=== PATIENT | male | born 1970 | race Caucasian/White ===

== ENCOUNTER 2016-06-08 16:40 | Inpatient (IN) | payer OTHER ==
[2016-06-08 16:46] VITALS: BMI 20.1
--- NOTE | 2016-06-08 17:00 | PDOC ---
History of Present Illness - General Chief Complaint: Revisit, Lab Variance Stated Complaint: PCP SENT/BLOODWORK Time Seen by Provider: 06/08/16 16:56 History Source: Patient Exam Limitations: No Limitations - History of Present Illness Initial Comments: 06/08/16 17:07 Patient is a 46 year old male with significant PMH of Pseudomyxoma Peritonei, LLE clot, anemia who presents to ED from Oncologist Dr Stuart's office for low hemoglobin. He feels close to baseline, but states he has been a little more lethargic than usual. He has some mild lower extremity claudication when exerting himself. He also notes some mild lightheadedness at time in last few weeks. Denies shortness of breath or chest pain. Past History - Travel Traveled outside of the country in the last 30 days: No Close contact w/someone who was outside of country & ill: No - Past Medical History Allergies/Adverse Reactions: Allergies Allergy/AdvReac Type Severity Reaction Status Date / Time No Known Allergies Allergy Verified 06/08/16 16:41 Home Medications: Ambulatory Orders Warfarin Na [Coumadin -] 4 mg PO DAILY 05/28/12 [place] Carbonate [Eskalith -] 900 mg PO HS 02/20/16 Olanzapine 10 mg PO DAILY 02/20/16 Venlafaxine HCl [Effexor -] 225 mg PO DAILY 02/20/16 Ondansetron [Zofran Odt -] 4 mg SL TID #21 od.tablet 04/14/16 Pantoprazole Sodium [Protonix -] 40 mg PO DAILY #30 tablet.ec 04/14/16 Anemia: Yes Asthma: No Cancer: Yes (STOMACH CA, 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) Cardiac Disorders: No CVA: No COPD: No CHF: No DVT: Yes (LLE BLOOD CLOT 5 YEARS AGO) Dementia: No Diabetes: No GI Disorders: Yes Disorders: Yes (CDIFF 2013) HTN: No Hypercholesterolemia: No Liver Disease: No Seizures: No Thyroid Disease: No - Surgical History Abdominal Surgery: Yes (spleenectomy) Appendectomy: Yes Cardiac Surgery: No Cholecystectomy: No GI Surgery: Yes (for stomach cancer--pnp) Lung Surgery: No Neurologic Surgery: No Orthopedic Surgery: No - Immunization History Immunization Up to Date: Yes - Psycho/Social/Smoking Cessation Hx Anxiety: Yes (STRONG ANXIETY) Suicidal Ideation: No Smoking Status: No Smoking History: Never smoked Have you smoked in the past 12 months: No Number of Cigarettes Smoked Daily: 0 Cigars Per Day: 0 Hx Alcohol Use: No (RARE) Drug/Substance Use Hx: No Substance Use Type: None Hx Substance Use Treatment: No Review of Systems - Review of Systems Able to Perform ROS?: Yes Is the patient limited French proficient: No Constitutional: Yes: Diaphoresis, Weakness All Other Systems: Reviewed and Negative *Physical Exam - Vital Signs Last Vital Signs Temp Pulse Resp BP Pulse Ox 98.5 F 80 16 122/66 100 06/08/16 16:41 06/08/16 16:41 06/08/16 16:41 06/08/16 16:41 06/08/16 16:41 - Physical Exam General Appearance: Yes: Nourished, Appropriately Dressed, Thin HEENT: positive: EOMI, MICHAEL, Pharynx Normal Neck: positive: Trachea midline, Normal Thyroid, Supple Respiratory/Chest: positive: Lungs Clear, Normal Breath Sounds Cardiovascular: positive: Regular Rhythm, Regular Rate, S1, S2 Gastrointestinal/Abdominal: positive: Normal Bowel Sounds, Flat, Soft Musculoskeletal: positive: Normal Inspection Extremity: positive: Normal Inspection, Normal Range of Motion Integumentary: positive: Normal Color, Dry, Warm 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 Will transfuse if needed, pending lab findings. 06/08/16 18:18 Hemoglobin 5.1. Will transfuse 3units PRBC. Will likely need admission for observation given bleeding/cancer history. 06/08/16 18:[address] Addison about pending admission. 06/08/16 18:[address] Addison who agrees to admission to med-surg. *DC/Admit/Observation/Transfer Diagnosis at time of Disposition: Anemia - Discharge Dispostion Admit: Yes
[2016-06-08 18:03] LABS: BASOPHIL 0.9 % (0-2.0); MCH 21.1 pg (25.7-33.7); MCHC 28.6 g/dl (32.0-35.9); MEAN PLT VOLUME 8.4 fl (7.5-11.1); NEUTROPHILS 69.4 % (42.8-82.8); PLATELET COUNT 838 K/MM3 (134-434); RDW 18.7 % (11.9-15.9); WHITE BLOOD COUNT 12.1 K/mm3 (4.0-10.0)
[2016-06-08 18:36] LABS: ALBUMIN 3.2 g/dl (3.4-5.0); ALK PHOS 76 U/L (45-117); ANION GAP 5 (8-16); BILIRUBIN,TOTAL 0.1 mg/dL (0.2-1.0); CALCIUM 9.1 mg/dL (8.5-10.1); CO2 28 mmol/L (21-32); CREATININE 0.9 mg/dL (0.7-1.3); GLUCOSE,RANDOM 80 mg/dL (74-106); SGOT/AST 8 U/L (15-37); SGPT/ALT 11 U/L (12-78); TOT PROT 6.5 g/dl (6.4-8.2)
[2016-06-08 19:07] LABS: INR 1.59 (0.82-1.09); PROTHROMBIN TIME (PATIENT) 17.6 SEC (9.98-11.88)
[2016-06-08 19:18] LABS: URINE APPEARANCE CLOUDY; URINE BILIRUBIN NEGATIVE (NEGATIVE); URINE BLOOD NEGATIVE (NEGATIVE); URINE COLOR LTYELLOW; URINE GLUCOSE (UA) NEGATIVE (NEGATIVE); URINE KETONE NEGATIVE (NEGATIVE); URINE LEUK ESTERASE NEGATIVE (NEGATIVE); URINE NITRITE NEGATIVE (NEGATIVE); URINE PROTEIN NEGATIVE (NEGATIVE); URINE UROBILINOGEN NEGATIVE E.U./dl (0.2-1.0)
[2016-06-08 20:54] LABS: PLATELET ESTIMATE MOD INCREASED (NORMAL)
[2016-06-08 20:56] LABS: HYPOCHROMIA 2+; POIKILOCYTOSIS 1+; POLYCHROMASIA 1+
[2016-06-08 20:57] LABS: OVALOCYTES 1+; TARGET CELLS 1+
[2016-06-09] MEDS ORDERED: ACETAMINOPHEN 325 MG TABLET (FP) PO PRN (05:11)
[2016-06-09 09:06] LABS: MCH 23.6 pg (25.7-33.7); MCHC 31.5 g/dl (32.0-35.9); MEAN CELL VOLUME 74.9 fl (80-96); MEAN PLT VOLUME 8.4 fl (7.5-11.1); PLATELET COUNT 694 K/MM3 (134-434); WHITE BLOOD COUNT 11.4 K/mm3 (4.0-10.0)
[2016-06-09 09:25] LABS: ALBUMIN 2.8 g/dl (3.4-5.0); ANION GAP 7 (8-16); CALCIUM 8.9 mg/dL (8.5-10.1); CO2 26 mmol/L (21-32); GLUCOSE,RANDOM 87 mg/dL (74-106)
[2016-06-09 09:27] LABS: ALK PHOS 73 U/L (45-117); BILIRUBIN,TOTAL 1.6 mg/dL (0.2-1.0); CREATININE 0.7 mg/dL (0.7-1.3); SGOT/AST 10 U/L (15-37); SGPT/ALT 11 U/L (12-78); TOT PROT 6.2 g/dl (6.4-8.2)
[2016-06-09 10:03] LABS: INR 1.73 (0.82-1.09); PROTHROMBIN TIME (PATIENT) 19.3 SEC (9.98-11.88)
--- NOTE | 2016-06-09 10:36 | EKG ---
Test Reason : Blood Pressure : / mmHG Vent. Rate : 088 BPM Atrial Rate : 088 BPM P-R Int : 162 ms QRS Dur : 086 ms QT Int : 382 ms P-R-T Axes : 062 043 060 degrees QTc Int : 462 ms SINUS RHYTHM WITH OCCASIONAL PREMATURE VENTRICULAR COMPLEXES POSSIBLE LEFT ATRIAL ENLARGEMENT BORDERLINE ECG WHEN COMPARED WITH ECG OF 22-FEB-2016 08:20, PREMATURE VENTRICULAR COMPLEXES ARE NOW PRESENT T WAVE INVERSION NOW EVIDENT IN ANTERIOR LEADS QT HAS LENGTHENED Confirmed by NESTOR ANGUIANO MD ([id number]) on 06/09/2016 10:35:47 AM Referred By: Confirmed By:NESTOR ANGUIANO MD
[2016-06-09] MEDS: VENLAFAXINE HCL 75 MG E.R. CAPSULES (FP) PO SCH (10:45)
[2016-06-09] MEDS: OLANZapine 10 MG TABLET PO SCH (10:45)
[2016-06-09] MEDS: PANTOPRAZOLE 40 MG TABLET (FP) PO SCH (10:45)
[2016-06-09] MEDS ORDERED: INFLUENZA VACCINE 45 MCG/0.5 ML (MDV 16-17) IM ONE (11:00)
[2016-06-09 11:58] LABS: HYPOCHROMIA 4+
[2016-06-09 11:59] LABS: ANISOCYTOSIS 2+; FRAGMENTED CELL 2+; MICROCYTOSIS 1+; OVALOCYTES 1+; POLYCHROMASIA 1+; TARGET CELLS 2+
[2016-06-09 12:00] LABS: POIKILOCYTOSIS 1+
--- NOTE | 2016-06-09 15:55 | HP ---
Admitting History and Physical - Admission History of Present Illness: 46 year old male with significant PMH of Pseudomyxoma Peritonei, LLE clot, anemia who presents to ED from Oncologist Dr Sutart's office for low hemoglobin. He feels close to baseline, but states he has been a little more lethargic than usual. He has some mild lower extremity claudication when exerting himself. He also notes some mild lightheadedness at time in last few weeks. Denies shortness of breath or chest pain. - Past Medical History Pulmonary: Yes: Pulmonary Embolus Gastrointestinal: Yes: Cancer (appendiceal cancer), Other (Intestinal obstruction.) Heme/Onc: Yes: Anemia Infectious Disease: Yes: C-Diff - Past Surgical History Past Surgical History: Yes: Colectomy, Colonoscopy - Smoking History Smoking history: Never smoked Have you smoked in the past 12 months: No Aproximately how many cigarettes per day: 0 - Alcohol/Substance Use Hx Alcohol Use: No (RARE) Home Medications - Allergies Allergies/Adverse Reactions: Allergies Allergy/AdvReac Type Severity Reaction Status Date / Time No Known Allergies Allergy Verified 06/08/16 16:41 - Home Medications Home Medications: Ambulatory Orders Warfarin Na [Coumadin -] 4 mg PO DAILY 05/28/12 [place] Carbonate [Eskalith -] 900 mg PO HS 02/20/16 Olanzapine 10 mg PO DAILY 02/20/16 Venlafaxine HCl [Effexor -] 225 mg PO DAILY 02/20/16 Ondansetron [Zofran Odt -] 4 mg SL TID #21 od.tablet 04/14/16 Pantoprazole Sodium [Protonix -] 40 mg PO DAILY #30 tablet.ec 04/14/16 Review of Systems - Review of Systems Constitutional: reports: Weakness Cardiovascular: denies: Chest Pain Respiratory: denies: SOB Gastrointestinal: denies: Abdominal Pain Physical Examination Vital Signs: Vital Signs Temperature 97.7 F 06/09/16 14:51 Pulse Rate 91 H 06/09/16 14:51 Respiratory Rate 18 06/09/16 14:51 Blood Pressure 117/69 06/09/16 14:51 O2 Sat by Pulse Oximetry (%) 100 06/09/16 09:00 Cardiovascular: Yes: Regular Rate and Rhythm Respiratory: Yes: Regular, CTA Bilaterally Gastrointestinal: Yes: Normal Bowel Sounds, Soft Labs: CBC, BMP 06/09/16 06:30 06/09/16 06:30 Problem List - Problems (1) Anemia Assessment/Plan: S/P PRBC FOLLOW CBC HEM AND GI Code(s): D64.9 - ANEMIA, UNSPECIFIED (2) Mucinous adenocarcinoma of appendix Assessment/Plan: PER ONC Code(s): C18.1 - MALIGNANT NEOPLASM OF APPENDIX (3) Pulmonary embolism Assessment/Plan: COUMADIN Code(s): I26.99 - OTHER PULMONARY EMBOLISM WITHOUT ACUTE COR PULMONALE
[2016-06-09] MEDS ORDERED: WARFARIN NA 5 MG TABLET (UD) PO ONE (18:00)
[2016-06-09] MEDS ORDERED: PT OWN MED DRAWER 7, Y5N ONE (21:33)
[2016-06-09] MEDS ORDERED: LITHIUM CARBONATE 450 MG TABLET.ER PO SCH (22:00)
--- NOTE | 2016-06-09 23:24 | CONSULT ---
Consult - text type - Consultation Consultation Note: Patient is a 46 year old male with significant PMH of Pseudomyxoma Peritonei, LLE clot, anemia who presents with low hemoglobin. He feels close to baseline, but states he has been a little more lethargic than usual. He has some mild lower extremity claudication when exerting himself. He also notes some mild lightheadedness at time in last few weeks. Denies shortness of breath or chest pain. Dnies activ bleeding/abdominal pain. no urinary symptoms Past History pseudomyxoma pritonii diagnosed 2008, s/p multiple surgeris at [facility]--last 02/13 received chemotx at [facility] originally Has been noncompliant with follow up. last seen by us once in 2014 Patient was reluctant to receive any therapy and has not followed since then Depression Allergies/Adverse Reactions: Allergies Allergy/AdvReac Type Severity Reaction Status Date / Time No Known Allergies Allergy Verified 06/08/16 16:41 Home Medications: Ambulatory Orders Warfarin Na [Coumadin -] 4 mg PO DAILY 05/28/12 [place] Carbonate [Eskalith -] 900 mg PO HS 02/20/16 Olanzapine 10 mg PO DAILY 02/20/16 Venlafaxine HCl [Effexor -] 225 mg PO DAILY 02/20/16 Ondansetron [Zofran Odt -] 4 mg SL TID #21 od.tablet 04/14/16 Pantoprazole Sodium [Protonix -] 40 mg PO DAILY #30 tablet.ec 04/14/16 - Psycho/Social/Smoking Cessation Hx Anxiety: Yes (STRONG ANXIETY) Smoking History: Never smoked *Physical Exam - Vital Signs Last Vital Signs Temp Pulse Resp BP Pulse Ox 99.0 F 92 H 20 105/64 100 06/09/16 17:30 06/09/16 17:30 06/09/16 17:30 06/09/16 17:30 06/09/16 09:00 - Physical Exam General Appearance: Yes: Nourished, Appropriately Dressed, Thin HEENT: positive: EOMI, MICHAEL, Pharynx Normal Neck: positive: Trachea midline, Normal Thyroid, Supple Respiratory/Chest: positive: Lungs Clear, Normal Breath Sounds Cardiovascular: positive: Regular Rhythm, Regular Rate, S1, S2 Gastrointestinal/Abdominal: positive: Normal Bowel Sounds, Flat, Soft.healed incision Abnormal Lab Results 06/08/16 06/09/16 06/09/16 17:50 06:30 06:30 WBC 11.4 H RBC 3.66 L D Hgb 8.6 L D Hct 27.4 L D MCV 74.9 L MCHC 31.5 L RDW 17.0 H Plt Count 694 H Eosinophils % 5.0 H D Nucleated RBCs 1 H INR Anion Gap 7 L Total Bilirubin 1.6 H D AST 10 L D ALT 11 L Total Protein 6.2 L Albumin 2.8 L Crossmatch See Detail 06/09/16 09:00 WBC RBC Hgb Hct MCV MCHC RDW Plt Count Eosinophils % Nucleated RBCs INR 1.73 H Anion Gap Total Bilirubin AST ALT Total Protein Albumin Crossmatch A/P 46 y/o patiet with pseudmyxoma peritonei diagnosed 2008, s/p several resections , last in 02/13. Had received FOLFOX chemotherapy at [facility] originally. Gaetano was seen twice in our office and has not followed up since 2014 with us. He was seen on 06/07 and routine lab work revealed severe anemia Transfused 3 units Will transfuse additional unit if Hgb < 9 in am gi f/u no active bleesing Will get records from [facility] and decide on further course. Discussed the need for f/ose f/u and treatment wwith patient. PET-CT schedules d for next week will get palliative care and Dr. Pernell chavez
--- NOTE | 2016-06-10 08:07 | CON.GI ---
Consult Consult Specialty:: gastroenterology Referred by:: Dr Addison - History of Present Illness Chief Complaint: aanemia History of Present Illness: Patient was lost in follow-up. Patient was admitted because of severe anemia. He continues to have diarrhea. He denies dysphagia, abdominal pain, nausea and vomiting. He feels better after the blood transfusion. No chest pain, no loss of consciousness. EGD in 2014 revealed large gastric and duodenal ulcer, colonoscopy revealed a short colon with multiple anastomotic sites. Dx to pseudomyxoma peritonea May 2008--@ [facility]--appendectomy and spleenectomy and received chemotheraphy, 2011 and 2012 developed SBO , July 2013 underwent partial gastrectomy, colon resection and removal impanted lesions in bladder and peritoenum,pt lost i follow-up did not show up twice. He is persistently anemia, denies rectal bleedin, no weight loss , intermittent nausea. Medication list reviewed. Nausea intermittently Periumbilical pain Which feels crampy/colicky Which feels sharp for 3 weeks Diarrhea mostly every morning about 2-3 times a day, Positive for C.Diff on 11/27/13, not awaken during sleep- no relief after treatment of flagyl, Within a month of abdominal surgery pt was admitted at [facility] 12/07/13 for partial small bowel obstruction. pt was treated conservatively and was discharged with less abdominal pain and less diarrhea. At home pt developed recurrent diarrhea probably due to diet vs C.diff. Repeat C.diff was negative on 12/08/13 Appetite not decreased No vomiting No melena No hematochezia No diarrhea after taking antibiotics Not after travelling No constipation No recent weight loss No previous history of palpitations No dysuria - History Source History Provided By: Patient - Past Medical History Pulmonary: Yes: Pulmonary Embolus Gastrointestinal: Yes: Cancer (appendiceal cancer), Other (Intestinal obstruction.) Infectious Disease: Yes: C-Diff - Past Surgical History Past Surgical History: Yes: Colectomy, Colonoscopy - Alcohol/Substance Use Hx Alcohol Use: No (RARE) - Smoking History Smoking history: Never smoked Have you smoked in the past 12 months: No Aproximately how many cigarettes per day: 0 Home Medications - Allergies Allergies/Adverse Reactions: Allergies Allergy/AdvReac Type Severity Reaction Status Date / Time No Known Allergies Allergy Verified 06/08/16 16:41 - Home Medications Home Medications: Ambulatory Orders Warfarin Na [Coumadin -] 4 mg PO DAILY 05/28/12 [place] Carbonate [Eskalith -] 900 mg PO HS 02/20/16 Olanzapine 10 mg PO DAILY 02/20/16 Venlafaxine HCl [Effexor -] 225 mg PO DAILY 02/20/16 Ondansetron [Zofran Odt -] 4 mg SL TID #21 od.tablet 04/14/16 Pantoprazole Sodium [Protonix -] 40 mg PO DAILY #30 tablet.ec 04/14/16 Review of Systems - Review of Systems Constitutional: denies: Fever HENT: denies: Difficult Swallowing Neck: denies: Decreased ROM Cardiovascular: denies: Chest Pain Respiratory: denies: Cough Gastrointestinal: reports: Diarrhea. denies: Abdominal Pain, Constipation, Dysphagia, Rectal Bleeding, Vomiting Physical Exam-GI Vital Signs: Vital Signs Temperature 98.6 F 06/10/16 06:00 Pulse Rate 70 06/10/16 06:00 Respiratory Rate 20 06/10/16 06:00 Blood Pressure 96/61 06/10/16 06:00 O2 Sat by Pulse Oximetry (%) 100 06/09/16 21:00 Constitutional: Yes: No Distress Eyes: Yes: Conjunctiva Clear HENT: Yes: Atraumatic Neck: Yes: Trachea Midline Cardiovascular: Yes: Regular Rate and Rhythm Respiratory: Yes: CTA Bilaterally ...Palpate: Yes: Soft. No: Firm/Rigid, Guarding, Hepatomegaly, Mass, Pulsatile Mass, Splenomegaly, Tenderness Labs: CBC, BMP 06/09/16 06:30 06/09/16 06:30 INR, PTT INR 1.73 (0.82-1.09) H 06/09/16 09:00 Hepatic Panel Total Bilirubin 1.6 mg/dL (0.2-1.0) H D 06/09/16 06:30 AST 10 U/L (15-37) L D 06/09/16 06:30 ALT 11 U/L (12-78) L 06/09/16 06:30 Alkaline Phosphatase 73 U/L (45-117) 06/09/16 06:30 Albumin 2.8 g/dl (3.4-5.0) L 06/09/16 06:30 Problem List - Problems (1) Anemia Assessment/Plan: r/o occult gi bleeding, remote history of gastric and duodenal ulcer R> made aware to follow-up will need repeat EGD as an out patient Protonix 40mg daily stool guaiac Code(s): D64.9 - ANEMIA, UNSPECIFIED (2) 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 - SECONDARY MALIGNANT NEOPLASM OF RETROPERITON AND PERITONEUM (3) Diarrhea Code(s): R19.7 - DIARRHEA, UNSPECIFIED
--- NOTE | 2016-06-10 08:36 | DS ---
Physical Examination Vital Signs: Vital Signs Temperature 98.6 F 06/10/16 06:00 Pulse Rate 70 06/10/16 06:00 Respiratory Rate 20 06/10/16 06:00 Blood Pressure 96/61 06/10/16 06:00 O2 Sat by Pulse Oximetry (%) 100 06/09/16 21:00 Cardiovascular: Yes: Regular Rate and Rhythm Respiratory: Yes: Regular, CTA Bilaterally Gastrointestinal: Yes: Normal Bowel Sounds, Soft Labs: CBC, BMP 06/09/16 06:30 06/09/16 06:30 Discharge Summary Reason For Visit: ANEMIA/PSEUDOMYXOMA Current Active Problems Anemia (Acute) C. difficile colitis (Acute) Diarrhea (Acute) Leukocytosis (Acute) Malignant pseudomyxoma peritonei (Acute) Sepsis (Acute) Hospital Course: - Problems (1) Anemia Assessment/Plan: S/P PRBC FOLLOW CBC HEM AND GI Code(s): D64.9 - ANEMIA, UNSPECIFIED (2) Mucinous adenocarcinoma of appendix Assessment/Plan: PER ONC Code(s): C18.1 - MALIGNANT NEOPLASM OF APPENDIX (3) Pulmonary embolism Assessment/Plan: COUMADIN Code(s): I26.99 - OTHER PULMONARY EMBOLISM WITHOUT ACUTE COR PULMONALE - Instructions Diet, Activity, Other Instructions: Follow up with your MD as advised Referrals: Yuliana Addison MD [Primary Care Provider] - 1 Week Sade Estevez MD [Staff Physician] - 1 Week - Home Medications Comprehensive Discharge Medication List: Ambulatory Orders Warfarin Na [Coumadin -] 4 mg PO DAILY 05/28/12 [place] Carbonate [Eskalith -] 900 mg PO HS 02/20/16 Olanzapine 10 mg PO DAILY 02/20/16 Venlafaxine HCl [Effexor -] 225 mg PO DAILY 02/20/16 Ondansetron [Zofran Odt -] 4 mg SL TID #21 od.tablet 04/14/16 Pantoprazole Sodium [Protonix -] 40 mg PO DAILY #30 tablet.ec 04/14/16
[2016-06-10 08:57] LABS: MCH 23.7 pg (25.7-33.7); MCHC 31.5 g/dl (32.0-35.9); MEAN CELL VOLUME 75.3 fl (80-96); PLATELET COUNT 687 K/MM3 (134-434); RDW 17.2 % (11.9-15.9); WHITE BLOOD COUNT 9.6 K/mm3 (4.0-10.0)
[2016-06-10 09:11] LABS: INR 1.61 (0.82-1.09); PROTHROMBIN TIME (PATIENT) 17.9 SEC (9.98-11.88)
[2016-06-10 09:21] LABS: ANION GAP 8 (8-16); CALCIUM 8.8 mg/dL (8.5-10.1); CO2 24 mmol/L (21-32); CREATININE 0.6 mg/dL (0.7-1.3); GLUCOSE,RANDOM 74 mg/dL (74-106); SGOT/AST 10 U/L (15-37); SGPT/ALT 12 U/L (12-78)
[2016-06-10 09:23] LABS: ALK PHOS 82 U/L (45-117); BILIRUBIN,TOTAL 0.3 mg/dL (0.2-1.0); TOT PROT 6.3 g/dl (6.4-8.2)
[2016-06-10] MEDS ORDERED: PT OWN MED DRAWER 7, Y5N ONE (09:41)
[2016-06-10] MEDS: OLANZapine 10 MG TABLET PO SCH (09:42)
[2016-06-10] MEDS: PANTOPRAZOLE 40 MG TABLET (FP) PO SCH (09:42)
[2016-06-10] MEDS: VENLAFAXINE HCL 75 MG E.R. CAPSULES (FP) PO SCH (09:42)
[2016-06-10 09:52] LABS: PLATELET ESTIMATE INCREASED (NORMAL)
[2016-06-10 12:58] VITALS: BP 100/63; PULSE 84; TEMP 98.4
== END 2016-06-10 11:08 | disposition home or self-care (01) | DRG 812 ==
LOC: JER 16:40 → JERBED 19:09 → J8W 06-09 00:11
PROVIDERS: ADMIT Family Medicine; ATTEND Family Medicine
PROC: 30233N1 Transfusion of Nonautologous Red Blood Cells into Peripheral Vein, Percutaneous Approach (ICD-10-PCS; principal; 2016-06-08)
DX: D64.9 Anemia, unspecified (principal); F41.9 Anxiety disorder, unspecified; R19.7 Diarrhea, unspecified; Z85.89 Personal history of malignant neoplasm of other organs and systems; Z86.711 Personal history of pulmonary embolism
CPT/HCPCS: 36415; 36430; 80053; 81003; 82272; 85025; 85610; 86850; 86900; 86901; 86922; 93005; 93010; 99285-25; G0008; P9058; Q2037

== ENCOUNTER 2016-07-03 04:47 | Inpatient (IN) | payer OTHER ==
[2016-07-03 05:07] VITALS: BMI 18.3
[2016-07-03] MEDS ORDERED: PANTOPRAZOLE SODIUM 80 MG in SODIUM CHLORIDE 100 ML IVPB ONE (05:12)
--- NOTE | 2016-07-03 05:12 | PDOC ---
History of Present Illness - General History Source: Patient Exam Limitations: No Limitations - History of Present Illness Initial Comments: 07/03/16 05:43 The patient is a 46 year old male with a PMHx of pseudomyxoma peritonei, anemia , splenectomy, colectomy who presents to the ED via EMS with multiple episodes of coffee ground vomiting. Patient states that he has been losing weight for the past few months due to vomiting. He is unable to keep food down. He reports associated weakness. He denies black stool, bloody stool, diarrhea. He denies fever, chills. He denies chest pain, SOB. PCP: Dr. Yuliana Addison Thermal Spray Operator: Dr. Mitchell Rodriguez Oncologist: Dr. Sade Estevez <Corie Burrows - Last Filed: 07/03/16 05:43> <Tata Summers - Last Filed: 07/03/16 06:19> - General Chief Complaint: Coffee Ground Emesis Stated Complaint: NAUSEA, VOMITING Time Seen by Provider: 07/03/16 05:10 Past History <Corie Burrows - Last Filed: 07/03/16 05:43> - Past Medical History Anemia: Yes Asthma: No Cancer: Yes (APPENDICEAL CA, 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) Cardiac Disorders: No CVA: No COPD: No CHF: No DVT: Yes (LLE BLOOD CLOT 5 YEARS AGO) Dementia: No Diabetes: No GI Disorders: Yes (C-DIFF 2013) Disorders: Yes (CDIFF 2013) HTN: No Hypercholesterolemia: No Liver Disease: No Seizures: No Thyroid Disease: No - Surgical History Abdominal Surgery: Yes (spleenectomy, COLECTOMY, COLONSCOPY) Appendectomy: Yes Cardiac Surgery: No Cholecystectomy: No GI Surgery: Yes (for stomach cancer--pnp) Lung Surgery: No Neurologic Surgery: No Orthopedic Surgery: No - Immunization History Immunization Up to Date: Yes - Psycho/Social/Smoking Cessation Hx Anxiety: Yes (STRONG ANXIETY) Suicidal Ideation: No Smoking Status: No Smoking History: Never smoked Have you smoked in the past 12 months: No Number of Cigarettes Smoked Daily: 0 Cigars Per Day: 0 Hx Alcohol Use: No Drug/Substance Use Hx: No Substance Use Type: None Hx Substance Use Treatment: No <Tata Summers - Last Filed: 07/03/16 06:19> - Past Medical History Allergies/Adverse Reactions: Allergies Allergy/AdvReac Type Severity Reaction Status Date / Time No Known Allergies Allergy Verified 06/08/16 16:41 Home Medications: Ambulatory Orders Warfarin Na [Coumadin -] 4 mg PO DAILY 05/28/12 [place] Carbonate [Eskalith -] 900 mg PO HS 02/20/16 Venlafaxine HCl [Effexor -] 225 mg PO DAILY 02/20/16 Ondansetron [Zofran Odt -] 4 mg SL TID #21 od.tablet 04/14/16 Pantoprazole Sodium [Protonix -] 40 mg PO DAILY #30 tablet.ec 04/14/16 Review of Systems - Review of Systems Comments:: 07/03/16 05:43 GENERAL/CONSTITUTIONAL: + weakness. No fever or chills. HEAD, EYES, EARS, NOSE AND THROAT: No change in vision. No ear pain or discharge. No sore throat. CARDIOVASCULAR: No chest pain or shortness of breath. RESPIRATORY: No cough, wheezing, or hemoptysis. GASTROINTESTINAL: + nausea, vomiting, No diarrhea or constipation. GENITOURINARY: No dysuria, frequency, or change in urination. MUSCULOSKELETAL: No joint or muscle swelling or pain. No neck or back pain. SKIN: No rash NEUROLOGIC: No headache, vertigo, loss of consciousness, or change in strength/ sensation. ENDOCRINE: No increased thirst. No abnormal weight change. HEMATOLOGIC/LYMPHATIC: No anemia, easy bleeding, or history of blood clots. ALLERGIC/IMMUNOLOGIC: No hives or skin allergy. <Corie Burrows - Last Filed: 07/03/16 05:43> *Physical Exam - Vital Signs Last Vital Signs Temp Pulse Resp BP Pulse Ox 98.7 F 94 H 20 108/66 98 07/03/16 05:04 07/03/16 05:04 07/03/16 05:04 07/03/16 05:04 07/03/16 05:07 - Physical Exam Comments: 07/03/16 05:43 GENERAL: Awake, alert, and fully oriented, pale, thin. HEAD: No signs of trauma EYES: PERRLA, EOMI, sclera anicteric, conjunctiva clear ENT: Auricles normal inspection, hearing grossly normal, nares patent, oropharynx clear without exudates. Moist mucosa NECK: Normal ROM, supple, no lymphadenopathy, JVD, or masses LUNGS: Breath sounds equal, clear to auscultation bilaterally. No wheezes, and no crackles HEART: Tachycardic rate and regular rhythm, normal S1 and S2, no murmurs, rubs or gallops ABDOMEN: Mid abdominal scar from prior surgery (xiphoid to suprapubic). Soft, nontender, normoactive bowel sounds. No guarding, no rebound. No masses EXTREMITIES: Normal range of motion, no edema. No clubbing or cyanosis. No cords, erythema, or tenderness NEUROLOGICAL: Cranial nerves II through XII grossly intact. Normal speech, normal gait SKIN: Warm, Dry, normal turgor, no rashes or lesions noted. <Corie Burrows - Last Filed: 07/03/16 05:43> - Vital Signs Last Vital Signs Temp Pulse Resp BP Pulse Ox 98.7 F 94 H 20 108/66 98 07/03/16 05:04 07/03/16 05:04 07/03/16 05:04 07/03/16 05:04 07/03/16 05:07 <Tata Summers - Last Filed: 07/03/16 06:19> ED Treatment Course - LABORATORY CBC & Chemistry Diagram: 07/03/16 05:20 07/03/16 05:20 - Medications Given in the ED: ED Medications Discontinued Medications Generic Name Dose Route Start Last Admin Trade Name Freq PRN Reason Stop Dose Admin Pantoprazole Sodium 80 mg/ 100 mls @ 200 mls/hr 07/03/16 05:12 07/03/16 05:33 Sodium Chloride IVPB 07/03/16 05:41 200 mls/hr ONCE ONE Administration <Corie Burrows - Last Filed: 07/03/16 05:43> - LABORATORY CBC & Chemistry Diagram: 07/03/16 05:20 07/03/16 05:20 <Tata Summers - Last Filed: 07/03/16 06:19> Medical Decision Making - Medical Decision Making 07/03/16 06:13 Pt comes with vomting and weight loss and generalized weakness. He states that he is unable to eat and keep food down. Pt is tachycardic. He has no bloody stools or bloody vomitius. He has a history of pseudotumor peritomeii, with appendectomy, splenectomy and partial gastrectomy. Pt has had DVTs in the past and he is on coumadin. His INR is 8 and he will be given Vit K IV. He is A+Ox3 with a normal neuro exam, and I am not worried about a bleed in the brain, so I will not order a head CT. If he has mental status change, head CT needs to be considered. Pt has a soft NT, ND abd and flank. No need for CT abd pelvis. Pt's CXR is clear. His WBC is 16; unclear if it is just stress reaction. Dr. Tripp aware of the patient, he is covering for Dr. Addison. <Tata Summers - Last Filed: 07/03/16 06:19> *DC/Admit/Observation/Transfer - Attestations Scribe Attestion: 07/03/16 05:44 Documentation prepared by Corie Burrows, acting as medical reception for Tata Summers MD. <Corie Burrows - Last Filed: 07/03/16 05:43> - Discharge Dispostion Admit: Yes <Tata Summers - Last Filed: 07/03/16 06:19> Diagnosis at time of Disposition: Elevated international normalized ratio (INR), Dehydration, Vomiting, Weight loss, Weakness, Anemia - Discharge Dispostion Condition at time of disposition: Guarded - Referrals Referrals: Yuliana Addison MD [Primary Care Provider] -
[2016-07-03] MEDS ORDERED: PANTOPRAZOLE SODIUM 40 MG VIAL ONE (05:26)
[2016-07-03 05:29] LABS: BASOPHIL 0.4 % (0-2.0); EOSINOPHIL 0.2 % (0-4.5); MCH 23.2 pg (25.7-33.7); MCHC 31.7 g/dl (32.0-35.9); MEAN CELL VOLUME 73.4 fl (80-96); MEAN PLT VOLUME 8.3 fl (7.5-11.1); NEUTROPHILS 81.1 % (42.8-82.8); PLATELET COUNT 730 K/MM3 (134-434); RDW 20.5 % (11.9-15.9); WHITE BLOOD COUNT 16.2 K/mm3 (4.0-10.0)
[2016-07-03] MEDS ORDERED: FOLIC ACID INJECTION - 1 MG, THIAMINE HCL 100 MG, MULTIVIT INJECTION ADULT 10 ML in SOD... IVPB ONE (05:33)
[2016-07-03] MEDS ORDERED: SODIUM CHLORIDE 0.9% 500 ML INFUS.BAG IV ONE (05:34)
[2016-07-03 05:41] LABS: PROTHROMBIN TIME (PATIENT) 92.1 SEC (9.98-11.88)
[2016-07-03 05:47] LABS: INR 8.02 (0.82-1.09)
[2016-07-03 05:50] LABS: ALBUMIN 3.5 g/dl (3.4-5.0); ALK PHOS 96 U/L (45-117); ANION GAP 7 (8-16); BILIRUBIN,TOTAL 0.3 mg/dL (0.2-1.0); CALCIUM 9.8 mg/dL (8.5-10.1); CO2 42 mmol/L (21-32); CREATININE 1.1 mg/dL (0.7-1.3); GLUCOSE,RANDOM 175 mg/dL (74-106); SGOT/AST 8 U/L (15-37); SGPT/ALT 12 U/L (12-78); TOT PROT 7.1 g/dl (6.4-8.2)
[2016-07-03] MEDS ORDERED: PHYTONADIONE 10 MG/1 ML AMP IVPB ONE (05:53)
[2016-07-03] MEDS ORDERED: PHYTONADIONE 10 MG/1 ML AMP ONE (05:57)
[2016-07-03] MEDS ORDERED: ONDANSETRON *ODT* 4 MG TABLET SL PRN (08:22)
[2016-07-03] MEDS ORDERED: ACETAMINOPHEN 325 MG TABLET (FP) PO PRN (08:22)
[2016-07-03] MEDS ORDERED: PT OWN MED DRAWER 7, Y5N ONE ×3 (09:20→21:20)
[2016-07-03 09:56] LABS: INR 2.88 (0.82-1.09); PROTHROMBIN TIME (PATIENT) 32.4 SEC (9.98-11.88)
[2016-07-03] MEDS ORDERED: PANTOPRAZOLE 40 MG TABLET (FP) PO SCH (10:00)
--- NOTE | 2016-07-03 10:32 | HP ---
Admitting History and Physical - Primary Care Physician PCP: Yuliana Addison - Admission Chief Complaint: COFFEE GROUND VOMIT/INR 8.0 AND HIGHER History of Present Illness: The patient is a 46 year old male with a PMHx of pseudomyxoma peritonei, anemia , splenectomy, colectomy who presents to the ED via EMS with multiple episodes of coffee ground vomiting. Patient states that he has been losing weight for the past few months due to vomiting. He is unable to keep food down. He reports associated weakness. He denies black stool, bloody stool, diarrhea. He denies fever, chills. He denies chest pain, SOB. PCP: Dr. Yuliana Addison Senior Linux Engineer: Dr. Mitchell Rodriguez Oncologist: Dr. Sade Estevez History Source: Patient Limitations to Obtaining History: No Limitations - Past Medical History Pulmonary: Yes: Pulmonary Embolus Gastrointestinal: Yes: Cancer (appendiceal cancer), Other (Intestinal obstruction.) Heme/Onc: Yes: Anemia, Cancer, Other Infectious Disease: Yes: C-Diff - Past Surgical History Past Surgical History: Yes: Colectomy, Colonoscopy - Smoking History Smoking history: Never smoked Have you smoked in the past 12 months: No Aproximately how many cigarettes per day: 0 - Alcohol/Substance Use Hx Alcohol Use: No Home Medications - Allergies Allergies/Adverse Reactions: Allergies Allergy/AdvReac Type Severity Reaction Status Date / Time No Known Allergies Allergy Verified 06/08/16 16:41 - Home Medications Home Medications: Ambulatory Orders Warfarin Na [Coumadin -] 4 mg PO DAILY 05/28/12 [place] Carbonate [Eskalith -] 900 mg PO HS 02/20/16 Venlafaxine HCl [Effexor -] 225 mg PO DAILY 02/20/16 Ondansetron [Zofran Odt -] 4 mg SL TID #21 od.tablet 04/14/16 Pantoprazole Sodium [Protonix -] 40 mg PO DAILY #30 tablet.ec 04/14/16 Review of Systems - Review of Systems Constitutional: reports: Weakness Eyes: reports: No Symptoms HENT: reports: No Symptoms Neck: reports: No Symptoms Cardiovascular: reports: No Symptoms Respiratory: reports: No Symptoms Gastrointestinal: reports: Vomiting, Other Genitourinary: reports: No Symptoms Musculoskeletal: reports: No Symptoms Integumentary: reports: No Symptoms Neurological: reports: No Symptoms Endocrine: reports: No Symptoms Hematology/Lymphatic: reports: No Symptoms Psychiatric: reports: No Symptoms Physical Examination Vital Signs: Vital Signs Temperature 98.7 F 07/03/16 05:04 Pulse Rate 94 H 07/03/16 05:04 Respiratory Rate 20 07/03/16 05:04 Blood Pressure 108/66 07/03/16 05:04 O2 Sat by Pulse Oximetry (%) 98 07/03/16 05:07 Constitutional: Yes: Mild Distress Eyes: Yes: WNL HENT: Yes: WNL Neck: Yes: WNL Cardiovascular: Yes: WNL Respiratory: Yes: WNL Gastrointestinal: Yes: WNL Renal/: Yes: WNL Musculoskeletal: Yes: WNL Extremities: Yes: WNL Edema: No Peripheral Pulses WNL: Yes Integumentary: Yes: WNL Wound/Incision: Yes: Clean/Dry Neurological: Yes: WNL ...Motor Strength: WNL Psychiatric: Yes: WNL Problem List - Problems (1) Anemia Code(s): D64.9 - ANEMIA, UNSPECIFIED Qualifiers: Other causes of anemia: chronic disease, other (2) Dehydration Code(s): E86.0 - DEHYDRATION (3) Elevated INR Code(s): R79.1 - ABNORMAL COAGULATION PROFILE (4) Generalized weakness Code(s): R53.1 - WEAKNESS (5) Leukocytosis Code(s): D72.829 - ELEVATED WHITE BLOOD CELL COUNT, UNSPECIFIED (6) Vomiting Code(s): R11.10 - VOMITING, UNSPECIFIED Qualifiers: Vomiting Intractability: unspecified Nausea presence: with nausea (7) Weight loss Code(s): R63.4 - ABNORMAL WEIGHT LOSS Assessment/Plan COUMADIN ON HOLD GI AND HEMATOLOGY EVAL IVF CHECK LABS NEURO CHECKS FOR INR ELEVATION ANTI-EMETICS FOR NAUSEA CLEAR DIET FOR NOW
[2016-07-03] MEDS ORDERED: ONDANSETRON 4 MG/2 ML VIAL IVPB PRN (10:36)
--- NOTE | 2016-07-03 10:36 | PN ---
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 (short form) - Note 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: ADDENDUM CHANGE TO CLEAR LIQUID DIET GI EVAL FOR EGD IN MORNING PROTONIX IV BID ZOFRAN IV AND SL IVF Problem List - Problems (1) Anemia Code(s): D64.9 - ANEMIA, UNSPECIFIED Qualifiers: Other causes of anemia: chronic disease, other (2) Dehydration Code(s): E86.0 - DEHYDRATION (3) Elevated INR Code(s): R79.1 - ABNORMAL COAGULATION PROFILE (4) Generalized weakness Code(s): R53.1 - WEAKNESS (5) Leukocytosis Code(s): D72.829 - ELEVATED WHITE BLOOD CELL COUNT, UNSPECIFIED (6) Vomiting Code(s): R11.10 - VOMITING, UNSPECIFIED Qualifiers: Vomiting Intractability: unspecified Nausea presence: with nausea (7) Weight loss Code(s): R63.4 - ABNORMAL WEIGHT LOSS
[2016-07-03] MEDS: VENLAFAXINE HCL 75 MG E.R. CAPSULES (FP) PO SCH (10:42)
--- NOTE | 2016-07-03 13:26 | CONSULT ---
Consult - text type - Consultation Consultation Note: ONCOLOGY NOTE - Primary Care Physician PCP: Yuliana Addison - Admission Chief Complaint: COFFEE GROUND VOMIT/INR 8.0 AND HIGHER History of Present Illness: 46 yr old male here with nausea, vomitting and ? coffee ground emesis. He has had pseudomyxoma peritonei since 2009 and has had 4 surgeries removing them the last one in 2016. He also had chemotherapy for the same in 2013. His primary surgeon is in [place] and he gets regular screening CT scan. For the past few weeks he has been losing weight with nausea and vomitting. This worsened over the last few days that yesterday when he tried to drop his he couldnt even pick himself from the floor. Hence he came here. He is very stressed from his cancer and that he is sometimes unable to do things for himself. He does not drink and he is surprised why his INR went as high as 8. He is on coumadin for a prior DVT PCP: Dr. Yuliana Addison Major Assembler: Dr. Mitchell Rodriguez Oncologist: Dr. Sade Estevez History Source: Patient Limitations to Obtaining History: No Limitations - Past Medical History Pulmonary: Yes: Pulmonary Embolus Gastrointestinal: Yes: Cancer (appendiceal cancer), Other (Intestinal obstruction.) Heme/Onc: Yes: Anemia, Cancer, Other Infectious Disease: Yes: C-Diff - Past Surgical History Past Surgical History: Yes: Colectomy, Colonoscopy - Smoking History Smoking history: Never smoked Have you smoked in the past 12 months: No Aproximately how many cigarettes per day: 0 - Alcohol/Substance Use Hx Alcohol Use: No Home Medications - Allergies Allergies/Adverse Reactions: Allergies Allergy/AdvReac Type Severity Reaction Status Date / Time No Known Allergies Allergy Verified 06/08/16 16:41 - Home Medications Home Medications: Ambulatory Orders Warfarin Na [Coumadin -] 4 mg PO DAILY 05/28/12 [place] Carbonate [Eskalith -] 900 mg PO HS 02/20/16 Venlafaxine HCl [Effexor -] 225 mg PO DAILY 02/20/16 Ondansetron [Zofran Odt -] 4 mg SL TID #21 od.tablet 04/14/16 Pantoprazole Sodium [Protonix -] 40 mg PO DAILY #30 tablet.ec 04/14/16 Review of Systems - Review of Systems Constitutional: reports: Weakness Eyes: reports: No Symptoms HENT: reports: No Symptoms Neck: reports: No Symptoms Cardiovascular: reports: No Symptoms Respiratory: reports: No Symptoms Gastrointestinal: reports: Vomiting, Other Genitourinary: reports: No Symptoms Musculoskeletal: reports: No Symptoms Integumentary: reports: No Symptoms Neurological: reports: No Symptoms Endocrine: reports: No Symptoms Hematology/Lymphatic: reports: No Symptoms Psychiatric: reports: No Symptoms Active Medications Generic Name Dose Route Start Last Admin Trade Name Freq PRN Reason Stop Dose Admin Acetaminophen 650 mg 07/03/16 08:22 Tylenol - PO Q6H PRN FEVER OR PAIN Folic Acid 1 mg/ Thiamine HCl 1,000 mls @ 125 mls/hr 07/03/16 05:33 07/03/16 09 :21 100 mg/ Multivitamins/Minerals IVPB 07/03/16 13:32 125 mls/hr 10 ml/ Sodium Chloride ONCE ONE Administration Pantoprazole Sodium 100 mls @ 200 mls/hr 07/03/16 22:00 Protonix 40mg Ivpb (Pre-Docked) IVPB BID IZABELLA [place] Carbonate 900 mg 07/03/16 22:00 Eskalith - PO HS IZABELLA Ondansetron HCl 8 mg 07/03/16 10:36 Zofran Injection IVPB Q6H PRN NAUSEA Venlafaxine HCl 225 mg 07/03/16 10:00 07/03/16 10:42 Effexor Xr - PO 225 mg DAILY IZABELLA Administration Physical Examination Vital Signs: Vital Signs Period Temp Pulse Resp BP Sys/Conte Pulse Ox Last 24 Hr 98 F-98.7 F 90-94 18-20 108-114/62-66 98-100 Constitutional: Yes: Mild Distress Eyes: Yes: WNL HENT: Yes: WNL Neck: Yes: WNL Cardiovascular: Yes: WNL Respiratory: Yes: WNL Gastrointestinal: Yes: WNL Renal/: Yes: WNL Musculoskeletal: Yes: WNL Extremities: Yes: WNL Edema: No Peripheral Pulses WNL: Yes Integumentary: Yes: WNL Neurological: Yes: WNL ...Motor Strength: WNL Psychiatric: Yes: WNL Abdomen- midline scar present Problem List 46 yr old with psuedomyxoma peritonei and here with nausea, vomitting and a high INR -Needs CT A/P -He feels better after the IV fluids -It is likely that his pain is form his recurrent surgeries due to adhesions or form a recurrence of pseudomyxoma - agree with GI eval -INR now better at 2.8 and is therapeutic -Hold coumadin for now as he can be potentially going to procedures if needed in the next day or so. - Problems (1) Anemia Code(s): D64.9 - ANEMIA, UNSPECIFIED Qualifiers: Other causes of anemia: chronic disease, other (2) Dehydration Code(s): E86.0 - DEHYDRATION (3) Elevated INR Code(s): R79.1 - ABNORMAL COAGULATION PROFILE (4) Generalized weakness Code(s): R53.1 - WEAKNESS (5) Leukocytosis Code(s): D72.829 - ELEVATED WHITE BLOOD CELL COUNT, UNSPECIFIED (6) Vomiting Code(s): R11.10 - VOMITING, UNSPECIFIED Qualifiers: Vomiting Intractability: unspecified Nausea presence: with nausea (7) Weight loss Code(s): R63.4 - ABNORMAL WEIGHT LOSS
--- NOTE | 2016-07-03 17:48 | CON.GI ---
Consult Consult Specialty:: GI Referred by:: Dr Addison Reason for Consultation:: chronic vomiting - History of Present Illness Chief Complaint: chronic vomiting History of Present Illness: 46 M with h/o pseudomyxoma peritoneii, anemia, s/p splenectomy, year old male with a PMHx of pseudomyxoma peritonei, anemia, splenectomy, colectomy who presents to the ED via EMS with multiple episodes of coffee ground vomiting. Patient states that he has been losing weight (30 lbs in past few months) He states he became profoundly weak on the day of admission and needed to be carried to the ambulance stretcher due to muscle weakness. Since admission, he has received a banana bag and states he feels much better. He is now tolerating a small amount of po. He is very anemic with Hgb 7.7 but he was admitted this past January and June with Hgb of 5. He is profoundly depressed and states suicide attempt this past summer. He is under psychiatric care at this time and is on high dose Effexor and [place]. - History Source History Provided By: Patient, Medical Record Limitations to Obtaining History: No Limitations - Past Medical History Pulmonary: Yes: Pulmonary Embolus Gastrointestinal: Yes: Cancer (appendiceal cancer), Other (Intestinal obstruction.) Infectious Disease: Yes: C-Diff - Past Surgical History Past Surgical History: Yes: Colectomy, Colonoscopy - Alcohol/Substance Use Hx Alcohol Use: No - Smoking History Smoking history: Never smoked Have you smoked in the past 12 months: No Aproximately how many cigarettes per day: 0 Home Medications - Allergies Allergies/Adverse Reactions: Allergies Allergy/AdvReac Type Severity Reaction Status Date / Time No Known Allergies Allergy Verified 06/08/16 16:41 - Home Medications Home Medications: Ambulatory Orders Warfarin Na [Coumadin -] 4 mg PO DAILY 05/28/12 [place] Carbonate [Eskalith -] 900 mg PO HS 02/20/16 Venlafaxine HCl [Effexor -] 225 mg PO DAILY 02/20/16 Ondansetron [Zofran Odt -] 4 mg SL TID #21 od.tablet 04/14/16 Pantoprazole Sodium [Protonix -] 40 mg PO DAILY #30 tablet.ec 04/14/16 Physical Exam-GI Vital Signs: Vital Signs Temperature 98.3 F 07/03/16 17:16 Pulse Rate 79 07/03/16 17:16 Respiratory Rate 20 07/03/16 17:16 Blood Pressure 109/60 07/03/16 17:16 O2 Sat by Pulse Oximetry (%) 100 07/03/16 09:04 Constitutional: Yes: Pallor, Thin HENT: Yes: Normocephalic Neck: Yes: Supple Cardiovascular: Yes: Regular Rate and Rhythm Respiratory: Yes: CTA Bilaterally ...Auscultate: Yes: Normoactive Bowel Sounds ...Palpate: Yes: Soft. No: Tenderness Labs: INR, PTT INR 2.88 (0.82-1.09) H D 07/03/16 08:30 CBC, BMP 07/03/16 05:20 07/03/16 05:20 Assessment/Plan 46 M with above history admitted with upper GI obstructive symptoms suggesting either adhesions or tumor-related problem. Recommend CT with IV contrast. Continue diet, to take as tolerated. Profound weakness suggests possible Mg/Phos depletion. Will check levels and supplement as needed At earliest convenience he should return to [place] for definitive management of this unusual, difficult problem. He is under the care of Dr Neal (Surgery) who told him on 06/29 that he may need further surgery and/or chemo. He feels his current problem is related to his malignancy. Will do EGD once CT reviewed. GI bleeding secondary to Latasha Gabriel tear. Should resolve spontaneously. Continue PPI BID
--- NOTE | 2016-07-03 19:35 | EKG ---
Test Reason : Blood Pressure : / mmHG Vent. Rate : 100 BPM Atrial Rate : 100 BPM P-R Int : 202 ms QRS Dur : 086 ms QT Int : 398 ms P-R-T Axes : 064 047 085 degrees QTc Int : 513 ms POOR DATA QUALITY, INTERPRETATION MAY BE ADVERSELY AFFECTED NORMAL SINUS RHYTHM POSSIBLE LEFT ATRIAL ENLARGEMENT NONSPECIFIC T WAVE ABNORMALITY ABNORMAL ECG WHEN COMPARED WITH ECG OF 08-JUN-2016 18:25, PREMATURE VENTRICULAR COMPLEXES ARE NO LONGER PRESENT NONSPECIFIC T WAVE ABNORMALITY IS NOW PRESENT Confirmed by LAI GARCIA MD ([id number]) on 07/03/2016 7:35:30 PM Referred By: Confirmed By:LAI GARCIA MD
[2016-07-03] MEDS: LITHIUM CARBONATE 300 MG CAPSULE (FP) PO SCH (21:18)
[2016-07-03] MEDS: PANTOPRAZOLE SODIUM 100 ML IVPB SCH (21:18)
[2016-07-04 07:47] LABS: MCH 22.9 pg (25.7-33.7); MCHC 29.6 g/dl (32.0-35.9); MEAN CELL VOLUME 77.3 fl (80-96); MEAN PLT VOLUME 8.9 fl (7.5-11.1); PLATELET COUNT 555 K/MM3 (134-434); RDW 19.9 % (11.9-15.9); WHITE BLOOD COUNT 11.2 K/mm3 (4.0-10.0)
[2016-07-04 08:02] LABS: INR 1.29 (0.82-1.09); PROTHROMBIN TIME (PATIENT) 14.3 SEC (9.98-11.88)
[2016-07-04 08:39] LABS: ALBUMIN 2.7 g/dl (3.4-5.0); ANION GAP 6 (8-16); CALCIUM 8.6 mg/dL (8.5-10.1); CO2 31 mmol/L (21-32); CREATININE 0.7 mg/dL (0.7-1.3); GLUCOSE,RANDOM 71 mg/dL (74-106); MAGNESIUM 2.4 mg/dL (1.8-2.4); PHOSPHOROUS 2.5 mg/dL (2.5-4.9); SGOT/AST 7 U/L (15-37); SGPT/ALT 9 U/L (12-78)
[2016-07-04 08:41] LABS: ALK PHOS 71 U/L (45-117); BILIRUBIN,TOTAL 0.4 mg/dL (0.2-1.0); TOT PROT 5.6 g/dl (6.4-8.2)
[2016-07-04 09:39] LABS: HYPOCHROMIA 2+; PLATELET ESTIMATE INCREASED (NORMAL); POLYCHROMASIA FEW
[2016-07-04 09:40] LABS: ACANTHOCYTES 1+; ANISOCYTOSIS 2+; FRAGMENTED CELL 1+; POIKILOCYTOSIS 2+; TARGET CELLS 3+
--- NOTE | 2016-07-04 09:54 | CONSULT ---
Consult Consult Specialty:: Infectious Disease Referred by:: Dr. Beasley Reason for Consultation:: Leukocytosis - History of Present Illness Chief Complaint: Elevated INR/Coffee ground emesis History of Present Illness: this is a 46M with a PMH of pseudomyxoma peritoneii s/p multiple abdominal surgeries including splenectomy and colectomy s/p chemotherapy last round completed in 2013, anemia s/p multiple transfusions in the past, LLE DVT on coumadin presented to the ER yesterday with a chief complaint of multiple episodes of coffee grounds emesis. He was found to have a supratherapeutic INR of 8 on presentation as well. he denies drinking alcohol or changing his diet and is unsure as to why his INR was so high. He states he has also been feeling very weak as well. He states after he received a banana bag he felt much better. He also endorses a 30lbs weight loss over the past 5 months. He denies blood per rectum or gibson tarry stools. on initial presentation he met SIRS criteria with leukocystosis and HR >90. He currently denies nausea vomiting fevers chills chest pain or shortness of breath. He states all his symptoms have resolved and would like to go home. On laboratory assessment this morning he was found to have a Hb of 5.8. Patient states he currently does not wish to harm himself. - History Source History Provided By: Patient Limitations to Obtaining History: No Limitations - Past Medical History Pulmonary: Yes: Pulmonary Embolus Gastrointestinal: Yes: Cancer (appendiceal cancer), Other (Intestinal obstruction.) Infectious Disease: Yes: C-Diff - Past Surgical History Past Surgical History: Yes: Colectomy, Colonoscopy, Splenectomy - Alcohol/Substance Use Hx Alcohol Use: No - Smoking History Smoking history: Never smoked Have you smoked in the past 12 months: No Aproximately how many cigarettes per day: 0 Home Medications - Allergies Allergies/Adverse Reactions: Allergies Allergy/AdvReac Type Severity Reaction Status Date / Time No Known Allergies Allergy Verified 06/08/16 16:41 - Home Medications Home Medications: Ambulatory Orders Warfarin Na [Coumadin -] 4 mg PO DAILY 05/28/12 [place] Carbonate [Eskalith -] 900 mg PO HS 02/20/16 Venlafaxine HCl [Effexor -] 225 mg PO DAILY 02/20/16 Ondansetron [Zofran Odt -] 4 mg SL TID #21 od.tablet 04/14/16 Pantoprazole Sodium [Protonix -] 40 mg PO DAILY #30 tablet.ec 04/14/16 Review of Systems - Review of Systems Constitutional: reports: Loss of Appetite, Malaise, Unintentional Wgt. Loss, Weakness Eyes: reports: No Symptoms HENT: reports: No Symptoms Neck: reports: No Symptoms Cardiovascular: reports: No Symptoms Respiratory: reports: No Symptoms Gastrointestinal: reports: Abdominal Pain, Bloating, Nausea, Vomiting Blood, Other (Poor oral intake) Genitourinary: reports: No Symptoms Musculoskeletal: reports: No Symptoms Integumentary: reports: No Symptoms Neurological: reports: No Symptoms Endocrine: reports: Unexplained Weight Loss Physical Exam Vital Signs: Vital Signs Temperature 97.9 F 07/04/16 06:46 Pulse Rate 91 H 07/04/16 06:46 Respiratory Rate 18 07/04/16 06:46 Blood Pressure 114/64 07/04/16 06:46 O2 Sat by Pulse Oximetry (%) 100 07/03/16 21:00 Constitutional: Yes: No Distress, Calm Eyes: Yes: Other (conjunctival pallor) HENT: Yes: Atraumatic Neck: Yes: Supple Cardiovascular: Yes: Regular Rate and Rhythm Respiratory: Yes: CTA Bilaterally, Other (right subclavian chemoport in place with no underlying tenderness erythema or drainage) Gastrointestinal: Yes: Normal Bowel Sounds, Soft. No: Tenderness Musculoskeletal: Yes: WNL Extremities: Yes: WNL Edema: No Integumentary: Yes: WNL Neurological: Yes: Alert, Oriented Psychiatric: Yes: Alert, Oriented. No: Suicidal Ideation Labs: CBC, BMP 07/04/16 06:00 07/04/16 06:00 Imaging - Results X-ray: Report Reviewed, Image Reviewed Problem List - Problems (1) Anemia Code(s): D64.9 - ANEMIA, UNSPECIFIED Qualifiers: Other causes of anemia: chronic disease, other (2) Dehydration Code(s): E86.0 - DEHYDRATION (3) Elevated INR Code(s): R79.1 - ABNORMAL COAGULATION PROFILE (4) Generalized weakness Code(s): R53.1 - WEAKNESS (5) Leukocytosis Code(s): D72.829 - ELEVATED WHITE BLOOD CELL COUNT, UNSPECIFIED (6) Sepsis Code(s): A41.9 - SEPSIS, UNSPECIFIED ORGANISM (7) Vomiting Code(s): R11.10 - VOMITING, UNSPECIFIED Qualifiers: Vomiting Intractability: unspecified Nausea presence: with nausea (8) Weight loss Code(s): R63.4 - ABNORMAL WEIGHT LOSS (9) Abdominal pain Code(s): R10.9 - UNSPECIFIED ABDOMINAL PAIN Qualifiers: Abdominal location: upper abdomen, unspecified Qualified Code(s): R10.10 - Upper abdominal pain, unspecified (10) 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 - SECONDARY MALIGNANT NEOPLASM OF RETROPERITON AND PERITONEUM (11) Nausea & vomiting Code(s): R11.2 - NAUSEA WITH VOMITING, UNSPECIFIED Qualifiers: Vomiting type: unspecified Vomiting Intractability: non-intractable Qualified Code(s): R11.2 - Nausea with vomiting, unspecified (12) Hematemesis/vomiting blood Code(s): K92.0 - HEMATEMESIS Assessment/Plan 46M with history of pseudomyxoma peritoneii and LLE DVT on coumadin presents with a supratherapeutic INR and hematemesis . Do not suspect an infectious pathology at this point. observe off ABx Transfuse per primary team Oncology on board GI on board for ABD CT scan today-pending and possible EGD based on CT findings likely a cassandra zavala tear patient states his symptoms have currently resolved please reconsult PRN
--- NOTE | 2016-07-04 10:01 | PN ---
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 Chief Complaint: patient lightheadned this morning no vomitting or nausea awaiting CTscan - Current Medication List Current Medications: Active Medications Acetaminophen (Tylenol -) 650 mg PO Q6H PRN PRN Reason: FEVER OR PAIN Pantoprazole Sodium (Protonix 40mg Ivpb (Pre-Docked)) 100 mls @ 200 mls/hr IVPB BID [facility] Last Admin: 07/03/16 21:18 Dose: 200 mls/hr [place] Carbonate (Eskalith -) 900 mg PO HS [facility] Last Admin: 07/03/16 21:18 Dose: 900 mg Ondansetron HCl (Zofran Injection) 8 mg IVPB Q6H PRN PRN Reason: NAUSEA Venlafaxine HCl (Effexor Xr -) 225 mg PO DAILY [facility] Last Admin: 07/03/16 10:42 Dose: 225 mg - Objective Vital Signs: Vital Signs Temperature 97.9 F 07/04/16 06:46 Pulse Rate 91 H 07/04/16 06:46 Respiratory Rate 18 07/04/16 06:46 Blood Pressure 114/64 07/04/16 06:46 O2 Sat by Pulse Oximetry (%) 100 07/03/16 21:00 Constitutional: Yes: Calm, Thin Cardiovascular: Yes: Regular Rate and Rhythm, S1, S2 Respiratory: Yes: CTA Bilaterally Gastrointestinal: Yes: Normal Bowel Sounds, Soft Edema: No Neurological: Yes: Alert, Oriented Labs: CBC, BMP 07/04/16 06:00 07/04/16 06:00 INR, PTT INR 1.29 (0.82-1.09) H D 07/04/16 06:00 Assessment/Plan anemia/ drop in h/h- prbc 2 units- recheck cbc after transfusion iv protonix NPO CTscan then EGD GI on board drank contrast going down for CT scan stoolfor occult blood check iron panel h/p pseudomyoxa peritonei: oncology on board DVT/h/o PE coumadin on hold s/p vitmain Know inr 1.26 nausea/ vommtting -zofran prn
[2016-07-04] MEDS: PANTOPRAZOLE SODIUM 100 ML IVPB SCH ×2 (11:43→21:59)
[2016-07-04] MEDS: VENLAFAXINE HCL 75 MG E.R. CAPSULES (FP) PO SCH (11:43)
[2016-07-04 12:07] LABS: HIV 1 & 2 AB NEGATIVE; HIV 1 AGp24 NEGATIVE
--- NOTE | 2016-07-04 12:13 | PN ---
Teaching Attending Note Name of Resident: Earle Escoto ATTENDING PHYSICIAN STATEMENT I saw and evaluated the patient. I reviewed the resident's note and discussed the case with the resident. I agree with the resident's findings and plan as documented. SUBJECTIVE: Consult reviewed with resident patient seen OBJECTIVE:Abd benign ASSESSMENT AND PLAN: Metastatic CA No infection issues Ernestine FROST
--- NOTE | 2016-07-04 17:26 | PN ---
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 (short form) - Note 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: PAtient seen and examined feels better Last Vital Signs Temp Pulse Resp BP Pulse Ox 98.6 F 85 18 100/59 100 07/04/16 14:37 07/04/16 14:37 07/04/16 16:10 07/04/16 14:37 07/04/16 16:10 Cor: RSR, No murmurs, No gallops Lungs: Clear to P&A Abd: Soft, Normal bowel sounds, No organomegaly Ext:No significant edema Skin: No rashes, Integument intact Abnormal Lab Results 07/03/16 07/04/16 07/04/16 05:20 06:00 06:00 WBC 11.2 H D RBC 2.53 L D Hgb 5.8 L* D Hct 19.5 L D MCV 77.3 L MCHC 29.6 L RDW 19.9 H Plt Count 555 H D INR Anion Gap 6 L Random Glucose 71 L D AST 7 L ALT 9 L D Total Protein 5.6 L D Albumin 2.7 L D Crossmatch See Detail 07/04/16 07/04/16 06:00 09:53 WBC RBC Hgb Hct MCV MCHC RDW Plt Count INR 1.29 H D Anion Gap Random Glucose AST ALT 11 L D Total Protein Albumin Crossmatch Current Medications Acetaminophen (Tylenol -) 650 mg PO Q6H PRN PRN Reason: FEVER OR PAIN Pantoprazole Sodium (Protonix 40mg Ivpb (Pre-Docked)) 100 mls @ 200 mls/hr IVPB BID [facility] Last Admin: 07/04/16 11:43 Dose: 200 mls/hr [place] Carbonate (Eskalith -) 900 mg PO HS [facility] Last Admin: 07/03/16 21:18 Dose: 900 mg Ondansetron HCl (Zofran Injection) 8 mg IVPB Q6H PRN PRN Reason: NAUSEA Venlafaxine HCl (Effexor Xr -) 225 mg PO DAILY [facility] Last Admin: 07/04/16 11:43 Dose: 225 mg A/P 46 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 Received FOLFOX between 2008 to 2010. 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 Also received couple of cycles of FOLFIRI. Now with slowly progressive disease CT scans do not show any obstruction but increasing peritoneal masses Discussed with Dr. Heredia team at [facility] last week. ? clinical trials --- patient reluctant to consider any palliative chemotherapy/ clinical trialoptions CMP reviewed receiving blood transfusion for Hgb 5.8
[2016-07-04] MEDS ORDERED: PT OWN MED DRAWER 7, Y5N ONE (21:44)
[2016-07-04] MEDS: LITHIUM CARBONATE 300 MG CAPSULE (FP) PO SCH (21:57)
[2016-07-05 06:06] LABS: HEP B SURFACE AB Non Reactive (.)
--- NOTE | 2016-07-05 08:01 | PN ---
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 History of Present Illness: FEELS BETTER NO PAIN NOW NO N/V - Current Medication List Current Medications: Active Medications Acetaminophen (Tylenol -) 650 mg PO Q6H PRN PRN Reason: FEVER OR PAIN Pantoprazole Sodium (Protonix 40mg Ivpb (Pre-Docked)) 100 mls @ 200 mls/hr IVPB BID [facility] Last Admin: 07/04/16 21:59 Dose: 200 mls/hr [place] Carbonate (Eskalith -) 900 mg PO HS [facility] Last Admin: 07/04/16 21:57 Dose: 900 mg Ondansetron HCl (Zofran Injection) 8 mg IVPB Q6H PRN PRN Reason: NAUSEA Venlafaxine HCl (Effexor Xr -) 225 mg PO DAILY [facility] Last Admin: 07/04/16 11:43 Dose: 225 mg - Objective Vital Signs: Vital Signs Temperature 98.7 F 07/05/16 06:47 Pulse Rate 80 07/05/16 06:47 Respiratory Rate 18 07/05/16 06:47 Blood Pressure 104/70 07/05/16 06:47 O2 Sat by Pulse Oximetry (%) 100 07/04/16 21:00 Cardiovascular: Yes: Regular Rate and Rhythm Respiratory: Yes: Regular, CTA Bilaterally Gastrointestinal: Yes: Normal Bowel Sounds, Soft Labs: CBC, BMP 07/04/16 06:00 07/04/16 06:00 INR, PTT INR 1.29 (0.82-1.09) H D 07/04/16 06:00 Problem List - Problems (1) Anemia Assessment/Plan: TRANSFUSE TO HGB ABOVE 8 GI F/U--ENDOSCOPY Code(s): D64.9 - ANEMIA, UNSPECIFIED Qualifiers: Other causes of anemia: chronic disease, other (2) Hematemesis/vomiting blood Assessment/Plan: ABOVE Code(s): K92.0 - HEMATEMESIS (3) Malignant pseudomyxoma peritonei Assessment/Plan: PER ONCOLOGY Code(s): C78.6 - SECONDARY MALIGNANT NEOPLASM OF RETROPERITON AND PERITONEUM (4) Pulmonary embolism Assessment/Plan: AC ONCE CLEARED BY GI Code(s): I26.99 - OTHER PULMONARY EMBOLISM WITHOUT ACUTE COR PULMONALE
[2016-07-05 08:49] LABS: MCH 25.1 pg (25.7-33.7); MCHC 32.8 g/dl (32.0-35.9); MEAN CELL VOLUME 76.5 fl (80-96); MEAN PLT VOLUME 8.5 fl (7.5-11.1); PLATELET COUNT 513 K/MM3 (134-434); RDW 21.3 % (11.9-15.9); WHITE BLOOD COUNT 9.6 K/mm3 (4.0-10.0)
[2016-07-05 09:18] LABS: CALCIUM 9.1 mg/dL (8.5-10.1); CREATININE 0.7 mg/dL (0.7-1.3)
[2016-07-05] MEDS ORDERED: PT OWN MED DRAWER 7, Y5N ONE ×2 (09:18→21:13)
[2016-07-05 09:19] LABS: FERRITIN 7.238 ng/ml (16.4-293.9)
[2016-07-05] MEDS: VENLAFAXINE HCL 75 MG E.R. CAPSULES (FP) PO SCH (09:21)
[2016-07-05] MEDS: PANTOPRAZOLE SODIUM 100 ML IVPB SCH ×2 (09:21→21:36)
[2016-07-05 09:24] LABS: INR 1.28 (0.82-1.09); PROTHROMBIN TIME (PATIENT) 14.1 SEC (9.98-11.88)
[2016-07-05] MEDS: LITHIUM CARBONATE 300 MG CAPSULE (FP) PO SCH (21:36)
[2016-07-06 06:06] LABS: SERUM IRON 15 ug/dL (38-169); TOTAL IRON BINDING CAPACITY 311 ug/dL (250-450); UIBC 296 ug/dL (111-343)
[2016-07-06 06:28] VITALS: BP 104/62; PULSE 73; TEMP 98.8
--- NOTE | 2016-07-06 08:32 | DS ---
Physical Examination Vital Signs: Vital Signs Temperature 98.8 F 07/06/16 06:00 Pulse Rate 73 07/06/16 06:00 Respiratory Rate 18 07/06/16 06:00 Blood Pressure 104/62 07/06/16 06:00 O2 Sat by Pulse Oximetry (%) 100 07/05/16 09:00 Labs: CBC, BMP 07/05/16 07:57 07/05/16 07:57 Discharge Summary Reason For Visit: DEHYDRATION,VOMITING,ELEVATED INR Current Active Problems Anemia (Acute) C. difficile colitis (Acute) Dehydration (Acute) Elevated INR (Acute) Generalized weakness (Acute) Hematemesis/vomiting blood (Acute) Leukocytosis (Acute) Sepsis (Acute) Vomiting (Acute) Weight loss (Acute) Hospital Course: The patient is a 46 year old male with a PMHx of pseudomyxoma peritonei, anemia , splenectomy, colectomy who presents to the ED via EMS with multiple episodes of coffee ground vomiting. Patient states that he has been losing weight for the past few months due to vomiting. He is unable to keep food down. He reports associated weakness. He denies black stool, bloody stool, diarrhea. He denies fever, chills. He denies chest pain, SOB. PCP: Dr. Yuliana Addison Marketing Underwriter: Dr. Mitchell Rodriguez Oncologist: Dr. Sade Estevez History Source: Patient Limitations to Obtaining History: No Limitations - Past Medical History Pulmonary: Yes: Pulmonary Embolus Gastrointestinal: Yes: Cancer (appendiceal cancer), Other (Intestinal obstruction.) Heme/Onc: Yes: Anemia, Cancer, Other Infectious Disease: Yes: C-Diff - Past Surgical History Past Surgical History: Yes: Colectomy, Colonoscopy Problems (1) Anemia Assessment/Plan: TRANSFUSED HGB 9 GI F/U--NO ENDOSCOPY Code(s): D64.9 - ANEMIA, UNSPECIFIED Qualifiers: Other causes of anemia: chronic disease, other (2) Hematemesis/vomiting blood Assessment/Plan: ABOVE Code(s): K92.0 - HEMATEMESIS (3) Malignant pseudomyxoma peritonei Assessment/Plan: PER ONCOLOGY Code(s): C78.6 - SECONDARY MALIGNANT NEOPLASM OF RETROPERITON AND PERITONEUM (4) Pulmonary embolism Assessment/Plan: RESUME COUMADIN Code(s): I26.99 - OTHER PULMONARY EMBOLISM WITHOUT ACUTE COR PULMONALE [facility] OUTPATIENT Condition: Improved - Instructions Referrals: Yuliana Addison MD [Primary Care Provider] - 1 Week Disposition: HOME - Home Medications Comprehensive Discharge Medication List: Ambulatory Orders [place] Carbonate [Eskalith -] 900 mg PO HS 02/20/16 Venlafaxine HCl [Effexor -] 225 mg PO DAILY 02/20/16 Ondansetron [Zofran Odt -] 4 mg SL TID #21 od.tablet 04/14/16 Pantoprazole Sodium [Protonix -] 40 mg PO BID #30 tablet.ec 07/06/16 Warfarin Na [Coumadin -] 2.5 mg PO DAILY #0 07/06/16
[2016-07-06 08:59] LABS: MCH 24.9 pg (25.7-33.7); MCHC 32.4 g/dl (32.0-35.9); MEAN CELL VOLUME 76.7 fl (80-96); MEAN PLT VOLUME 8.2 fl (7.5-11.1); PLATELET COUNT 595 K/MM3 (134-434); RDW 21.2 % (11.9-15.9); WHITE BLOOD COUNT 9.7 K/mm3 (4.0-10.0)
== END 2016-07-06 10:26 | disposition home or self-care (01) | DRG 812 ==
LOC: JER 04:47 → JERBED 06:19 → J8W 07:16
PROVIDERS: ADMIT Family Medicine; ATTEND Family Medicine
PROC: 30233N1 Transfusion of Nonautologous Red Blood Cells into Peripheral Vein, Percutaneous Approach (ICD-10-PCS; principal; 2016-07-04)
DX: D64.9 Anemia, unspecified (principal); Z68.1 Body mass index [BMI] 19.9 or less, adult; K92.0 Hematemesis; C78.6 Secondary malignant neoplasm of retroperitoneum and peritoneum; E86.0 Dehydration; R63.4 Abnormal weight loss; R79.1 Abnormal coagulation profile; D72.829 Elevated white blood cell count, unspecified; Z86.718 Personal history of other venous thrombosis and embolism; Z86.711 Personal history of pulmonary embolism; Z79.01 Long term (current) use of anticoagulants; Z85.09 Personal history of malignant neoplasm of other digestive organs
CPT/HCPCS: 36415; 36430; 36511; 71010-TC; 74178-TC; 80048; 80053; 82728; 82746; 83540; 83550; 83735; 84100; 84460; 85025; 85027; 85610; 86704; 86705; 86706; 86850; 86900; 86901; 86922; 87340; 87389; 93005; 93010; 99283-25; P9038; P9058; Q9967

== ENCOUNTER 2016-07-17 22:49 | Inpatient (IN) | payer OTHER ==
[2016-07-17 22:58] VITALS: BMI 17.6
--- NOTE | 2016-07-17 23:08 | PDOC ---
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 He describes his abdominal pain as moderate, without radiation or modifying factors. He reports multiple episodes of vomit, that were nonbloody and nonbilious in nature. The patient was last in the ED on 07/03/2016 for the same symptoms, along with dehydration. The patient was discharged on 07/06/2016 after improvement of symptoms. The patient denies chest pain, shortness of breath, headache and dizziness. Denies fever, chills, diarrhea and constipation. Denies dysuria, frequency, urgency and hematuria. Allergies: Past surgical history: spleenectomy, colectomy appendectomy, PNP Social history: No alcohol, tobacco or drug use reported Oncology - Dr. Stuart <Jordan Davenport - Last Filed: 07/17/16 23:33> <Aura García - Last Filed: 07/18/16 02:08> - General Chief Complaint: Nausea/Vomiting Stated Complaint: VOMITING Time Seen by Provider: 07/17/16 23:03 Past History <Jordan Davenport - Last Filed: 07/17/16 23:33> - Past Medical History Anemia: Yes Asthma: No Cancer: Yes (APPENDICEAL CA, 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) Cardiac Disorders: No CVA: No COPD: No CHF: No DVT: Yes (LLE BLOOD CLOT 5 YEARS AGO) Dementia: No Diabetes: No GI Disorders: Yes (C-DIFF 2013) Disorders: Yes (CDIFF 2013) HTN: No Hypercholesterolemia: No Liver Disease: No Seizures: No Thyroid Disease: No - Surgical History Abdominal Surgery: Yes (spleenectomy, COLECTOMY, COLONoSCOPY) Appendectomy: Yes Cardiac Surgery: No Cholecystectomy: No GI Surgery: Yes (for stomach cancer--pnp) Lung Surgery: No Neurologic Surgery: No Orthopedic Surgery: No - Immunization History Immunization Up to Date: Yes - Psycho/Social/Smoking Cessation Hx Anxiety: Yes (STRONG ANXIETY) Suicidal Ideation: No Smoking Status: No Smoking History: Never smoked Have you smoked in the past 12 months: No Number of Cigarettes Smoked Daily: 0 Cigars Per Day: 0 Hx Alcohol Use: No Drug/Substance Use Hx: No Substance Use Type: None Hx Substance Use Treatment: No <RickyAura Kellie - Last Filed: 07/18/16 02:08> - Past Medical History Allergies/Adverse Reactions: Allergies Allergy/AdvReac Type Severity Reaction Status Date / Time No Known Allergies Allergy Verified 07/17/16 22:57 Home Medications: Ambulatory Orders [place] Carbonate [Eskalith -] 900 mg PO HS 02/20/16 Venlafaxine HCl [Effexor -] 225 mg PO DAILY 02/20/16 Ondansetron [Zofran Odt -] 4 mg SL TID #21 od.tablet 04/14/16 Pantoprazole Sodium [Protonix -] 40 mg PO BID #30 tablet.ec 07/06/16 Warfarin Na [Coumadin -] 2.5 mg PO DAILY #0 07/06/16 Review of Systems - Review of Systems Able to Perform ROS?: Yes Comments:: 07/17/16 23:33 GENERAL/CONSTITUTIONAL: +Generalized weakness. No fever or chills. HEAD, EYES, EARS, NOSE AND THROAT: No change in vision. No ear pain or discharge. No sore throat. CARDIOVASCULAR: No chest pain or shortness of breath RESPIRATORY: No cough, wheezing, or hemoptysis. GASTROINTESTINAL: +Abdominal pain, nausea, vomiting. No diarrhea or constipation. GENITOURINARY: No dysuria, frequency, or change in urination. MUSCULOSKELETAL: No joint or muscle swelling or pain. No neck or back pain. SKIN: No rash NEUROLOGIC: No headache, vertigo, loss of consciousness, or change in strength/ sensation. ENDOCRINE: No increased thirst. No abnormal weight change HEMATOLOGIC/LYMPHATIC: No anemia, easy bleeding, or history of blood clots. ALLERGIC/IMMUNOLOGIC: No hives or skin allergy. <Jordan Davenport - Last Filed: 07/17/16 23:33> *Physical Exam - Vital Signs Last Vital Signs Temp Pulse Resp BP Pulse Ox 98.5 F 119 H 20 107/75 98 07/17/16 22:57 07/17/16 22:57 07/17/16 22:57 07/17/16 22:57 07/17/16 22:57 - Physical Exam Comments: 07/17/16 23:34 GENERAL: +Thin appearing. Awake, alert, and fully oriented, in no acute distress HEAD: No signs of trauma, normocephalic, atraumatic EYES: PERRLA, EOMI, sclera anicteric, conjunctiva clear ENT: Auricles normal inspection, hearing grossly normal, nares patent, oropharynx clear without exudates. +Dry Mucous membranes. NECK: Normal ROM, supple, no lymphadenopathy, JVD, or masses LUNGS: No distress, speaks full sentences, clear to auscultation bilaterally HEART: +Tachycardia. Normal S1 and S2, no murmurs, rubs or gallops, peripheral pulses normal and equal bilaterally. ABDOMEN: Soft, nontender, normoactive bowel sounds. No guarding, no rebound. No masses EXTREMITIES: Normal inspection, Normal range of motion, no edema. No clubbing or cyanosis. NEUROLOGICAL: Cranial nerves II through XII grossly intact. Normal speech, normal gait, no focal sensorimotor deficits SKIN: Warm, Dry, normal turgor, no rashes or lesions noted. <Jordan Davenport - Last Filed: 07/17/16 23:33> - Vital Signs Last Vital Signs Temp Pulse Resp BP Pulse Ox 98.5 F 119 H 20 107/75 98 07/17/16 22:57 07/17/16 22:57 07/17/16 22:57 07/17/16 22:57 07/17/16 22:57 <Aura García - Last Filed: 07/18/16 02:08> ED Treatment Course - LABORATORY CBC & Chemistry Diagram: 07/17/16 23:45 07/17/16 23:45 <Aura García - Last Filed: 07/18/16 02:08> *DC/Admit/Observation/Transfer - Attestations Scribe Attestion: 07/17/16 23:35 Documentation prepared by Jordan Davenport, acting as medical billing specialist for Aura García MD <Jordan Davenport - Last Filed: 07/17/16 23:33> - Discharge Dispostion Admit: Yes <Aura García - Last Filed: 07/18/16 02:08> Diagnosis at time of Disposition: Malignant pseudomyxoma peritonei, Generalized weakness Nausea & vomiting Qualifiers: Vomiting type: unspecified Vomiting Intractability: unspecified Qualified Code( s): R11.2 - Nausea with vomiting, unspecified
[2016-07-17] MEDS ORDERED: SODIUM CHLORIDE 1,000 ML IV STA (23:09)
[2016-07-17] MEDS ORDERED: ONDANSETRON 4 MG/2 ML VIAL IVPUSH ONE (23:09)
[2016-07-17] MEDS ORDERED: ONDANSETRON 4 MG/2 ML VIAL ONE (23:49)
[2016-07-18 00:01] LABS: MCHC 31.4 g/dl (32.0-35.9); MEAN CELL VOLUME 76.5 fl (80-96); MEAN PLT VOLUME 8.6 fl (7.5-11.1); PLATELET COUNT 733 K/MM3 (134-434); RDW 21.9 % (11.9-15.9)
[2016-07-18 00:15] LABS: PROTHROMBIN TIME (PATIENT) 33.8 SEC (9.98-11.88)
[2016-07-18 00:26] LABS: ALBUMIN 3.1 g/dl (3.4-5.0); ALK PHOS 88 U/L (45-117); ANION GAP 10 (8-16); BILIRUBIN,TOTAL 0.2 mg/dL (0.2-1.0); CALCIUM 9.6 mg/dL (8.5-10.1); CO2 32 mmol/L (21-32); CREATININE 0.8 mg/dL (0.7-1.3); GLUCOSE,RANDOM 149 mg/dL (74-106); SGOT/AST 13 U/L (15-37); SGPT/ALT 15 U/L (12-78); TOT PROT 6.7 g/dl (6.4-8.2)
[2016-07-18 02:15] LABS: PLATELET COMMENT2 NO CLOTTING DETECTED; PLATELET ESTIMATE INCREASED (NORMAL)
[2016-07-18 02:16] LABS: ANISOCYTOSIS 2+; FRAGMENTED CELL 1+; HYPOCHROMIA 2+; MICROCYTOSIS 1+; OVALOCYTES 1+; PLATELET COMMENT3 NO CLUMPING NOTED; POIKILOCYTOSIS 2+; POLYCHROMASIA 1+; SPHEROCYTE 1+; TARGET CELLS 1+; TEAR DROP CELLS 1+
[2016-07-18] MEDS ORDERED: HYDROmorphone HCL CARPU-JECT 1 MG/1 ML DISP.SYRIN IVPUSH PRN (08:02)
--- NOTE | 2016-07-18 08:27 | HP ---
Admitting History and Physical - Admission History of Present Illness: 46 year old male, with a significant past medical history of anemia, APPENDICEAL CA, 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, left lower extremity DVT and C-Diff, who presents to the emergency department with abdominal pain, nausea, vomiting and generalized weakness for the past 2 months. He describes his abdominal pain as moderate, without radiation or modifying factors. He reports multiple episodes of vomit, that were nonbloody and nonbilious in nature. The patient was last in the ED on 07/03/2016 for the same symptoms, along with dehydration. The patient was discharged on 07/06/2016 after improvement of symptoms. - Past Medical History Pulmonary: Yes: Pulmonary Embolus Gastrointestinal: Yes: Cancer (appendiceal cancer), Other (Intestinal obstruction.) Heme/Onc: Yes: Anemia, Cancer, Other Infectious Disease: Yes: C-Diff - Past Surgical History Past Surgical History: Yes: Colectomy, Colonoscopy, Splenectomy - Smoking History Smoking history: Never smoked Have you smoked in the past 12 months: No Aproximately how many cigarettes per day: 0 - Alcohol/Substance Use Hx Alcohol Use: No Home Medications - Allergies Allergies/Adverse Reactions: Allergies Allergy/AdvReac Type Severity Reaction Status Date / Time No Known Allergies Allergy Verified 07/17/16 22:57 - Home Medications Home Medications: Ambulatory Orders [place] Carbonate [Eskalith -] 900 mg PO HS 02/20/16 Venlafaxine HCl [Effexor -] 225 mg PO DAILY 02/20/16 Ondansetron [Zofran Odt -] 4 mg SL TID #21 od.tablet 04/14/16 Pantoprazole Sodium [Protonix -] 40 mg PO BID #30 tablet.ec 07/06/16 Warfarin Na [Coumadin -] 2.5 mg PO DAILY #0 07/06/16 Physical Examination Vital Signs: Vital Signs Temperature 98.3 F 07/18/16 03:17 Pulse Rate 90 07/18/16 03:17 Respiratory Rate 18 07/18/16 03:17 Blood Pressure 106/66 07/18/16 03:17 O2 Sat by Pulse Oximetry (%) 96 07/18/16 03:17 Cardiovascular: Yes: Regular Rate and Rhythm Respiratory: Yes: Regular, CTA Bilaterally Gastrointestinal: Yes: Normal Bowel Sounds, Soft, Tenderness (MINIMAL) Edema: No Problem List - Problems (1) Small bowel obstruction Assessment/Plan: NPO GI/SURGICAL AND ID CONSULT Code(s): K56.69 - OTHER INTESTINAL OBSTRUCTION (2) Malignant pseudomyxoma peritonei Assessment/Plan: PER ONCOLOGY Code(s): C78.6 - SECONDARY MALIGNANT NEOPLASM OF RETROPERITON AND PERITONEUM (3) Pulmonary embolism Assessment/Plan: HOLD COUMADIN PENDING SURGICAL CONSULT Code(s): I26.99 - OTHER PULMONARY EMBOLISM WITHOUT ACUTE COR PULMONALE
--- NOTE | 2016-07-18 09:38 | PN ---
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 (short form) - Note 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: ID consult dictated pseudomyxoma peritoneii appendiceal tumor possible SBO recurrent vomiting no signs infection f/u CT scan f/u with GI observe off antibiotics please call back if needed
[2016-07-18] MEDS: VENLAFAXINE HCL 75 MG E.R. CAPSULES (FP) PO SCH ×2 (09:56→21:12)
[2016-07-18] MEDS: D5-1/2NS+20 MEQ KCL - 1,000 ML IV SCH (10:01)
--- NOTE | 2016-07-18 10:58 | CONSULT ---
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 His last surgery was in January 2016 @ [facility] with Dr. Bustillos. He last saw Dr. Bustillos a month ago and it sounds like they were both aware that tumor had recurred. Patient has had intermittent clear/gastric/nonbilious emesis for months and has worsening intolerance to solid food and liquid diet. +BM. pain is minimal. CT done here shows large antral mass and labs consistent with chronic gastric outlet obstruction. - Past Medical History Pulmonary: Yes: Pulmonary Embolus Gastrointestinal: Yes: Cancer (appendiceal cancer), Other (Intestinal obstruction.) Infectious Disease: Yes: C-Diff - Past Surgical History Past Surgical History: Yes: Colectomy, Colonoscopy, Splenectomy - Alcohol/Substance Use Hx Alcohol Use: No - Smoking History Smoking history: Never smoked Have you smoked in the past 12 months: No Aproximately how many cigarettes per day: 0 Home Medications - Allergies Allergies/Adverse Reactions: Allergies Allergy/AdvReac Type Severity Reaction Status Date / Time No Known Allergies Allergy Verified 07/17/16 22:57 - Home Medications Home Medications: Ambulatory Orders [place] Carbonate [Eskalith -] 900 mg PO HS 02/20/16 Venlafaxine HCl [Effexor -] 225 mg PO DAILY 02/20/16 Ondansetron [Zofran Odt -] 4 mg SL TID #21 od.tablet 04/14/16 Pantoprazole Sodium [Protonix -] 40 mg PO BID #30 tablet.ec 07/06/16 Warfarin Na [Coumadin -] 2.5 mg PO DAILY #0 07/06/16 Review of Systems - Review of Systems Constitutional: reports: Lethargy, Weakness. denies: Chills, Fever Eyes: denies: Blind Spots, Blurred Vision HENT: denies: Difficult Swallowing, Ear Discharge Neck: denies: Decreased ROM, Pain on Movement Cardiovascular: denies: Chest Pain, Edema Respiratory: denies: Exercise Intolerance, Hemoptysis Gastrointestinal: reports: Abdominal Pain, Vomiting Genitourinary: denies: Discharge, Lesions Breasts: denies: Lumps, Pain Musculoskeletal: denies: Crepitus, Joint Pain Integumentary: denies: Blister, Bruising Neurological: denies: Change in LOC, Change in Speech Endocrine: denies: Excessive Sweating, Flushing Hematology/Lymphatic: denies: Easily Bruised, Excessive Bleeding Psychiatric: reports: Anxiety, Depression Physical Exam Vital Signs: Vital Signs Temperature 97.5 F L 07/18/16 08:46 Pulse Rate 77 07/18/16 08:46 Respiratory Rate 16 07/18/16 08:46 Blood Pressure 109/68 07/18/16 08:46 O2 Sat by Pulse Oximetry (%) 96 07/18/16 03:17 Constitutional: Yes: No Distress, Calm Eyes: Yes: Conjunctiva Clear, EOM Intact HENT: Yes: Atraumatic, Normocephalic Neck: Yes: Supple, Trachea Midline Cardiovascular: Yes: Regular Rate and Rhythm Respiratory: Yes: Regular, CTA Bilaterally Gastrointestinal: Yes: Soft. No: Distention, Tenderness ...Rectal Exam: Yes: Deferred Renal/: No: CVA Tenderness - Left, CVA Tenderness - Right Breast(s): No: Mass, Nipple Inversion Musculoskeletal: No: Joint Stiffness, Joint Swelling Extremities: No: Calf Tenderness, Erythema Integumentary: No: Erythema, Rash Wound/Incision: Yes: Clean/Dry, Well Approximated Neurological: Yes: Alert, Oriented Psychiatric: Yes: Alert, Oriented Imaging - Results Cat Scan: Report Reviewed, Image Reviewed Problem List - Problems (1) Leukocytosis Code(s): D72.829 - ELEVATED WHITE BLOOD CELL COUNT, UNSPECIFIED (2) 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 - SECONDARY MALIGNANT NEOPLASM OF RETROPERITON AND PERITONEUM (3) Pseudomyxoma peritonei Code(s): C78.6 - SECONDARY MALIGNANT NEOPLASM OF RETROPERITON AND PERITONEUM (4) Small bowel obstruction Assessment/Plan: patient with pseudomyxoma causing gastric outlet obstruction d/w pt pathology and pathophysiology. I have placed call out to Dr. Bustillos [phone] his surgical oncologist. best thing for patient would either be transfer to [place] directly or discharge and f/ u with Dr. Bustillos as outpt. He likely needs some kind of procedure for his problem. Options include possibly resection, bypass, endoluminal stent, operative jejunostomy feeding tube placement. this should be determined by Dr. Bustillos. patient can have clear liquid diet for now Code(s): K56.69 - OTHER INTESTINAL OBSTRUCTION
[2016-07-18 11:11] LABS: URINE APPEARANCE CLEAR; URINE BILIRUBIN NEGATIVE (NEGATIVE); URINE BLOOD NEGATIVE (NEGATIVE); URINE COLOR COLORLESS; URINE GLUCOSE (UA) NEGATIVE (NEGATIVE); URINE KETONE NEGATIVE (NEGATIVE); URINE LEUK ESTERASE NEGATIVE (NEGATIVE); URINE NITRITE NEGATIVE (NEGATIVE); URINE PROTEIN NEGATIVE (NEGATIVE); URINE UROBILINOGEN NEGATIVE E.U./dl (0.2-1.0)
--- NOTE | 2016-07-18 11:26 | CONS ---
DATE OF CONSULTATION: HISTORY: This is a 46-year-old male with a history of Pseudomyxoma peritonei. This was original diagnosed in May 2008 at which time he underwent surgery. He subsequently had multiple bouts of chemotherapy. His most recent surgery he reports was in January 2016. He reports since that he has had intermittent vomiting and weight loss. He reports having bowel movements. His last bowel movement was yesterday. He was recently hospitalized in June from - with vomiting, and he had an elevated INR at that time. He was discharged home. He reports he continued to have intermittent vomiting. Yesterday was a bad day with multiple episodes of vomiting, and he presented to the emergency room. In the emergency room he reports having moderate abdominal pain, which has subsequently resolved. He is currently resting comfortably. He has no fevers or chills. He has no shortness of breath. He denies any leg swelling. He denies any dysuria or problems urinating. PAST MEDICAL HISTORY: Notable for appendiceal carcinoma with Pseudomyxoma peritonei originally diagnosed in 2008. He has a history of left lower extremity DVT, and he has also a history of anemia. He has a remote history of Clostridium difficile as well. He has a history of depression. His follow up recently appears to have been intermittent. PAST SURGICAL HISTORY: Notable for multiple abdominal surgeries. Notable for colectomy. He has had multiple surgeries removing the various peritoneal masses. ALLERGIES: He has no known drug allergies. MEDICATIONS: As an outpatient include lithium, Effexor, Zofran, Protonix, and Coumadin. SOCIAL HISTORY: There is no history of any substance use. There is no alcohol, tobacco, or drug use. He lives at home with his . There is no recent travel. REVIEW OF SYSTEMS: Notable for intermittent vomiting, weight loss, and generalized weakness. He denies any fevers or chills. PHYSICAL EXAMINATION: General: He is awake and alert. Vital Signs: Temperature 97.5. He has had no recent since admission. Pulse 77, blood pressure 109/68, respiratory rate 16. He weighs 109 pounds. HEENT: He is normocephalic. Eyes are anicteric. Neck: Supple. Chest: He has a port in his right chest. There is no erythema. It is not accessed. It is not tender. Lungs: Clear to auscultation. Heart: Regular rate and rhythm. Abdomen: Soft. He has bowel sounds. It is not distended. Extremities: Without edema. Abdominal flat plate reveals bilateral surgery with sutures and clips. He has some distended bowel loops. CT scan has been done and is pending. White count is 8, hemoglobin 8, platelets 733, BUN 11, creatinine 0.8. LFTs are normal. In summary, this is a 46-year-old man with original appendiceal tumor in 2008 with Pseudomyxoma peritonei with most recent debulking surgery in January 2016 with continued intermittent vomiting and weight loss, possible bowel obstruction. CAT scan has been done and is pending. Do not see a need for antibiotics at this time. Would observe him off antibiotics. Would follow up with GI. Please call if needed. PHILIPP HATFIELD M.D. [id number]
--- NOTE | 2016-07-18 18:10 | CON.GI ---
Consult Consult Specialty:: GI Referred by:: Dr Addison Reason for Consultation:: SBO - History of Present Illness Chief Complaint: Abdominal pain History of Present Illness: 46 M with h/p pseudomyxoma peritoneii, under care of Dr Neal at [facility], s/p prior de-bulking surgeries, was seen a few weeks ago for the same problem. - History Source History Provided By: Patient, Medical Record Limitations to Obtaining History: No Limitations - Past Medical History Pulmonary: Yes: Pulmonary Embolus Gastrointestinal: Yes: Cancer (appendiceal cancer), Other (Intestinal obstruction.) Infectious Disease: Yes: C-Diff - Past Surgical History Past Surgical History: Yes: Colectomy, Colonoscopy, Splenectomy - Alcohol/Substance Use Hx Alcohol Use: No - Smoking History Smoking history: Never smoked Have you smoked in the past 12 months: No Aproximately how many cigarettes per day: 0 Home Medications - Allergies Allergies/Adverse Reactions: Allergies Allergy/AdvReac Type Severity Reaction Status Date / Time No Known Allergies Allergy Verified 07/17/16 22:57 - Home Medications Home Medications: Ambulatory Orders [place] Carbonate [Eskalith -] 900 mg PO HS 02/20/16 Venlafaxine HCl [Effexor -] 225 mg PO DAILY 02/20/16 Ondansetron [Zofran Odt -] 4 mg SL TID #21 od.tablet 04/14/16 Pantoprazole Sodium [Protonix -] 40 mg PO BID #30 tablet.ec 07/06/16 Warfarin Na [Coumadin -] 2.5 mg PO DAILY #0 07/06/16 Physical Exam-GI Vital Signs: Vital Signs Temperature 98.8 F 07/18/16 17:13 Pulse Rate 95 H 07/18/16 17:13 Respiratory Rate 20 07/18/16 17:13 Blood Pressure 103/69 07/18/16 17:13 O2 Sat by Pulse Oximetry (%) 96 07/18/16 03:17 Constitutional: Yes: Anxious, [place], Thin HENT: Yes: Normocephalic Cardiovascular: Yes: Regular Rate and Rhythm Respiratory: Yes: Regular, CTA Bilaterally Gastrointestinal Inspection: Yes: Distention ...Auscultate: Yes: Hypoactive Bowel Sounds Labs: INR, PTT INR 3.00 (0.82-1.09) H D 07/17/16 23:45 CBC, BMP 07/17/16 23:45 07/17/16 23:45 Hepatic Panel Total Bilirubin 0.2 mg/dL (0.2-1.0) D 07/17/16 23:45 AST 13 U/L (15-37) L D 07/17/16 23:45 ALT 15 U/L (12-78) D 07/17/16 23:45 Alkaline Phosphatase 88 U/L (45-117) D 07/17/16 23:45 Albumin 3.1 g/dl (3.4-5.0) L 07/17/16 23:45 Imaging - Results Cat Scan: Report Reviewed (intra-abdominal masses, one of which is causing a gastric outlet obstruction) Assessment/Plan Dr Garcia's notes read and appreciated. Agree with transfer to his oncologic surgeon at [place] for definitive management
[2016-07-18] MEDS ORDERED: PT OWN MED DRAWER 7, Y5N ONE (21:06)
[2016-07-18] MEDS ORDERED: LITHIUM CARBONATE 450 MG TABLET.ER PO SCH (22:00)
[2016-07-19] MEDS ORDERED: PT OWN MED DRAWER 7, Y5N ONE (08:43)
[2016-07-19] MEDS: D5-1/2NS+20 MEQ KCL - 1,000 ML IV SCH (09:30)
[2016-07-19] MEDS: VENLAFAXINE HCL 75 MG E.R. CAPSULES (FP) PO SCH (09:30)
[2016-07-19 10:15] LABS: ALBUMIN 2.5 g/dl (3.4-5.0); ALK PHOS 67 U/L (45-117); ANION GAP 8 (8-16); BILIRUBIN,TOTAL 0.2 mg/dL (0.2-1.0); CALCIUM 8.6 mg/dL (8.5-10.1); CO2 24 mmol/L (21-32); CREATININE 0.6 mg/dL (0.7-1.3); GLUCOSE,RANDOM 94 mg/dL (74-106); SGOT/AST 10 U/L (15-37); SGPT/ALT 13 U/L (12-78); TOT PROT 5.5 g/dl (6.4-8.2)
--- NOTE | 2016-07-19 10:17 | PN ---
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 Chief Complaint: no new c/o History of Present Illness: pt with no new c/o. explained to patient plan. if [facility]'t accept him by 1pm, he should be discharged so he can make outpt appt to see Dr. Bustillos for tomorrow (monday). any questions should call Dr. Bustillos or his PAHenny at [phone] - Current Medication List Current Medications: Active Medications Hydromorphone HCl (Dilaudid Injection -) 1 mg IVPUSH Q4H PRN PRN Reason: PAIN Potassium Chloride/Dextrose/Sod Cl (D5-1/2ns+20 Meq Kcl -) 1,000 mls @ 125 mls/ hr IV ASDIR [facility] Last Admin: 07/19/16 09:30 Dose: 125 mls/hr [place] Carbonate (Eskalith -) 900 mg PO HS [facility] Last Admin: 07/18/16 21:12 Dose: 900 mg Venlafaxine HCl (Effexor Xr -) 225 mg PO DAILY@0800 [facility] Last Admin: 07/19/16 09:30 Dose: 225 mg - Objective Vital Signs: Vital Signs Temperature 98.4 F 07/19/16 05:54 Pulse Rate 72 07/19/16 05:54 Respiratory Rate 18 07/19/16 05:54 Blood Pressure 106/67 07/19/16 05:54 O2 Sat by Pulse Oximetry (%) 96 07/18/16 03:17 Constitutional: Yes: No Distress, Calm Eyes: Yes: Conjunctiva Clear, EOM Intact HENT: Yes: Atraumatic, Normocephalic Neck: Yes: Supple, Trachea Midline Cardiovascular: Yes: Regular Rate and Rhythm Respiratory: Yes: Regular Gastrointestinal: Yes: Soft. 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 Bustillos, his surgical oncologist to deal with patients gastric outlet obstruction from pseudomyxoma. if no beds, please discharge patient and have patient make appt to see Dr. Bustillos in office tomorrow. diet as tolerated Code(s): K56.69 - OTHER INTESTINAL OBSTRUCTION
[2016-07-19 10:23] LABS: PROTHROMBIN TIME (PATIENT) 52.9 SEC (9.98-11.88)
[2016-07-19 10:44] LABS: MCHC 30.6 g/dl (32.0-35.9); MEAN CELL VOLUME 78.4 fl (80-96); MEAN PLT VOLUME 8.5 fl (7.5-11.1); PLATELET COUNT 652 K/MM3 (134-434); RDW 21.1 % (11.9-15.9); WHITE BLOOD COUNT 6.3 K/mm3 (4.0-10.0)
[2016-07-19 10:53] LABS: INR 4.66 (0.82-1.09)
--- NOTE | 2016-07-19 10:57 | DS ---
Physical Examination Vital Signs: Vital Signs Temperature 98.4 F 07/19/16 05:54 Pulse Rate 72 07/19/16 05:54 Respiratory Rate 18 07/19/16 05:54 Blood Pressure 106/67 07/19/16 05:54 O2 Sat by Pulse Oximetry (%) 96 07/18/16 03:17 Constitutional: Yes: Calm, Thin Neck: Yes: Trachea Midline Cardiovascular: Yes: Regular Rate and Rhythm, S1, S2 Respiratory: Yes: CTA Bilaterally Gastrointestinal: Yes: Soft Edema: No Neurological: Yes: Alert, Oriented Labs: CBC, BMP 07/19/16 07:30 07/19/16 07:30 Discharge Summary Reason For Visit: GENERALIZED WEAKNESS, NAUSEA AND VOMITING Current Active Problems C. 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 He describes his abdominal pain as moderate, without radiation or modifying factors. He reports multiple episodes of vomit, that were nonbloody and nonbilious in nature. The patient was last in the ED on 07/03/2016 for the same symptoms, along with dehydration. The patient was discharged on 07/06/2016 after improvement of symptoms. - Past Medical History Pulmonary: Yes: Pulmonary Embolus Gastrointestinal: Yes: Cancer (appendiceal cancer), Other (Intestinal obstruction.) Heme/Onc: Yes: Anemia, Cancer, Other Infectious Disease: Yes: C-Diff - Past Surgical History Past Surgical History: Yes: Colectomy, Colonoscopy, Splenectomy ct scan shows large antral mass and labs chronic gastric outlet obstruction iv fluids seen by surgery plan to go to [facility] to see his oncologist surgeon hgb is low will transfuse him one unit and then discharge home he will follow up with dr yanely forbes in office any questions should call Dr. Bustillos or his PAHenny at [phone] - Instructions Diet, Activity, Other Instructions: to see dr yanely forbes Disposition: HOME - Home Medications Comprehensive Discharge Medication List: Ambulatory Orders [place] Carbonate [Eskalith -] 900 mg PO HS 02/20/16 Venlafaxine HCl [Effexor -] 225 mg PO DAILY 02/20/16 Ondansetron [Zofran Odt -] 4 mg SL TID #21 od.tablet 04/14/16 Pantoprazole Sodium [Protonix -] 40 mg PO BID #30 tablet.ec 07/06/16 Warfarin Na [Coumadin -] 2.5 mg PO DAILY #0 07/06/16
[2016-07-19 14:50] VITALS: BP 102/62; PULSE 75; TEMP 98.4
[2016-07-19 14:58] LABS: SPHEROCYTE RARE
[2016-07-19 15:01] LABS: ANISOCYTOSIS 3+; HYPOCHROMIA 3+; POIKILOCYTOSIS 3+; POLYCHROMASIA FEW
[2016-07-19 15:02] LABS: ACANTHOCYTES 1+; TARGET CELLS 1+
--- NOTE | 2016-07-19 17:11 | EKG ---
Test Reason : Blood Pressure : / mmHG Vent. Rate : 086 BPM Atrial Rate : 086 BPM P-R Int : 178 ms QRS Dur : 092 ms QT Int : 402 ms P-R-T Axes : 069 053 059 degrees QTc Int : 481 ms NORMAL SINUS RHYTHM POSSIBLE LEFT ATRIAL ENLARGEMENT T WAVE ABNORMALITY, CONSIDER ANTEROLATERAL ISCHEMIA PROLONGED QT ABNORMAL ECG WHEN COMPARED WITH ECG OF 03-JUL-2016 05:27, PREMATURE VENTRICULAR COMPLEXES ARE NO LONGER SEEN Confirmed by KOKO MORGAN MD ([id number]) on 07/19/2016 5:11:23 PM Referred By: Confirmed By:KOKO MORGAN MD
== END 2016-07-19 18:15 | disposition short-term general hospital (02) | DRG 375 ==
LOC: JER 22:49 → JERBED 07-18 02:08 → J8W 07-18 06:32 → OBSVTOIN 07-18 08:02
PROVIDERS: ADMIT Family Medicine; ATTEND Family Medicine
PROC: 30233N1 Transfusion of Nonautologous Red Blood Cells into Peripheral Vein, Percutaneous Approach (ICD-10-PCS; principal; 2016-07-19)
DX: C78.6 Secondary malignant neoplasm of retroperitoneum and peritoneum (principal); K56.60 Unspecified intestinal obstruction; D64.9 Anemia, unspecified; Z86.718 Personal history of other venous thrombosis and embolism
CPT/HCPCS: 36415; 36430; 71020-TC; 74020-TC; 74177-TC; 80053; 81003; 83690; 83735; 85025; 85610; 86850; 86900; 86901; 86922; 93005; 93010; 99283-25; G0378; P9038; P9058

== ENCOUNTER 2016-08-19 19:36 | Inpatient (IN) | payer OTHER ==
[2016-08-19] MEDS ORDERED: SODIUM CHLORIDE 500 ML IV STA (20:05)
[2016-08-19 20:44] LABS: MCH 21.2 pg (25.7-33.7); MCHC 29.7 g/dl (32.0-35.9); MEAN CELL VOLUME 71.3 fl (80-96); MEAN PLT VOLUME 7.8 fl (7.5-11.1); PLATELET COUNT 922 K/MM3 (134-434); RDW 20.9 % (11.9-15.9); WHITE BLOOD COUNT 12.4 K/mm3 (4.0-10.0)
[2016-08-19 20:58] LABS: INR 3.34 (0.82-1.09); PROTHROMBIN TIME (PATIENT) 37.7 SEC (9.98-11.88)
[2016-08-19 21:00] LABS: ACTIVATED PTT 36.6 SECONDS (26.9-34.4)
--- NOTE | 2016-08-19 21:18 | PDOC ---
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 Patient reports for the past few weeks he has been feeling tired, weak, and SOB on exerction. Report Coumadin use daily @ 5mg. Denies any other complaints at this time. PCP- Dr. Wolff. 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) Cardiac Disorders: No CVA: No COPD: No CHF: No DVT: Yes (LLE BLOOD CLOT 5 YEARS AGO) Dementia: No Diabetes: No GI Disorders: Yes (C-DIFF 2013) Disorders: Yes (CDIFF 2013) HTN: No Hypercholesterolemia: No Liver Disease: No Seizures: No Thyroid Disease: No - Surgical History Abdominal Surgery: Yes (spleenectomy, COLECTOMY, COLONoSCOPY) Appendectomy: Yes Cardiac Surgery: No Cholecystectomy: No GI Surgery: Yes (for stomach cancer--pnp) Lung Surgery: No Neurologic Surgery: No Orthopedic Surgery: No - Immunization History Immunization Up to Date: Yes - Psycho/Social/Smoking Cessation Hx Anxiety: Yes (STRONG ANXIETY) Suicidal Ideation: No Smoking Status: No Smoking History: Unknown if ever smoked Have you smoked in the past 12 months: No Number of Cigarettes Smoked Daily: 0 Cigars Per Day: 0 Hx Alcohol Use: No Drug/Substance Use Hx: No Substance Use Type: None Hx Substance Use Treatment: No Review of Systems - Review of Systems Able to Perform ROS?: Yes Is the patient limited Togolese proficient: No Constitutional: Yes: Weakness. No: Chills, Fever HEENTM: No: Blurred Vision, Double Vision Respiratory: Yes: Shortness of Breath, SOB with Exertion. No: Cough, SOB at Rest, Stridor, Wheezing, Productive cough, Hemoptysis Cardiac (ROS): No: Chest Pain, Lightheadedness, Palpitations, Syncope, Chest Tightness ABD/GI: No: Diarrhea, Nausea, Poor Appetite, Poor Fluid Intake, Rectal Bleeding , Vomiting : No: Dysuria, Flank Pain, Hematuria Musculoskeletal: Yes: Muscle Weakness. No: Back Pain Integumentary: No: Bruising, Erythema, Sweating Neurological: Yes: Weakness. No: Headache, Seizure, Tingling, Unsteady Gait, Ataxia, Dizziness All Other Systems: Reviewed and Negative *Physical Exam - Vital Signs Last Vital Signs Temp Pulse Resp BP Pulse Ox 98.2 F 107 H 16 103/66 100 08/19/16 19:47 08/19/16 19:47 08/19/16 19:47 08/19/16 19:47 08/19/16 19:47 - Physical Exam General Appearance: Yes: Appropriately Dressed, Thin HEENT: positive: EOMI, MICHAEL, Normal ENT Inspection, Normal Voice, Symmetrical, TMs Normal, Pharynx Normal. negative: Tonsillar Exudate, Tonsillar Erythema, TM Bulging, TM Dull, TM Erythema Neck: positive: Trachea midline, Supple. negative: Stridor, Lymphadenopathy (R) , Lymphadenopathy (L) Respiratory/Chest: positive: Lungs Clear, Normal Breath Sounds. negative: Respiratory Distress, Accessory Muscle Use, Labored Respiration, Rapid RR, Crackles, Rales, Rhonchi, Stridor, Wheezing Cardiovascular: positive: Tachycardia. negative: Edema, JVD Gastrointestinal/Abdominal: positive: Normal Bowel Sounds, Flat, Soft. negative : Tender, Decreased BS, Distended, Guarding, Rebound, Tenderness Musculoskeletal: positive: Normal Inspection. negative: CVA Tenderness Extremity: positive: Normal Capillary Refill, Normal Inspection, Normal Range of Motion. negative: Pedal Edema, Swelling, Calf Tenderness Integumentary: positive: Dry, Warm, Pale. 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 intact, Fully Oriented, Alert, Normal Mood/ Affect, Normal Response, Motor Strength 09/02 ED Treatment Course - LABORATORY CBC & Chemistry Diagram: 08/19/16 20:30 08/19/16 20:30 - ADDITIONAL ORDERS Additional order review: Laboratory Results 08/19/16 20:30 Crossmatch See Detail 08/19/16 20:30 RBC 2.30 L MCV 71.3 L MCHC 29.7 L RDW 20.9 H MPV 7.8 Neutrophils % Y Lymphocytes % Y - Medications Given in the ED: ED Medications Discontinued Medications Generic Name Dose Route Start Last Admin Trade Name Freq PRN Reason Stop Dose Admin Sodium Chloride 500 mls @ 500 mls/hr 08/19/16 20:05 08/19/16 20:39 Normal Saline - IV 08/19/16 21:04 500 mls/hr ASDIR STA Administration *DC/Admit/Observation/Transfer Diagnosis at time of Disposition: Malignant pseudomyxoma peritonei Anemia Qualifiers: Anemia type: other cause Other causes of anemia: chronic disease, neoplastic Qualified Code(s): D63.0 - Anemia in neoplastic disease - Discharge Dispostion Condition at time of disposition: Fair Admit: Yes
[2016-08-19 21:24] LABS: URINE APPEARANCE CLOUDY; URINE BILIRUBIN NEGATIVE (NEGATIVE); URINE BLOOD NEGATIVE (NEGATIVE); URINE COLOR AMBER; URINE GLUCOSE (UA) NEGATIVE (NEGATIVE); URINE KETONE NEGATIVE (NEGATIVE); URINE LEUK ESTERASE NEGATIVE (NEGATIVE); URINE NITRITE NEGATIVE (NEGATIVE); URINE PROTEIN NEGATIVE (NEGATIVE); URINE UROBILINOGEN NEGATIVE E.U./dl (0.2-1.0)
[2016-08-19 21:30] LABS: ALBUMIN 2.5 g/dl (3.4-5.0); ALK PHOS 78 U/L (45-117); AMYLASE 66 U/L (25-115); ANION GAP 6 (8-16); BILIRUBIN,TOTAL 0.1 mg/dL (0.2-1.0); CALCIUM 8.3 mg/dL (8.5-10.1); CO2 27 mmol/L (21-32); COCKROFT - GAULT 90.39; CREATININE 0.7 mg/dL (0.7-1.3); GLUCOSE,RANDOM 97 mg/dL (74-106); SGOT/AST 8 U/L (15-37); SGPT/ALT 14 U/L (12-78); TOT PROT 5.8 g/dl (6.4-8.2)
[2016-08-19 22:40] LABS: HYPOCHROMIA 2+; PLATELET ESTIMATE MARKEDLY INCREASED (NORMAL); POLYCHROMASIA 1+
[2016-08-20 03:06] VITALS: BMI 18.1
[2016-08-20] MEDS ORDERED: PT OWN MED DRAWER 7, Y5N ONE (09:16)
[2016-08-20] MEDS: VENLAFAXINE HCL 75 MG E.R. CAPSULES (FP) PO SCH (09:31)
--- NOTE | 2016-08-20 09:57 | EKG ---
Test Reason : Blood Pressure : / mmHG Vent. Rate : 082 BPM Atrial Rate : 082 BPM P-R Int : 170 ms QRS Dur : 086 ms QT Int : 384 ms P-R-T Axes : 073 062 063 degrees QTc Int : 448 ms NORMAL SINUS RHYTHM NORMAL ECG WHEN COMPARED WITH ECG OF 18-JUL-2016 00:40, T WAVE INVERSION NO LONGER EVIDENT IN ANTEROLATERAL LEADS Confirmed by ROBINSON YAÑEZ MD ([id number]) on 08/20/2016 9:57:11 AM Referred By: Confirmed By:ROBINSON YAÑEZ MD
--- NOTE | 2016-08-20 10:48 | HP ---
Admitting History and Physical - Primary Care Physician PCP: Yuliana Addison - Admission Chief Complaint: ANEMIA. THROMBOCYTOSIS History Source: Significant Other - Past Medical History Pulmonary: Yes: Pulmonary Embolus Gastrointestinal: Yes: Cancer (appendiceal cancer), Other (Intestinal obstruction.) Heme/Onc: Yes: Anemia, Cancer, Other Infectious Disease: Yes: C-Diff - Past Surgical History Past Surgical History: Yes: Colectomy, Colonoscopy, Splenectomy - Smoking History Smoking history: Never smoked Have you smoked in the past 12 months: No Aproximately how many cigarettes per day: 0 - Alcohol/Substance Use Hx Alcohol Use: No Home Medications - Allergies Allergies/Adverse Reactions: Allergies Allergy/AdvReac Type Severity Reaction Status Date / Time No Known Allergies Allergy Verified 07/17/16 22:57 - Home Medications Home Medications: Ambulatory Orders [place] Carbonate [Eskalith -] 900 mg PO HS 02/20/16 Venlafaxine HCl [Effexor -] 225 mg PO DAILY 02/20/16 Warfarin Na [Coumadin -] 5 mg PO DAILY 08/19/16 Review of Systems - Review of Systems Constitutional: reports: Weakness (FEELS BETTER). denies: Chills, Fever Cardiovascular: denies: Chest Pain Respiratory: denies: SOB Gastrointestinal: denies: Abdominal Pain Physical Examination Vital Signs: Vital Signs Temperature 97.2 F L 08/20/16 02:52 Pulse Rate 82 08/20/16 02:52 Respiratory Rate 20 08/20/16 02:52 Blood Pressure 97/58 08/20/16 02:52 O2 Sat by Pulse Oximetry (%) 98 08/20/16 01:58 Constitutional: Yes: Calm Neck: Yes: WNL Cardiovascular: Yes: WNL Respiratory: Yes: WNL Gastrointestinal: Yes: WNL Edema: No Imaging - Results Chest X-ray: Report Reviewed Problem List - Problems (1) Anemia Code(s): D64.9 - ANEMIA, UNSPECIFIED Qualifiers: Anemia type: other cause Other causes of anemia: chronic disease, neoplastic Qualified Code(s): D63.0 - Anemia in neoplastic disease (2) Generalized weakness Code(s): R53.1 - WEAKNESS (3) 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 - SECONDARY MALIGNANT NEOPLASM OF RETROPERITON AND PERITONEUM (4) Pulmonary embolism Code(s): I26.99 - OTHER PULMONARY EMBOLISM WITHOUT ACUTE COR PULMONALE (5) Thrombocytosis Code(s): D47.3 - ESSENTIAL (HEMORRHAGIC) THROMBOCYTHEMIA (6) Leukocytosis Code(s): D72.829 - ELEVATED WHITE BLOOD CELL COUNT, UNSPECIFIED Assessment/Plan (1) Anemia Code(s): D64.9 - ANEMIA, UNSPECIFIED Qualifiers: Anemia type: other cause Other causes of anemia: chronic disease, neoplastic Qualified Code(s): D63.0 - Anemia in neoplastic disease HGB 5 S/P pRBC HEME CONSULTED (2) Generalized weakness Code(s): R53.1 - WEAKNESS PT (3) 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 - SECONDARY MALIGNANT NEOPLASM OF RETROPERITON AND PERITONEUM (4) Pulmonary embolism Code(s): I26.99 - OTHER PULMONARY EMBOLISM WITHOUT ACUTE COR PULMONALE AC F/U INR (5) Thrombocytosis Code(s): D47.3 - ESSENTIAL (HEMORRHAGIC) THROMBOCYTHEMIA HEME CONSULTED (6) Leukocytosis Code(s): D72.829 - ELEVATED WHITE BLOOD CELL COUNT, UNSPECIFIED IMPROVED CULTURES NEG NO ABx ID CONSULT APPRECIATED JOWL TRIMMER DOMINGA
[2016-08-20 11:25] LABS: MCH 23.3 pg (25.7-33.7); MCHC 30.7 g/dl (32.0-35.9); MEAN PLT VOLUME 8.2 fl (7.5-11.1); PLATELET COUNT 915 K/MM3 (134-434); RDW 19.7 % (11.9-15.9); WHITE BLOOD COUNT 13.4 K/mm3 (4.0-10.0)
[2016-08-20 11:48] LABS: CALCIUM 8.6 mg/dL (8.5-10.1); COCKROFT - GAULT 131.38; CREATININE 0.5 mg/dL (0.7-1.3)
--- NOTE | 2016-08-20 12:19 | PN ---
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 (short form) - Note 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: ID consult dictated imp/reccd asked to see the patient for leukocytosis he has a history of pseudomyxoma from appendicieal cancer and is s/p recent stent placement he has not had any further vomiting since that time admitted for anemia and blood transfusion denies any rectal bleeding or hemetemesis no abdominal pain no fevers or chills noted to have elevated WBC on routine labs suspect this is secondary to his anemia- doubt infection agree with blood cultures and observe off antibiotics at this time
--- NOTE | 2016-08-20 13:45 | CONS ---
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 He has a long complicated history. Most recently he was here in June, after which he was transferred to [place] and underwent placement (he reports) of a stent for his outlet obstruction. He has not had any further vomiting. He is now readmitted because, on routine labs, he was noted to be anemic. He received 2 units of packed cells and is feeling better. He has no fevers or chills. He has no shortness of breath. He denies any blood in his stools or urine. He denies any chest pain. He denies any pain at his port site. I am asked to see him because on routine labs his white count was noted to be elevated at 12.4. He is now status post 2 units of blood. On admission his hemoglobin was 4.9. PAST MEDICAL HISTORY: Notable for a history of appendiceal carcinoma, originally diagnosed in 2008, left lower extremity DVT, anemia, remote history of C. difficile, depression. PAST SURGICAL HISTORY: Includes colectomy and multiple surgeries for removing various peritoneal masses. ALLERGIES: He has no known drug allergies. MEDICATIONS: His medications as an outpatient include lithium, warfarin and Effexor. FAMILY HISTORY: Noncontributory. SOCIAL HISTORY: There is no history of any cigarette or substance use. He lives at home with his . There has been no travel. REVIEW OF SYSTEMS: His concern is for the fact he is not gaining weight. He has had no fever or chills, and his vomiting has resolved. PHYSICAL EXAMINATION: Vital Signs: He is afebrile; temperature is 97.2, pulse 82, blood pressure 97/58, respiratory rate 20, saturating 98% on room air. He now weighs 112. General: He is a thin man in no acute distress. HEENT: He is normocephalic. His eyes are anicteric. Neck: Supple. Lungs: Clear to auscultation. Heart: Regular rate and rhythm. Port site is nontender. Abdomen: Soft. There is no distention. He has a well-healed midline scar. Extremities: Without edema. DIAGNOSTIC STUDIES: White count 13.4, hemoglobin 8.7, platelets 915. INR 3.3. BUN 7, creatinine 0.5. Urinalysis is negative. Chest x-ray shows no acute infiltrate. There is a small area of atelectasis in the left lower lobe. ASSESSMENT: In summary, this is a 46-year-old man who has leukocytosis and anemia. I suspect his leukocytosis is secondary to his anemia. I doubt he has infection. I would agree with blood cultures and observe him off antibiotics at this time. PHILIPP HATFIELD M.D. [id number]
[2016-08-20] MEDS ORDERED: LITHIUM CARBONATE 300 MG CAPSULE (FP) PO SCH (22:00)
--- NOTE | 2016-08-20 23:15 | CONSULT ---
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 Patient reports for the past few weeks he has been feeling tired, weak, and SOB on exerction. Reports Coumadin use daily @ 5mg. Denies any other complaints at this time. Reports epigastric fullness, - Past Medical History Pseudomyxoma peritineii DVT anemia c.diff h/o Allergies/Adverse Reactions: Allergies Allergy/AdvReac Type Severity Reaction Status Date / Time No Known Allergies Allergy Verified 07/17/16 22:57 Home Medications: Ambulatory Orders [place] Carbonate [Eskalith -] 900 mg PO HS 02/20/16 Venlafaxine HCl [Effexor -] 225 mg PO DAILY 02/20/16 Warfarin Na [Coumadin -] 5 mg PO DAILY 08/19/16 - Surgical History Abdominal Surgery: Yes (spleenectomy, COLECTOMY, COLONoSCOPY) Appendectomy: Yes GI Surgery: Yes (for stomach cancer--pnp) - Immunization History Immunization Up to Date: Yes - Psycho/Social/Smoking Cessation Hx Anxiety: Yes (STRONG ANXIETY) - Vital Signs Last Vital Signs Temp Pulse Resp BP Pulse Ox 98.2 F 107 H 16 103/66 100 08/19/16 19:47 08/19/16 19:47 08/19/16 19:47 08/19/16 19:47 08/19/16 19:47 Cor: RSR, No murmurs, No gallops Lungs: Clear to P&A Abd: Soft, Normal bowel sounds, No organomegaly Ext:No significant edema Skin: No rashes, Integument intact Abnormal Lab Results 08/19/16 08/20/16 08/20/16 20:30 06:25 06:25 WBC 13.4 H RBC 3.72 L D Hgb 8.7 L D Hct 28.2 L D MCV 76.0 L MCHC 30.7 L RDW 19.7 H Plt Count 915 H Chloride 108 H Anion Gap 7 L Creatinine 0.5 L D Crossmatch See Detail Current Medications Generic Name Dose Route Start Last Admin Trade Name Freq PRN Reason Stop Dose Admin [place] Carbonate 900 mg 08/20/16 22:00 08/20/16 22:44 Eskalith - PO 900 mg HS IZABELLA Administration Venlafaxine HCl 225 mg 08/20/16 10:00 08/20/16 09:31 Effexor Xr - PO 225 mg DAILY IZABELLA Administration A/P 46 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 Received FOLFOX between 2008 to 2010. 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 Also received couple of cycles of FOLFIRI. Now with slowly progressive disease CT scans do not show any obstruction but increasing peritoneal masses. Follows with Dr. Danilo Parker at [facility]. Recently ws there and had a gastric stent placed patient reluctant to consider any palliative chemotherapy/clinical trial options at this time. He understands that his diseae is active and advanced and time sensitive nature of his treament decisions. He does not want to consider chemo at this time. He wants to continue f/u with dr. parker at [facility]. I aksed hime to f/u with us and make us aware of any change in mind. iron deficiency anemia/reactive thrombocytosis to iron deficiency and advanced cancer s/p prbcs will discuss PO/IV iron refusing psych consult here. He follows up with Dr. Maldonado , psychiatrist aas out oatient. Did not want me to discuss condition with his at this time
[2016-08-21 07:11] LABS: EOSINOPHIL 4.7 % (0-4.5); MCH 23.9 pg (25.7-33.7); MCHC 32.5 g/dl (32.0-35.9); MEAN CELL VOLUME 73.6 fl (80-96); MEAN PLT VOLUME 8.4 fl (7.5-11.1); NEUTROPHILS 71.9 % (42.8-82.8); PLATELET COUNT 978 K/MM3 (134-434); RDW 20.3 % (11.9-15.9); WHITE BLOOD COUNT 12.1 K/mm3 (4.0-10.0)
[2016-08-21 07:24] LABS: INR 1.82 (0.82-1.09); PROTHROMBIN TIME (PATIENT) 20.3 SEC (9.98-11.88)
[2016-08-21 07:39] LABS: ALBUMIN 2.6 g/dl (3.4-5.0); ANION GAP 7 (8-16); CALCIUM 8.6 mg/dL (8.5-10.1); CO2 27 mmol/L (21-32); GLUCOSE,RANDOM 75 mg/dL (74-106)
[2016-08-21 07:50] LABS: ALK PHOS 91 U/L (45-117); BILIRUBIN,TOTAL 0.3 mg/dL (0.2-1.0); COCKROFT - GAULT 109.48; CREATININE 0.6 mg/dL (0.7-1.3); SGOT/AST 11 U/L (15-37); SGPT/ALT 15 U/L (12-78); TOT PROT 6.2 g/dl (6.4-8.2)
[2016-08-21] MEDS ORDERED: PT OWN MED DRAWER 7, Y5N ONE (09:33)
[2016-08-21] MEDS: VENLAFAXINE HCL 75 MG E.R. CAPSULES (FP) PO SCH (10:08)
[2016-08-21 13:47] VITALS: BP 116/70; PULSE 98; TEMP 98.5
--- NOTE | 2016-08-21 15:31 | DS ---
Physical Examination Vital Signs: Vital Signs Temperature 98.5 F 08/21/16 13:45 Pulse Rate 98 H 08/21/16 13:45 Respiratory Rate 20 08/21/16 13:45 Blood Pressure 116/70 08/21/16 13:45 O2 Sat by Pulse Oximetry (%) 98 08/21/16 09:00 Constitutional: Yes: Calm Neck: Yes: WNL Cardiovascular: Yes: WNL Respiratory: Yes: WNL Gastrointestinal: Yes: WNL Edema: No Labs: CBC, BMP 08/21/16 06:00 08/21/16 06:00 Discharge Summary Reason For Visit: NON ST ELEVATION/DIASTOLIC CHF Current Active Problems Anemia (Acute) C. difficile colitis (Acute) Generalized weakness (Acute) Leukocytosis (Acute) Malignant pseudomyxoma peritonei (Acute) Nausea & vomiting (Acute) Sepsis (Acute) Thrombocytosis (Acute) Hospital Course: (1) Anemia Code(s): D64.9 - ANEMIA, UNSPECIFIED Qualifiers: Anemia type: other cause Other causes of anemia: chronic disease, neoplastic Qualified Code(s): D63.0 - Anemia in neoplastic disease FORTUNATO -> Fe (CALLED IN) HGB 5 -> 9 S/P pRBC x 2 HEME CONSULT APPRECIATED pseudomyxoma peritoneii s/p multiple resections Now with slowly progressive disease iron deficiency anemia/reactive thrombocytosis to iron deficiency and advanced cancer PATIENT NOT OPEN TO ANY INTERVENTION AT THIS TIME PREFERS TO F/U WITH OUTPT [facility] (2) Generalized weakness Code(s): R53.1 - WEAKNESS PT (3) 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 - SECONDARY MALIGNANT NEOPLASM OF RETROPERITON AND PERITONEUM (4) Pulmonary embolism Code(s): I26.99 - OTHER PULMONARY EMBOLISM WITHOUT ACUTE COR PULMONALE AC F/U INR 1.8 -> PCP CAN F/U OUTPT (5) Thrombocytosis Code(s): D47.3 - ESSENTIAL (HEMORRHAGIC) THROMBOCYTHEMIA HEME CONSULT APPRECIATED IMPROVED REACTIVE (6) Leukocytosis Code(s): D72.829 - ELEVATED WHITE BLOOD CELL COUNT, UNSPECIFIED IMPROVED CULTURES NEG NO ABx ID CONSULT APPRECIATED PATIENT REFUSING INTERVENTION/CT/PSYCH CONSULT PATIENT ANXIOUS TO LEAVE DISCHARGED WITH PROMISE 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
== END 2016-08-21 17:56 | disposition home or self-care (01) | DRG 375 ==
LOC: JER 19:36 → UNDOADMIN 21:17 → JERBED 21:17 → J7W 08-20 02:46
PROVIDERS: ADMIT Family Medicine; ATTEND Family Medicine
PROC: 30233N1 Transfusion of Nonautologous Red Blood Cells into Peripheral Vein, Percutaneous Approach (ICD-10-PCS; principal; 2016-08-19)
DX: C78.6 Secondary malignant neoplasm of retroperitoneum and peritoneum (principal); J98.11 Atelectasis; D50.9 Iron deficiency anemia, unspecified; R53.1 Weakness; D47.3 Essential (hemorrhagic) thrombocythemia; D72.829 Elevated white blood cell count, unspecified; Z86.711 Personal history of pulmonary embolism; Z86.718 Personal history of other venous thrombosis and embolism; D63.0 Anemia in neoplastic disease
CPT/HCPCS: 36415; 36430; 71010-TC; 80048; 80053; 81003; 82150; 83690; 84443; 85025; 85027; 85610; 85730; 86850; 86900; 86901; 86922; 87040; 87086; 93005; 93010; 99283-25; P9038; P9058

== ENCOUNTER 2016-10-09 22:57 | Inpatient (IN) | payer OTHER ==
[2016-10-09 23:36] VITALS: BMI 18.1
[2016-10-09 23:53] LABS: BASOPHIL 0.5 % (0-2.0); EOSINOPHIL 1.6 % (0-4.5); MCH 24.3 pg (25.7-33.7); MCHC 29.4 g/dl (32.0-35.9); MEAN CELL VOLUME 82.5 fl (80-96); MEAN PLT VOLUME 8.4 fl (7.5-11.1); NEUTROPHILS 86.9 % (42.8-82.8); PLATELET COUNT 1000 K/MM3 (134-434); RDW 23.9 % (11.9-15.9); WHITE BLOOD COUNT 16.3 K/mm3 (4.0-10.0)
[2016-10-10 00:17] LABS: PROTHROMBIN TIME (PATIENT) 59.4 SEC (9.98-11.88)
[2016-10-10 00:19] LABS: ALBUMIN 1.9 g/dl (3.4-5.0); ANION GAP 11 (8-16); CALCIUM 8.2 mg/dL (8.5-10.1); CO2 28 mmol/L (21-32); COCKROFT - GAULT 82.02; CREATININE 0.8 mg/dL (0.7-1.3); GLUCOSE,RANDOM 137 mg/dL (74-106); SGPT/ALT 16 U/L (12-78); TOT PROT 5.4 g/dl (6.4-8.2)
[2016-10-10 00:20] LABS: ALK PHOS 58 U/L (45-117)
[2016-10-10 00:22] LABS: BILIRUBIN,TOTAL < 0.1 mg/dL (0.2-1.0); SGOT/AST 25 U/L (15-37)
[2016-10-10] MEDS ORDERED: SODIUM CHLORIDE 1,000 ML IV STA (00:36)
[2016-10-10 01:05] LABS: ALBUMIN 1.9 g/dl (3.4-5.0); ANION GAP 11 (8-16); BILIRUBIN,TOTAL 0.1 mg/dL (0.2-1.0); CALCIUM 8.2 mg/dL (8.5-10.1); CO2 27 mmol/L (21-32); COCKROFT - GAULT 93.74; CREATININE 0.7 mg/dL (0.7-1.3); GLUCOSE,RANDOM 135 mg/dL (74-106); SGPT/ALT 17 U/L (12-78); TOT PROT 5.4 g/dl (6.4-8.2)
[2016-10-10 01:08] LABS: ALK PHOS 58 U/L (45-117); TROPONIN I < 0.02 ng/ml (0.00-0.05)
[2016-10-10 01:19] LABS: SGOT/AST 24 U/L (15-37)
[2016-10-10 01:46] LABS: INR 5.22 (0.82-1.09)
[2016-10-10 04:12] LABS: URINE APPEARANCE SLCLOUDY; URINE BILIRUBIN NEGATIVE (NEGATIVE); URINE BLOOD NEGATIVE (NEGATIVE); URINE COLOR YELLOW; URINE GLUCOSE (UA) NEGATIVE (NEGATIVE); URINE KETONE NEGATIVE (NEGATIVE); URINE LEUK ESTERASE NEGATIVE (NEGATIVE); URINE NITRITE NEGATIVE (NEGATIVE); URINE PROTEIN NEGATIVE (NEGATIVE); URINE UROBILINOGEN NEGATIVE E.U./dl (0.2-1.0)
--- NOTE | 2016-10-10 04:56 | PDOC ---
History of Present Illness - General Chief Complaint: Weakness Stated Complaint: WEAK Time Seen by Provider: 10/09/16 23:32 History Source: Patient Exam Limitations: Clinical Condition - History of Present Illness Initial Comments: 10/10/16 04:55 46yo Male patient w/ PmHx: Anemia, DVT, Stomach Ca, Pseudomyxoma Peritonei s/p resection presents to ED c/o profound weakness, malaise, decreased appetite, h/a , since Monday. Patient denies any other complaints at this time. PCP: Dr. Addison Timing/Duration: constant, getting worse Severity: moderate Modifying Factors: worse with: cold therapy, eating, immobilization, medication , movement, rest, other Associated Symptoms: reports: headaches, weakness Aspirin Received prior to arrival: No: no aspirin today, unknown, 81 mg x 1, 81 mg x 2, 81 mg x 3, 81 mg x 4, 325 mg x 1, provided at home, provided by EMS, provided by ED [facility] Contraindications(Core Measure): No: Allergy, Other, Active Blding w/i 24 hrs., Plavix, Receiving Warfarin Beta Diana Contraindications(Core Measure): No: Not Prescribed, Allergy, Bradycardia (HR <60bpm), Advanced Heart Block, Pacemaker, Other Past History - Travel Traveled outside of the country in the last 30 days: No Close contact w/someone who was outside of country & ill: No - Past Medical History Allergies/Adverse Reactions: Allergies Allergy/AdvReac Type Severity Reaction Status Date / Time No Known Allergies Allergy Verified 10/09/16 23:34 Home Medications: Ambulatory Orders [place] Carbonate [Eskalith -] 900 mg PO HS 02/20/16 Venlafaxine HCl [Effexor -] 225 mg PO DAILY 02/20/16 Warfarin Na [Coumadin -] 5 mg PO DAILY 08/19/16 Anemia: Yes Asthma: No Cancer: Yes (APPENDICEAL CA, 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) Cardiac Disorders: No CVA: No COPD: No CHF: No DVT: Yes (LLE BLOOD CLOT 5 YEARS AGO) Dementia: No Diabetes: No GI Disorders: Yes (C-DIFF 2013) Disorders: Yes (CDIFF 2013) HTN: No Hypercholesterolemia: No Liver Disease: No Seizures: No Thyroid Disease: No - Surgical History Abdominal Surgery: Yes (spleenectomy, COLECTOMY, COLONoSCOPY) Appendectomy: Yes Cardiac Surgery: No Cholecystectomy: No GI Surgery: Yes (for stomach cancer--pnp) Lung Surgery: No Neurologic Surgery: No Orthopedic Surgery: No - Immunization History Immunization Up to Date: Yes - Psycho/Social/Smoking Cessation Hx Anxiety: Yes (STRONG ANXIETY) Suicidal Ideation: No Smoking Status: No Smoking History: Never smoked Have you smoked in the past 12 months: No Number of Cigarettes Smoked Daily: 0 Cigars Per Day: 0 Information on smoking cessation initiated: No Hx Alcohol Use: No Drug/Substance Use Hx: No Substance Use Type: None Hx Substance Use Treatment: No Review of Systems - Review of Systems Able to Perform ROS?: Yes Is the patient limited Azeri proficient: No Constitutional: Yes: Malaise, Weakness. No: Chills, Fever HEENTM: No: Nose Bleeding Respiratory: No: Cough, Shortness of Breath, Stridor, Wheezing Cardiac (ROS): No: Chest Pain, Lightheadedness, Palpitations, Chest Tightness ABD/GI: Yes: Poor Appetite. No: Constipated, Diarrhea, Nausea, Poor Fluid Intake, Rectal Bleeding, Vomiting : No: Dysuria, Flank Pain, Hematuria Musculoskeletal: Yes: Muscle Weakness. No: Back Pain Integumentary: No: Bruising, Erythema, Rash, Sweating Neurological: Yes: Headache. No: Seizure, Tremors, Ataxia, Dizziness All Other Systems: Reviewed and Negative *Physical Exam - Vital Signs Last Vital Signs Temp Pulse Resp BP Pulse Ox 98.7 F 104 H 16 93/67 97 10/10/16 03:34 10/10/16 03:34 10/10/16 03:34 10/10/16 03:34 10/09/16 23:34 - Physical Exam General Appearance: Yes: Appropriately Dressed, Thin. No: Apparent Distress, Mild Distress, Moderate Distress, Severe Distress HEENT: positive: EOMI, MICHAEL, Normal ENT Inspection, Normal Voice, Symmetrical, TMs Normal, Pharynx Normal. negative: Pharyngeal Erythema, Tonsillar Exudate, Tonsillar Erythema, Nasal Congestion, Rhinorrhea, TM Bulging, TM Dull, TM Erythema Neck: positive: Trachea midline, Supple. negative: Lymphadenopathy (R), Lymphadenopathy (L) Respiratory/Chest: positive: Lungs Clear, Normal Breath Sounds. negative: Chest Tender, Respiratory Distress, Accessory Muscle Use, Labored Respiration, Rapid RR Cardiovascular: positive: Tachycardia Gastrointestinal/Abdominal: positive: Flat, Soft, Decreased BS. negative: Tender, Distended, Guarding, Rebound, Tenderness Musculoskeletal: positive: Normal Inspection. negative: CVA Tenderness Extremity: positive: Normal Capillary Refill, Normal Inspection, Normal Range of Motion. 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 NML intact, Fully Oriented, Alert, Normal Mood/ Affect, Normal Response, Motor Strength 09/02 ED Treatment Course - LABORATORY CBC & Chemistry Diagram: 10/09/16 23:40 10/10/16 00:42 - ADDITIONAL ORDERS Additional order review: Laboratory Results 10/10/16 10/10/16 10/09/16 04:03 00:42 23:40 INR Sodium 142 Potassium 3.9 Chloride 104 Carbon Dioxide 27 Anion Gap 11 BUN 13 Creatinine 0.7 Creat Clearance w eGFR > 60 Random Glucose 135 H Calcium 8.2 L Total Bilirubin 0.1 L AST 24 ALT 17 Alkaline Phosphatase 58 Creatine Kinase 49 Troponin I < 0.02 Total Protein 5.4 L Albumin 1.9 L Urine Color Yellow Urine Appearance Slcloudy Urine pH 7.0 Urine Protein Negative Urine Glucose (UA) Negative Urine Ketones Negative Urine Blood Negative Urine Nitrite Negative Urine Bilirubin Negative Urine Urobilinogen Negative Ur Leukocyte Esterase Negative Blood Type A POSITIVE Antibody Screen Negative Crossmatch See Detail 10/09/16 10/09/16 23:40 23:40 INR 5.22 H* D Sodium 142 Potassium 3.9 Chloride 103 Carbon Dioxide 28 Anion Gap 11 BUN 13 D Creatinine 0.8 D Creat Clearance w eGFR > 60 Random Glucose 137 H D Calcium 8.2 L Total Bilirubin < 0.1 L D AST 25 D ALT 16 Alkaline Phosphatase 58 D Creatine Kinase Troponin I Total Protein 5.4 L Albumin 1.9 L D Urine Color Urine Appearance Urine pH Urine Protein Urine Glucose (UA) Urine Ketones Urine Blood Urine Nitrite Urine Bilirubin Urine Urobilinogen Ur Leukocyte Esterase Blood Type Antibody Screen Crossmatch 10/09/16 23:40 RBC 1.50 L D MCV 82.5 MCHC 29.4 L RDW 23.9 H D MPV 8.4 Neutrophils % 86.9 H D Lymphocytes % 5.4 L D Monocytes % 5.6 Eosinophils % 1.6 Basophils % 0.5 - Medications Given in the ED: ED Medications Discontinued Medications Generic Name Dose Route Start Last Admin Trade Name Freq PRN Reason Stop Dose Admin Sodium Chloride 1,000 mls @ 1,000 mls/hr 10/10/16 00:36 10/10/16 00:30 Normal Saline - IV 10/10/16 01:35 1,000 mls/hr ASDIR STA Administration
[2016-10-10 05:00] LABS: PLATELET ESTIMATE MARKEDLY INCREASED (NORMAL)
[2016-10-10] MEDS ORDERED: SODIUM CHLORIDE 500 ML IV STA (05:15)
[2016-10-10] MEDS ORDERED: ACETAMINOPHEN 325 MG TABLET (FP) PO PRN (07:44)
[2016-10-10] MEDS ORDERED: VENLAFAXINE HCL 37.5 MG TABLET PO SCH (10:00)
[2016-10-10] MEDS ORDERED: LITHIUM CARBONATE 450 MG TABLET.ER PO SCH ×2 (10:00→22:00)
--- NOTE | 2016-10-10 10:34 | HP ---
Admitting History and Physical - Primary Care Physician PCP: Yuliana Addison - Admission Chief Complaint: came in for weakness which was getting worse History of Present Illness: 46yo Male patient w/ PmHx: Anemia, DVT, Stomach Ca, Pseudomyxoma Peritonei s/p resection presents to ED c/o profound weakness, malaise, decreased appetite, h/a , since Monday. Patient denies any other complaints at this time. patient denies Melena, or hematochezia, hematuria or hemetemisis, no chest pain no SOB, no palpitations no dizziness iin ER found to have INR 5.22 and h/h 3.6/12.4 currently he is in bed feeling tired getting first PRBC got FPP, to get another unit of prbc History Source: Patient - Past Medical History Pulmonary: Yes: Pulmonary Embolus Gastrointestinal: Yes: Cancer (appendiceal cancer), Other (Intestinal obstruction.) Heme/Onc: Yes: Anemia, Cancer, Other Infectious Disease: Yes: C-Diff - Past Surgical History Past Surgical History: Yes: Colectomy, Colonoscopy, Splenectomy - Smoking History Smoking history: Never smoked Have you smoked in the past 12 months: No Aproximately how many cigarettes per day: 0 - Alcohol/Substance Use Hx Alcohol Use: No Home Medications - Allergies Allergies/Adverse Reactions: Allergies Allergy/AdvReac Type Severity Reaction Status Date / Time No Known Allergies Allergy Verified 10/09/16 23:34 - Home Medications Home Medications: Ambulatory Orders [place] Carbonate [Eskalith -] 900 mg PO HS 02/20/16 Venlafaxine HCl [Effexor -] 225 mg PO DAILY 02/20/16 Warfarin Na [Coumadin -] 5 mg PO DAILY 08/19/16 Review of Systems - Review of Systems Constitutional: reports: Weakness, Other (tired) Eyes: reports: Other (no headache right now) Physical Examination Vital Signs: Vital Signs Temperature 97.2 F L 10/10/16 08:49 Pulse Rate 102 H 10/10/16 08:49 Respiratory Rate 18 10/10/16 08:49 Blood Pressure 104/58 10/10/16 08:49 O2 Sat by Pulse Oximetry (%) 100 10/10/16 08:49 Constitutional: Yes: Calm, Thin Cardiovascular: Yes: Tachycardia, S1, S2 Respiratory: Yes: CTA Bilaterally Gastrointestinal: Yes: Soft Edema: No Neurological: Yes: Alert, Oriented Problem List - Problems (1) Elevated INR Assessment/Plan: s/p 2 units FFP stop ACSCD for now Code(s): R79.1 - ABNORMAL COAGULATION PROFILE (2) Anemia Assessment/Plan: prbc 2 units - currently getting first one check h.h after the second unit check inr again today may need 2 more units of FPP if INR >3 heme eval check stool for occult blood Code(s): D64.9 - ANEMIA, UNSPECIFIED (3) Pulmonary embolism Assessment/Plan: given supratherapeutic inr and anemia got ffp 2 units recheck INR SCD for now stop AC right now Code(s): I26.99 - OTHER PULMONARY EMBOLISM WITHOUT ACUTE COR PULMONALE
[2016-10-10] MEDS: VENLAFAXINE HCL 75 MG E.R. CAPSULES (FP) PO SCH (12:43)
[2016-10-10] MEDS ORDERED: PT OWN MED DRAWER 7, Y5N ONE ×2 (12:47→20:28)
--- NOTE | 2016-10-10 14:03 | EKG ---
Test Reason : Blood Pressure : / mmHG Vent. Rate : 100 BPM Atrial Rate : 100 BPM P-R Int : 152 ms QRS Dur : 086 ms QT Int : 358 ms P-R-T Axes : 054 066 064 degrees QTc Int : 461 ms NORMAL SINUS RHYTHM NORMAL ECG WHEN COMPARED WITH ECG OF 19-AUG-2016 21:55, NO SIGNIFICANT CHANGE WAS FOUND Confirmed by KOKO MORGAN MD ([id number]) on 10/10/2016 2:03:42 PM Referred By: Confirmed By:KOKO MORGAN MD
[2016-10-10 18:19] LABS: BASOPHIL 0.5 % (0-2.0); EOSINOPHIL 2.8 % (0-4.5); MCH 26.3 pg (25.7-33.7); MEAN CELL VOLUME 82.4 fl (80-96); MEAN PLT VOLUME 8.2 fl (7.5-11.1); NEUTROPHILS 76.5 % (42.8-82.8); PLATELET COUNT 961 K/MM3 (134-434); RDW 18.6 % (11.9-15.9); WHITE BLOOD COUNT 12.1 K/mm3 (4.0-10.0)
[2016-10-10 18:35] LABS: INR 2.09 (0.82-1.09); PROTHROMBIN TIME (PATIENT) 23.3 SEC (9.98-11.88)
[2016-10-10] MEDS ORDERED: FUROSEMIDE 40 MG/4 ML INJECTABLE VIAL IVPUSH ONE (19:00)
--- NOTE | 2016-10-10 21:42 | CON.GI ---
Consult Consult Specialty:: GI Referred by:: Dr Addison Reason for Consultation:: Anemia - History of Present Illness Chief Complaint: fatigue History of Present Illness: 46yo Male patient w/ PmHx: Anemia, DVT, Pseudomyxoma Peritonei s/p umerous de- bulking surgeries doen by Dr Neal at [facility], presents to ED c/o profound weakness, malaise, decreased appetite, h/a, since Monday. He denies melena, or hematochezia, hematuria or hemetemisis. no chest pain no SOB, no palpitations no dizziness In the ER he was found to have INR 5.22 and h/h 3.6/12.4 He is currently in bed after receiving a total of 3 units of PRBC and 2 units of FFP. - History Source History Provided By: Patient, Medical Record Limitations to Obtaining History: No Limitations - Past Medical History Pulmonary: Yes: Pulmonary Embolus Gastrointestinal: Yes: Cancer (appendiceal cancer), Other (Intestinal obstruction.) Infectious Disease: Yes: C-Diff - Past Surgical History Past Surgical History: Yes: Colectomy, Colonoscopy, Splenectomy - Alcohol/Substance Use Hx Alcohol Use: No - Smoking History Smoking history: Never smoked Have you smoked in the past 12 months: No Aproximately how many cigarettes per day: 0 Home Medications - Allergies Allergies/Adverse Reactions: Allergies Allergy/AdvReac Type Severity Reaction Status Date / Time No Known Allergies Allergy Verified 10/09/16 23:34 - Home Medications Home Medications: Ambulatory Orders [place] Carbonate [Eskalith -] 900 mg PO HS 02/20/16 Venlafaxine HCl [Effexor -] 225 mg PO DAILY 02/20/16 Warfarin Na [Coumadin -] 5 mg PO DAILY 08/19/16 Physical Exam-GI Vital Signs: Vital Signs Temperature 98.6 F 10/10/16 18:00 Pulse Rate 98 H 10/10/16 18:00 Respiratory Rate 18 10/10/16 18:00 Blood Pressure 97/56 10/10/16 18:00 O2 Sat by Pulse Oximetry (%) 100 10/10/16 08:49 Constitutional: Yes: Thin HENT: Yes: Normocephalic Neck: Yes: Supple Cardiovascular: Yes: Regular Rate and Rhythm Respiratory: Yes: CTA Bilaterally Gastrointestinal Inspection: Yes: Scars ...Auscultate: Yes: Normoactive Bowel Sounds ...Palpate: Yes: Soft Labs: CBC, BMP 10/10/16 18:15 INR, PTT INR 2.09 (0.82-1.09) H D 10/10/16 18:15 Hepatic Panel Total Bilirubin 0.1 mg/dL (0.2-1.0) L 10/10/16 00:42 AST 24 U/L (15-37) 10/10/16 00:42 ALT 17 U/L (12-78) 10/10/16 00:42 Alkaline Phosphatase 58 U/L (45-117) 10/10/16 00:42 Albumin 1.9 g/dl (3.4-5.0) L 10/10/16 00:42 Abnormal Lab Results 10/09/16 10/09/16 10/09/16 23:40 23:40 23:40 WBC 16.3 H D RBC 1.50 L D Hgb 3.6 L* D Hct 12.4 L MCHC 29.4 L RDW 23.9 H D Plt Count 1000 H Neutrophils % 86.9 H D Lymphocytes % 5.4 L D INR 5.22 H* D Random Glucose 137 H D Calcium 8.2 L Total Bilirubin < 0.1 L D Total Protein 5.4 L Albumin 1.9 L D Crossmatch 10/09/16 10/10/16 10/10/16 23:40 00:42 18:15 WBC 12.1 H RBC 2.53 L D Hgb 6.7 L* D Hct 20.9 L D MCHC RDW 18.6 H D Plt Count 961 H Neutrophils % Lymphocytes % INR Random Glucose 135 H Calcium 8.2 L Total Bilirubin 0.1 L Total Protein 5.4 L Albumin 1.9 L Crossmatch See Detail 10/10/16 18:15 WBC RBC Hgb Hct MCHC RDW Plt Count Neutrophils % Lymphocytes % INR 2.09 H D Random Glucose Calcium Total Bilirubin Total Protein Albumin Crossmatch Assessment/Plan Patient with above history admitted with profound symptomatic anemia. No evidence of bleeding. He is on coumadin and has a platelet count of 1000. For this reason his INR should not be fully reversed, in light of the fact that there has been no bleeding. INR should probably be left at 2.5-3.0 to prevent thrombus formation. I don't believe he needs any emergent procedure at this time and elective procedures should be done at [facility] where he receives all of his care. Once he has been adequately transfused and we are comfortable that there has been no end-organ damage from his profound anemia, he can be discharged to f/u at [place].
--- NOTE | 2016-10-10 22:41 | CONSULT ---
Consult - text type - Consultation Consultation Note: 46yo Male patient w/ PmHx: Anemia, DVT, Pseudomyxoma Peritonei s/p numerous de- bulking surgeries doen by Dr Neal at [facility], presents to ED c/o profound weakness, malaise, decreased appetite, h/a, since Monday. He denies melena, or hematochezia, hematuria or hemetemisis. no chest pain no SOB, no palpitations no dizziness In the ER he was found to have INR 5.22 and h/h 3.6/12.4 He is currently in bed after receiving a total of 3 units of PRBC and 2 units of FFP. - Past Medical History Pulmonary: Yes: Pulmonary Embolus Gastrointestinal: Yes: Cancer (appendiceal cancer), Other (Intestinal obstruction.) Infectious Disease: Yes: C-Diff - Past Surgical History Past Surgical History: Yes: Colectomy, Colonoscopy, Splenectomy - Smoking History Smoking history: Never smoked Home Medications - Allergies Allergies/Adverse Reactions: Allergies Allergy/AdvReac Type Severity Reaction Status Date / Time No Known Allergies Allergy Verified 10/09/16 23:34 - Home Medications Home Medications: Ambulatory Orders [place] Carbonate [Eskalith -] 900 mg PO HS 02/20/16 Venlafaxine HCl [Effexor -] 225 mg PO DAILY 02/20/16 Warfarin Na [Coumadin -] 5 mg PO DAILY 08/19/16 Physical Exam-GI Vital Signs: Vital Signs Temperature 98.6 F 10/10/16 18:00 Pulse Rate 98 H 10/10/16 18:00 Respiratory Rate 18 10/10/16 18:00 Blood Pressure 97/56 10/10/16 18:00 O2 Sat by Pulse Oximetry (%) 100 10/10/16 08:49 Constitutional: Yes: Thin HENT: Yes: Normocephalic Neck: Yes: Supple Cardiovascular: Yes: Regular Rate and Rhythm Respiratory: Yes: CTA Bilaterally Gastrointestinal Inspection: Yes: Scars ...Auscultate: Yes: Normoactive Bowel Sounds CBC, BMP 10/10/16 18:15 INR, PTT INR 2.09 (0.82-1.09) H D 10/10/16 18:15 Hepatic Panel Total Bilirubin 0.1 mg/dL (0.2-1.0) L 10/10/16 00:42 AST 24 U/L (15-37) 10/10/16 00:42 ALT 17 U/L (12-78) 10/10/16 00:42 Alkaline Phosphatase 58 U/L (45-117) 10/10/16 00:42 Albumin 1.9 g/dl (3.4-5.0) L 10/10/16 00:42 Abnormal Lab Results 10/09/16 10/09/16 10/09/16 23:40 23:40 23:40 WBC 16.3 H D RBC 1.50 L D Hgb 3.6 L* D Hct 12.4 L MCHC 29.4 L RDW 23.9 H D Plt Count 1000 H Neutrophils % 86.9 H D Lymphocytes % 5.4 L D INR 5.22 H* D Random Glucose 137 H D Calcium 8.2 L Total Bilirubin < 0.1 L D Total Protein 5.4 L Albumin 1.9 L D Crossmatch 10/09/16 10/10/16 10/10/16 23:40 00:42 18:15 WBC 12.1 H RBC 2.53 L D Hgb 6.7 L* D Hct 20.9 L D MCHC RDW 18.6 H D Plt Count 961 H Neutrophils % Lymphocytes % INR Random Glucose 135 H Calcium 8.2 L Total Bilirubin 0.1 L Total Protein 5.4 L Albumin 1.9 L Crossmatch See Detail 10/10/16 18:15 WBC RBC Hgb Hct MCHC RDW Plt Count Neutrophils % Lymphocytes % INR 2.09 H D Random Glucose Calcium Total Bilirubin Total Protein Albumin Crossmatch Assessment/Plan 46 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 Received FOLFOX between 2008 to 2010. 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 Also received couple of cycles of FOLFIRI. Now with slowly progressive disease CT scans do not show any obstruction but increasing peritoneal masses. Follows with Dr. Danilo Parker at [facility]. Recently ws there and had a gastric stent placed patient reluctant to consider any palliative chemotherapy/clinical trial options at this time. He understands that his diseae is active and advanced and time sensitive nature of his treament decisions. He does not want to consider chemo at this time. He wants to continue f/u with dr. parker at [facility]. I aksed hime to f/u with us and make us aware of any change in mind. Also rediscussed MATCH trial. consideration of immunotherapy based on MMR status iron deficiency anemia/reactive thrombocytosis to iron deficiency and advanced cancer s/p prbcs will discuss PO/IV iron refusing psych consult here. He follows up with Dr. Maldonado , psychiatrist aas out oatient.
[2016-10-11] MEDS ORDERED: ZOLPIDEM TARTRATE 5 MG TABLET PO ONE (01:30)
[2016-10-11 08:52] LABS: BASOPHIL 0.5 % (0-2.0); EOSINOPHIL 2.8 % (0-4.5); MCH 27.4 pg (25.7-33.7); MCHC 33.4 g/dl (32.0-35.9); MEAN CELL VOLUME 82.2 fl (80-96); MEAN PLT VOLUME 7.8 fl (7.5-11.1); NEUTROPHILS 77.8 % (42.8-82.8); PLATELET COUNT 983 K/MM3 (134-434); RDW 17.7 % (11.9-15.9); WHITE BLOOD COUNT 15.2 K/mm3 (4.0-10.0)
[2016-10-11 09:14] LABS: INR 1.93 (0.82-1.09); PROTHROMBIN TIME (PATIENT) 21.5 SEC (9.98-11.88)
[2016-10-11 09:27] LABS: ALBUMIN 2.6 g/dl (3.4-5.0); ALK PHOS 70 U/L (45-117); ANION GAP 8 (8-16); BILIRUBIN,TOTAL 0.5 mg/dL (0.2-1.0); CALCIUM 9.3 mg/dL (8.5-10.1); CO2 29 mmol/L (21-32); COCKROFT - GAULT 110.14; CREATININE 0.6 mg/dL (0.7-1.3); GLUCOSE,RANDOM 91 mg/dL (74-106); SGOT/AST 13 U/L (15-37); SGPT/ALT 18 U/L (12-78); TOT PROT 6.7 g/dl (6.4-8.2)
[2016-10-11] MEDS ORDERED: PT OWN MED DRAWER 7, Y5N ONE (09:43)
[2016-10-11] MEDS: VENLAFAXINE HCL 75 MG E.R. CAPSULES (FP) PO SCH (09:46)
[2016-10-11] MEDS ORDERED: VENLAFAXINE HCL 75 MG E.R. CAPSULES (FP) PO SCH (10:00)
--- NOTE | 2016-10-11 10:21 | DS ---
Physical Examination Vital Signs: Vital Signs Temperature 98.8 F 10/11/16 06:23 Pulse Rate 89 10/11/16 06:23 Respiratory Rate 18 10/11/16 06:23 Blood Pressure 104/69 10/11/16 06:23 O2 Sat by Pulse Oximetry (%) 100 10/10/16 21:00 Constitutional: Yes: Calm, Thin Cardiovascular: Yes: Regular Rate and Rhythm, S1, S2 Respiratory: Yes: CTA Bilaterally Gastrointestinal: Yes: Soft Edema: No Neurological: Yes: Alert, Oriented Labs: CBC, BMP 10/11/16 08:20 10/11/16 08:20 Discharge Summary Reason For Visit: ANEMIA/DEHYDRATION Current Active Problems C. difficile colitis (Acute) Generalized weakness (Acute) Leukocytosis (Acute) Nausea & vomiting (Acute) Sepsis (Acute) Hospital Course: PCP: Yuliana Addison - Admission Chief Complaint: came in for weakness which was getting worse History of Present Illness: 46yo Male patient w/ PmHx: Anemia, DVT, Stomach Ca, Pseudomyxoma Peritonei s/p resection presents to ED c/o profound weakness, malaise, decreased appetite, h/a , since Monday. Patient denies any other complaints at this time. patient denies Melena, or hematochezia, hematuria or hemetemisis, no chest pain no SOB, no palpitations no dizziness iin ER found to have INR 5.22 and h/h 3.6/12.4 History Source: Patient - Past Medical History Pulmonary: Yes: Pulmonary Embolus Gastrointestinal: Yes: Cancer (appendiceal cancer), Other (Intestinal obstruction.) Heme/Onc: Yes: Anemia, Cancer, Other Infectious Disease: Yes: C-Diff in hospital he got 3 units PRBC and 2 units FFP and now his blood work much better cbc 8.7 /26 and INR 1.9 patient ti follo up with Dr martin at [facility] on october 20 has appointment with him warfarin dose decreassed to 2.5mg daily to get home blood draw on and then monthly called office and asked desktop architect to faxe script Condition: Improved - Instructions Referrals: Yuliana Addison MD [Primary Care Provider] - Disposition: HOME - Home Medications Comprehensive Discharge Medication List: Ambulatory Orders [place] Carbonate [Eskalith -] 900 mg PO HS 02/20/16 Venlafaxine HCl [Effexor -] 225 mg PO DAILY 02/20/16 Warfarin Na [Coumadin -] 5 mg PO DAILY 08/19/16
[2016-10-11 11:14] VITALS: BP 126/90; PULSE 99; TEMP 98
== END 2016-10-11 11:38 | disposition home or self-care (01) | DRG 375 ==
LOC: JER 22:57 → JERBED 10-10 05:15 → J5S 10-10 07:29
PROVIDERS: ADMIT Family Medicine; ATTEND Family Medicine
PROC: 30233K1 Transfusion of Nonautologous Frozen Plasma into Peripheral Vein, Percutaneous Approach (ICD-10-PCS; principal; 2016-10-10)
PROC: 30233N1 Transfusion of Nonautologous Red Blood Cells into Peripheral Vein, Percutaneous Approach (ICD-10-PCS; 2016-10-10)
DX: C16.9 Malignant neoplasm of stomach, unspecified (principal); C78.6 Secondary malignant neoplasm of retroperitoneum and peritoneum; D50.9 Iron deficiency anemia, unspecified; D47.3 Essential (hemorrhagic) thrombocythemia; E86.0 Dehydration; F41.9 Anxiety disorder, unspecified; R79.1 Abnormal coagulation profile; Z86.718 Personal history of other venous thrombosis and embolism; Z86.711 Personal history of pulmonary embolism
CPT/HCPCS: 36415; 36430; 36511; 70450-TC; 71010-TC; 74020-TC; 80053; 81003; 82550; 84484; 85025; 85610; 86850; 86900; 86901; 86922; 93005; 93010; 99285-25; P9017; P9038; P9058

== ENCOUNTER 2016-10-30 15:59 | Inpatient (IN) | payer OTHER ==
[2016-10-30 16:03] VITALS: BMI 17.7
[2016-10-30] MEDS ORDERED: SODIUM CHLORIDE 1,000 ML IV STA (16:09)
[2016-10-30] MEDS ORDERED: ACETAMINOPHEN 1000 MG/100 ML VIAL (NON FORMULARY) IVPB ONE (16:10)
[2016-10-30 16:32] LABS: VENOUS PH 7.42 (7.32-7.42)
[2016-10-30 16:33] LABS: VENOUS BLOOD GAS HCO3 27.6 meq/L (19-25)
[2016-10-30 16:42] LABS: BASOPHIL 0.7 % (0-2.0); EOSINOPHIL 1.8 % (0-4.5); MCH 23.9 pg (25.7-33.7); MCHC 29.9 g/dl (32.0-35.9); MEAN PLT VOLUME 7.8 fl (7.5-11.1); NEUTROPHILS 79.1 % (42.8-82.8); RDW 22.3 % (11.9-15.9); WHITE BLOOD COUNT 16.4 K/mm3 (4.0-10.0)
[2016-10-30] MEDS ORDERED: ACETAMINOPHEN INJECTION 100 ML IVPB ONE (16:50)
[2016-10-30 16:51] LABS: PLATELET COUNT 1359 K/MM3 (134-434)
[2016-10-30 16:55] LABS: ALBUMIN 2.4 g/dl (3.4-5.0); ANION GAP 7 (8-16); BILIRUBIN,TOTAL < 0.1 mg/dL (0.2-1.0); CALCIUM 8.6 mg/dL (8.5-10.1); CO2 28 mmol/L (21-32); CREATININE 0.9 mg/dL (0.7-1.3); GLUCOSE,RANDOM 103 mg/dL (74-106); SGOT/AST 13 U/L (15-37); SGPT/ALT 18 U/L (12-78)
[2016-10-30 16:57] LABS: ALK PHOS 88 U/L (45-117); TROPONIN I < 0.02 ng/ml (0.00-0.05)
--- NOTE | 2016-10-30 17:42 | PDOC ---
History of Present Illness - General Chief Complaint: Weakness Stated Complaint: FATIGUE Time Seen by Provider: 10/30/16 16:06 History Source: Patient Exam Limitations: No Limitations - History of Present Illness Initial Comments: 10/30/16 16:35 46-year-old male presents to the emergency room complaining of increasing shortness of breath with minimal exertion, weakness, fatigue. Patient states history of stomach cancer for the past 8 years with numerous resections and surgeries but does not receive chemotherapy since he states many side effects along with minimal change of tumor size. Patient is followed by Dr. Castillo, oncologist and was told last month by the surgeon that they cannot resect anymore of the tumor. Patient states frequent recent admission secondary to anemia requiring blood transfusions. Patient denies chest pain, fever, chills dysuria, diarrhea, abdominal pain, headache, visual changes Timing/Duration: getting worse Severity: moderate Modifying Factors: improves with: movement Associated Symptoms: reports: malaise, shortness of breath, weakness Past History - Past Medical History Allergies/Adverse Reactions: Allergies Allergy/AdvReac Type Severity Reaction Status Date / Time No Known Allergies Allergy Verified 10/30/16 16:03 Home Medications: Ambulatory Orders [place] Carbonate [Eskalith -] 900 mg PO HS 02/20/16 Venlafaxine HCl [Effexor -] 225 mg PO DAILY 02/20/16 Warfarin Na [Coumadin -] 2.5 mg PO DAILY@1800 #30 tablet MDD 1 10/11/16 Anemia: Yes Asthma: No Cancer: Yes (APPENDICEAL CA, 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) Cardiac Disorders: No CVA: No COPD: No CHF: No DVT: Yes (LLE BLOOD CLOT 5 YEARS AGO) Dementia: No Diabetes: No GI Disorders: Yes (C-DIFF 2013) Disorders: Yes (CDIFF 2013) HTN: No Hypercholesterolemia: No Liver Disease: No Seizures: No Thyroid Disease: No - Surgical History Abdominal Surgery: Yes (spleenectomy, COLECTOMY,) Appendectomy: Yes Cardiac Surgery: No Cholecystectomy: No GI Surgery: Yes (for stomach cancer--pnp) Lung Surgery: No Neurologic Surgery: No Orthopedic Surgery: No - Immunization History Immunization Up to Date: Yes - Psycho/Social/Smoking Cessation Hx Anxiety: No Suicidal Ideation: No Smoking Status: No Smoking History: Never smoked Have you smoked in the past 12 months: No Number of Cigarettes Smoked Daily: 0 Cigars Per Day: 0 Hx Alcohol Use: No Drug/Substance Use Hx: No Substance Use Type: None Hx Substance Use Treatment: No Patient Lives Alone: No Lives with/in: spouse/SO Review of Systems - Review of Systems Able to Perform ROS?: Yes Constitutional: Yes: Loss of Appetite, Malaise, Weakness HEENTM: No: Symptoms Reported Respiratory: Yes: Shortness of Breath Cardiac (ROS): Yes: Lightheadedness. No: Palpitations, Syncope ABD/GI: No: Symptoms Reported : No: Symptoms Reported Musculoskeletal: No: Symptoms Reported Integumentary: Yes: Pallor Neurological: Yes: Weakness, Dizziness Psychiatric: Yes: Depression Hematologic/Lymphatic: Yes: See HPI *Physical Exam - Vital Signs Last Vital Signs Temp Pulse Resp BP Pulse Ox 99.7 F H 119 H 20 119/69 100 10/30/16 16:00 10/30/16 16:00 10/30/16 16:00 10/30/16 16:00 10/30/16 16:00 - Physical Exam General Appearance: Yes: Nourished, Appropriately Dressed. No: Apparent Distress HEENT: positive: EOMI, MICHAEL, Pale Conjunctivae Neck: positive: Supple Respiratory/Chest: positive: Lungs Clear, Normal Breath Sounds. negative: Respiratory Distress, Accessory Muscle Use Cardiovascular: positive: Regular Rhythm, Tachycardia Vascular Pulses: Dorsalis-Pedis (R): 2+, Doralis-Pedis (L): 2+ Gastrointestinal/Abdominal: positive: Soft, Other (palpable stents in the epigastric region). negative: Tenderness Musculoskeletal: negative: Normal Inspection Extremity: positive: Normal Capillary Refill Integumentary: positive: Dry, Pale, Cold Neurologic: positive: Normal Mood/Affect, Motor Strength 5/5 Heart Score/ECG Review - ECG Intrepretation Rhythm: Regular Rhythm (tachycardia at 114) ED Treatment Course - LABORATORY CBC & Chemistry Diagram: 11/01/16 06:10 11/01/16 06:10 - ADDITIONAL ORDERS Additional order review: Laboratory Results 10/30/16 10/30/16 10/30/16 16:30 16:23 16:23 VBG pH 7.42 POC VBG pCO2 43.9 POC VBG pO2 29.4 Mixed VBG HCO3 27.6 H Sodium 138 Potassium 4.1 Chloride 103 Carbon Dioxide 28 Anion Gap 7 L BUN 11 Creatinine 0.9 D Creat Clearance w eGFR > 60 Random Glucose 103 Lactic Acid 1.5 Calcium 8.6 Total Bilirubin < 0.1 L D AST 13 L ALT 18 Alkaline Phosphatase 88 D Creatine Kinase 32 L Troponin I < 0.02 Total Protein 7.0 Albumin 2.4 L 10/30/16 16:23 RBC 2.30 L D MCV 80.0 MCHC 29.9 L RDW 22.3 H D MPV 7.8 Neutrophils % 79.1 Lymphocytes % 13.4 D Monocytes % 5.0 Eosinophils % 1.8 Basophils % 0.7 - RADIOLOGY Radiology Studies Ordered: Category Date Time Status CHEST X-RAY PORTABLE* [RAD] Stat Radiology 10/30/16 16:09 Taken - Medications Given in the ED: ED Medications Discontinued Medications Generic Name Dose Route Start Last Admin Trade Name Freq PRN Reason Stop Dose Admin Acetaminophen 1,000 mg 10/30/16 16:10 10/30/16 16:55 Ofirmev Injection - IVPB 10/30/16 16:11 1,000 mg ONCE ONE Administration Medical Decision Making - Medical Decision Making 10/30/16 16:09 Patient arrives complaining of fatigue and weakness and shortness of breath on exertion. Patient on arrival. Scale is tachycardic with a low-grade temp of 99.4. Patient history of appendiceal cancer with last chemotherapy in 2008, Patient concerning for anemia, sepsis, electrolyte imbalance. Septic workup initiated along with IV Tylenol and IV fluids. 10/30/16 18:10 10/30/16 18:11 Laboratory Tests 10/30/16 10/30/16 10/30/16 16:23 16:23 16:23 WBC 16.4 H RBC 2.30 L D Hgb 5.5 L* D Hct 18.4 L D Plt Count 1359 H D Sodium 138 Potassium 4.1 Chloride 103 Carbon Dioxide 28 Anion Gap 7 L BUN 11 Creatinine 0.9 D Random Glucose 103 Lactic Acid 1.5 Total Bilirubin < 0.1 L D AST 13 L ALT 18 Creatine Kinase 32 L Troponin I < 0.02 Albumin 2.4 L Patient ordered for 2 units of blood and call placed to Dr. Addison for admission 10/30/16 18:27 Laboratory Tests 07/03/16 07/19/16 10/09/16 05:20 07:30 23:40 INR 8.02 H* D 4.66 H* D 5.22 H* D Urine pH Urine Ketones Urine Nitrite Ur Leukocyte Esterase 10/30/16 10/30/16 17:44 17:44 INR 10.13 H* Urine pH 6.0 Urine Ketones Negative Urine Nitrite Negative Ur Leukocyte Esterase Negative Patient ordered for 2 units of FFP along with 10 mg of vitamin K. Awaiting callback from Dr. Addison. 10/30/16 18:[address] Addison and states admitted to [facility]. He states will consult hematology in the morning *DC/Admit/Observation/Transfer Diagnosis at time of Disposition: Thrombocytosis Anemia Qualifiers: Anemia type: other cause Other causes of anemia: other cause, not classified Qualified Code(s): D64.89 - Other specified anemias Sepsis Qualifiers: Sepsis type: sepsis due to unspecified organism Qualified Code(s): A41.9 - Sepsis, unspecified organism - Discharge Dispostion Disposition: HOME Condition at time of disposition: Improved Admit: Yes
[2016-10-30 18:07] LABS: URINE APPEARANCE CLEAR; URINE BILIRUBIN NEGATIVE (NEGATIVE); URINE BLOOD NEGATIVE (NEGATIVE); URINE COLOR YELLOW; URINE GLUCOSE (UA) NEGATIVE (NEGATIVE); URINE KETONE NEGATIVE (NEGATIVE); URINE LEUK ESTERASE NEGATIVE (NEGATIVE); URINE NITRITE NEGATIVE (NEGATIVE); URINE PROTEIN NEGATIVE (NEGATIVE); URINE UROBILINOGEN NEGATIVE E.U./dl (0.2-1.0)
[2016-10-30 18:21] LABS: PROTHROMBIN TIME (PATIENT) 116.8 SEC (9.98-11.88)
[2016-10-30 18:24] LABS: INR 10.13 (0.82-1.09)
[2016-10-30] MEDS ORDERED: PHYTONADIONE 10 MG/1 ML AMP IVPB ONE (18:24)
[2016-10-30] MEDS ORDERED: PHYTONADIONE 10 MG/1 ML AMP ONE (18:35)
[2016-10-30 18:45] LABS: ANISOCYTOSIS 2+; HYPOCHROMIA 2+; MICROCYTOSIS 1+; PLATELET ESTIMATE MARKEDLY INCREASED (NORMAL); TARGET CELLS 1+
--- NOTE | 2016-10-30 20:01 | PDOC ---
*Physical Exam - Vital Signs Last Vital Signs Temp Pulse Resp BP Pulse Ox 98.5 F 103 H 20 105/77 99 10/30/16 18:58 10/30/16 18:58 10/30/16 18:58 10/30/16 18:58 10/30/16 18:58 - Physical Exam General Appearance: Yes: Appropriately Dressed, Thin HEENT: positive: Normal ENT Inspection Neck: positive: Trachea midline Respiratory/Chest: positive: Lungs Clear, Normal Breath Sounds Cardiovascular: positive: Regular Rhythm, Regular Rate, S1, S2, Edema, Tachycardia Gastrointestinal/Abdominal: positive: Normal Bowel Sounds, Flat, Soft. negative : Tender Extremity: positive: Normal Capillary Refill, Normal Inspection Integumentary: positive: Normal Color, Dry, Warm, Pale Heart Score/ECG Review #1 General ECG Interpretation: Sinus Rhythm, Normal Rate (110 sinus tachy), Normal Intervals, No acute ischemic changes - ECG Intrepretation Rhythm: Regular Rhythm - ECG Impressions Normal ECG: Yes ED Treatment Course - LABORATORY CBC & Chemistry Diagram: 10/30/16 16:23 10/30/16 16:23 - ADDITIONAL ORDERS Additional order review: Laboratory Results 10/30/16 10/30/16 10/30/16 17:44 17:44 16:30 INR 10.13 H* VBG pH 7.42 POC VBG pCO2 43.9 POC VBG pO2 29.4 Mixed VBG HCO3 27.6 H Sodium Potassium Chloride Carbon Dioxide Anion Gap BUN Creatinine Creat Clearance w eGFR Random Glucose Lactic Acid Calcium Total Bilirubin AST ALT Alkaline Phosphatase Creatine Kinase Troponin I Total Protein Albumin Urine Color Yellow Urine Appearance Clear Urine pH 6.0 Urine Protein Negative Urine Glucose (UA) Negative Urine Ketones Negative Urine Blood Negative Urine Nitrite Negative Urine Bilirubin Negative Urine Urobilinogen Negative Ur Leukocyte Esterase Negative Blood Type Antibody Screen Crossmatch Spec Expiration Date 10/30/16 10/30/16 10/30/16 16:23 16:23 16:23 INR VBG pH POC VBG pCO2 POC VBG pO2 Mixed VBG HCO3 Sodium 138 Potassium 4.1 Chloride 103 Carbon Dioxide 28 Anion Gap 7 L BUN 11 Creatinine 0.9 D Creat Clearance w eGFR > 60 Random Glucose 103 Lactic Acid 1.5 Calcium 8.6 Total Bilirubin < 0.1 L D AST 13 L ALT 18 Alkaline Phosphatase 88 D Creatine Kinase 32 L Troponin I < 0.02 Total Protein 7.0 Albumin 2.4 L Urine Color Urine Appearance Urine pH Urine Protein Urine Glucose (UA) Urine Ketones Urine Blood Urine Nitrite Urine Bilirubin Urine Urobilinogen Ur Leukocyte Esterase Blood Type A POSITIVE Antibody Screen Negative Crossmatch See Detail Spec Expiration Date 10/30/16 16:23 RBC 2.30 L D MCV 80.0 MCHC 29.9 L RDW 22.3 H D MPV 7.8 Neutrophils % 79.1 Lymphocytes % 13.4 D Monocytes % 5.0 Eosinophils % 1.8 Basophils % 0.7 - Medications Given in the ED: ED Medications Discontinued Medications Generic Name Dose Route Start Last Admin Trade Name Freq PRN Reason Stop Dose Admin Acetaminophen 1,000 mg 10/30/16 16:10 10/30/16 16:55 Ofirmev Injection - IVPB 10/30/16 16:11 1,000 mg ONCE ONE Administration Sodium Chloride 1,000 mls @ 1,000 mls/hr 10/30/16 16:09 10/30/16 16:55 Normal Saline - IV 10/30/16 17:08 1,000 mls/hr ASDIR STA Administration Phytonadione 10 mg 10/30/16 18:24 10/30/16 18:41 Aqua [place] Injection - IVPB 10/30/16 18:25 10 mg ONCE ONE Administration Medical Decision Making - Medical Decision Making 10/30/16 19:57 46 yo M with h/o gastric cancer, on coumadin here with /co fever , epigastric pain, and dark stools. also felt weak lightheaded. and pale. has not been able to eat as much due to cancer. no new meds or abx use. on exam pt awake alert pale. lungs clear bilat. heart reg tachy. no mrg. abd soft NT ND. thin. ext wpp. skin pale, warm an dry. nuero alert and oriented x 3 differential ; mets, worsening cancer. anemia, liver met, obstruciton of biliary tree. other infeciton such as uti. plan labs xry likley admit, fever control. pt seen and examined, d/w caring TUNDE Michael, agree with assessment and plan. *DC/Admit/Observation/Transfer Diagnosis at time of Disposition: Thrombocytosis Anemia Qualifiers: Anemia type: other cause Other causes of anemia: other cause, not classified Qualified Code(s): D64.89 - Other specified anemias Sepsis Qualifiers: Sepsis type: sepsis due to unspecified organism Qualified Code(s): A41.9 - Sepsis, unspecified organism - Referrals Referrals: Yuliana Addison MD [Primary Care Provider] - - Patient Instructions - Post Discharge Activity
[2016-10-31] MEDS ORDERED: ACETAMINOPHEN 325 MG TABLET (FP) PO PRN (08:15)
[2016-10-31 09:06] LABS: MCH 26.4 pg (25.7-33.7); MCHC 32.6 g/dl (32.0-35.9); MEAN PLT VOLUME 7.5 fl (7.5-11.1); PLATELET COUNT 1074 K/MM3 (134-434); WHITE BLOOD COUNT 18.2 K/mm3 (4.0-10.0)
[2016-10-31 09:20] LABS: INR 1.4 (0.82-1.09); PROTHROMBIN TIME (PATIENT) 15.5 SEC (9.98-11.88)
[2016-10-31 09:33] LABS: ALBUMIN 2.5 g/dl (3.4-5.0); ANION GAP 7 (8-16); CALCIUM 9.1 mg/dL (8.5-10.1); CO2 30 mmol/L (21-32); GLUCOSE,RANDOM 92 mg/dL (74-106)
[2016-10-31 09:39] LABS: ALK PHOS 89 U/L (45-117); BILIRUBIN,TOTAL 0.7 mg/dL (0.2-1.0); CREATININE 0.7 mg/dL (0.7-1.3); SGOT/AST 15 U/L (15-37); SGPT/ALT 17 U/L (12-78); TOT PROT 6.8 g/dl (6.4-8.2)
--- NOTE | 2016-10-31 09:55 | HP ---
Admitting History and Physical - Primary Care Physician PCP: Yuliana Addison - Admission Chief Complaint: shortness of breath, fatigue History of Present Illness: 6-year-old male presents to the emergency room complaining of increasing shortness of breath with minimal exertion, weakness, fatigue. Patient states history of stomach cancer for the past 8 years with numerous resections and surgeries but does not receive chemotherapy since he does not want to deal to side effects. Patient is followed by Dr. Castillo, oncologist and was told last month by the surgeon that they cannot resect anymore of the tumor. Patient states frequent recent admission secondary to anemia requiring blood transfusions. Patient denies chest pain, fever, chills dysuria, diarrhea, abdominal pain, headache, visual changes History Source: Patient Limitations to Obtaining History: No Limitations - Past Medical History Pulmonary: Yes: Pulmonary Embolus Gastrointestinal: Yes: Cancer (appendiceal cancer- 2008), Other (Intestinal obstruction.) Heme/Onc: Yes: Anemia, Cancer, Other (LLE DVT in 2009) Infectious Disease: Yes: C-Diff Psych: Yes: Anxiety, Depression - Past Surgical History Past Surgical History: Yes: Appendectomy (2008), Colectomy, Colonoscopy, Splenectomy (2008) Additional Past Surgical History: LAPARATOMY 2008 - Smoking History Smoking history: Never smoked (SECOND HAND SMOKING EXPOSURE GROWING UP) Have you smoked in the past 12 months: No Aproximately how many cigarettes per day: 0 - Alcohol/Substance Use Hx Alcohol Use: No - Social History Usual Living Arrangement: Yes: With Spouse, With Child (1 DAUGHTER) ADL: Independent History of Recent Travel: No Home Medications - Allergies Allergies/Adverse Reactions: Allergies Allergy/AdvReac Type Severity Reaction Status Date / Time No Known Allergies Allergy Verified 10/30/16 16:03 - Home Medications Home Medications: Ambulatory Orders [place] Carbonate [Eskalith -] 900 mg PO HS 02/20/16 Venlafaxine HCl [Effexor -] 225 mg PO DAILY 02/20/16 Warfarin Na [Coumadin -] 2.5 mg PO DAILY@1800 #30 tablet MDD 1 10/11/16 Family Disease History - Family Disease History Family Disease History: CA: Father (COLON CA, ESRD), Other: Father, Mother ( ARTHRITIS, BACK SURGERY), Brother (3 BROTHERS- ALL HEALTHY), Daughter (HEALTHY) Other Family History: M-UNCLE[place] Review of Systems - Review of Systems Constitutional: reports: Malaise, Weakness Eyes: reports: No Symptoms HENT: reports: No Symptoms Neck: reports: No Symptoms Cardiovascular: reports: No Symptoms Respiratory: reports: SOB Gastrointestinal: reports: No Symptoms Genitourinary: reports: No Symptoms Breasts: reports: No Symptoms Reported Musculoskeletal: reports: No Symptoms Integumentary: reports: No Symptoms Neurological: reports: No Symptoms Endocrine: reports: No Symptoms Hematology/Lymphatic: reports: No Symptoms Psychiatric: reports: No Symptoms Pain Intensity: 0 Physical Examination Vital Signs: Vital Signs Temperature 99.1 F 10/31/16 06:00 Pulse Rate 95 H 10/31/16 06:00 Respiratory Rate 18 10/31/16 06:00 Blood Pressure 101/61 10/31/16 06:00 O2 Sat by Pulse Oximetry (%) 98 10/31/16 00:47 Constitutional: Yes: Well Nourished, No Distress, Calm Cardiovascular: Yes: Regular Rate and Rhythm Respiratory: Yes: Regular Gastrointestinal: Yes: Normal Bowel Sounds Musculoskeletal: Yes: WNL Extremities: Yes: WNL Edema: No Peripheral Pulses WNL: Yes Integumentary: Yes: WNL Neurological: Yes: WNL, Alert, Oriented Psychiatric: Yes: Alert, Oriented Labs: CBC, BMP 10/31/16 08:45 10/31/16 08:45 Imaging - Results Chest X-ray: Report Reviewed Problem List - Problems (1) Anemia Assessment/Plan: RECEIVED 2 UNITS OF PRBC AND 2 UNITS OF FFP, H/H IMPROVED TO: CBC WBC 18.2 K/mm3 (4.0-10.0) H 10/31/16 08:45 RBC 2.89 M/mm3 (4.00-5.60) L D 10/31/16 08:45 Hgb 7.6 GM/dL (11.7-16.9) L D 10/31/16 08:45 Hct 23.4 % (35.4-49) L D 10/31/16 08:45 MCV 81.0 fl (80-96) 10/31/16 08:45 MCHC 32.6 g/dl (32.0-35.9) 10/31/16 08:45 RDW 19.0 % (11.9-15.9) H D 10/31/16 08:45 Plt Count 1074 K/MM3 (134-434) H D 10/31/16 08:45 MPV 7.5 fl (7.5-11.1) 10/31/16 08:45 Neutrophils % 79.1 % (42.8-82.8) 10/30/16 16:23 Lymphocytes % 13.4 % (8-40) D 10/30/16 16:23 Monocytes % 5.0 % (3.8-10.2) 10/30/16 16:23 Eosinophils % 1.8 % (0-4.5) 10/30/16 16:23 Basophils % 0.7 % (0-2.0) 10/30/16 16:23 Platelet Estimate Markedly increased (NORMAL) 10/30/16 16:23 Hypochromic-Microcytic 2+ 10/30/16 16:23 Anisocytosis 2+ 10/30/16 16:23 Microcytosis 1+ 10/30/16 16:23 Target Cells 1+ 10/30/16 16:23 HEMATOLOGY CONSULT- ALREADY KNOWN TO DR STONE ADMINISTER ANOTHER UNITS OF PRBC Code(s): D64.9 - ANEMIA, UNSPECIFIED Qualifiers: Anemia type: other cause Other causes of anemia: other cause, not classified Qualified Code(s): D64.89 - Other specified anemias (2) Leukocytosis Assessment/Plan: HEMATOLOGY CONSULT Code(s): D72.829 - ELEVATED WHITE BLOOD CELL COUNT, UNSPECIFIED (3) Elevated INR Assessment/Plan: RECEIEVED 2 UNITS OF FFP, INR IS DOWN TO: Abnormal Lab Results 10/31/16 10/31/16 08:45 08:45 WBC RBC Hgb Hct MCHC RDW Plt Count INR 1.40 H D Mixed VBG HCO3 Anion Gap 7 L Total Bilirubin AST Creatine Kinase Albumin 2.5 L Crossmatch Code(s): R79.1 - ABNORMAL COAGULATION PROFILE (4) History of DVT of lower extremity Assessment/Plan: LEFT LOWER EXTREMITY IN 2009. Code(s): Z86.718 - PERSONAL HISTORY OF OTHER VENOUS THROMBOSIS AND EMBOLISM (5) Pseudomyxoma peritonei Code(s): C78.6 - SECONDARY MALIGNANT NEOPLASM OF RETROPERITON AND PERITONEUM Assessment/Plan 1 UNIT PRBC HEMATOLOGY CONSULT HOLD COUMADIN STOOL OCCULT SCD FOR DVT PROPHYLAXIS
[2016-10-31] MEDS: VENLAFAXINE HCL 75 MG TABLET PO SCH (09:56)
--- NOTE | 2016-10-31 10:38 | EKG ---
Test Reason : Blood Pressure : / mmHG Vent. Rate : 110 BPM Atrial Rate : 110 BPM P-R Int : 162 ms QRS Dur : 082 ms QT Int : 340 ms P-R-T Axes : 065 058 064 degrees QTc Int : 460 ms SINUS TACHYCARDIA POSSIBLE LEFT ATRIAL ENLARGEMENT BORDERLINE ECG WHEN COMPARED WITH ECG OF 10-OCT-2016 05:09, NO SIGNIFICANT CHANGE WAS FOUND Confirmed by KOKO MORGAN MD ([id number]) on 10/31/2016 10:38:01 AM Referred By: Confirmed By:KOKO MORGAN MD
[2016-10-31] MEDS ORDERED: PT OWN MED DRAWER 7, Y5N ONE ×2 (10:45→20:36)
[2016-10-31] MEDS ORDERED: INSULIN (NOVOLOG) ASPART 100 UNITS/ML 10ML VIAL ONE ×2 (17:20→17:49)
--- NOTE | 2016-10-31 19:46 | CONSULT ---
Consult - text type - Consultation Consultation Note: 46-year-old male presents to the emergency room complaining of increasing shortness of breath with minimal exertion, weakness, fatigue. Patient states frequent recent admission secondary to anemia requiring blood transfusions. Patient denies chest pain, fever, chills dysuria, diarrhea, abdominal pain, headache, visual changes He was noted to have Hgb of 5.5 and transfused PRBCS PMH pseudomyxoma peritonei DVT C.diff Allergies/Adverse Reactions: Allergies Allergy/AdvReac Type Severity Reaction Status Date / Time No Known Allergies Allergy Verified 10/30/16 16:03 Home Medications: Ambulatory Orders [place] Carbonate [Eskalith -] 900 mg PO HS 02/20/16 Venlafaxine HCl [Effexor -] 225 mg PO DAILY 02/20/16 Warfarin Na [Coumadin -] 2.5 mg PO DAILY@1800 #30 tablet MDD 1 10/11/16 - Surgical History Abdominal Surgery: Yes (spleenectomy, COLECTOMY,) Appendectomy: Yes GI Surgery: Yes (for stomach cancer--pnp) - Psycho/Social/Smoking Cessation Hx Smoking History: Never smoked - Vital Signs Last Vital Signs Temp Pulse Resp BP Pulse Ox 99.0 F 97 H 20 104/62 98 10/31/16 17:16 10/31/16 17:16 10/31/16 17:16 10/31/16 17:16 10/31/16 09:00 HEENT: MATTHIAS, EOM Intact Cor: RSR, No murmurs, No gallops Lungs: Clear to P&A Abd: Soft, Normal bowel sounds. + subcutaneous nodules over abdominal wall Ext:No significant edema Abnormal Lab Results 10/30/16 10/30/16 10/30/16 16:23 16:23 16:23 WBC 16.4 H RBC 2.30 L D Hgb 5.5 L* D Hct 18.4 L D MCHC 29.9 L RDW 22.3 H D Plt Count 1359 H D INR Mixed VBG HCO3 Anion Gap 7 L Total Bilirubin < 0.1 L D AST 13 L Creatine Kinase 32 L Albumin 2.4 L Crossmatch See Detail 10/30/16 10/31/16 10/31/16 16:30 08:45 08:45 WBC 18.2 H RBC 2.89 L D Hgb 7.6 L D Hct 23.4 L D MCHC RDW 19.0 H D Plt Count 1074 H D INR 1.40 H D Mixed VBG HCO3 27.6 H Anion Gap Total Bilirubin AST Creatine Kinase Albumin Crossmatch 10/31/16 08:45 WBC RBC Hgb Hct MCHC RDW Plt Count INR Mixed VBG HCO3 Anion Gap 7 L Total Bilirubin AST Creatine Kinase Albumin 2.5 L Crossmatch A/P 46 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 Received FOLFOX between 2008 to 2010. 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 Also received couple of cycles of FOLFIRI. Now with slowly progressive disease CT scans do not show any obstruction but increasing peritoneal masses. Follows with Dr. Danilo Rondon at [facility]. 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 Recently I had discussed with Dr. Neal, and discussed adding MMR status and next gen sequencing to prior tissue samples patient reluctant to consider any palliative chemotherapy/clinical trial options at this time. He understands that his diseae is active and advanced and time sensitive nature of his treament decisions. He has been very reluctant to consider this and has not followed up in the office. discussed with patient about biopsy of abdominal wallnodules, to check MMR tatus , next gen sequencing? immunotherapy candidate Also to consider ?? 5-FU single agent Patient very reluctant. Urged him to make an appointment at the office to discuss his overall condition with his . Iron deficiency noted on labs on 07/15. Reactive thrombocytosis due to iron deficiency anemia/cancer
[2016-10-31] MEDS ORDERED: LITHIUM CARBONATE 450 MG TABLET.ER PO SCH (22:00)
[2016-11-01 08:16] LABS: BASOPHIL 0.5 % (0-2.0); EOSINOPHIL 3.6 % (0-4.5); MCH 27.5 pg (25.7-33.7); MCHC 33.5 g/dl (32.0-35.9); MEAN PLT VOLUME 7.8 fl (7.5-11.1); NEUTROPHILS 76.4 % (42.8-82.8); RDW 18.1 % (11.9-15.9); WHITE BLOOD COUNT 17.1 K/mm3 (4.0-10.0)
[2016-11-01 08:19] LABS: PLATELET COUNT 1145 K/MM3 (134-434)
[2016-11-01 08:25] LABS: INR 1.36 (0.82-1.09)
[2016-11-01 08:26] VITALS: BP 108/77; PULSE 100; TEMP 99
[2016-11-01 08:34] LABS: CALCIUM 9.1 mg/dL (8.5-10.1)
--- NOTE | 2016-11-01 08:35 | DS ---
Physical Examination Vital Signs: Vital Signs Temperature 99.0 F 11/01/16 08:25 Pulse Rate 100 H 11/01/16 08:25 Respiratory Rate 18 11/01/16 08:25 Blood Pressure 108/77 11/01/16 08:25 O2 Sat by Pulse Oximetry (%) 100 10/31/16 21:00 Labs: CBC, BMP 11/01/16 06:10 Discharge Summary Reason For Visit: ANEMIA, THROMBOCYTOSIS SEPSIS. Current Active Problems Anemia (Acute) C. difficile colitis (Acute) Colon cancer (Acute) Generalized weakness (Acute) History of DVT of lower extremity (Acute) Leukocytosis (Acute) Nausea & vomiting (Acute) Sepsis (Acute) Thrombocytosis (Acute) Hospital Course: 46-year-old male presents to the emergency room complaining of increasing shortness of breath with minimal exertion, weakness, fatigue. Patient states history of stomach cancer for the past 8 years with numerous resections and surgeries but does not receive chemotherapy since he does not want to deal to side effects. Patient is followed by Dr. Castillo, oncologist and was told last month by the surgeon that they cannot resect anymore of the tumor. Patient states frequent recent admission secondary to anemia requiring blood transfusions. Patient denies chest pain, fever, chills dysuria, diarrhea, abdominal pain, headache, visual changes History Source: Patient Limitations to Obtaining History: No Limitations - Past Medical History Pulmonary: Yes: Pulmonary Embolus Gastrointestinal: Yes: Cancer (appendiceal cancer- 2008), Other (Intestinal obstruction.) Heme/Onc: Yes: Anemia, Cancer, Other (LLE DVT in 2009) Infectious Disease: Yes: C-Diff Psych: Yes: Anxiety, Depression - Past Surgical History Past Surgical History: Yes: Appendectomy (2008), Colectomy, Colonoscopy, Splenectomy (2008) Additional Past Surgical History: LAPARATOMY 2008 - Problems (1) Anemia Assessment/Plan: RECEIVED 2 UNITS OF PRBC AND 2 UNITS OF FFP, H/H IMPROVED TO: CBC WBC 18.2 K/mm3 (4.0-10.0) H 10/31/16 08:45 RBC 2.89 M/mm3 (4.00-5.60) L D 10/31/16 08:45 Hgb 7.6 GM/dL (11.7-16.9) L D 10/31/16 08:45 Hct 23.4 % (35.4-49) L D 10/31/16 08:45 MCV 81.0 fl (80-96) 10/31/16 08:45 MCHC 32.6 g/dl (32.0-35.9) 10/31/16 08:45 RDW 19.0 % (11.9-15.9) H D 10/31/16 08:45 Plt Count 1074 K/MM3 (134-434) H D 10/31/16 08:45 MPV 7.5 fl (7.5-11.1) 10/31/16 08:45 Neutrophils % 79.1 % (42.8-82.8) 10/30/16 16:23 Lymphocytes % 13.4 % (8-40) D 10/30/16 16:23 Monocytes % 5.0 % (3.8-10.2) 10/30/16 16:23 Eosinophils % 1.8 % (0-4.5) 10/30/16 16:23 Basophils % 0.7 % (0-2.0) 10/30/16 16:23 Platelet Estimate Markedly increased (NORMAL) 10/30/16 16:23 Hypochromic-Microcytic 2+ 10/30/16 16:23 Anisocytosis 2+ 10/30/16 16:23 Microcytosis 1+ 10/30/16 16:23 Target Cells 1+ 10/30/16 16:23 HEMATOLOGY CONSULT- ALREADY KNOWN TO DR STONE ADMINISTER ANOTHER UNITS OF PRBC Code(s): D64.9 - ANEMIA, UNSPECIFIED Qualifiers: Anemia type: other cause Other causes of anemia: other cause, not classified Qualified Code(s): D64.89 - Other specified anemias (2) Leukocytosis Assessment/Plan: HEMATOLOGY CONSULT Code(s): D72.829 - ELEVATED WHITE BLOOD CELL COUNT, UNSPECIFIED (3) Elevated INR Assessment/Plan: RECEIEVED 2 UNITS OF FFP, INR IS DOWN TO: Abnormal Lab Results 10/31/16 10/31/16 08:45 08:45 WBC RBC Hgb Hct MCHC RDW Plt Count INR 1.40 H D Mixed VBG HCO3 Anion Gap 7 L Total Bilirubin AST Creatine Kinase Albumin 2.5 L Crossmatch Code(s): R79.1 - ABNORMAL COAGULATION PROFILE (4) History of DVT of lower extremity Assessment/Plan: LEFT LOWER EXTREMITY IN 2009. 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
[2016-11-01 08:40] LABS: ALBUMIN 2.5 g/dl (3.4-5.0); ALK PHOS 93 U/L (45-117); ANION GAP 6 (8-16); BILIRUBIN,TOTAL 0.3 mg/dL (0.2-1.0); CO2 28 mmol/L (21-32); CREATININE 0.7 mg/dL (0.7-1.3); GLUCOSE,RANDOM 79 mg/dL (74-106); SGOT/AST 13 U/L (15-37); SGPT/ALT 17 U/L (12-78)
[2016-11-01] MEDS ORDERED: PT OWN MED DRAWER 7, Y5N ONE ×2 (09:01→09:11)
[2016-11-01] MEDS: VENLAFAXINE HCL 75 MG TABLET PO SCH (09:04)
== END 2016-11-01 09:20 | disposition home or self-care (01) | DRG 376 ==
LOC: JER 15:59 → JERBED 18:15 → J8W 10-31 00:10
PROVIDERS: ADMIT Family Medicine; ATTEND Family Medicine
PROC: 30233N1 Transfusion of Nonautologous Red Blood Cells into Peripheral Vein, Percutaneous Approach (ICD-10-PCS; principal; 2016-10-30)
PROC: 30233K1 Transfusion of Nonautologous Frozen Plasma into Peripheral Vein, Percutaneous Approach (ICD-10-PCS; 2016-10-30)
DX: C78.6 Secondary malignant neoplasm of retroperitoneum and peritoneum (principal); D63.0 Anemia in neoplastic disease; R00.0 Tachycardia, unspecified; F41.9 Anxiety disorder, unspecified; F32.9 Major depressive disorder, single episode, unspecified; D72.829 Elevated white blood cell count, unspecified; R79.1 Abnormal coagulation profile; D47.3 Essential (hemorrhagic) thrombocythemia
CPT/HCPCS: 36415; 36430; 71010-TC; 80053; 81003; 82272; 82550; 82803; 83605; 84484; 85025; 85027; 85610; 86850; 86900; 86901; 86922; 87040; 87086; 93005; 93010; 97116-GP; 97161-GP; 99285-25; P9017; P9058

== ENCOUNTER 2016-11-24 17:34 | Inpatient (IN) | payer OTHER ==
[2016-11-24 17:50] VITALS: BMI 18.8
--- NOTE | 2016-11-24 20:39 | PDOC ---
History of Present Illness - General Chief Complaint: Revisit, Lab Variance Stated Complaint: PCP SENT/LOW HEMOGLOBIN Time Seen by Provider: 11/24/16 19:48 - History of Present Illness Initial Comments: 11/24/16 20:48 Mr. Cancino is a 46-year-old male past medical history of stomach cancer, anemia who presents to the emergency department today with a complaints of low hemoglobin. He had his blood work drawn by his primary care doctor on Monday. He received a phone call saying his hemoglobin was low and that he should go to the emergency department. He does not know how low his hemoglobin was. Patient states that he feels fine currently just a little fatigued. No other complaints. Denies weakness, dizziness, lightheadedness, palpitations, shortness of breath, chest pain, edema, nausea, vomiting, diarrhea, paresthesias , and constipation. Past History - Past Medical History Allergies/Adverse Reactions: Allergies Allergy/AdvReac Type Severity Reaction Status Date / Time No Known Allergies Allergy Verified 11/24/16 17:48 Home Medications: Ambulatory Orders [place] Carbonate [Eskalith -] 900 mg PO HS 02/20/16 Venlafaxine HCl [Effexor -] 225 mg PO DAILY 02/20/16 Warfarin Na [Coumadin -] 2.5 mg PO DAILY@1800 #30 tablet MDD 1 10/11/16 Anemia: Yes Asthma: No Cancer: Yes (APPENDICEAL CA, 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) Cardiac Disorders: No CVA: No COPD: No CHF: No DVT: Yes (LLE BLOOD CLOT 5 YEARS AGO) Dementia: No Diabetes: No GI Disorders: Yes (C-DIFF 2013) Disorders: Yes (CDIFF 2013) HTN: No Hypercholesterolemia: No Liver Disease: No Seizures: No Thyroid Disease: No - Surgical History Abdominal Surgery: Yes (spleenectomy, COLECTOMY,) Appendectomy: Yes Cardiac Surgery: No Cholecystectomy: No GI Surgery: Yes (for stomach cancer--pnp) Lung Surgery: No Neurologic Surgery: No Orthopedic Surgery: No - Immunization History Immunization Up to Date: Yes - Psycho/Social/Smoking Cessation Hx Anxiety: No Suicidal Ideation: No Smoking Status: No Smoking History: Never smoked Have you smoked in the past 12 months: No Number of Cigarettes Smoked Daily: 0 Cigars Per Day: 0 Hx Alcohol Use: No Drug/Substance Use Hx: No Substance Use Type: None Hx Substance Use Treatment: No Review of Systems - Review of Systems Comments:: 11/24/16 20:48 CONSTITUTIONAL: Absent: fever, chills, diaphoresis, generalized weakness, malaise, loss of appetite HEENT: Absent: rhinorrhea, nasal congestion, throat pain, throat swelling, difficulty swallowing, mouth swelling, ear pain, eye pain, visual Changes CARDIOVASCULAR: Absent: chest pain, loss of consciousness, palpitations, irregular heart rate, peripheral edema RESPIRATORY: Absent: cough, shortness of breath, dyspnea with exertion, orthopnea, wheezing, stridor, hemoptysis GASTROINTESTINAL: Absent: abdominal pain, abdominal distension, nausea, vomiting, diarrhea, constipation, melena, hematochezia GENITOURINARY: Absent: dysuria, frequency, urgency, hesitancy, hematuria, flank pain, genital pain MUSCULOSKELETAL: Absent: myalgia, arthralgia, joint swelling SKIN: Absent: rash, itching, pallor HEMATOLOGIC/IMMUNOLOGIC: Absent: easy bleeding, easy bruising, lymphadenopathy, frequent infections ENDOCRINE: Absent: unexplained weight gain, unexplained weight loss, heat intolerance, cold intolerance NEUROLOGIC: Absent: headache, focal weakness or paresthesias, dizziness, unsteady gait, seizure, mental status changes, bladder or bowel incontinence PSYCHIATRIC: Absent: anxiety, depression, suicidal or homicidal ideation, hallucinations. *Physical Exam - Vital Signs Last Vital Signs Temp Pulse Resp BP Pulse Ox 99 F 115 H 19 107/60 100 11/24/16 17:48 11/24/16 17:48 11/24/16 17:48 11/24/16 17:48 11/24/16 17:48 - Physical Exam Comments: 11/24/16 20:49 GENERAL: Well developed, well nourished. Awake and alert. No acute distress. HEENT: Normocephalic, atraumatic. PERRLA, EOMI. No conjunctival pallor. Sclera are non- icteric. Moist mucous membranes. Oropharynx is clear. NECK: Supple. Full ROM. No JVD. Carotid pulses 2+ and symmetric, without bruits. No thyromegaly. No lymphadenopathy. CARDIOVASCULAR: Regular rate and rhythm. No murmurs, rubs, or gallops. Distal pulses are 2+ and symmetric. PULMONARY: No evidence of respiratory distress. Lungs clear to auscultation bilaterally. No wheezing, rales or rhonchi. ABDOMINAL: Soft. Non-tender. Non-distended. No rebound or guarding. No organomegaly. Normoactive bowel sounds. MUSCULOSKELETAL Normal range of motion at all joints. No bony deformities or tenderness. No CVA tenderness. EXTREMITIES: No cyanosis. No clubbing. No edema. No calf tenderness. SKIN: Warm and dry. Normal capillary refill. No rashes. No jaundice. NEUROLOGICAL: Alert, awake, appropriate. Cranial nerves 2-12 intact. No deficits to light touch and temperature in face, upper extremities and lower extremities. No motor deficits in the in face, upper extremities and lower extremities. Normoreflexic in the upper and lower extremities. Normal speech. Toes are down- going bilaterally. Gait is normal without ataxia. PSYCHIATRIC: Cooperative. Good eye contact. Appropriate mood and affect. ED Treatment Course - LABORATORY CBC & Chemistry Diagram: 11/24/16 20:40 11/24/16 20:40 Medical Decision Making - Medical Decision Making 11/24/16 20:50 Mr. Cancino is a 46-year-old male past medical history of stomach cancer, anemia who presents to the emergency department today with a complaints of low hemoglobin. Patient has no complaints at this time. Patient is mildly tachycardic at 115 otherwise vital signs are stable. Patient has required blood transfusions in the past. 1.CBC, CMP, type and screen, PT/INR 2.EKG 3. Reevaluate 11/24/16 21:59 CBC is significant for a Hbg of 6.8, Plt in the 900's. Will require multiple transfusions. Waiting on type and screen to start transfusion 11/24/16 23:48 First transfusion to start. 11/25/16 02:37 PCP is Azael, Call to admit 11/25/16 02:48 Dr. Addison accepts the pt. 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
[2016-11-24 20:58] LABS: MCH 24.7 pg (25.7-33.7); MCHC 30.6 g/dl (32.0-35.9); MEAN CELL VOLUME 80.8 fl (80-96); MEAN PLT VOLUME 8.3 fl (7.5-11.1); RDW 20.5 % (11.9-15.9); WHITE BLOOD COUNT 9.9 K/mm3 (4.0-10.0)
[2016-11-24 21:00] LABS: INR 1.98 (0.82-1.09); PLATELET COUNT 954 K/MM3 (134-434); PROTHROMBIN TIME (PATIENT) 22.1 SEC (9.98-11.88)
[2016-11-24] MEDS ORDERED: SODIUM CHLORIDE 1,000 ML IV STA (21:01)
[2016-11-24 21:30] LABS: ALBUMIN 2.8 g/dl (3.4-5.0); ANION GAP 5 (8-16); CALCIUM 9.1 mg/dL (8.5-10.1); CO2 30 mmol/L (21-32); CREATININE 0.5 mg/dL (0.7-1.3); GLUCOSE,RANDOM 76 mg/dL (74-106); SGOT/AST 13 U/L (15-37); SGPT/ALT 14 U/L (12-78)
[2016-11-24 21:31] LABS: ALK PHOS 71 U/L (45-117)
[2016-11-24 21:32] LABS: BILIRUBIN,TOTAL < 0.1 mg/dL (0.2-1.0)
--- NOTE | 2016-11-24 22:09 | PDOC ---
*Physical Exam - Vital Signs Last Vital Signs Temp Pulse Resp BP Pulse Ox 99 F 115 H 19 107/60 99 11/24/16 17:48 11/24/16 17:48 11/24/16 17:48 11/24/16 17:48 11/24/16 19:41 <Rosaline Uribe - Last Filed: 11/25/16 04:24> - Vital Signs Last Vital Signs Temp Pulse Resp BP Pulse Ox 99 F 115 H 19 107/60 99 11/24/16 17:48 11/24/16 17:48 11/24/16 17:48 11/24/16 17:48 11/24/16 19:41 <Jordan Mathews - Last Filed: 11/29/16 19:29> Heart Score/ECG Review #1 11/25/16 04:24 Vent. rate 96 bpm IA interval 159 ms QRS duration 84 ms Normal sinus rhythm <Rosaline Uribe - Last Filed: 11/25/16 04:24> ED Treatment Course - LABORATORY CBC & Chemistry Diagram: 11/24/16 20:40 11/24/16 20:40 - ADDITIONAL ORDERS Additional order review: Laboratory Results 11/24/16 11/24/16 11/24/16 20:40 20:40 20:40 INR 1.98 H D Sodium 140 Potassium 4.2 Chloride 105 Carbon Dioxide 30 Anion Gap 5 L BUN 15 D Creatinine 0.5 L D Creat Clearance w eGFR > 60 Random Glucose 76 Calcium 9.1 Total Bilirubin < 0.1 L D AST 13 L ALT 14 Alkaline Phosphatase 71 D Total Protein 7.0 Albumin 2.8 L Blood Type A POSITIVE Antibody Screen Negative Crossmatch See Detail 11/24/16 20:40 RBC 2.72 L D MCV 80.8 MCHC 30.6 L RDW 20.5 H D MPV 8.3 Neutrophils % 68.0 Lymphocytes % 20.0 D Monocytes % 4.0 Eosinophils % 7.0 H D - Medications Given in the ED: ED Medications Discontinued Medications Generic Name Dose Route Start Last Admin Trade Name Freq PRN Reason Stop Dose Admin Sodium Chloride 1,000 mls @ 1,000 mls/hr 11/24/16 21:01 11/24/16 21:23 Normal Saline - IV 11/24/16 22:00 1,000 mls/hr ASDIR STA Administration <Uribe,Andrys - Last Filed: 11/25/16 04:24> - LABORATORY CBC & Chemistry Diagram: 11/26/16 06:00 11/26/16 06:00 - ADDITIONAL ORDERS Additional order review: Laboratory Results 11/24/16 11/24/16 11/24/16 20:40 20:40 20:40 INR 1.98 H D Sodium 140 Potassium 4.2 Chloride 105 Carbon Dioxide 30 Anion Gap 5 L BUN 15 D Creatinine 0.5 L D Creat Clearance w eGFR > 60 Random Glucose 76 Calcium 9.1 Total Bilirubin < 0.1 L D AST 13 L ALT 14 Alkaline Phosphatase 71 D Total Protein 7.0 Albumin 2.8 L Blood Type A POSITIVE Antibody Screen Negative 11/24/16 20:40 RBC 2.72 L D MCV 80.8 MCHC 30.6 L RDW 20.5 H D MPV 8.3 Neutrophils % Y Lymphocytes % Y - Medications Given in the ED: ED Medications Discontinued Medications Generic Name Dose Route Start Last Admin Trade Name Jyothi PRN Reason Stop Dose Admin Sodium Chloride 1,000 mls @ 1,000 mls/hr 11/24/16 21:01 11/24/16 21:23 Normal Saline - IV 11/24/16 22:00 1,000 mls/hr ASDIR STA Administration <Jordan Mathews - Last Filed: 11/29/16 19:29> Medical Decision Making - Medical Decision Making 11/24/16 22:08 agree with care from TUNDE Duenas <Jordan Mathews - Last Filed: 11/29/16 19:29> *DC/Admit/Observation/Transfer <Rosaline Uribe - Last Filed: 11/25/16 04:24> <Jordan Mathews - Last Filed: 11/29/16 19:29> Diagnosis at time of Disposition: Anemia, Mucinous adenocarcinoma of appendix - Discharge Dispostion Disposition: HOME Condition at time of disposition: Improved
[2016-11-24 22:12] LABS: PLATELET COMMENT2 NO CLOTTING DETECTED; PLATELET COMMENT3 MOD LARGE PLTS; PLATELET ESTIMATE INCREASED (NORMAL)
[2016-11-24 22:13] LABS: ANISOCYTOSIS 2+; HYPOCHROMIA 3+; MICROCYTOSIS 1+; POIKILOCYTOSIS 1+; POLYCHROMASIA 1+
[2016-11-25] MEDS ORDERED: ACETAMINOPHEN 325 MG TABLET (FP) ONE (04:59)
[2016-11-25] MEDS ORDERED: ACETAMINOPHEN 325 MG TABLET (FP) PO ONE (04:59)
[2016-11-25] MEDS ORDERED: ACETAMINOPHEN 325 MG TABLET (FP) PO PRN (07:51)
--- NOTE | 2016-11-25 07:55 | HP ---
Admitting History and Physical - Admission History of Present Illness: 46-year-old male past medical history of stomach cancer, anemia who presents to the emergency department today with a complaints of low hemoglobin. He had his blood work drawn by his primary care doctor on Monday. He received a phone call saying his hemoglobin was low and that he should go to the emergency department. He does not know how low his hemoglobin was. Patient states that he feels fine currently just a little fatigued. No other complaints. Denies weakness, dizziness, lightheadedness, palpitations, shortness of breath, chest pain, edema, nausea, vomiting, diarrhea, paresthesias, and constipation. - Past Medical History Pulmonary: Yes: Pulmonary Embolus Gastrointestinal: Yes: Cancer (appendiceal cancer- 2008), Other (Intestinal obstruction.) Heme/Onc: Yes: Anemia, Cancer, Other (LLE DVT in 2009) Infectious Disease: Yes: C-Diff Psych: Yes: Anxiety, Depression - Past Surgical History Past Surgical History: Yes: Appendectomy (2008), Colectomy, Colonoscopy, Splenectomy (2008) - Smoking History Smoking history: Former smoker Have you smoked in the past 12 months: No Aproximately how many cigarettes per day: 0 - Alcohol/Substance Use Hx Alcohol Use: No - Social History ADL: Independent History of Recent Travel: No Home Medications - Allergies Allergies/Adverse Reactions: Allergies Allergy/AdvReac Type Severity Reaction Status Date / Time No Known Allergies Allergy Verified 11/24/16 17:48 - Home Medications Home Medications: Ambulatory Orders [place] Carbonate [Eskalith -] 900 mg PO HS 02/20/16 Venlafaxine HCl [Effexor -] 225 mg PO DAILY 02/20/16 Warfarin Na [Coumadin -] 2.5 mg PO DAILY@1800 #30 tablet MDD 1 10/11/16 Family Disease History - Family Disease History Family Disease History: CA: Father (COLON CA, ESRD), Other: Father, Mother ( ARTHRITIS, BACK SURGERY), Brother (3 BROTHERS- ALL HEALTHY), Daughter (HEALTHY) Review of Systems - Review of Systems Constitutional: reports: Weakness Cardiovascular: denies: Chest Pain Respiratory: denies: SOB Physical Examination Vital Signs: Vital Signs Temperature 98.7 F 11/25/16 06:17 Pulse Rate 95 H 11/25/16 06:17 Respiratory Rate 20 11/25/16 06:17 Blood Pressure 129/80 11/25/16 06:17 O2 Sat by Pulse Oximetry (%) 98 11/25/16 06:15 Cardiovascular: Yes: Regular Rate and Rhythm Respiratory: Yes: Regular, CTA Bilaterally Gastrointestinal: Yes: Normal Bowel Sounds, Soft Problem List - Problems (1) Anemia Assessment/Plan: PRBC FOLLOW CBC Code(s): D64.9 - ANEMIA, UNSPECIFIED Qualifiers: Anemia type: unspecified type Qualified Code(s): D64.9 - Anemia, unspecified (2) Mucinous adenocarcinoma of appendix Assessment/Plan: ONCOLOGY Code(s): C18.1 - MALIGNANT NEOPLASM OF APPENDIX
--- NOTE | 2016-11-25 09:19 | EKG ---
Test Reason : Blood Pressure : / mmHG Vent. Rate : 096 BPM Atrial Rate : 096 BPM P-R Int : 158 ms QRS Dur : 084 ms QT Int : 338 ms P-R-T Axes : 063 049 059 degrees QTc Int : 427 ms NORMAL SINUS RHYTHM NORMAL ECG WHEN COMPARED WITH ECG OF 30-OCT-2016 16:28, NO SIGNIFICANT CHANGE WAS FOUND Confirmed by ROBINSON YAÑEZ MD ([id number]) on 11/25/2016 9:19:01 AM Referred By: Confirmed By:ROBINSON YAÑEZ MD
[2016-11-25 13:22] LABS: MCH 25.4 pg (25.7-33.7); MEAN CELL VOLUME 79.3 fl (80-96); PLATELET COUNT 819 K/MM3 (134-434); RDW 19.7 % (11.9-15.9); WHITE BLOOD COUNT 10.4 K/mm3 (4.0-10.0)
[2016-11-25] MEDS: VENLAFAXINE HCL 75 MG E.R. CAPSULES (FP) PO SCH (13:23)
--- NOTE | 2016-11-25 14:10 | CONSULT ---
Consult Consult Specialty:: Hematology/Oncology - History of Present Illness History of Present Illness: Well known to . Re admitted for symptomatic anemia. 46-year-old male presents to the emergency room complaining of increasing shortness of breath with minimal exertion, weakness, fatigue. Patient is s/p recent admission secondary to anemia requiring blood transfusions. Patient denies chest pain, fever, chills dysuria, diarrhea, abdominal pain, headache, visual changes. He was noted to have a low hgb and transfused PRBCS. Patient denies any bleeding and was seen by GI last admission. - Past Medical History Pulmonary: Yes: Pulmonary Embolus Gastrointestinal: Yes: Cancer (appendiceal cancer- 2008), Other (Intestinal obstruction.) Infectious Disease: Yes: C-Diff Psych: Yes: Anxiety, Depression - Past Surgical History Past Surgical History: Yes: Appendectomy (2008), Colectomy, Colonoscopy, Splenectomy (2008) - Alcohol/Substance Use Hx Alcohol Use: No - Smoking History Smoking history: Former smoker Have you smoked in the past 12 months: No Aproximately how many cigarettes per day: 0 - Social History ADL: Independent History of Recent Travel: No Home Medications - Allergies Allergies/Adverse Reactions: Allergies Allergy/AdvReac Type Severity Reaction Status Date / Time No Known Allergies Allergy Verified 11/24/16 17:48 - Home Medications Home Medications: Ambulatory Orders [place] Carbonate [Eskalith -] 900 mg PO HS 02/20/16 Venlafaxine HCl [Effexor -] 225 mg PO DAILY 02/20/16 Warfarin Na [Coumadin -] 2.5 mg PO DAILY@1800 #30 tablet MDD 1 10/11/16 Family Disease History - Family Disease History Family History: Denies Family Disease History: CA: Father (COLON CA, ESRD), Other: Father, Mother ( ARTHRITIS, BACK SURGERY), Brother (3 BROTHERS- ALL HEALTHY), Daughter (HEALTHY) Review of Systems - Review of Systems Constitutional: reports: Diaphoresis. denies: Chills, Fever, Lethargy, Loss of Appetite, Unintentional Wgt. Loss, Weakness Eyes: denies: Recent Change in Vision HENT: denies: Difficult Swallowing, Ear Discharge, Hearing Loss, Nasal Congestion Neck: denies: Lumps, Pain on Movement, Stiffness Cardiovascular: reports: Shortness of Breath. denies: Chest Pain, Edema, Palpitations Respiratory: reports: Cough. denies: Exercise Intolerance Gastrointestinal: denies: Abdominal Pain, Constipation, Nausea, Rectal Bleeding , Vomiting Genitourinary: reports: No Symptoms Musculoskeletal: reports: No Symptoms Integumentary: reports: No Symptoms Neurological: denies: Change in LOC, Change in Speech, Numbness, Parasthesia Hematology/Lymphatic: denies: Easily Bruised, Excessive Bleeding, Swollen Glands Psychiatric: denies: No Symptoms Physical Exam Vital Signs: Vital Signs Temperature 97.7 F 11/25/16 10:00 Pulse Rate 88 11/25/16 10:00 Respiratory Rate 18 11/25/16 10:00 Blood Pressure 102/54 11/25/16 10:00 O2 Sat by Pulse Oximetry (%) 98 11/25/16 06:15 Constitutional: Yes: Well Nourished, No Distress, Calm Eyes: Yes: Conjunctiva Clear HENT: Yes: Atraumatic, Normocephalic Neck: Yes: Supple. 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 Received FOLFOX between 2008 to 2010. Had reaction to oxaliplatin. Also received a few cycles of FOLFIRI.CT scans do not show any obstruction but increasing peritoneal masses. Follows with Dr. Danilo Rondon at [facility]. 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 had discussed with Dr. Neal, and discussed adding MMR status and next gen sequencing to prior tissue samples. Now with progressive disease. Pseudomyxoma peritonei: -progression noted with no Tx for now -patient continues to not consider any palliative chemotherapy/clinical trial options at this time. he did tell me that has discussed with him everything in detail and he is just not "ready" for it and he wanted the summer for himself. He mentioned that he is fully aware that we can see him at any time and have our office number. -Re-discussed with patient about biopsy of abdominal wallnodules, to check MMR tatus , next gen sequencing? immunotherapy candidate Also to consider ?? 5-FU single agent. continues to decline. Anemia: -s/p 2 U PRBC -Iron deficiency noted on labs on 07/15. -Reactive thrombocytosis due to iron deficiency anemia/cancer -will give IV iron . -would need to follow-up in our office. -will f/u on BCR ABL done last admission. DVT: -On coumadin -INR monitoring Will follow
[2016-11-25] MEDS ORDERED: IRON SUCROSE INJECTION 100 MG in SODIUM CHLORIDE 95 ML IVPB ONE (14:19)
[2016-11-25] MEDS ORDERED: WARFARIN NA 2.5 MG TABLET (FP) PO SCH (18:00)
[2016-11-25] MEDS ORDERED: PT OWN MED DRAWER 7, Y5N ONE (20:53)
[2016-11-25] MEDS ORDERED: LITHIUM CARBONATE 450 MG TABLET.ER PO SCH (22:00)
[2016-11-26 07:28] LABS: MEAN CELL VOLUME 78.7 fl (80-96); MEAN PLT VOLUME 7.9 fl (7.5-11.1); PLATELET COUNT 890 K/MM3 (134-434); RDW 20.3 % (11.9-15.9)
[2016-11-26 07:57] LABS: ALBUMIN 2.9 g/dl (3.4-5.0); ANION GAP 7 (8-16); CALCIUM 9.1 mg/dL (8.5-10.1); CO2 30 mmol/L (21-32); CREATININE 0.5 mg/dL (0.7-1.3); GLUCOSE,RANDOM 82 mg/dL (74-106); SGOT/AST 11 U/L (15-37); SGPT/ALT 13 U/L (12-78)
[2016-11-26 07:59] LABS: ALK PHOS 74 U/L (45-117); BILIRUBIN,TOTAL 0.4 mg/dL (0.2-1.0); TOT PROT 7.1 g/dl (6.4-8.2)
[2016-11-26 08:12] LABS: INR 1.54 (0.82-1.09); PROTHROMBIN TIME (PATIENT) 17.1 SEC (9.98-11.88)
[2016-11-26 09:47] VITALS: BP 110/70; PULSE 92; TEMP 98.8
[2016-11-26] MEDS: VENLAFAXINE HCL 75 MG E.R. CAPSULES (FP) PO SCH (09:56)
--- NOTE | 2016-11-26 10:27 | DS ---
Physical Examination Vital Signs: Vital Signs Temperature 98.8 F 11/26/16 09:45 Pulse Rate 92 H 11/26/16 09:45 Respiratory Rate 18 11/26/16 09:45 Blood Pressure 110/70 11/26/16 09:45 O2 Sat by Pulse Oximetry (%) 98 11/25/16 21:00 Constitutional: Yes: Well Nourished, No Distress Labs: CBC, BMP 11/26/16 06:00 11/26/16 06:00 Discharge Summary Reason For Visit: ANEMIA Current Active Problems Anemia (Acute) C. difficile colitis (Acute) Generalized weakness (Acute) Leukocytosis (Acute) Mucinous adenocarcinoma of appendix (Acute) Nausea & vomiting (Acute) Hospital Course: admitted transfused, will f/u as out patient Condition: Improved - Instructions Diet, Activity, Other Instructions: see dr calixto mondaynovember 28 930am reg Referrals: Yuliana Calixto MD [Primary Care Provider] - Disposition: HOME - Home Medications Comprehensive Discharge Medication List: Ambulatory Orders [place] Carbonate [Eskalith -] 900 mg PO HS 02/20/16 Venlafaxine HCl [Effexor -] 225 mg PO DAILY 02/20/16 Warfarin Na [Coumadin -] 2.5 mg PO DAILY@1800 #30 tablet MDD 1 10/11/16
[2016-11-27 06:36] LABS: SERUM IRON 74 ug/dL (38-169); TOTAL IRON BINDING CAPACITY 347 ug/dL (250-450); UIBC 273 ug/dL (111-343)
== END 2016-11-26 11:44 | disposition home or self-care (01) | DRG 812 ==
LOC: JER 17:34 → JERBED 11-25 03:55 → J7W 11-25 05:19
PROVIDERS: ADMIT Family Medicine; ATTEND Family Medicine
PROC: 30233N1 Transfusion of Nonautologous Red Blood Cells into Peripheral Vein, Percutaneous Approach (ICD-10-PCS; principal; 2016-11-24)
DX: D50.9 Iron deficiency anemia, unspecified (principal); C18.1 Malignant neoplasm of appendix; C78.6 Secondary malignant neoplasm of retroperitoneum and peritoneum; D47.3 Essential (hemorrhagic) thrombocythemia; F41.8 Other specified anxiety disorders; Z87.891 Personal history of nicotine dependence; Z86.718 Personal history of other venous thrombosis and embolism; Z86.711 Personal history of pulmonary embolism
CPT/HCPCS: 36415; 36430; 80053; 82728; 83540; 83550; 85025; 85027; 85044; 85610; 86850; 86900; 86901; 86922; 93005; 93010; 99284-25; J1756; P9038; P9058

== ENCOUNTER 2017-02-21 15:46 | Inpatient (IN) | payer OTHER ==
--- NOTE | 2017-02-21 16:29 | PDOC ---
History of Present Illness - General Chief Complaint: Pain Stated Complaint: Abdominal pain, blood transfusion Time Seen by Provider: 02/21/17 16:11 History Source: Patient - History of Present Illness Initial Comments: 02/21/17 17:02 Patient is a 47 y.o. 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 Addison, for low Hb from a blood draw on Monday (02/20). Patient endorses some lightheadedness but denies any shortness of breath, palpitations, chest pain. Patient further denies melena or hematochezia Patient also c/o significant abdominal pain 2/2 to his multiple operative interventions and notes he is in the process of establishing a pain management doctor. 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) Cardiac Disorders: No CVA: No COPD: No CHF: No DVT: Yes (LLE BLOOD CLOT 5 YEARS AGO) Dementia: No Diabetes: No GI Disorders: Yes (C-DIFF 2013) Disorders: Yes (CDIFF 2013) HTN: No Hypercholesterolemia: No Liver Disease: No Seizures: No Thyroid Disease: No - Surgical History Abdominal Surgery: Yes (spleenectomy, COLECTOMY,) Appendectomy: Yes Cardiac Surgery: No Cholecystectomy: No GI Surgery: Yes (for stomach cancer--pnp) Lung Surgery: No Neurologic Surgery: No Orthopedic Surgery: No - Immunization History Immunization Up to Date: Yes - Suicide/Smoking/Psychosocial Hx Smoking Status: No Smoking History: Never smoked Have you smoked in the past 12 months: No Number of Cigarettes Smoked Daily: 0 Cigars Per Day: 0 Information on smoking cessation initiated: No Hx Alcohol Use: No Drug/Substance Use Hx: No Substance Use Type: None Hx Substance Use Treatment: No Review of Systems - Review of Systems Constitutional: No: Chills, Fever Respiratory: No: Shortness of Breath Cardiac (ROS): Yes: Lightheadedness. No: Chest Pain Psychiatric: Yes: Depression All Other Systems: Reviewed and Negative *Physical Exam - Vital Signs Last Vital Signs Temp Pulse Resp BP Pulse Ox 98.1 F 98 H 19 108/75 100 02/21/17 15:59 02/21/17 15:59 02/21/17 15:59 02/21/17 15:59 02/21/17 15:59 - Physical Exam General Appearance: Yes: Thin Respiratory/Chest: positive: Lungs Clear Cardiovascular: positive: S1, S2 Gastrointestinal/Abdominal: positive: Normal Bowel Sounds, Soft Integumentary: positive: Normal Color, Dry, Other (midline abdominal scar - well healed) Neurologic: positive: Fully Oriented, Alert ED Treatment Course - LABORATORY CBC & Chemistry Diagram: 02/21/17 16:42 02/21/17 16:42 Medical Decision Making - Medical Decision Making 02/21/17 17:07 Patient is a 47 y.o. male who presents following an outpatient Hb of 7.5 from a lab draw on Monday (02/19/17) PLAN: 1. Type and Screen 2. CBC, CMP 3. Fe panel - as source of anemia may be FORTUNATO (patient had low Fe in 06/2016) vs. ACD, iron panel ordered. 02/21/17 17:[address] Addison, requests observation admission; Hb 6.5 --> transfuse 2 units PRBC; patient admitted to Dr. Addison *DC/Admit/Observation/Transfer Diagnosis at time of Disposition: Low hemoglobin
[2017-02-21] MEDS ORDERED: morphine CARPU-JECT 4 MG/1 ML DISP.SYRIN IVPUSH ONE (17:10)
[2017-02-21 17:14] LABS: MCH 23.6 pg (25.7-33.7); MCHC 31.1 g/dl (32.0-35.9); MEAN PLT VOLUME 7.9 fl (7.5-11.1); PLATELET COUNT 918 K/MM3 (134-434); RDW 18.3 % (11.9-15.9); WHITE BLOOD COUNT 9.2 K/mm3 (4.0-10.0)
[2017-02-21] MEDS ORDERED: morphine CARPU-JECT 10 MG/1 ML DISP.SYRIN ONE (17:20)
[2017-02-21 17:33] LABS: ALBUMIN 2.7 g/dl (3.4-5.0); ALK PHOS 64 U/L (45-117); ANION GAP 8 (8-16); BILIRUBIN,TOTAL 0.1 mg/dL (0.2-1.0); CALCIUM 8.4 mg/dL (8.5-10.1); CO2 26 mmol/L (21-32); CREATININE 0.5 mg/dL (0.7-1.3); GLUCOSE,RANDOM 77 mg/dL (74-106); SGOT/AST 9 U/L (15-37); SGPT/ALT 10 U/L (12-78); TOT PROT 6.5 g/dl (6.4-8.2)
--- NOTE | 2017-02-21 17:36 | PDOC ---
Attending Attestation - Resident Resident Name: Chandni Muhammad - ED Attending Attestation I have performed the following: I have examined & evaluated the patient, The case was reviewed & discussed with the resident, I agree w/resident's findings & plan, Exceptions are as noted - HPI HPI: 02/21/17 17:35 47y M hx of DVT (on coumadin), pseudomyxoma peritonei (s/p debulking at [facility]), recurrent anemia, presents for anemia. pt endorses some lightheadedness w/o cp, sob, palpitations. No associated fever/chills, n/v, obstipation. pt has chronic abdominal pain due to his abdominal surgeries, pt states he has had recent imaging as an outpatient including MRI and US but denies any change in natuer for the pain on exam pt is in no distresss, soft abdomen, nondistended focal tenderness at the xyphoid, lungs celar, cardiac exam unremarkable as hbg noted at 6.5 vitals are normal cxr clear will admit pt for transfusion - Physicial Exam PE: 02/21/17 19:33 see above - Medical Decision Making 02/21/17 19:33 see above
[2017-02-21 17:46] LABS: PLATELET ESTIMATE INCREASED (NORMAL); TOTAL CELLS COUNTED 100
[2017-02-21 17:48] LABS: INR 1.81 (0.82-1.09); PROTHROMBIN TIME (PATIENT) 20.5 SEC (9.98-11.88)
[2017-02-21 17:51] LABS: ACTIVATED PTT 32.2 SECONDS (26.9-34.4)
[2017-02-21] MEDS ORDERED: HYDROmorphone HCL CARPU-JECT 2 MG/1 ML DISP.SYRIN IVPUSH ONE (19:31)
[2017-02-21] MEDS ORDERED: HYDROmorphone HCL CARPU-JECT 1 MG/1 ML DISP.SYRIN ONE (20:35)
[2017-02-21] MEDS: traMADol HCL 50 MG TABLET PO SCH (22:05)
[2017-02-21 22:27] VITALS: BMI 18.8
[2017-02-21] MEDS ORDERED: FLU VACCINE QUAD 60 MCG/0.5 ML (MDV 17-18) IM ONE (22:27)
[2017-02-22] MEDS ORDERED: HYDROmorphone HCL CARPU-JECT 2 MG/1 ML DISP.SYRIN IVPB ONE (04:45)
[2017-02-22 07:45] LABS: INR 1.67 (0.82-1.09); PROTHROMBIN TIME (PATIENT) 18.9 SEC (9.98-11.88)
[2017-02-22 07:52] LABS: ALBUMIN 2.4 g/dl (3.4-5.0); ANION GAP 7 (8-16); CALCIUM 8.3 mg/dL (8.5-10.1); CO2 27 mmol/L (21-32); CREATININE 0.5 mg/dL (0.7-1.3); GLUCOSE,RANDOM 83 mg/dL (74-106); SGOT/AST 9 U/L (15-37); SGPT/ALT 11 U/L (12-78)
[2017-02-22 07:57] LABS: ALK PHOS 60 U/L (45-117); BILIRUBIN,TOTAL 0.8 mg/dL (0.2-1.0); TOT PROT 5.9 g/dl (6.4-8.2)
[2017-02-22 08:38] LABS: MCH 25.5 pg (25.7-33.7); MCHC 32.5 g/dl (32.0-35.9); MEAN CELL VOLUME 78.6 fl (80-96); MEAN PLT VOLUME 7.8 fl (7.5-11.1); PLATELET COUNT 784 K/MM3 (134-434); RDW 18.6 % (11.9-15.9); WHITE BLOOD COUNT 9.6 K/mm3 (4.0-10.0)
[2017-02-22] MEDS: traMADol HCL 50 MG TABLET PO SCH (09:24)
--- NOTE | 2017-02-22 11:24 | CONSULT ---
Consult Consult Specialty:: Oncology - History of Present Illness History of Present Illness: Patient is a 47 y.o. 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 Patient also c/o significant abdominal pain 2/2 to his multiple operative interventions and notes he is in the process of establishing a pain management doctor. he follows in our office with - History Source History Provided By: Patient, Medical Record Limitations to Obtaining History: No Limitations - Past Medical History Pulmonary: Yes: Pulmonary Embolus Gastrointestinal: Yes: Cancer (appendiceal cancer- 2008), Other (Intestinal obstruction.) Infectious Disease: Yes: C-Diff Psych: Yes: Anxiety, Depression - Past Surgical History Past Surgical History: Yes: Appendectomy (2008), Colectomy, Colonoscopy, Splenectomy (2008) - Alcohol/Substance Use Hx Alcohol Use: No - Smoking History Smoking history: Never smoked Have you smoked in the past 12 months: No Aproximately how many cigarettes per day: 0 - Social History ADL: Independent History of Recent Travel: No Home Medications - Allergies Allergies/Adverse Reactions: Allergies Allergy/AdvReac Type Severity Reaction Status Date / Time No Known Allergies Allergy Verified 02/21/17 16:01 - Home Medications Home Medications: Ambulatory Orders Warfarin Na [Coumadin -] 2.5 mg PO DAILY@1800 #30 tablet MDD 1 10/11/16 Tramadol HCl 50 mg PO QID 02/21/17 Family Disease History - Family Disease History Family Disease History: CA: Father (COLON CA, ESRD), Other: Father, Mother ( ARTHRITIS, BACK SURGERY), Brother (3 BROTHERS- ALL HEALTHY), Daughter (HEALTHY) Physical Exam Vital Signs: Vital Signs Temperature 98.6 F 02/22/17 06:30 Pulse Rate 78 02/22/17 06:30 Respiratory Rate 16 02/22/17 06:30 Blood Pressure 91/61 02/22/17 06:30 O2 Sat by Pulse Oximetry (%) 98 02/21/17 22:00 Constitutional: Yes: Thin, Other (chronically ill) Eyes: Yes: Conjunctiva Clear, EOM Intact HENT: Yes: Atraumatic, Normocephalic Neck: Yes: Supple, Trachea Midline Cardiovascular: Yes: Regular Rate and Rhythm Respiratory: Yes: Regular, CTA Bilaterally Gastrointestinal: Yes: Normal Bowel Sounds, Soft, Palpable Mass, Other ( palpable nodules) Extremities: Yes: WNL Neurological: Yes: Alert, Oriented Labs: CBC, BMP 02/22/17 05:56 02/22/17 05:56 Problem List - Problems (1) Low hemoglobin Code(s): D64.9 - ANEMIA, UNSPECIFIED (2) Abdominal pain Code(s): R10.9 - UNSPECIFIED ABDOMINAL PAIN Qualifiers: Abdominal location: upper abdomen, unspecified Qualified Code(s): R10.10 - Upper abdominal pain, unspecified; R10.10 - Upper abdominal pain, unspecified (3) Diarrhea Code(s): R19.7 - DIARRHEA, UNSPECIFIED (4) 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 - SECONDARY MALIGNANT NEOPLASM OF RETROPERITON AND PERITONEUM (5) Thrombocytosis Code(s): D47.3 - ESSENTIAL (HEMORRHAGIC) THROMBOCYTHEMIA Assessment/Plan Anemia Fever Diarrhea Abdominal pain from the malignancy Malignant Pseudomyxoma peritonei (s/p FOLFOX, s/p HIPEC, s/p Surgery, now with POD). Anemia: s/p PRBC transfusion, IV Iron , continue to monitor Fever: Less likely post transfusion. Will do fever w/u, diarrhea w/u. Given his Hx, will ask ID to see Pain: He says he has a difficult time to with pain control, presently on Tramadol, will continue the same and also will consult of pain management Malignancy: detailed discussion with as an OP, he is yet to decide on Rx, he is wth POD. On AC for h/o DVT For labs continue w.u. will follow-up
[2017-02-22 11:58] LABS: TOTAL CELLS COUNTED 100
[2017-02-22 11:59] LABS: PLATELET ESTIMATE INCREASED (NORMAL)
[2017-02-22 12:46] LABS: URINE APPEARANCE CLEAR; URINE BILIRUBIN NEGATIVE (NEGATIVE); URINE BLOOD NEGATIVE (NEGATIVE); URINE COLOR LTYELLOW; URINE GLUCOSE (UA) NEGATIVE (NEGATIVE); URINE KETONE NEGATIVE (NEGATIVE); URINE NITRITE NEGATIVE (NEGATIVE); URINE PROTEIN NEGATIVE (NEGATIVE); URINE UROBILINOGEN NEGATIVE mg/dL (0.2-1.0)
[2017-02-22 13:08] LABS: MCH 25.4 pg (25.7-33.7); MCHC 32.3 g/dl (32.0-35.9); MEAN CELL VOLUME 78.6 fl (80-96); MEAN PLT VOLUME 7.7 fl (7.5-11.1); PLATELET COUNT 833 K/MM3 (134-434); RDW 18.1 % (11.9-15.9); WHITE BLOOD COUNT 11.5 K/mm3 (4.0-10.0)
[2017-02-22 13:19] LABS: INR 1.59 (0.82-1.09)
[2017-02-22 13:21] LABS: ACTIVATED PTT 32.4 SECONDS (26.9-34.4)
[2017-02-22] MEDS ORDERED: IRON SUCROSE INJECTION 200 MG in SODIUM CHLORIDE 240 ML IVPB ONE (14:15)
[2017-02-22] MEDS: traMADol HCL 50 MG TABLET PO PRN ×2 (14:24→20:15)
[2017-02-22] MEDS ORDERED: cefTRIAXone 1 GM/50 ML BAG (PRE-DOCKED) IVPB SCH (15:30)
--- NOTE | 2017-02-22 15:35 | PN ---
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 (short form) - Note 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: ID consult dictated imp/reccd 47 year old man with appendiceal tumor history of colectomy and splenectomy 2008 , admitted for anemia noted 6-7 loose stools daily for last several months developed temp to 100.6 after transfusion today no localizing signs on exam given splenectomy would start rocephin and observe stool studies for diarrhea s/p transfusion for anemia Problem List - Problems (1) Fever Code(s): R50.9 - FEVER, UNSPECIFIED (2) H/O splenectomy Code(s): Z90.81 - ACQUIRED ABSENCE OF SPLEEN (3) 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 - SECONDARY MALIGNANT NEOPLASM OF RETROPERITON AND PERITONEUM
[2017-02-22 17:07] LABS: URINE LEUK ESTERASE Negative (NEGATIVE)
[2017-02-22] MEDS ORDERED: PT OWN MED DRAWER 7, Y5N ONE (17:08)
[2017-02-22] MEDS ORDERED: WARFARIN NA 2.5 MG TABLET (FP) PO SCH ×2 (18:00)
[2017-02-22 18:19] LABS: PLATELET COMMENT2 NO CLOTTING DETECTED; PLATELET ESTIMATE MARKEDLY INCREASED (NORMAL)
[2017-02-22] MEDS: WARFARIN NA 5 MG TABLET (UD) PO SCH (18:46)
--- NOTE | 2017-02-22 19:06 | CONS ---
DATE OF CONSULTATION: DATE OF DICTATION: 02/22/2017 INFECTIOUS DISEASE CONSULTATION HISTORY OF PRESENT ILLNESS: This is a 47-year-old man with a past medical history of pseudomyxoma peritonei. He has an appendiceal tumor and has had debulking at [facility] with history of anemia and DVT. He was admitted for anemia. Also weakness and fatigue. He reports he has had several months of diarrhea, 6 to 8 stools a day, nonbloody. He has chronic abdominal pain. He has intermittent nausea and vomiting, though of late he has not had either. He eats small meals at home. He has traveled over the summer to [place] and [place]. He lives at home with his daughter and . He has no sick contacts. PAST MEDICAL HISTORY: Notable for DVT and PE. He has history of appendiceal cancer, intestinal obstruction, C. difficile, anxiety and depression. SURGICAL HISTORY: Notable for appendectomy, colectomy, colonoscopy, and splenectomy all in 2008. About 9 months back he had a stent placed at [facility], where he is followed by his surgeon. FAMILY HISTORY: Notable for colon cancer in his father. SOCIAL HISTORY: There is no history of any substance abuse. ALLERGIES: No known drug allergies. MEDICATIONS AT HOME: Include warfarin and tramadol. PHYSICAL EXAMINATION: General: He is awake and alert. Vital signs: T-max is 100.6, current temperature is 99.1, pulse 77, blood pressure 105/64, respiratory rate 18. HEENT: Normocephalic. Eyes are anicteric. Neck: Supple. Lungs: Clear to auscultation. Heart: Regular rate and rhythm. Abdomen: Soft. He has a small palpable lesion at his xiphoid process that he is aware of. He says the surgeon knows about it, and his abdomen is soft, nontender. Extremities: Without edema. LABORATORY: Notable for white count of 11.5, hemoglobin is now 10.1, platelets are 833, INR 1.5. BUN and creatinine are 10 and 0.5 with normal LFTs. Urinalysis is negative. Chest x-ray was done and is negative as well. IMPRESSION: In summary, this is a 47-year-old man with appendiceal tumor, no chemotherapy, history of multiple surgeries in the past and anemia, status post blood transfusion with fever, today after transfusion no localizing signs on exam, but given his splenectomy would start with and observe. Would obtain stool studies for his chronic diarrhea as well. Further recommendations to follow. PHILIPP HATFIELD M.D. [id number]
--- NOTE | 2017-02-22 19:58 | HP ---
Admitting History and Physical - Primary Care Physician PCP: Yuliana Addison - Admission Chief Complaint: Anemia History of Present Illness: Mr. Cancino a pleasant 47 y.o. male came in to [facility] ER for anemia (last outpatient Hg of 6.5), abdominal and back pain that has been going on for past couple of months. Patient endorses some lightheadedness but denies any shortness of breath, palpitations, chest pain. Patient further denies melena or hematochezia Patient also c/o significant abdominal pain 2/2 to his multiple operative interventions and notes he is in the process of establishing a pain management doctor. 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 Pt continues to complain of pain in the abdomen, feels tired and weak He also c.o diarrhea that is a change in his bowel pattern in past 6 months. His last colonoscopy was less than 5 years ago done by Dr Rodriguez. . History Source: Patient Limitations to Obtaining History: No Limitations - Past Medical History Pulmonary: Yes: Pulmonary Embolus Gastrointestinal: Yes: Cancer (appendiceal cancer- 2008), Other (Intestinal obstruction.) Heme/Onc: Yes: Anemia, Cancer, Other (LLE DVT in 2009) Infectious Disease: Yes: C-Diff Psych: Yes: Anxiety, Depression - Past Surgical History Past Surgical History: Yes: Appendectomy (2008), Colectomy, Colonoscopy, Splenectomy (2008) - Smoking History Smoking history: Never smoked Have you smoked in the past 12 months: No Aproximately how many cigarettes per day: 0 - Alcohol/Substance Use Hx Alcohol Use: No - Social History ADL: Independent History of Recent Travel: No Home Medications - Allergies Allergies/Adverse Reactions: Allergies Allergy/AdvReac Type Severity Reaction Status Date / Time No Known Allergies Allergy Verified 02/21/17 16:01 - Home Medications Home Medications: Ambulatory Orders Warfarin Na [Coumadin -] 2.5 mg PO DAILY@1800 #30 tablet MDD 1 10/11/16 Tramadol HCl 50 mg PO QID 02/21/17 Family Disease History - Family Disease History Family Disease History: CA: Father (COLON CA, ESRD), Other: Father, Mother ( ARTHRITIS, BACK SURGERY), Brother (3 BROTHERS- ALL HEALTHY), Daughter (HEALTHY) Review of Systems - Review of Systems Constitutional: reports: Weakness Eyes: reports: No Symptoms HENT: reports: No Symptoms Neck: reports: No Symptoms Cardiovascular: reports: No Symptoms Respiratory: reports: No Symptoms Gastrointestinal: reports: Abdominal Pain Genitourinary: reports: No Symptoms Breasts: reports: No Symptoms Reported Musculoskeletal: reports: Back Pain Integumentary: reports: No Symptoms Neurological: reports: No Symptoms Endocrine: reports: No Symptoms Hematology/Lymphatic: reports: No Symptoms Psychiatric: reports: No Symptoms Physical Examination Vital Signs: Vital Signs Temperature 99.3 F 02/22/17 19:00 Pulse Rate 86 02/22/17 19:00 Respiratory Rate 18 02/22/17 19:00 Blood Pressure 107/60 02/22/17 19:00 O2 Sat by Pulse Oximetry (%) 99 02/22/17 09:00 Constitutional: Yes: Well Nourished, No Distress, Calm Cardiovascular: Yes: Regular Rate and Rhythm Respiratory: Yes: Regular Gastrointestinal: Yes: Normal Bowel Sounds Musculoskeletal: Yes: WNL Extremities: Yes: WNL Edema: No Peripheral Pulses WNL: Yes Neurological: Yes: Alert, Oriented Psychiatric: Yes: Alert, Oriented Labs: CBC, BMP 02/22/17 12:50 02/22/17 05:56 Imaging - Results Chest X-ray: Report Reviewed Problem List - Problems (1) Generalized weakness Assessment/Plan: 2/2 to anemia, feels better today after transfusions Code(s): R53.1 - WEAKNESS (2) Leukocytosis Assessment/Plan: 2/2 diarrhea, blood transfusion? seen by ID on IV abx Code(s): D72.829 - ELEVATED WHITE BLOOD CELL COUNT, UNSPECIFIED (3) Anemia Assessment/Plan: received 3 units of PRBC -hemotology consult -pending labs for anemia workup Code(s): D64.9 - ANEMIA, UNSPECIFIED Qualifiers: Anemia type: iron deficiency Iron deficiency anemia type: unspecified iron deficiency Qualified Code(s): D50.9 - Iron deficiency anemia, unspecified; D50.9 - Iron deficiency anemia, unspecified (4) Diarrhea Assessment/Plan: -pending stool occult and microbiology -GI consult Code(s): R19.7 - DIARRHEA, UNSPECIFIED (5) History of DVT of lower extremity Assessment/Plan: -on Warfarin -sub-therapeutic today -warfarin 5 mg today Code(s): Z86.718 - PERSONAL HISTORY OF OTHER VENOUS THROMBOSIS AND EMBOLISM (6) Abdominal pain Assessment/Plan: -GI consult -well controlled on tramadol -last abdominal U/S 01/25/17 showed: Inferior to the xiphoid process, there is a lobulated hypoechoic mass which measures approximately 5.0 x 2.8 x 1.7 cm. The mass is consistent with clinical history of pseudomyxoma peritonei. -Last abdominal Xray on 10/11/16 showed: Imaging reveals a gastric stent in the upper abdomen, left upper quadrant clips , some distended bowel but no sign of free air. There are extensive sutures seen in the abdomen along with some calcifications. There is retained stool. Correlation recommended. For more complete evaluation, further imaging with CT may be of help. -last CT abdomen done on 07/18/2016 showed: Gastric distention extending to the level of the gastric antrum with an irregular lobular hypodense mass measuring 9.5 x 7.4 x 6.0 cm significantly narrows the antrum. The mass abuts the undersurface of the left lobe of the liver in the neck of the pancreas. A similar-appearing lobular hypodense mass projecting just to the distal descending colon measuring 4.3 x 5.2 cm with a smaller lobulated lesion slightly more inferiorly. Similar hypodense mass involves the anterior rectum measuring 4.6 x 3.7 cm and a lobular mass along the distal right paracolic gutter measures 3.0 x 3.0 cm. Small lobular implants are present as well. There are multiple surgical sutures from previous bowel surgery. Code(s): R10.9 - UNSPECIFIED ABDOMINAL PAIN Qualifiers: Abdominal location: upper abdomen, unspecified Qualified Code(s): R10.10 - Upper abdominal pain, unspecified; R10.10 - Upper abdominal pain, unspecified Assessment/Plan see problem list
[2017-02-22] MEDS: CEFTRIAXONE 1 G/50 ML PREMIX 50 ML IVPB SCH (20:17)
[2017-02-23] MEDS: traMADol HCL 50 MG TABLET PO PRN ×3 (04:21→17:42)
[2017-02-23] MEDS ORDERED: SODIUM CHLORIDE 250 ML IV ONE (07:45)
[2017-02-23 07:54] LABS: INR 1.6 (0.82-1.09); PROTHROMBIN TIME (PATIENT) 18.1 SEC (9.98-11.88)
[2017-02-23 08:13] LABS: MCH 25.3 pg (25.7-33.7); MCHC 31.7 g/dl (32.0-35.9); MEAN CELL VOLUME 79.7 fl (80-96); MEAN PLT VOLUME 7.7 fl (7.5-11.1); PLATELET COUNT 885 K/MM3 (134-434); RDW 18.5 % (11.9-15.9); WHITE BLOOD COUNT 12.8 K/mm3 (4.0-10.0)
[2017-02-23] MEDS: CEFTRIAXONE 1 G/50 ML PREMIX 50 ML IVPB SCH (09:26)
[2017-02-23 10:16] LABS: PLATELET ESTIMATE MARKEDLY INCREASED (NORMAL); TOTAL CELLS COUNTED 100
--- NOTE | 2017-02-23 11:05 | PN ---
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 Chief Complaint: ID Ceftriaxone day 2 Low grade temp 99 Says 2 months of diarrhea yet here no stool able to be obtained - Current Medication List Current Medications: Active Medications CEFTRIAXONE 1 G/50 ML PREMIX (Ceftriaxone 1 Gm-D5w Bag) 50 mls @ 100 mls/hr IVPB DAILY PENDING SALE TO [facility] Last Admin: 02/23/17 09:26 Dose: 100 mls/hr Tramadol HCl (Ultram -) 50 mg PO Q6H PRN PRN Reason: PAIN Last Admin: 02/23/17 10:39 Dose: 50 mg Warfarin Sodium (Coumadin -) 5 mg PO DAILY@1800 PENDING SALE TO [facility] Last Admin: 02/22/17 18:46 Dose: 5 mg - Objective Vital Signs: Vital Signs Temperature 99.0 F 02/23/17 06:02 Pulse Rate 80 02/23/17 06:02 Respiratory Rate 16 02/23/17 06:02 Blood Pressure 80/45 02/23/17 06:13 O2 Sat by Pulse Oximetry (%) 97 02/22/17 21:00 Gastrointestinal: Yes: Soft, Tenderness, Other (Mild tenderness) Labs: CBC, BMP 02/23/17 06:15 02/22/17 05:56 INR, PTT INR 1.60 (0.82-1.09) H 02/23/17 06:15 Assessment/Plan Laboratory Tests 02/22/17 02/23/17 05:56 06:15 WBC 12.8 H Hgb 10.5 L Hct 33.1 L Plt Count 885 H BUN 10 D Creatinine 0.5 L Microbiology 02/22/17 11:45 Urine - Urine Clean Catch Urine Culture - Final NO GROWTH OBTAINED Assessment Intrabd tumor extensive masses Low grade temps thrombocytosis ? neoplastic related Plan Stool ordered for C diff study DO not see indication for antibiotic at present
[2017-02-23] MEDS: WARFARIN NA 5 MG TABLET (UD) PO SCH (17:10)
--- NOTE | 2017-02-23 17:25 | PN ---
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 Chief Complaint: Anemia, diarrhea History of Present Illness: NAD, ambulatory, low grade temps seen by ID to be seen by GI - Current Medication List Current Medications: Active Medications Tramadol HCl (Ultram -) 50 mg PO Q6H PRN PRN Reason: PAIN Last Admin: 02/23/17 10:39 Dose: 50 mg Warfarin Sodium (Coumadin -) 5 mg PO DAILY@1800 IZABELLA Last Admin: 02/23/17 17:10 Dose: 5 mg - Objective Vital Signs: Vital Signs Temperature 98.3 F 02/23/17 14:00 Pulse Rate 88 02/23/17 14:00 Respiratory Rate 18 02/23/17 14:00 Blood Pressure 100/62 02/23/17 14:00 O2 Sat by Pulse Oximetry (%) 98 02/23/17 09:00 Constitutional: Yes: Well Nourished, No Distress, Calm Cardiovascular: Yes: Regular Rate and Rhythm Respiratory: Yes: Regular Gastrointestinal: Yes: Normal Bowel Sounds Musculoskeletal: Yes: WNL Extremities: Yes: WNL Edema: No Peripheral Pulses WNL: Yes Neurological: Yes: Alert, Oriented Psychiatric: Yes: Alert, Oriented Labs: CBC, BMP 02/23/17 06:15 02/22/17 05:56 INR, PTT INR 1.60 (0.82-1.09) H 02/23/17 06:15 Problem List - Problems (1) Generalized weakness Assessment/Plan: 2/2 to anemia, feels better today after transfusions Code(s): R53.1 - WEAKNESS (2) Leukocytosis Assessment/Plan: -wbc increased today 2/2 diarrhea, blood transfusion? seen by ID IV abx discontinued Code(s): D72.829 - ELEVATED WHITE BLOOD CELL COUNT, UNSPECIFIED (3) Anemia Assessment/Plan: received 3 units of PRBC -H/H improved today -hemotology consult -pending labs for anemia workup -stool OB positive- is on AC due to hx of DVT and active malignancy Code(s): D64.9 - ANEMIA, UNSPECIFIED Qualifiers: Anemia type: iron deficiency Iron deficiency anemia type: unspecified iron deficiency Qualified Code(s): D50.9 - Iron deficiency anemia, unspecified; D50.9 - Iron deficiency anemia, unspecified (4) Diarrhea Assessment/Plan: -pending stool occult and microbiology -GI consult Code(s): R19.7 - DIARRHEA, UNSPECIFIED (5) History of DVT of lower extremity Assessment/Plan: -on Warfarin -sub-therapeutic today -warfarin 5 mg today Code(s): Z86.718 - PERSONAL HISTORY OF OTHER VENOUS THROMBOSIS AND EMBOLISM (6) Abdominal pain Assessment/Plan: -GI consult pending -well controlled on tramadol -last abdominal U/S 01/25/17 showed: Inferior to the xiphoid process, there is a lobulated hypoechoic mass which measures approximately 5.0 x 2.8 x 1.7 cm. The mass is consistent with clinical history of pseudomyxoma peritonei. -Last abdominal Xray on 10/11/16 showed: Imaging reveals a gastric stent in the upper abdomen, left upper quadrant clips , some distended bowel but no sign of free air. There are extensive sutures seen in the abdomen along with some calcifications. There is retained stool. Correlation recommended. For more complete evaluation, further imaging with CT may be of help. -last CT abdomen done on 07/18/2016 showed: Gastric distention extending to the level of the gastric antrum with an irregular lobular hypodense mass measuring 9.5 x 7.4 x 6.0 cm significantly narrows the antrum. The mass abuts the undersurface of the left lobe of the liver in the neck of the pancreas. A similar-appearing lobular hypodense mass projecting just to the distal descending colon measuring 4.3 x 5.2 cm with a smaller lobulated lesion slightly more inferiorly. Similar hypodense mass involves the anterior rectum measuring 4.6 x 3.7 cm and a lobular mass along the distal right paracolic gutter measures 3.0 x 3.0 cm. Small lobular implants are present as well. There are multiple surgical sutures from previous bowel surgery. Code(s): R10.9 - UNSPECIFIED ABDOMINAL PAIN Qualifiers: Abdominal location: upper abdomen, unspecified Qualified Code(s): R10.10 - Upper abdominal pain, unspecified; R10.10 - Upper abdominal pain, unspecified (7) 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 - SECONDARY MALIGNANT NEOPLASM OF RETROPERITON AND PERITONEUM Assessment/Plan see problem list
[2017-02-23] MEDS ORDERED: FENTANYL PATCH WASTE TD PRN (18:54)
[2017-02-23] MEDS ORDERED: fentaNYL 12mcg/hr PATCH.TD72 TD SCH (19:00)
--- NOTE | 2017-02-23 20:42 | CON.GI ---
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 He tells me his pain is severe. He states that on his last visit to Dr Neal 2 months ago, he was told no more surgery. He is cucrrently exploring clinical trials as suggested by his oncologist, Dr Estevez. On coumadin prophylaxis as h/o PE. - History Source History Provided By: Patient, Medical Record Limitations to Obtaining History: No Limitations - Past Medical History Pulmonary: Yes: Pulmonary Embolus Gastrointestinal: Yes: Cancer (appendiceal cancer- 2008), Other (Intestinal obstruction.) Infectious Disease: Yes: C-Diff Psych: Yes: Anxiety, Depression - Past Surgical History Past Surgical History: Yes: Appendectomy (2008), Colectomy, Colonoscopy, Splenectomy (2008) - Alcohol/Substance Use Hx Alcohol Use: No - Smoking History Smoking history: Never smoked Have you smoked in the past 12 months: No Aproximately how many cigarettes per day: 0 - Social History ADL: Independent History of Recent Travel: No Home Medications - Allergies Allergies/Adverse Reactions: Allergies Allergy/AdvReac Type Severity Reaction Status Date / Time No Known Allergies Allergy Verified 02/21/17 16:01 - Home Medications Home Medications: Ambulatory Orders Warfarin Na [Coumadin -] 2.5 mg PO DAILY@1800 #30 tablet MDD 1 10/11/16 Tramadol HCl 50 mg PO QID 02/21/17 FENTANYL 12mcg PATCH [DURAGESIC 12mcg PATCH -] 1 patch TD Q72H #10 patch MDD 1 02/24/17 Tramadol HCl [Ultram -] 50 mg PO Q6H PRN #120 tablet MDD 4 02/24/17 Family Disease History - Family Disease History Family Disease History: CA: Father (COLON CA, ESRD), Other: Father, Mother ( ARTHRITIS, BACK SURGERY), Brother (3 BROTHERS- ALL HEALTHY), Daughter (HEALTHY) Physical Exam-GI Vital Signs: Vital Signs Temperature 99.4 F 02/23/17 19:00 Pulse Rate 85 02/23/17 19:00 Respiratory Rate 18 02/23/17 19:00 Blood Pressure 96/58 02/23/17 19:00 O2 Sat by Pulse Oximetry (%) 98 02/23/17 09:00 Constitutional: Yes: Cachectic, Thin HENT: Yes: Normocephalic Neck: Yes: Supple Cardiovascular: Yes: Regular Rate and Rhythm Respiratory: Yes: CTA Bilaterally Gastrointestinal Inspection: Yes: WNL ...Auscultate: Yes: Other (high pitched) ...Palpate: Yes: Soft, Tenderness (diffusely) ...Percussion: Yes: Tympanitic Labs: CBC, BMP 02/23/17 06:15 02/22/17 05:56 INR, PTT INR 1.60 (0.82-1.09) H 02/23/17 06:15 Imaging - Results Cat Scan: Image Reviewed (from 10/15 - multiple masses.) Assessment/Plan Pain secondary to malignancy. There is very likely adhesions and tumor involving bowel. He is not a surgical candidate as per his onc surgeon at [place]. At this time will get a CT abd/pelvis to assess for obstruction Pain management as needed. Overall prognosis is poor. 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
--- NOTE | 2017-02-23 22:39 | PN ---
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 (short form) - Note 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: Patient seen and examined still with pain/fatigue fever curve improved AFVSS Cor: RSR, No murmurs, No gallops Lungs: Clear to P&A Abd: Soft, Normal bowel sounds, No organomegaly Ext:No significant edema Skin: No rashes, Integument intact Abnormal Lab Results 02/23/17 02/23/17 02/24/17 06:15 06:15 06:35 WBC 12.8 H RBC 3.88 L Hgb 10.5 L 10.2 L Hct 33.1 L 31.1 L MCV 79.7 L MCH 25.3 L MCHC 31.7 L RDW 18.5 H 18.4 H Plt Count 885 H 896 H Monocytes % (Manual) 14 H Eosinophils % (Manual) 6 H Retic Count 3.35 H D PT with INR INR Anion Gap Creatinine AST ALT Total Protein Albumin 02/24/17 02/24/17 06:35 06:35 WBC RBC Hgb Hct MCV MCH MCHC RDW Plt Count Monocytes % (Manual) Eosinophils % (Manual) Retic Count PT with INR 24.60 H INR 2.18 H D Anion Gap 6 L Creatinine 0.6 L AST 7 L D ALT 10 L Total Protein 6.1 L Albumin 2.4 L Home Medication List Medication Instructions Recorded Confirmed Type RX: Tramadol HCl 50 mg PO QID 02/21/17 02/21/17 History Active Medications Generic Name Dose Route Start Last Admin Trade Name Freq PRN Reason Stop Dose Admin Fentanyl 1 patch 02/23/17 19:00 02/23/17 19:37 Duragesic 12mcg Patch - TD 03/02/17 18:54 1 patch Q72H IZABELLA Administration Miscellaneous 1 each 02/23/17 18:54 Duragesic Patch Waste TD PRN PRN PAIN Tramadol HCl 50 mg 02/22/17 13:41 02/24/17 06:03 Ultram - PO 50 mg Q6H PRN Administration PAIN Warfarin Sodium 5 mg 02/22/17 18:00 02/23/17 17:10 Coumadin - PO 5 mg DAILY@1800 IZABELLA Administration A?P 47 y/o patient with psudomyxoma peritonei s/p HIPEC x2, FOLOX, allergic to oxali , few cycls of FOLFIRI Progressive disease slowly PAtient has been deferring clinical trials/xelods Await [facility] assay results---due next week Add fentanul 12mcg Q 2h to tramadol 50mg 6h IV iron for ongoing anemia supportive care
[2017-02-24] MEDS: traMADol HCL 50 MG TABLET PO PRN ×2 (06:03→12:50)
[2017-02-24 06:07] LABS: SERUM IRON 100 ug/dL (38-169); TOTAL IRON BINDING CAPACITY 258 ug/dL (250-450); UIBC 158 ug/dL (111-343)
[2017-02-24 07:36] LABS: MCH 26.4 pg (25.7-33.7); MCHC 32.9 g/dl (32.0-35.9); MEAN PLT VOLUME 7.7 fl (7.5-11.1); PLATELET COUNT 896 K/MM3 (134-434); RDW 18.4 % (11.9-15.9); WHITE BLOOD COUNT 8.8 K/mm3 (4.0-10.0)
[2017-02-24 07:56] LABS: INR 2.18 (0.82-1.09); PROTHROMBIN TIME (PATIENT) 24.6 SEC (9.98-11.88)
[2017-02-24 08:13] LABS: ALBUMIN 2.4 g/dl (3.4-5.0); ALK PHOS 66 U/L (45-117); ANION GAP 6 (8-16); BILIRUBIN,TOTAL 0.7 mg/dL (0.2-1.0); CALCIUM 8.8 mg/dL (8.5-10.1); CO2 28 mmol/L (21-32); CREATININE 0.6 mg/dL (0.7-1.3); GLUCOSE,RANDOM 81 mg/dL (74-106); SGOT/AST 7 U/L (15-37); SGPT/ALT 10 U/L (12-78); TOT PROT 6.1 g/dl (6.4-8.2)
[2017-02-24 08:33] VITALS: PULSE 84
--- NOTE | 2017-02-24 10:55 | PN ---
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 (short form) - Note 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: afebrile pain controlled with tramadol no vomiting soft bms no fevers no diarrhea Vital Signs Period Temp Pulse Resp BP Sys/Conte Pulse Ox Last 24 Hr 98.3 F-99.4 F 78-88 16-20 92-100/55-62 100 cor-rrr lungs clear abd soft,nt ext no edema CBC, BMP 02/24/17 06:35 02/24/17 06:35 Microbiology 02/23/17 16:45 Stool Clostridium difficile Antigen (GARY) - Final 02/23/17 16:45 Stool Clostridium difficile Toxin Assay - Final 02/23/17 16:45 Stool Cryptosporidium Antigen - Final 02/23/17 16:45 Stool Giardia Antigen (GARY) - Final 02/22/17 12:50 Blood - Peripheral Venous Blood Culture - Preliminary NO GROWTH OBTAINED AFTER 24 HOURS, INCUBATION TO CONTINUE FOR 4 DAYS. 02/22/17 12:45 Blood - Peripheral Venous Blood Culture - Preliminary NO GROWTH OBTAINED AFTER 24 HOURS, INCUBATION TO CONTINUE FOR 4 DAYS. 02/22/17 11:45 Urine - Urine Clean Catch Urine Culture - Final NO GROWTH OBTAINED ct scan with increasing masses a/p stable off antibiotics hgb stable history of appendiceal tumor f/u with oncology please call back if needed Problem List - Problems (1) Fever Code(s): R50.9 - FEVER, UNSPECIFIED (2) H/O splenectomy Code(s): Z90.81 - ACQUIRED ABSENCE OF SPLEEN (3) 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 - SECONDARY MALIGNANT NEOPLASM OF RETROPERITON AND PERITONEUM
--- NOTE | 2017-02-24 11:01 | PN ---
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 Chief Complaint: Anemia, diarrhea History of Present Illness: NAD, ambulatory, seen by ID seen by GI -off abx wbc normalized H/H improved ABD CT shows pulmonary nodules highly suspicious of metastatic disease - Current Medication List Current Medications: Active Medications Fentanyl (Duragesic 12mcg Patch -) 1 patch TD Q72H IZABELLA Stop: 03/02/17 18:54 Last Admin: 02/23/17 19:37 Dose: 1 patch Miscellaneous (Duragesic Patch Waste) 1 each TD PRN PRN PRN Reason: PAIN Tramadol HCl (Ultram -) 50 mg PO Q6H PRN PRN Reason: PAIN Last Admin: 02/24/17 06:03 Dose: 50 mg Warfarin Sodium (Coumadin -) 5 mg PO DAILY@1800 IZABELLA Last Admin: 02/23/17 17:10 Dose: 5 mg - Objective Vital Signs: Vital Signs Temperature 98.6 F 02/24/17 08:32 Pulse Rate 84 02/24/17 08:32 Respiratory Rate 18 02/24/17 08:32 Blood Pressure 93/55 02/24/17 08:32 O2 Sat by Pulse Oximetry (%) 100 02/23/17 21:00 Constitutional: Yes: Well Nourished, No Distress, Calm Gastrointestinal: Yes: Normal Bowel Sounds, Soft Musculoskeletal: Yes: WNL Extremities: Yes: WNL Edema: No Peripheral Pulses WNL: Yes Neurological: Yes: Alert, Oriented Psychiatric: Yes: Alert, Oriented Labs: CBC, BMP 02/24/17 06:35 02/24/17 06:35 INR, PTT INR 2.18 (0.82-1.09) H D 02/24/17 06:35 Problem List - Problems (1) Generalized weakness Assessment/Plan: 2/2 to anemia, feels better today after transfusions Code(s): R53.1 - WEAKNESS (2) Leukocytosis Assessment/Plan: -normalized Code(s): D72.829 - ELEVATED WHITE BLOOD CELL COUNT, UNSPECIFIED (3) Anemia Assessment/Plan: received 3 units of PRBC this admission -H/H improved today -hemotology consult - anemia workup unremarkable -stool OB positive- is on AC due to hx of DVT and active malignancy Code(s): D64.9 - ANEMIA, UNSPECIFIED Qualifiers: Anemia type: iron deficiency Iron deficiency anemia type: unspecified iron deficiency Qualified Code(s): D50.9 - Iron deficiency anemia, unspecified; D50.9 - Iron deficiency anemia, unspecified (4) Diarrhea Assessment/Plan: -pending stool occult and microbiology -GI consult Code(s): R19.7 - DIARRHEA, UNSPECIFIED (5) History of DVT of lower extremity Assessment/Plan: -on Warfarin -sub-therapeutic today Code(s): Z86.718 - PERSONAL HISTORY OF OTHER VENOUS THROMBOSIS AND EMBOLISM (6) Abdominal pain Assessment/Plan: -GI consult pending -well controlled on tramadol, will start fentanyl patch -last abdominal U/S 01/25/17 showed: Inferior to the xiphoid process, there is a lobulated hypoechoic mass which measures approximately 5.0 x 2.8 x 1.7 cm. The mass is consistent with clinical history of pseudomyxoma peritonei. -Last abdominal Xray on 10/11/16 showed: Imaging reveals a gastric stent in the upper abdomen, left upper quadrant clips , some distended bowel but no sign of free air. There are extensive sutures seen in the abdomen along with some calcifications. There is retained stool. Correlation recommended. For more complete evaluation, further imaging with CT may be of help. -last CT abdomen done on 07/18/2016 showed: Gastric distention extending to the level of the gastric antrum with an irregular lobular hypodense mass measuring 9.5 x 7.4 x 6.0 cm significantly narrows the antrum. The mass abuts the undersurface of the left lobe of the liver in the neck of the pancreas. A similar-appearing lobular hypodense mass projecting just to the distal descending colon measuring 4.3 x 5.2 cm with a smaller lobulated lesion slightly more inferiorly. Similar hypodense mass involves the anterior rectum measuring 4.6 x 3.7 cm and a lobular mass along the distal right paracolic gutter measures 3.0 x 3.0 cm. Small lobular implants are present as well. There are multiple surgical sutures from previous bowel surgery. Code(s): R10.9 - UNSPECIFIED ABDOMINAL PAIN Qualifiers: Abdominal location: upper abdomen, unspecified Qualified Code(s): R10.10 - Upper abdominal pain, unspecified; R10.10 - Upper abdominal pain, unspecified (7) 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 - SECONDARY MALIGNANT NEOPLASM OF RETROPERITON AND PERITONEUM Assessment/Plan see problem list discharge home
--- NOTE | 2017-02-24 13:51 | PN ---
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 (short form) - Note 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: Patient seen and examined feels more energetic today anxious to go home Last Vital Signs Temp Pulse Resp BP Pulse Ox 98.6 F 84 18 93/55 98 02/24/17 08:32 02/24/17 08:32 02/24/17 08:32 02/24/17 08:32 02/24/17 09:00 Cor: RSR, No murmurs, No gallops Lungs: Clear to P&A Abd: Soft, Normal bowel sounds, No organomegaly Ext:No significant edema Skin: No rashes, Integument intact Abnormal Lab Results 02/24/17 02/24/17 02/24/17 06:35 06:35 06:35 RBC 3.88 L Hgb 10.2 L Hct 31.1 L RDW 18.4 H Plt Count 896 H PT with INR 24.60 H INR 2.18 H D Anion Gap 6 L Creatinine 0.6 L AST 7 L D ALT 10 L Total Protein 6.1 L Albumin 2.4 L Active Medications Generic Name Dose Route Start Last Admin Trade Name Freq PRN Reason Stop Dose Admin Fentanyl 1 patch 02/23/17 19:00 02/23/17 19:37 Duragesic 12mcg Patch - TD 03/02/17 18:54 1 patch Q72H IZABELLA Administration Miscellaneous 1 each 02/23/17 18:54 Duragesic Patch Waste TD PRN PRN PAIN Tramadol HCl 50 mg 02/22/17 13:41 02/24/17 12:50 Ultram - PO 50 mg Q6H PRN Administration PAIN Warfarin Sodium 5 mg 02/22/17 18:00 02/23/17 17:10 Coumadin - PO 5 mg DAILY@1800 IZABELLA Administration A?P 47 y/o patient with psudomyxoma peritonei s/p HIPEC x2, FOLOX, allergic to oxali , few cycls of FOLFIRI Progressive disease slowly PAtient has been deferring clinical trials/xeloda Await [facility] assay results---due next week Add fentanyl 12mcg Q 72h to tramadol 50mg 6h IV iron for ongoing anemia rediscussed his situAation, CT scan results showing progressive disease, to f/ u at [facility] regaridng the duodenal stent. To f/u in the office palliative care consult
--- NOTE | 2017-02-24 15:35 | PN ---
GI 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 Subjective: Clinically unchanged - Objective Vital Signs: Vital Signs Temperature 98.6 F 02/24/17 08:32 Pulse Rate 84 02/24/17 08:32 Respiratory Rate 18 02/24/17 08:32 Blood Pressure 93/55 02/24/17 08:32 O2 Sat by Pulse Oximetry (%) 98 02/24/17 09:00 Constitutional: Cachectic HENT: Yes: Normocephalic Cardiovascular: Yes: Regular Rate and Rhythm Respiratory: Yes: CTA Bilaterally ...Auscultate: Yes: Other (high pitched bowel sounds) ...Palpate: Yes: Soft, Tenderness (diffuse mild) Labs: CBC, BMP 02/24/17 06:35 02/24/17 06:35 INR, PTT INR 2.18 (0.82-1.09) H D 02/24/17 06:35 - ....Imaging Cat Scan: Report Reviewed (Ongoing tumor invasion of colon, stomach, abdominal wall, possibly pancreas and liver. New lung nodules thought to be metastatic) Assessment/Plan Patient with progressive, aggressive abdominal malignancy. No longer a surgical candidate. Heme *(+) stool likely secondary to metastatic invasion of GI tract. Discussed with Dr Estevez. Prognosis is dismal. Palliative care. Awaiting word regarding candidacy for clinical trial.
[2017-02-24 15:51] VITALS: BP 92/56; TEMP 98.7
== END 2017-02-24 16:14 | disposition home or self-care (01) | DRG 375 ==
LOC: JER 15:46 → JERBED 18:05 → OBSVTOIN 18:19 → J5S 21:08
PROVIDERS: ADMIT Family Medicine; ATTEND Family Medicine
PROC: 30233H1 Transfusion of Nonautologous Whole Blood into Peripheral Vein, Percutaneous Approach (ICD-10-PCS; principal; 2017-02-21)
DX: C78.6 Secondary malignant neoplasm of retroperitoneum and peritoneum (principal); Z68.1 Body mass index [BMI] 19.9 or less, adult; R64 Cachexia; D50.9 Iron deficiency anemia, unspecified; Z86.718 Personal history of other venous thrombosis and embolism; Z79.01 Long term (current) use of anticoagulants; Z85.89 Personal history of malignant neoplasm of other organs and systems; Z90.81 Acquired absence of spleen; Z90.49 Acquired absence of other specified parts of digestive tract; Z85.028 Personal history of other malignant neoplasm of stomach; D47.3 Essential (hemorrhagic) thrombocythemia; R19.7 Diarrhea, unspecified; R91.8 Other nonspecific abnormal finding of lung field
CPT/HCPCS: 36415; 36430; 71010-TC; 74176-TC; 80053; 81003; 82272; 82728; 83540; 83550; 83615; 84466; 85025; 85044; 85610; 85730; 86850; 86900; 86901; 86922; 87040; 87045; 87046; 87086; 87324; 87328; 87329; 87449; 90688; 99284-25; G0008; G0378; J1756; P9038; P9058; Q9967

== ENCOUNTER 2017-05-18 13:08 | Inpatient (IN) | payer OTHER ==
[2017-05-18 13:38] VITALS: BMI 16.1
--- NOTE | 2017-05-18 13:52 | PDOC ---
History of Present Illness - General Chief Complaint: Weakness Stated Complaint: WEAKNESS Time Seen by Provider: 05/18/17 13:40 History Source: Patient Exam Limitations: No Limitations - History of Present Illness Initial Comments: 05/18/17 13:52 47y M hx of DVT (on coumadin), pseudomyxoma peritonei (s/p debulking at [place]), recurrent anemia, presents for weakness, anorexia and left flank and hip pain for the past week. No associated fever/chills, n/v, obstipation. pt has chronic abdominal pain due to his abdominal surgeries. Past History - Past Medical History Allergies/Adverse Reactions: Allergies Allergy/AdvReac Type Severity Reaction Status Date / Time No Known Allergies Allergy Verified 02/21/17 16:01 Home Medications: Ambulatory Orders Warfarin Na [Coumadin -] 2.5 mg PO DAILY@1800 #30 tablet MDD 1 10/11/16 Tramadol HCl 50 mg PO QID 02/21/17 FENTANYL 12mcg PATCH [DURAGESIC 12mcg PATCH -] 1 patch TD Q72H #10 patch MDD 1 02/24/17 Tramadol HCl [Ultram -] 50 mg PO Q6H PRN #120 tablet MDD 4 02/24/17 Anemia: Yes Asthma: No Cancer: Yes (APPENDICEAL CA, 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) Cardiac Disorders: No CVA: No COPD: No CHF: No DVT: Yes (LLE BLOOD CLOT 5 YEARS AGO) Dementia: No Diabetes: No GI Disorders: Yes (C-DIFF 2013) Disorders: Yes (CDIFF 2013) HTN: No Hypercholesterolemia: No Liver Disease: No Seizures: No Thyroid Disease: No - Surgical History Abdominal Surgery: Yes (spleenectomy, COLECTOMY,) Appendectomy: Yes Cardiac Surgery: No Cholecystectomy: No GI Surgery: Yes (for stomach cancer--pnp) Lung Surgery: No Neurologic Surgery: No Orthopedic Surgery: No - Immunization History Immunization Up to Date: Yes - Suicide/Smoking/Psychosocial Hx Smoking Status: No Smoking History: Never smoked Have you smoked in the past 12 months: No Number of Cigarettes Smoked Daily: 0 Cigars Per Day: 0 Information on smoking cessation initiated: No Hx Alcohol Use: No Drug/Substance Use Hx: No Substance Use Type: None Hx Substance Use Treatment: No Review of Systems - Review of Systems Able to Perform ROS?: Yes Is the patient limited Angolan proficient: No Constitutional: Yes: Loss of Appetite, Weakness HEENTM: No: Symptoms Reported Respiratory: No: Symptoms reported Cardiac (ROS): No: Symptoms Reported ABD/GI: Yes: See HPI, Other (Palpable 3win2pi mass on left hip joint ). No: Abdominal Distended, Constipated : No: Symptoms Reported Musculoskeletal: No: Symptoms Reported *Physical Exam - Vital Signs Last Vital Signs Temp Pulse Resp BP Pulse Ox 99.2 F 102 H 20 97/59 99 05/18/17 13:35 05/18/17 13:35 05/18/17 13:35 05/18/17 13:35 05/18/17 13:35 ED Treatment Course - LABORATORY CBC & Chemistry Diagram: 05/18/17 15:10 05/18/17 15:10 Medical Decision Making - Medical Decision Making 05/18/17 18:46 CT Abd with contrast: In comparison to prior CT study of 02/24/2017 increased size of multiple intra- abdominal masses are noted which extend into the anterior abdominal wall and left flank. Interval development of involvement of the left psoas muscle is seen. Interval development of a small amount of air/gas is seen within the left lateral intraabdominal mass lesion which may be due to superinfection versus fistula formation with contiguous bowel. Several lower pelvic mass lesions are again noted which appear mildly increased in size. On the current study a contiguous right perirectal lesion is noted which involves the right lateral wall with intraluminal extension. Concentric lobulated gastric mass lesion which appears mildly increased in size. There is extension into the pancreas and anterior abdominal wall. An intraluminal gastric stent is again noted in place. 05/18/17 22:[address] Stuart who asked for vitamin K subcutaneaous + Packed RBC + Zosyn + fluids and patient admitted under hospitalist. *DC/Admit/Observation/Transfer Diagnosis at time of Disposition: Abdominal pain, Malignant pseudomyxoma peritonei, Coumadin toxicity, Symptomatic anemia - Discharge Dispostion Condition at time of disposition: Guarded - Referrals - Patient Instructions - Post Discharge Activity
[2017-05-18] MEDS ORDERED: SODIUM CHLORIDE 1,000 ML IV STA ×2 (14:09→19:50)
--- NOTE | 2017-05-18 15:38 | PDOC ---
Attending Attestation - Resident Resident Name: Patrick Marquez - ED Attending Attestation I have performed the following: I have examined & evaluated the patient, The case was reviewed & discussed with the resident, I agree w/resident's findings & plan, Exceptions are as noted - Physicial Exam PE: 05/18/17 15:39 GENERAL: Awake, alert, and fully oriented, thin, pale, chronically ill appearing HEAD: No signs of trauma EYES: PERRLA, EOMI, sclera anicteric, conjunctiva clear ENT: Auricles normal inspection, hearing grossly normal, nares patent, oropharynx clear without exudates. Moist mucosa NECK: Normal ROM, supple, no lymphadenopathy, JVD, or masses LUNGS: Breath sounds equal, clear to auscultation bilaterally. No wheezes, and no crackles HEART: Regular rate and rhythm, normal S1 and S2, no murmurs, rubs or gallops ABDOMEN: Soft, left sided ttp, normoactive bowel sounds. No guarding, no rebound. EXTREMITIES: Normal range of motion, no edema. No clubbing or cyanosis. No cords, erythema, or tenderness NEUROLOGICAL: Normal speech, cranial nerves intact, negative pronator drift, 5/ 5 strength in all 4 extremities, normal sensation to light touch in all 4 extremities, normal cerebellar exam, normal reflexes and tone, gait deferred SKIN: Warm, Dry, normal turgor, no rashes or lesions noted. - Medical Decision Making 05/18/17 15:37 47-year-old male with a history of malignancy presents with progressive generalized weakness, left-sided abdominal pain, and anorexia for one week. Vitals remarkable for tachycardia to 104 in hypotension to the 90 systolic. Exam with then, chronically ill-appearing male, left-sided abdominal tenderness to palpation. Differential includes but is not limited to progression of disease versus infection. We have ordered labs, urinalysis, and a CT scan of the patient's abdomen. We will discuss with his oncologist Dr. Puente the and likely admit to Dr. Addison
[2017-05-18 15:57] LABS: PROTHROMBIN TIME (PATIENT) 88.7 SEC (9.98-11.88)
[2017-05-18 16:00] LABS: ACTIVATED PTT 51.3 SECONDS (26.9-34.4)
[2017-05-18 16:08] LABS: ALBUMIN 1.9 g/dl (3.4-5.0); ANION GAP 11 (8-16); BILIRUBIN,TOTAL 0.4 mg/dL (0.2-1.0); BLOOD UREA NITROGEN 11 mg/dL (7-18); CALCIUM 8.3 mg/dL (8.5-10.1); CHLORIDE 98 mmol/L (98-107); CO2 26 mmol/L (21-32); CREATININE 0.6 mg/dL (0.7-1.3); GLUCOSE,RANDOM 87 mg/dL (74-106); SGPT/ALT 19 U/L (12-78); SODIUM 135 mmol/L (136-145); TOT PROT 6.8 g/dl (6.4-8.2)
[2017-05-18 16:10] LABS: ALK PHOS 147 U/L (45-117)
[2017-05-18 16:12] LABS: POTASSIUM 4.9 mmol/L (3.5-5.1); SGOT/AST 31 U/L (15-37)
[2017-05-18] MEDS ORDERED: SODIUM CHLORIDE 0.9% 500 ML INFUS.BAG IV ONE (17:17)
[2017-05-18 17:41] LABS: RBC 3.12 M/mm3 (4.00-5.60); WHITE BLOOD COUNT 27.6 K/mm3 (4.0-10.0)
[2017-05-18 17:42] LABS: HEMATOCRIT 22.7 % (35.4-49); MEAN CELL VOLUME 72.6 fl (80-96)
[2017-05-18 17:43] LABS: MCHC 30.2 g/dl (32.0-35.9); MEAN PLT VOLUME 8.9 fl (7.5-11.1); PLATELET COUNT 983 K/MM3 (134-434)
[2017-05-18 17:45] LABS: HEMOGLOBIN 6.9 GM/dL (11.7-16.9)
[2017-05-18 18:15] LABS: INR 7.85 (0.82-1.09)
--- NOTE | 2017-05-18 18:55 | PDOC ---
*Physical Exam - Vital Signs Last Vital Signs Temp Pulse Resp BP Pulse Ox 99.2 F 102 H 20 97/59 99 05/18/17 13:35 05/18/17 13:35 05/18/17 13:35 05/18/17 13:35 05/18/17 13:35 - Physical Exam Comments: 05/18/17 18:59 gen: aaox3, pale heart; +s1s2 reg Lungs: cta b/l abd: soft, palpable L mass ext: no c/c/e ED Treatment Course - LABORATORY CBC & Chemistry Diagram: 05/18/17 15:10 05/18/17 15:10 - ADDITIONAL ORDERS Additional order review: Laboratory Results 05/18/17 05/18/17 05/18/17 15:10 15:10 15:10 PT with INR INR PTT (Actin FS) Sodium 135 L Potassium 4.9 Chloride 98 Carbon Dioxide 26 Anion Gap 11 BUN 11 D Creatinine 0.6 L Creat Clearance w eGFR > 60 Random Glucose 87 Lactic Acid 2.6 H* Calcium 8.3 L Total Bilirubin 0.4 D AST 31 D ALT 19 D Alkaline Phosphatase 147 H D Creatine Kinase 49 Troponin I < 0.02 Total Protein 6.8 Albumin 1.9 L D Blood Type A POSITIVE Antibody Screen Negative Crossmatch See Detail 05/18/17 15:10 PT with INR 88.70 H INR 7.85 H* D PTT (Actin FS) 51.3 H D Sodium Potassium Chloride Carbon Dioxide Anion Gap BUN Creatinine Creat Clearance w eGFR Random Glucose Lactic Acid Calcium Total Bilirubin AST ALT Alkaline Phosphatase Creatine Kinase Troponin I Total Protein Albumin Blood Type Antibody Screen Crossmatch 05/18/17 15:10 RBC 3.12 L D MCV 72.6 L D MCHC 30.2 L RDW 19.0 H MPV 8.9 D Neutrophils % No Result Required. Lymphocytes % No Result Required. - Medications Given in the ED: ED Medications Discontinued Medications Generic Name Dose Route Start Last Admin Trade Name Freq PRN Reason Stop Dose Admin Sodium Chloride 1,000 mls @ 1,000 mls/hr 05/18/17 14:09 05/18/17 14:20 Normal Saline - IV 05/18/17 15:08 1,000 mls/hr ASDIR STA Administration Medical Decision Making - Medical Decision Making 05/18/17 19:00 pt signed out pending labs and ct abd pelvis from the prior attending. -labs reviewed -pt last transfused in January -agrees to transfusion today -will transfuse pRBC and FFP -will admit -call placed to patients oncologist -pts PMD is Azael - covered by [employer] -microblog sent to [facility] 05/18/17 20:40 case discussed with informatics educator from hospitalist who accepts pt to service *DC/Admit/Observation/Transfer Diagnosis at time of Disposition: Abdominal pain, Malignant pseudomyxoma peritonei, Coumadin toxicity, Symptomatic anemia - Discharge Dispostion Condition at time of disposition: Guarded Admit: Yes - Referrals Referrals: Yuliana Addison MD [Primary Care Provider] - - Patient Instructions - Post Discharge Activity
[2017-05-18] MEDS ORDERED: PIPERACILLIN/TAZOB 4.5 GM/100 ML PREMIX BAG IVPB ONE (19:47)
[2017-05-18] MEDS ORDERED: PHYTONADIONE 10 MG/1 ML AMP SQ ONE (19:50)
[2017-05-18] MEDS ORDERED: ACETAMINOPHEN 1000 MG/100 ML VIAL (NON FORMULARY) IVPB ONE (19:51)
[2017-05-18] MEDS ORDERED: HYDROmorphone HCL CARPU-JECT 1 MG/1 ML DISP.SYRIN IVPUSH ONE (19:51)
[2017-05-18] MEDS ORDERED: HYDROmorphone HCL CARPU-JECT 2 MG/1 ML DISP.SYRIN ONE (20:06)
[2017-05-18] MEDS ORDERED: PHYTONADIONE 10 MG/1 ML AMP ONE (20:06)
[2017-05-18] MEDS ORDERED: ACETAMINOPHEN INJECTION 100 ML IVPB ONE (20:06)
[2017-05-18] MEDS ORDERED: PIPERACILLIN/TAZOB 4.5 GM 4.5 GM/100 ML BAG IVPB ONE (20:21)
[2017-05-18 20:52] LABS: ANISOCYTOSIS 2+; OVALOCYTE 1+; PLATELET ESTIMATE INCREASED; TARGET CELLS 2+
[2017-05-18] MEDS: PIPERACILLIN/TAZOB 4.5 GM 4.5 GM in DEXTROSE 5%-WATER - 100 ML IVPB SCH (21:16)
--- NOTE | 2017-05-18 22:16 | HP ---
CHIEF COMPLAINT: L flank/hip pain, back pain, weakness, anorexia PCP: Azael HISTORY OF PRESENT ILLNESS: This is a 47 year old male with a past medical history of pseudomyxoma peritonei , chronic abdominal pain who presented to the ED with new L flank pain, back pain and generalized weakness with poor po intake. 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, c diff PAST SURGICAL HISTORY: splenectomy partial colectomy appendectomy gastric stent Social History: Smoking: pt denies Alcohol: pt denies Drugs: pt denies Family History: mother alive and well father age 79, ESRD, colon CA, DM 3 brothers alive and well Allergies No Known Allergies Allergy (Verified 02/21/17 16:01) HOME MEDICATIONS: 3 Medication Instructions Recorded Warfarin Na [Coumadin -] 2.5 mg PO DAILY@1800 #30 tablet 10/11/16 MDD 1 Tramadol HCl 50 mg PO QID 02/21/17 FENTANYL 12mcg PATCH [DURAGESIC 1 patch TD Q72H #10 patch MDD 1 02/24/17 12mcg PATCH -] Tramadol HCl [Ultram -] 50 mg PO Q6H PRN #120 tablet MDD 4 02/24/17 REVIEW OF SYSTEMS CONSTITUTIONAL: Present: generalized weakness, malaise, loss of appetite Absent: fever, chills, diaphoresis, weight change HEENT: Absent: rhinorrhea, nasal congestion, throat pain, throat swelling, difficulty swallowing, mouth swelling, ear pain, eye pain, visual changes CARDIOVASCULAR: Absent: chest pain, syncope, palpitations, irregular heart rate, lightheadedness , peripheral edema RESPIRATORY: Absent: cough, shortness of breath, dyspnea with exertion, orthopnea, wheezing, stridor, hemoptysis GASTROINTESTINAL: Present: flank pain Absent: abdominal pain, abdominal distension, nausea, vomiting, diarrhea, constipation, melena, hematochezia GENITOURINARY: Absent: dysuria, frequency, urgency, hesitancy, hematuria, flank pain, genital pain MUSCULOSKELETAL: Absent: myalgia, arthralgia, joint swelling, back pain, neck pain SKIN: Absent: rash, itching, pallor HEMATOLOGIC/IMMUNOLOGIC: Absent: easy bleeding, easy bruising, lymphadenopathy, frequent infections ENDOCRINE: Absent: unexplained weight gain, unexplained weight loss, heat intolerance, cold intolerance NEUROLOGIC: Absent: headache, focal weakness or paresthesias, dizziness, unsteady gait, seizure, mental status changes, bladder or bowel incontinence PSYCHIATRIC: Absent: anxiety, depression, suicidal or homicidal ideation, hallucinations. PHYSICAL EXAMINATION Vital Signs - 24 hr 3 05/18/17 13:35 Temperature 99.2 F Pulse Rate 102 H Respiratory 20 Rate Blood Pressure 97/59 O2 Sat by Pulse 99 Oximetry (%) GENERAL: Awake, alert, and fully oriented, in no acute distress. HEAD: Normal with no signs of trauma. EYES: Pupils equal, round and reactive to light, extraocular movements intact, sclera anicteric, conjunctiva clear. No lid lag. EARS, NOSE, THROAT: Ears normal, nares patent, oropharynx clear without exudates. Moist mucous membranes. NECK: Normal range of motion, supple without lymphadenopathy, JVD, or masses. LUNGS: Breath sounds equal, clear to auscultation bilaterally. No wheezes, and no crackles. No accessory muscle use. HEART: Regular rate and rhythm, normal S1 and S2 without murmur, rub or gallop. ABDOMEN: Soft, not distended, normoactive bowel sounds, no guarding, no rebound , no masses. Tender on palpation RLQ, LLQ MUSCULOSKELETAL: Normal range of motion at all joints. No bony deformities or tenderness. No CVA tenderness. UPPER EXTREMITIES: 2+ pulses, warm, well-perfused. No cyanosis. No clubbing. No peripheral edema. LOWER EXTREMITIES: 2+ pulses, warm, well-perfused. No calf tenderness. No peripheral edema. NEUROLOGICAL: Cranial nerves II-XII intact. Normal speech. Normal gait. PSYCHIATRIC: Cooperative. Good eye contact. Appropriate mood and affect. SKIN: Warm, dry, normal turgor, no rashes or lesions noted, normal capillary refill. Laboratory Results - last 24 hr 3 05/18/17 05/18/17 05/18/17 15:10 15:10 15:10 21:25 WBC 27.6 H D RBC 3.12 L D Hgb 6.9 L* D Hct 22.7 L D MCV 72.6 L D MCH 22.0 L MCHC 30.2 L RDW 19.0 H Plt Count 983 H MPV 8.9 D Neutrophils % No Result Required. Neutrophils % (Manual) 80.0 Band Neutrophils % 7.0 Lymphocytes % No Result Required. Lymphocytes % (Manual) 6.0 L D Monocytes % (Manual) 7 Hypochromia 2+ Platelet Estimate Increased Anisocytosis 2+ Microcytosis 2+ Target Cells 2+ Ovalocytes 1+ PT with INR 88.70 H INR 7.85 H* D PTT (Actin FS) 51.3 H D Sodium 135 L Potassium 4.9 Chloride 98 Carbon Dioxide 26 Anion Gap 11 BUN 11 D Creatinine 0.6 L Creat Clearance w eGFR > 60 Random Glucose 87 Lactic Acid 2.6 H* 1.5 Calcium 8.3 L Total Bilirubin 0.4 D AST 31 D ALT 19 D Alkaline Phosphatase 147 H D Creatine Kinase 49 Troponin I < 0.02 Total Protein 6.8 Albumin 1.9 L D Blood Type A POSITIVE Antibody Screen Negative Crossmatch See Detail ECG Normal sinus rhythm Vent rate 99, QTC [address]/T wave changes Radiology reports CT abd/pelvis Impression: In comparison to prior CT study of 02/24/2017 increased size of multiple intra- abdominal masses are noted which extend into the anterior abdominal wall and left flank. Interval development of involvement of the left psoas muscle is seen. Interval development of a small amount of air/gas is seen within the left lateral intra-abdominal mass lesion which may be due to superinfection versus fistula formation with contiguous bowel. Several lower pelvic mass lesions are again noted which appear mildly increased in size. On the current study a contiguous right perirectal lesion is noted which involves the right lateral wall with intraluminal extension. Concentric lobulated gastric mass lesion which appears mildly increased in size. There is extension into the pancreas and anterior abdominal wall. An intraluminal gastric stent is again noted in place. Reported By: Fredi Castrejon MD 05/18/17 1574 ASSESSMENT/PLAN: 47yM with PMH DVT, pseudomyxoma peritonei, anemia, chronic abdominal pain, appendiceal CA 2008 last chemo 2012, c diff presented with new flank and back pain as well as generalized weakness and malaise with loss of appetite. Severe anemia - 2u PRBC ordered per ED - stool guaiac pending - pt has not noticed any dark stools or hematuria or other source of bleeding. - INR supratherapeutic, ED d/w heme, who does not recommend FFP at this time Sepsis due to Possible infection in abd - given zosyn 4.5mg in ED, cont same for now - ID consult - recommend surgical consult, defer to primary team Pseudomyxoma peritonei - worsening disease, has not followed up with doctors at [facility], states he was not instructed to f/u with same after dc in January despite DC instructions to the contrary - oncology consult DVT - INR supratherapeutic, hold warfarin FEN - NS @ 83cc/rh - BMP in am - NPO for now Dispo: Pt currently requires inpatient management of his emergent condition. Visit type - Emergency Visit Emergency Visit: Yes ED Registration Date: 05/18/17 Care time: The patient presented to the Emergency Department on the above date and was hospitalized for further evaluation of their emergent condition. - New Patient This patient is new to me today: Yes Date on this admission: 05/18/17 - Critical Care Critical Care patient: No
[2017-05-18] MEDS ORDERED: traMADol HCL 50 MG TABLET PO PRN (22:32)
[2017-05-18] MEDS ORDERED: FENTANYL PATCH WASTE TD PRN (22:34)
[2017-05-19] MEDS: SODIUM CHLORIDE 1,000 ML IV SCH ×3 (01:04→22:45)
[2017-05-19] MEDS ORDERED: HYDROmorphone HCL CARPU-JECT 2 MG/1 ML DISP.SYRIN ONE ×2 (02:56→13:08)
[2017-05-19] MEDS: HYDROmorphone HCL CARPU-JECT 2 MG/1 ML DISP.SYRIN IVPUSH PRN ×4 (03:04→22:43)
[2017-05-19 03:15] LABS: URINE APPEARANCE CLEAR; URINE BILIRUBIN NEGATIVE (NEGATIVE); URINE BLOOD NEGATIVE (NEGATIVE); URINE COLOR YELLOW; URINE GLUCOSE (UA) NEGATIVE (NEGATIVE); URINE KETONE TRACE (NEGATIVE); URINE LEUK ESTERASE NEGATIVE (NEGATIVE); URINE NITRITE NEGATIVE (NEGATIVE); URINE PROTEIN NEGATIVE (NEGATIVE)
[2017-05-19] MEDS ORDERED: PIPERACILLIN/TAZOB 4.5 GM 4.5 GM/100 ML BAG IVPB ONE ×2 (04:24→11:02)
[2017-05-19] MEDS: PIPERACILLIN/TAZOB 4.5 GM 4.5 GM in DEXTROSE 5%-WATER - 100 ML IVPB SCH ×3 (04:29→20:22)
[2017-05-19] MEDS ORDERED: ACETAMINOPHEN 325 MG TABLET (FP) ONE (05:37)
[2017-05-19] MEDS: ACETAMINOPHEN 325 MG TABLET (FP) PO PRN (05:41)
[2017-05-19 07:28] LABS: BASO % 0.4 % (0-2.0); EOS % 0.7 % (0-4.5); HEMATOCRIT 25.5 % (35.4-49); HEMOGLOBIN 8.1 GM/dL (11.7-16.9); LYMPH % 1.7 % (8-40); MCH 23.6 pg (25.7-33.7); MCHC 31.7 g/dl (32.0-35.9); MEAN CELL VOLUME 74.6 fl (80-96); MEAN PLT VOLUME 8.4 fl (7.5-11.1); NEUT % 90.2 % (42.8-82.8); PLATELET COUNT 805 K/MM3 (134-434); RBC 3.43 M/mm3 (4.00-5.60); RDW 19.1 % (11.9-15.9); WHITE BLOOD COUNT 28.5 K/mm3 (4.0-10.0)
[2017-05-19 07:52] LABS: ANION GAP 9 (8-16); BLOOD UREA NITROGEN 9 mg/dL (7-18); CALCIUM 7.8 mg/dL (8.5-10.1); CHLORIDE 102 mmol/L (98-107); CO2 26 mmol/L (21-32); CREATININE 0.6 mg/dL (0.7-1.3); GLUCOSE,RANDOM 88 mg/dL (74-106); MAGNESIUM 2.2 mg/dL (1.8-2.4); PHOSPHOROUS 2.9 mg/dL (2.5-4.9); POTASSIUM 4.2 mmol/L (3.5-5.1); SODIUM 137 mmol/L (136-145)
--- NOTE | 2017-05-19 09:41 | CON.ID ---
Consult Consult Specialty:: infectious disease Referred by:: durga Reason for Consultation:: fever - History of Present Illness Chief Complaint: abdominal pain History of Present Illness: 47 year old man with history of DVT on coumadin, psudomxyoma perotoneii- s/p debulking- anemia came to ED yesterday with fever for last day or two and bilateral hip /abd pain left greater then right he reports chronic left sided pain but this is worse then usual vomits ocassionally but not recently no diarrhea no sick contacts no travel no chemo no cough no dysuria has a port =not accessed, not used in a long time he received 2 units PRBCs in ED overnight zosyn one dose - History Source History Provided By: Patient, Medical Record Limitations to Obtaining History: Poor Historian - Past Medical History Pulmonary: Yes: Pulmonary Embolus Gastrointestinal: Yes: Cancer (appendiceal cancer- 2008), Other (Intestinal obstruction.) Infectious Disease: Yes: C-Diff Psych: Yes: Anxiety, Depression - Past Surgical History Past Surgical History: Yes: Appendectomy (2008), Colectomy, Colonoscopy, Splenectomy (2008) Additional Surgical History: multiple debulking operations- none recently. + gastric stent - Alcohol/Substance Use Hx Alcohol Use: No History of Substance Use: reports: None - Smoking History Smoking history: Never smoked Have you smoked in the past 12 months: No Aproximately how many cigarettes per day: 0 - Social History Usual Living Arrangement: With Spouse (10 year old daughter at home) ADL: Independent Place of : [facility] History of Recent Travel: No Home Medications - Allergies Allergies/Adverse Reactions: Allergies Allergy/AdvReac Type Severity Reaction Status Date / Time No Known Allergies Allergy Verified 02/21/17 16:01 - Home Medications Home Medications: Ambulatory Orders Warfarin Na [Coumadin -] 2.5 mg PO DAILY@1800 #30 tablet MDD 1 10/11/16 Tramadol HCl 50 mg PO QID 02/21/17 FENTANYL 12mcg PATCH [DURAGESIC 12mcg PATCH -] 1 patch TD Q72H #10 patch MDD 1 02/24/17 Tramadol HCl [Ultram -] 50 mg PO Q6H PRN #120 tablet MDD 4 02/24/17 Family Disease History - Family Disease History Family Disease History: CA: Father (COLON CA, ESRD), Other: Father, Mother ( ARTHRITIS, BACK SURGERY), Brother (3 BROTHERS- ALL HEALTHY), Daughter (HEALTHY) Review of Systems - Review of Systems Constitutional: reports: Fever (one episode last week, fever last 24-48 hours) Eyes: reports: No Symptoms HENT: reports: No Symptoms. denies: Throat Pain Neck: reports: No Symptoms Cardiovascular: reports: No Symptoms Respiratory: reports: No Symptoms. denies: Cough Gastrointestinal: reports: Abdominal Pain (increased bilateral flank- left greater then right) Genitourinary: reports: No Symptoms Integumentary: reports: No Symptoms Physical Exam Vital Signs: Vital Signs Temperature 99.5 F 05/19/17 08:36 Pulse Rate 90 05/19/17 08:36 Respiratory Rate 16 05/19/17 08:36 Blood Pressure 90/56 05/19/17 08:36 O2 Sat by Pulse Oximetry (%) 100 05/19/17 08:36 TMAX 101.2 Constitutional: Yes: No Distress, Thin Eyes: Yes: WNL HENT: Yes: WNL, Atraumatic, Normocephalic Neck: Yes: WNL, Supple Cardiovascular: Yes: Regular Rate and Rhythm Respiratory: Yes: Regular, CTA Bilaterally Gastrointestinal: Yes: Normal Bowel Sounds, Soft, Palpable Mass, Tenderness ( left flank) Musculoskeletal: Yes: WNL Extremities: Yes: WNL Edema: No Psychiatric: Yes: Alert, Oriented Labs: CBC, BMP 05/19/17 07:10 05/19/17 07:09 blood cultures pending INR 7.85 Imaging - Results Chest X-ray: Report Reviewed (no acute changes) Cat Scan: Report Reviewed (increased siz of multiple intra-abdominal masses, air /gas in left lateral mass- ?super infection, ?fistula) Problem List - Problems (1) Fever Code(s): R50.9 - FEVER, UNSPECIFIED (2) Abdominal pain Code(s): R10.9 - UNSPECIFIED ABDOMINAL PAIN (3) Coumadin toxicity Code(s): T45.511A - POISONING BY ANTICOAGULANTS, ACCIDENTAL, INIT (4) Anemia Code(s): D64.9 - ANEMIA, UNSPECIFIED Qualifiers: Anemia type: unspecified type Qualified Code(s): D64.9 - Anemia, unspecified (5) 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 - SECONDARY MALIGNANT NEOPLASM OF RETROPERITON AND PERITONEUM Assessment/Plan Fever history splenectomy increaseing abdominal masses ct scan with air/gas in left lateral intra-abdominal mass- ?superinfection, ? fistula f/u cultures SUrgery consult continue zosyn for intra-abdominal coverage coumadin toxicity anemia psudomxyoma peritoneii management per hematology
[2017-05-19] MEDS ORDERED: PIPERACILLIN/TAZOB 4.5 GM/100 ML PRE-DOCKED IVPB SCH (10:00)
[2017-05-19] MEDS: FERROUS SO4 325 MG TABLET (FP) PO SCH ×2 (12:37→18:38)
--- NOTE | 2017-05-19 13:30 | EKG ---
Test Reason : Blood Pressure : / mmHG Vent. Rate : 099 BPM Atrial Rate : 099 BPM P-R Int : 158 ms QRS Dur : 082 ms QT Int : 334 ms P-R-T Axes : 062 060 057 degrees QTc Int : 428 ms NORMAL SINUS RHYTHM NORMAL ECG WHEN COMPARED WITH ECG OF 24-NOV-2016 22:07, NO SIGNIFICANT CHANGE WAS FOUND Confirmed by MD BATOOL, HUSSEIN ([id number]) on 05/19/2017 1:29:35 PM Referred By: Confirmed By:HUSSEIN RENAE MD
--- NOTE | 2017-05-19 14:26 | PN ---
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 Chief Complaint: in bed has some abdominal discomfort patient got blood transfusion - Current Medication List Current Medications: Active Medications Acetaminophen (Tylenol -) 650 mg PO Q6H PRN PRN Reason: FEVER Last Admin: 05/19/17 05:41 Dose: 650 mg Fentanyl (Duragesic 25mcg Patch -) 1 patch TD Q72H IZABELLA Ferrous Sulfate (Feosol -) 325 mg PO BIDWM IZABELLA Last Admin: 05/19/17 12:37 Dose: 325 mg Hydromorphone HCl (Dilaudid Injection -) 1 mg IVPUSH Q4H PRN PRN Reason: PAIN LEVEL 6-10 Stop: 05/20/17 02:51 Last Admin: 05/19/17 03:04 Dose: 1 mg Sodium Chloride (Normal Saline -) 1,000 mls @ 75 mls/hr IV ASDIR IZABELLA Last Admin: 05/19/17 01:04 Dose: 75 mls/hr Piperacillin Sod/Tazobactam (Sod 4.5 gm/ Dextrose) 100 mls @ 200 mls/hr IVPB Q8H-IV IZABELLA Last Admin: 05/19/17 12:10 Dose: 200 mls/hr Miscellaneous (Duragesic Patch Waste) 1 each TD PRN PRN PRN Reason: PAIN Tramadol HCl (Ultram -) 50 mg PO Q6H PRN PRN Reason: PAIN - Objective Vital Signs: Vital Signs Temperature 99.1 F 05/19/17 12:12 Pulse Rate 83 05/19/17 12:12 Respiratory Rate 16 05/19/17 12:12 Blood Pressure 98/68 05/19/17 12:12 O2 Sat by Pulse Oximetry (%) 100 05/19/17 12:12 Constitutional: Yes: Calm Neck: Yes: Trachea Midline Cardiovascular: Yes: Regular Rate and Rhythm, S1, S2 Respiratory: Yes: CTA Bilaterally Gastrointestinal: Yes: Tenderness (left flank pain), Other Genitourinary: Yes: CVA Tenderness - Left Edema: No Neurological: Yes: Alert, Oriented Labs: CBC, BMP 05/19/17 07:10 05/19/17 07:09 INR, PTT INR 7.85 (0.82-1.09) H* D 05/18/17 15:10 Problem List - Problems (1) Fever Assessment/Plan: iv abx lactic acid now trending down Code(s): R50.9 - FEVER, UNSPECIFIED (2) Abdominal pain Assessment/Plan: ct scan report noted office number:[phone] dr Danilo Bustillos surgical oncologist at [facility] called his cell [phone] and left a message to call me back ID on board iv abx NPO for now surgery evalyuation Code(s): R10.9 - UNSPECIFIED ABDOMINAL PAIN (3) Coumadin toxicity Assessment/Plan: heme on board trend couamdin vitamin K Code(s): T45.511A - POISONING BY ANTICOAGULANTS, ACCIDENTAL, INIT (4) Malignant pseudomyxoma peritonei Assessment/Plan: oncology evaluation worsening progressive disease noted on CT scan ?palliative treatment/chemo renetta await for oncology evaluation palliative team consult Code(s): C78.6 - SECONDARY MALIGNANT NEOPLASM OF RETROPERITON AND PERITONEUM (5) Anemia Assessment/Plan: got prbc h/h improved on ferrous sulfate heme on board stool occult pending Code(s): D64.9 - ANEMIA, UNSPECIFIED Qualifiers: Anemia type: unspecified type Qualified Code(s): D64.9 - Anemia, unspecified
--- NOTE | 2017-05-19 16:06 | CONSULT ---
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 Pt had followed with Dr. Neal at [facility], but has not seen him recently. He states he saw Dr. Stuart as recently as last week and was given some PO chemo pills, but he has not taken any yet. His left flank pain was significant a few days ago, and he came to the ER yesterday, both for this and for weakness, dizziness ("I also had the low blood count"), fevers and chills and sweats at home. He was found to be very anemic with Hb 6.9 and transfused PRBCs. He is also on Coumadin for h/o DVT, and INR on presentation was 7.85. He takes iron supplements and admits to some dark stools (soft), but denies blood in stools. No nausea or vomiting, no urinary complaints. Weight loss of ~40 pounds in last 8-12 months. He is aware that there are no real surgical options left for him. He states pain medication may be all that is left. He indicates that he is hesitant to take the chemo pills, because he knows what chemo did to him before, and he is not sure he wants that again. The flank pain is not there all the time, but comes sometimes; it is not bad right now. He does use Tramadol and fentanyl patch at home. In the ER yesterday, wbc was elevated, and CT showed progressive disease, including multiple masses with new involvement of left psoas muscle, some gas bubbles in one of the left-sided masses (?infection vs fistula), gastric mass with extension to abdominal wall, and gastric stent in place. Primary team has reached out to Dr. Neal and is awaiting a return call. Surgery is asked to see the patient in the meantime. - History Source History Provided By: Patient, Medical Record Limitations to Obtaining History: No Limitations - Past Medical History Cardio/Vascular: Yes: Deep Vein Thrombosis Gastrointestinal: Yes: Cancer (appendiceal cancer- 2008 -> pseudomyxoma peritonei), Other (Intestinal obstruction.) Heme/Onc: Yes: Anemia, Cancer (last chemo 2012) Infectious Disease: Yes: C-Diff Psych: Yes: Anxiety, Depression - Past Surgical History Past Surgical History: Yes: Appendectomy (2008), Colectomy (partial), Colonoscopy, Splenectomy (2008), Stent (gastric ([facility])) Additional Surgical History: multiple debulking operations- none recently. + gastric stent - Alcohol/Substance Use Hx Alcohol Use: No History of Substance Use: reports: None - Smoking History Smoking history: Never smoked Have you smoked in the past 12 months: No Aproximately how many cigarettes per day: 0 - Social History Usual Living Arrangement: With Spouse (10 year old daughter at home) ADL: Independent History of Recent Travel: No Home Medications - Allergies Allergies/Adverse Reactions: Allergies Allergy/AdvReac Type Severity Reaction Status Date / Time No Known Allergies Allergy Verified 02/21/17 16:01 - Home Medications Home Medications: Ambulatory Orders Warfarin Na [Coumadin -] 2.5 mg PO DAILY@1800 #30 tablet MDD 1 10/11/16 Tramadol HCl 50 mg PO QID 02/21/17 FENTANYL 12mcg PATCH [DURAGESIC 12mcg PATCH -] 1 patch TD Q72H #10 patch MDD 1 02/24/17 Tramadol HCl [Ultram -] 50 mg PO Q6H PRN #120 tablet MDD 4 02/24/17 Family Disease History - Family Disease History Family Disease History: CA: Father (COLON CA, ESRD), Other: Father, Mother ( ARTHRITIS, BACK SURGERY), Brother (3 BROTHERS- ALL HEALTHY), Daughter (HEALTHY) Review of Systems - Review of Systems Constitutional: reports: Chills, Diaphoresis, Fever, Night Sweats, Unintentional Wgt. Loss, Weakness Eyes: denies: Blurred Vision, Recent Change in Vision HENT: reports: Difficult Swallowing (yesterday could not eat a sandwich - difficulty swallowing but no pain in throat). denies: Throat Pain Cardiovascular: denies: Chest Pain, Palpitations Respiratory: denies: Cough, SOB Gastrointestinal: denies: Abdominal Pain (denies abd pain in general), Constipation, Diarrhea, Melena, Nausea, Rectal Bleeding, Vomiting Genitourinary: reports: Flank Pain (left (with hpi)). denies: Burning, Dysuria , Hematuria Musculoskeletal: reports: Back Pain (with hpi, from left flank). denies: Joint Pain Integumentary: denies: Change in Color, Rash Neurological: reports: Dizziness (recently), Headache Psychiatric: reports: Anxiety, Depression Physical Exam Vital Signs: Vital Signs Temperature 99.1 F 05/19/17 12:12 Pulse Rate 83 05/19/17 12:12 Respiratory Rate 16 05/19/17 12:12 Blood Pressure 98/68 05/19/17 12:12 O2 Sat by Pulse Oximetry (%) 100 05/19/17 12:12 Constitutional: Yes: Calm, Cachectic, Pallor, Thin Eyes: Yes: Conjunctiva Clear, EOM Intact HENT: Yes: Atraumatic, Normocephalic Neck: Yes: Supple, Trachea Midline Cardiovascular: Yes: Regular Rate and Rhythm. No: Murmur Respiratory: Yes: Regular, CTA Bilaterally, Diminished (slightly at right lateral/base) Gastrointestinal: Yes: Normal Bowel Sounds, Soft, Palpable Mass (around xiphoid process, mildly tender only, likely abdominal wall extension of gastric mass seen on CT; also left flank with palpable mass, mildly tender - "not bad right now"), Tenderness (bilateral lower quadrants, firm in lower half of abdomen - guarding vs masses?, no rebound), Other (healed midline scars). No: Distention ...Rectal Exam: Yes: Deferred Renal/: Yes: CVA Tenderness - Left (mild as noted above). No: CVA Tenderness - Right Musculoskeletal: No: Joint Stiffness, Joint Swelling Extremities: Yes: Pallor. No: Cool, Cyanosis Edema: No Peripheral Pulses WNL: Yes Integumentary: No: Jaundice, Rash Neurological: Yes: Alert, Oriented Psychiatric: Yes: Alert, Oriented Labs: CBC, BMP 05/19/17 07:10 05/19/17 07:09 CMP Sodium 137 mmol/L (136-145) 05/19/17 07:09 Potassium 4.2 mmol/L (3.5-5.1) 05/19/17 07:09 Chloride 102 mmol/L (98-107) 05/19/17 07:09 Carbon Dioxide 26 mmol/L (21-32) 05/19/17 07:09 Anion Gap 9 (8-16) 05/19/17 07:09 BUN 9 mg/dL (7-18) 05/19/17 07:09 Creatinine 0.6 mg/dL (0.7-1.3) L 05/19/17 07:09 Creat Clearance w eGFR > 60 (>60) 05/18/17 15:10 Random Glucose 88 mg/dL (74-106) 05/19/17 07:09 Lactic Acid 1.5 mmol/L (0.0-2.0) 05/18/17 21:25 Calcium 7.8 mg/dL (8.5-10.1) L 05/19/17 07:09 Phosphorus 2.9 mg/dL (2.5-4.9) 05/19/17 07:09 Magnesium 2.2 mg/dL (1.8-2.4) 05/19/17 07:09 Total Bilirubin 0.4 mg/dL (0.2-1.0) D 05/18/17 15:10 AST 31 U/L (15-37) D 05/18/17 15:10 ALT 19 U/L (12-78) D 05/18/17 15:10 Alkaline Phosphatase 147 U/L (45-117) H D 05/18/17 15:10 Creatine Kinase 49 IU/L (39-308) 05/18/17 15:10 Troponin I < 0.02 ng/ml (0.00-0.05) 05/18/17 15:10 Total Protein 6.8 g/dl (6.4-8.2) 05/18/17 15:10 Albumin 1.9 g/dl (3.4-5.0) L D 05/18/17 15:10 INR, PTT INR 7.85 (0.82-1.09) H* D 05/18/17 15:10 Urine Test Results Urine Color Yellow 05/19/17 03:00 Urine Appearance Clear 05/19/17 03:00 Urine pH 5.0 (5.0-8.0) 05/19/17 03:00 Ur Specific [place] 1.046 (1.001-1.035) H 05/19/17 03:00 Urine Protein Negative (NEGATIVE) 05/19/17 03:00 Urine Glucose (UA) Negative (NEGATIVE) 05/19/17 03:00 Urine Ketones Trace (NEGATIVE) H 05/19/17 03:00 Urine Blood Negative (NEGATIVE) 05/19/17 03:00 Urine Nitrite Negative (NEGATIVE) 05/19/17 03:00 Urine Bilirubin Negative (NEGATIVE) 05/19/17 03:00 Ur Leukocyte Esterase Negative (NEGATIVE) 05/19/17 03:00 Hb up from 6.9 yesterday after transfusion INR not repeated lactate down from initial albumin very low Imaging - Results Cat Scan: Report Reviewed (progressive disease noted, involvement of left psoas , some gas noted in left intraabdominal mass - ?infection vs fistula vs necrotic tumor?), Image Reviewed Problem List - Problems (1) Malignant pseudomyxoma peritonei Assessment/Plan: Progressive, advanced, unresectable disease noted per CT and previous chart entries from latter half of 2016. Pt also with gastric stent in place. Primary team has call out to Dr. Neal at [facility], whose office stated pt was last seen September 2016. Chart notes reviewed indicating pt's past refusal of palliative options and repeated recommendations for pt to follow up with Dr. Neal and oncology as outpatient. He has not f/u with Dr. Neal recently, but states he saw Dr. Stuart last week. CT findings consistent with advanced and progressive disease, previously noted as unresectable by Dr. Neal. Findings of gas could result from tumor necrosis, fistula or infection. Cannot offer any surgical options at this time, but agree that primary team should discuss with Dr. Neal. May consider transfer to [facility], if Dr. Neal desires, or strongly recommend outpt followup with him and/or oncology. Heme/onc also consulted - would defer to their management and agree with palliative consult as well. Discussed with Dr. Poon. Thank you for the opportunity to participate in the care of this patient. Code(s): C78.6 - SECONDARY MALIGNANT NEOPLASM OF RETROPERITON AND PERITONEUM (2) Symptomatic anemia Assessment/Plan: s/p blood transfusion defer to heme/onc Code(s): D64.9 - ANEMIA, UNSPECIFIED (3) Leukocytosis Assessment/Plan: Related to oncologic process vs infection? On antibiotics per ID Code(s): D72.829 - ELEVATED WHITE BLOOD CELL COUNT, UNSPECIFIED Qualifiers: Leukocytosis type: unspecified Qualified Code(s): D72.829 - Elevated white blood cell count, unspecified (4) Supratherapeutic INR Assessment/Plan: need to repeat and follow INR vit K given consider FFP, defer to heme/onc Code(s): R79.1 - ABNORMAL COAGULATION PROFILE
--- NOTE | 2017-05-19 22:09 | CONSULT ---
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 Pt had followed with Dr. Neal at [facility]. His left flank pain was significant a few days ago, and he came to the ER yesterday, both for this and for weakness, dizziness, fevers and chills and sweats at home. He was found to be very anemic with Hb 6.9 and transfused PRBCs. He is also on Coumadin for h/o DVT, and INR on presentation was 7.85. Weight loss of ~40 pounds in last 8-[address] shows progressive disease, including multiple masses with new involvement of left psoas muscle, some gas bubbles in one of the left-sided masses (?infection vs fistula), gastric mass with extension to abdominal wall, and gastric stent in place. 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 - History Source History Provided By: Patient, Medical Record Limitations to Obtaining History: No Limitations - Past Medical History Cardio/Vascular: Yes: Deep Vein Thrombosis Gastrointestinal: Yes: Cancer (appendiceal cancer- 2008 -> pseudomyxoma peritonei), Other (Intestinal obstruction.) Heme/Onc: Yes: Anemia, Cancer (last chemo 2012) Infectious Disease: Yes: C-Diff Psych: Yes: Anxiety, Depression - Past Surgical History Past Surgical History: Yes: Appendectomy (2008), Colectomy (partial), Colonoscopy, Splenectomy (2008), Stent (gastric ([facility])) Additional Surgical History: multiple debulking operations- none recently. + gastric stent - - Smoking History Smoking history: Never smoked - Social History Usual Living Arrangement: With Spouse (10 year old daughter at home) ADL: Independent Home Medications - Allergies Allergies/Adverse Reactions: Allergies Allergy/AdvReac Type Severity Reaction Status Date / Time No Known Allergies Allergy Verified 02/21/17 16:01 - Home Medications Home Medications: Ambulatory Orders Warfarin Na [Coumadin -] 2.5 mg PO DAILY@1800 #30 tablet MDD 1 10/11/16 Tramadol HCl 50 mg PO QID 02/21/17 FENTANYL 12mcg PATCH [DURAGESIC 12mcg PATCH -] 1 patch TD Q72H #10 patch MDD 1 02/24/17 Tramadol HCl [Ultram -] 50 mg PO Q6H PRN #120 tablet MDD 4 02/24/17 Family Disease History - Family Disease History Family Disease History: CA: Father (COLON CA, ESRD), Other: Father, Mother ( ARTHRITIS, BACK SURGERY), Brother (3 BROTHERS- ALL HEALTHY), Daughter (HEALTHY) Physical Exam Vital Signs: Vital Signs Temperature 99.1 F 05/19/17 12:12 Pulse Rate 83 05/19/17 12:12 Respiratory Rate 16 05/19/17 12:12 Blood Pressure 98/68 05/19/17 12:12 O2 Sat by Pulse Oximetry (%) 100 05/19/17 12:12 Constitutional: Yes: Calm, Cachectic, Pallor, Thin Eyes: Yes: Conjunctiva Clear, EOM Intact HENT: Yes: Atraumatic, Normocephalic Neck: Yes: Supple, Trachea Midline Cardiovascular: Yes: Regular Rate and Rhythm. No: Murmur Respiratory: Yes: Regular, CTA Bilaterally, Diminished (slightly at right lateral/base) Gastrointestinal: Yes: Normal Bowel Sounds, Soft, Palpable Mass (around xiphoid process, mildly tender only, likely abdominal wall extension of gastric mass seen on CT; also left flank with palpable mass, mildly tender - "not bad right now"), Tenderness (bilateral lower quadrants, firm in lower half of abdomen - guarding vs masses?, no rebound), Other (healed midline scars). No: Distention Extremities: Yes: Pallor. No: Cool, Cyanosis Edema: No Peripheral Pulses WNL: Yes Integumentary: No: Jaundice, Rash Neurological: Yes: Alert, Oriented Psychiatric: Yes: Alert, Oriented Labs: CBC, BMP 05/19/17 07:10 05/19/17 07:09 CMP Sodium 137 mmol/L (136-145) 05/19/17 07:09 Potassium 4.2 mmol/L (3.5-5.1) 05/19/17 07:09 Chloride 102 mmol/L (98-107) 05/19/17 07:09 Carbon Dioxide 26 mmol/L (21-32) 05/19/17 07:09 Anion Gap 9 (8-16) 05/19/17 07:09 BUN 9 mg/dL (7-18) 05/19/17 07:09 Creatinine 0.6 mg/dL (0.7-1.3) L 05/19/17 07:09 Creat Clearance w eGFR > 60 (>60) 05/18/17 15:10 Random Glucose 88 mg/dL (74-106) 05/19/17 07:09 Lactic Acid 1.5 mmol/L (0.0-2.0) 05/18/17 21:25 Calcium 7.8 mg/dL (8.5-10.1) L 05/19/17 07:09 Phosphorus 2.9 mg/dL (2.5-4.9) 05/19/17 07:09 Magnesium 2.2 mg/dL (1.8-2.4) 05/19/17 07:09 Total Bilirubin 0.4 mg/dL (0.2-1.0) D 05/18/17 15:10 AST 31 U/L (15-37) D 05/18/17 15:10 ALT 19 U/L (12-78) D 05/18/17 15:10 Alkaline Phosphatase 147 U/L (45-117) H D 05/18/17 15:10 Creatine Kinase 49 IU/L (39-308) 05/18/17 15:10 Troponin I < 0.02 ng/ml (0.00-0.05) 05/18/17 15:10 Total Protein 6.8 g/dl (6.4-8.2) 05/18/17 15:10 Albumin 1.9 g/dl (3.4-5.0) L D 05/18/17 15:10 INR, PTT INR 7.85 (0.82-1.09) H* D 05/18/17 15:10 Urine Test Results Urine Color Yellow 05/19/17 03:00 Urine Appearance Clear 05/19/17 03:00 Urine pH 5.0 (5.0-8.0) 05/19/17 03:00 Ur Specific [place] 1.046 (1.001-1.035) H 05/19/17 03:00 Urine Protein Negative (NEGATIVE) 05/19/17 03:00 Urine Glucose (UA) Negative (NEGATIVE) 05/19/17 03:00 Urine Ketones Trace (NEGATIVE) H 05/19/17 03:00 Urine Blood Negative (NEGATIVE) 05/19/17 03:00 Urine Nitrite Negative (NEGATIVE) 05/19/17 03:00 Urine Bilirubin Negative (NEGATIVE) 05/19/17 03:00 Ur Leukocyte Esterase Negative (NEGATIVE) 05/19/17 03:00 Imaging - Results Cat Scan: Report Reviewed (progressive disease noted, involvement of left psoas , some gas noted in left intraabdominal mass - ?infection vs fistula vs necrotic tumor?), Image Reviewed Problem List - Problems (1) Malignant pseudomyxoma peritonei diagnosed 2008, s/p FOLFOX, 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 s/p FOLFIRI/avastin s/p HIPEC x2, debulking surgeries --last bein 02/13 Slowly progressive disease Had refused clinical trials, chemotherapy and most recently targeted therapy with olaparib. his main concern has been facing the toxicities of these agents. He had major quality of life concerns with therpy and did not want to pursue further treatments. He understands his prognosis and is considering hospice care will get palliative care team involved pain control antibiotics supportive care
[2017-05-20] MEDS: PIPERACILLIN/TAZOB 4.5 GM 4.5 GM in DEXTROSE 5%-WATER - 100 ML IVPB SCH ×3 (01:22→18:21)
[2017-05-20] MEDS ORDERED: DOCUSATE SODIUM 100 MG CAPSULE (FP) PO PRN (03:03)
[2017-05-20] MEDS: HYDROmorphone HCL CARPU-JECT 2 MG/1 ML DISP.SYRIN IVPUSH PRN ×6 (03:13→23:51)
[2017-05-20 07:41] LABS: INR 1.91 (0.82-1.09); PROTHROMBIN TIME (PATIENT) 21.6 SEC (9.98-11.88)
[2017-05-20 07:54] LABS: HEMATOCRIT 25.3 % (35.4-49); HEMOGLOBIN 7.9 GM/dL (11.7-16.9); MCH 23.2 pg (25.7-33.7); MCHC 31.1 g/dl (32.0-35.9); MEAN CELL VOLUME 74.5 fl (80-96); MEAN PLT VOLUME 8.5 fl (7.5-11.1); PLATELET COUNT 940 K/MM3 (134-434); RDW 19.1 % (11.9-15.9); WHITE BLOOD COUNT 26.2 K/mm3 (4.0-10.0)
[2017-05-20 08:22] LABS: ANION GAP 10 (8-16); BLOOD UREA NITROGEN 7 mg/dL (7-18); CALCIUM 7.2 mg/dL (8.5-10.1); CHLORIDE 100 mmol/L (98-107); CO2 25 mmol/L (21-32); CREATININE 0.5 mg/dL (0.7-1.3); GLUCOSE,RANDOM 70 mg/dL (74-106); POTASSIUM 4.2 mmol/L (3.5-5.1); SODIUM 135 mmol/L (136-145)
[2017-05-20 09:18] LABS: PLATELET ESTIMATE INCREASED
[2017-05-20] MEDS: FERROUS SO4 325 MG TABLET (FP) PO SCH ×2 (09:53→16:55)
[2017-05-20] MEDS: SODIUM CHLORIDE 1,000 ML IV SCH ×2 (11:27→22:00)
--- NOTE | 2017-05-20 13:12 | PN ---
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 (short form) - Note 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: PAtient seen and examined Still with pain management Last Vital Signs Temp Pulse Resp BP Pulse Ox 99.3 F 103 H 20 95/52 97 05/20/17 10:00 05/20/17 10:00 05/20/17 10:00 05/20/17 10:00 05/19/17 21:00 Cor: RSR, No murmurs, No gallops Lungs: Clear to P&A Abd: Soft, Normal bowel sounds, No organomegaly Ext:No significant edema Abnormal Lab Results 05/20/17 05/20/17 05/20/17 07:00 07:00 07:00 WBC 26.2 H RBC 3.40 L Hgb 7.9 L Hct 25.3 L MCV 74.5 L MCH 23.2 L MCHC 31.1 L RDW 19.1 H Plt Count 940 H Lymphocytes % (Manual) 3.1 L D PT with INR 21.60 H INR 1.91 H D Sodium 135 L Creatinine 0.5 L Random Glucose 70 L D Calcium 7.2 L Active Medications Generic Name Dose Route Start Last Admin Trade Name Freq PRN Reason Stop Dose Admin Acetaminophen 650 mg 05/19/17 05:07 05/19/17 05:41 Tylenol - PO 650 mg Q6H PRN Administration FEVER Docusate Sodium 100 mg 05/20/17 03:03 Colace - PO BID PRN CONSTIPATION Fentanyl 1 patch 05/21/17 10:00 Duragesic 25mcg Patch - TD Q72H IZABELLA Ferrous Sulfate 325 mg 05/19/17 08:00 05/20/17 09:53 Feosol - PO 325 mg BIDWM IZABELLA Administration Hydromorphone HCl 1 mg 05/20/17 03:03 05/20/17 12:51 Dilaudid Injection - IVPUSH 1 mg Q4H PRN Administration PAIN LEVEL 6-10 Sodium Chloride 1,000 mls @ 75 mls/hr 05/18/17 22:30 05/20/17 11:27 Normal Saline - IV 75 mls/hr ASDIR IZABELLA Administration Piperacillin Sod/Tazobactam 100 mls @ 200 mls/hr 05/19/17 10:00 05/20/17 09: 52 Sod 4.5 gm/ Dextrose IVPB 200 mls/hr Q8H-IV IZABELLA Administration Miscellaneous 1 each 05/18/17 22:34 Duragesic Patch Waste TD PRN PRN PAIN Tramadol HCl 50 mg 05/18/17 22:32 05/20/17 05:33 Ultram - PO 50 mg Q6H PRN Administration PAIN Warfarin Sodium 2 mg 05/20/17 18:00 Coumadin - PO DAILY@1800 [facility] A/P Malignant pseudomyxoma peritonei diagnosed 2008, s/p FOLFOX, 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 s/p FOLFIRI/avastin s/p HIPEC x2, debulking surgeries --last being 02/13 Slowly progressive disease Had refused clinical trials, chemotherapy and most recently targeted therapy with olaparib. his main concern has been facing the toxicities of these agents, eventhough he understood the benefits. He had major quality of life concerns with therpy and did not want to pursue further treatments. He understands his prognosis and is considering hospice care will get palliative care team involved pain control antibiotics INR --1.9 will resume coumadin
--- NOTE | 2017-05-20 16:29 | CONSULT ---
Consult Consult Specialty:: Pain Management Reason for Consultation:: Malignant abdominal Pain - History of Present Illness Chief Complaint: Pain History of Present Illness: 47 yr old male with abdominal pain s/p abdominal tumor on Dilaudid and Fentanyl patch s/o abdominal pain and back pain 02/07. Medications are helping but still get intermittent breakthrough pain. - History Source History Provided By: Patient - Past Medical History Cardio/Vascular: Yes: Deep Vein Thrombosis Pulmonary: Yes: Pulmonary Embolus Gastrointestinal: Yes: Cancer (appendiceal cancer- 2008 -> pseudomyxoma peritonei), Other (Intestinal obstruction.) Infectious Disease: Yes: C-Diff Psych: Yes: Anxiety, Depression - Past Surgical History Past Surgical History: Yes: Appendectomy (2008), Colectomy (partial), Colonoscopy, Splenectomy (2008), Stent (gastric ([facility] Additional Surgical History: multiple debulking operations- none recently. + gastric stent - Alcohol/Substance Use Hx Alcohol Use: No History of Substance Use: reports: None - Smoking History Smoking history: Never smoked Have you smoked in the past 12 months: No Aproximately how many cigarettes per day: 0 - Social History Usual Living Arrangement: With Spouse (10 year old daughter at home) ADL: Independent History of Recent Travel: No Home Medications - Allergies Allergies/Adverse Reactions: Allergies Allergy/AdvReac Type Severity Reaction Status Date / Time No Known Allergies Allergy Verified 02/21/17 16:01 - Home Medications Home Medications: Ambulatory Orders Warfarin Na [Coumadin -] 2.5 mg PO DAILY@1800 #30 tablet MDD 1 10/11/16 Tramadol HCl 50 mg PO QID 02/21/17 FENTANYL 12mcg PATCH [DURAGESIC 12mcg PATCH -] 1 patch TD Q72H #10 patch MDD 1 02/24/17 Tramadol HCl [Ultram -] 50 mg PO Q6H PRN #120 tablet MDD 4 02/24/17 Family Disease History - Family Disease History Family Disease History: CA: Father (COLON CA, ESRD), Other: Father, Mother ( ARTHRITIS, BACK SURGERY), Brother (3 BROTHERS- ALL HEALTHY), Daughter (HEALTHY) Physical Exam Vital Signs: Vital Signs Temperature 99.5 F 05/20/17 13:34 Pulse Rate 92 H 05/20/17 13:34 Respiratory Rate 18 05/20/17 13:34 Blood Pressure 97/54 05/20/17 13:34 O2 Sat by Pulse Oximetry (%) 96 05/20/17 09:00 Labs: CBC, BMP 05/20/17 07:00 05/20/17 07:00
--- NOTE | 2017-05-20 16:45 | PN ---
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 Chief Complaint: Abdominal pain History of Present Illness: Abdominal discomfort improved with pain management IV abx seen by ID, oncology NPO - Current Medication List Current Medications: Active Medications Acetaminophen (Tylenol -) 650 mg PO Q6H PRN PRN Reason: FEVER Last Admin: 05/19/17 05:41 Dose: 650 mg Docusate Sodium (Colace -) 100 mg PO BID PRN PRN Reason: CONSTIPATION Fentanyl (Duragesic 25mcg Patch -) 1 patch TD Q72H [facility] Ferrous Sulfate (Feosol -) 325 mg PO BIDWM [facility] Last Admin: 05/20/17 09:53 Dose: 325 mg Gabapentin (Neurontin -) 100 mg PO TID IZABELLA Hydromorphone HCl (Dilaudid Injection -) 1 mg IVPUSH Q3H PRN PRN Reason: PAIN LEVEL 6-10 Last Admin: 05/20/17 15:54 Dose: 1 mg Sodium Chloride (Normal Saline -) 1,000 mls @ 75 mls/hr IV ASDIR [facility] Last Admin: 05/20/17 11:27 Dose: 75 mls/hr Piperacillin Sod/Tazobactam (Sod 4.5 gm/ Dextrose) 100 mls @ 200 mls/hr IVPB Q8H-IV IZABELLA Last Admin: 05/20/17 09:52 Dose: 200 mls/hr Miscellaneous (Duragesic Patch Waste) 1 each TD PRN PRN PRN Reason: PAIN Polyethylene Glycol (Miralax (For Daily Use) -) 17 gm PO DAILY [facility] Warfarin Sodium (Coumadin -) 2 mg PO DAILY@1800 [facility] - Objective Vital Signs: Vital Signs Temperature 99.5 F 05/20/17 13:34 Pulse Rate 92 H 05/20/17 13:34 Respiratory Rate 18 05/20/17 13:34 Blood Pressure 97/54 05/20/17 13:34 O2 Sat by Pulse Oximetry (%) 96 05/20/17 09:00 Constitutional: Yes: No Distress, Calm, Cachectic Cardiovascular: Yes: Regular Rate and Rhythm Respiratory: Yes: Regular Gastrointestinal: Yes: Tenderness (diffuse) Musculoskeletal: Yes: WNL Extremities: Yes: WNL, Internal Rotation Peripheral Pulses WNL: Yes Neurological: Yes: Alert, Oriented Psychiatric: Yes: Alert, Oriented Labs: CBC, BMP 05/20/17 07:00 05/20/17 07:00 INR, PTT INR 1.91 (0.82-1.09) H D 05/20/17 07:00 Problem List - Problems (1) Abdominal pain Assessment/Plan: -pain management -IV abx -palliative Code(s): R10.9 - UNSPECIFIED ABDOMINAL PAIN (2) Anemia Assessment/Plan: -received transfusion upon admission -H/H gradually dropping again -hematology/oncology on board -transfuse 1 unit today -labs in AM Code(s): D64.9 - ANEMIA, UNSPECIFIED Qualifiers: Anemia type: unspecified type Qualified Code(s): D64.9 - Anemia, unspecified (3) Malignant pseudomyxoma peritonei Assessment/Plan: -terminal -palliative care -GI surgery at [facility] -CT abdomen noted, worsening of the abdominal masses Code(s): C78.6 - SECONDARY MALIGNANT NEOPLASM OF RETROPERITON AND PERITONEUM (4) History of DVT of lower extremity Assessment/Plan: -was supra-therapeutic upon admission, warfarin was held -sub-therapeutic today, warfarin restarted -seen by Hematology Code(s): Z86.718 - PERSONAL HISTORY OF OTHER VENOUS THROMBOSIS AND EMBOLISM (5) Fever Assessment/Plan: -acetaminophen for fever over 100.0F -IV abx -ID on board -BC pending -UC negative Code(s): R50.9 - FEVER, UNSPECIFIED Assessment/Plan see problem list
[2017-05-20] MEDS ORDERED: fentaNYL 25mcg/hr PATCH.TD72 ONE (17:15)
[2017-05-20] MEDS ORDERED: fentaNYL 12mcg/hr PATCH.TD72 ONE (17:16)
[2017-05-20] MEDS: WARFARIN NA 2 MG TABLET (UD) PO SCH (17:31)
[2017-05-20] MEDS: FENTANYL TD SCH (17:32)
[2017-05-20] MEDS: ACETAMINOPHEN 325 MG TABLET (FP) PO PRN (18:20)
[2017-05-20] MEDS: GABAPENTIN 100 MG CAPSULE (FP) PO SCH (21:59)
[2017-05-21] MEDS ORDERED: PT OWN MED DRAWER 7, Y5N ONE (01:08)
[2017-05-21] MEDS: ACETAMINOPHEN 325 MG TABLET (FP) PO PRN ×2 (01:14→17:43)
[2017-05-21] MEDS: PIPERACILLIN/TAZOB 4.5 GM 4.5 GM in DEXTROSE 5%-WATER - 100 ML IVPB SCH ×3 (01:15→20:29)
[2017-05-21] MEDS: GABAPENTIN 100 MG CAPSULE (FP) PO SCH ×3 (05:57→22:04)
[2017-05-21] MEDS: SODIUM CHLORIDE 1,000 ML IV SCH ×2 (05:58→10:17)
[2017-05-21] MEDS: HYDROmorphone HCL CARPU-JECT 2 MG/1 ML DISP.SYRIN IVPUSH PRN ×4 (06:03→20:27)
[2017-05-21 07:20] LABS: ALBUMIN 1.4 g/dl (3.4-5.0); ALK PHOS 113 U/L (45-117); ANION GAP 8 (8-16); BILIRUBIN,TOTAL 0.6 mg/dL (0.2-1.0); BLOOD UREA NITROGEN 6 mg/dL (7-18); CALCIUM 7.3 mg/dL (8.5-10.1); CHLORIDE 99 mmol/L (98-107); CO2 27 mmol/L (21-32); CREATININE 0.5 mg/dL (0.7-1.3); GLUCOSE,RANDOM 84 mg/dL (74-106); POTASSIUM 4.4 mmol/L (3.5-5.1); SGOT/AST 11 U/L (15-37); SGPT/ALT 9 U/L (12-78); SODIUM 134 mmol/L (136-145)
[2017-05-21 07:33] LABS: INR 1.88 (0.82-1.09); PROTHROMBIN TIME (PATIENT) 21.3 SEC (9.98-11.88)
[2017-05-21 07:34] LABS: HEMATOCRIT 26.1 % (35.4-49); HEMOGLOBIN 8.1 GM/dL (11.7-16.9); MCH 23.1 pg (25.7-33.7); MCHC 30.9 g/dl (32.0-35.9); MEAN CELL VOLUME 74.9 fl (80-96); MEAN PLT VOLUME 8.4 fl (7.5-11.1); PLATELET COUNT 913 K/MM3 (134-434); RBC 3.49 M/mm3 (4.00-5.60); RDW 19.6 % (11.9-15.9)
[2017-05-21] MEDS ORDERED: fentaNYL 25mcg/hr PATCH.TD72 TD SCH (10:00)
[2017-05-21] MEDS: POLYETHYLENE GLYCOL 3350 119 GM BTL PO SCH (10:18)
[2017-05-21] MEDS: FERROUS SO4 325 MG TABLET (FP) PO SCH ×2 (10:18→17:30)
--- NOTE | 2017-05-21 11:01 | PN ---
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 (short form) - Note 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: remains with intermittent fevers and sweats less pain no cough, no sob Vital Signs Period Temp Pulse Resp BP Sys/Conte Pulse Ox Last 24 Hr 98.7 F-102.1 F 92-109 89-98/47-62 96 cor-rrr lungs clear abd firm, +palpable masses ext no edema CBC, BMP 05/21/17 06:00 05/21/17 06:00 Microbiology 05/19/17 03:00 Urine - Urine Clean Catch Urine Culture - Final NO GROWTH OBTAINED 05/18/17 15:10 Blood - Peripheral Venous Blood Culture - Preliminary NO GROWTH OBTAINED AFTER 48 HOURS, INCUBATION TO CONTINUE FOR 3 DAYS. 05/18/17 15:10 Blood - Peripheral Venous Blood Culture - Preliminary NO GROWTH OBTAINED AFTER 48 HOURS, INCUBATION TO CONTINUE FOR 3 DAYS. 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
[2017-05-21] MEDS ORDERED: VANCOMYCIN 1 GRAM (PRE-DOCKED) 1,000 MG/250 ML BAG IVPB SCH (11:15)
[2017-05-21 12:03] LABS: PLATELET ESTIMATE INCREASED
--- NOTE | 2017-05-21 13:23 | PN ---
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 (short form) - Note 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: PAtient seen and examined Still with pain management Last Vital Signs Temp Pulse Resp BP Pulse Ox 99.7 F H 105 H 18 89/47 96 05/21/17 09:14 05/21/17 09:14 05/21/17 09:14 05/21/17 09:14 05/20/17 21:00 Cor: RSR, No murmurs, No gallops Lungs: Clear to P&A Abd: Soft, Normal bowel sounds, No organomegaly Ext:No significant edema Abnormal Lab Results 05/18/17 05/21/17 05/21/17 15:10 06:00 06:00 WBC 29.0 H RBC 3.49 L Hgb 8.1 L Hct 26.1 L MCV 74.9 L MCH 23.1 L MCHC 30.9 L RDW 19.6 H Plt Count 913 H Lymphocytes % (Manual) 3.3 L Monocytes % (Manual) 3 L PT with INR 21.30 H INR 1.88 H Sodium BUN Creatinine Calcium AST ALT Total Protein Albumin Crossmatch See Detail 05/21/17 06:00 WBC RBC Hgb Hct MCV MCH MCHC RDW Plt Count Lymphocytes % (Manual) Monocytes % (Manual) PT with INR INR Sodium 134 L BUN 6 L Creatinine 0.5 L Calcium 7.3 L AST 11 L D ALT 9 L D Total Protein 5.0 L D Albumin 1.4 L D Crossmatch Home Medication List Medication Instructions Recorded Confirmed Type Tramadol HCl 50 mg PO QID 02/21/17 05/18/17 History Active Medications Generic Name Dose Route Start Last Admin Trade Name Alexandrq PRN Reason Stop Dose Admin Acetaminophen 650 mg 05/19/17 05:07 05/21/17 01:14 Tylenol - PO 650 mg Q6H PRN Administration FEVER Docusate Sodium 100 mg 05/20/17 03:03 Colace - PO BID PRN CONSTIPATION Fentanyl 1 patch/ Fentanyl 1 2 patch 05/20/17 17:15 05/20/17 17:32 patch TD 2 patch Q72H IZABELLA Administration Ferrous Sulfate 325 mg 05/19/17 08:00 05/21/17 10:18 Feosol - PO 325 mg BIDWM IZABELLA Administration Gabapentin 100 mg 05/20/17 22:00 05/21/17 05:57 Neurontin - PO 100 mg TID IZABELLA Administration Hydromorphone HCl 1 mg 05/20/17 14:42 05/21/17 11:13 Dilaudid Injection - IVPUSH 1 mg Q3H PRN Administration PAIN LEVEL 6-10 Piperacillin Sod/Tazobactam 100 mls @ 200 mls/hr 05/19/17 10:00 05/21/17 10: 18 Sod 4.5 gm/ Dextrose IVPB 200 mls/hr Q8H-IV IZABELLA Administration Sodium Chloride 1,000 mls @ 100 mls/hr 05/21/17 09:21 05/21/17 10:17 Normal Saline - IV 100 mls/hr ASDIR IZABELLA Administration Miscellaneous 1 each 05/18/17 22:34 Duragesic Patch Waste TD PRN PRN PAIN Polyethylene Glycol 17 gm 05/21/17 10:00 05/21/17 10:18 Miralax (For Daily Use) - PO 17 gm DAILY IZABELLA Administration Vancomycin HCl 1,000 mg 05/21/17 11:15 Vancomycin (Pre-Docked) IVPB BID IZABELLA Protocol Warfarin Sodium 2 mg 05/20/17 18:00 05/20/17 17:31 Coumadin - PO 2 mg DAILY@1800 IZABELLA Administration A/P Malignant pseudomyxoma peritonei diagnosed 2008, s/p FOLFOX, 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 s/p FOLFIRI/avastin s/p HIPEC x2, debulking surgeries --last being 02/13 Slowly progressive disease Had refused clinical trials, chemotherapy and most recently targeted therapy with olaparib. his main concern has been facing the toxicities of these agents, eventhough he understood the benefits. He had major quality of life concerns with therpy and did not want to pursue further treatments. He understands his prognosis and is considering hospice care will get palliative care team involved pain control antibiotics INR --1.9 will resume coumadin
--- NOTE | 2017-05-21 15:48 | CON.PSY ---
Psychiatry Consult Chief Complaint: 47 year old Male with CA, Patient seen fror psych follow up for capacity to make decisions at this time. Currant[place] on no psych meds. He had been seeing in the past. Symptoms: reports: Anhedonia - Previous Psychiatric Treatment Outpatient: Less than 6 mos ago Inpatient: None - Previous Substance Abuse Treatment Outpatient: None Inpatient: None - Reason for Previous Treatment Reason for Previous Treatment: Major Depression - Current Medications Current Medications: Active Medications Acetaminophen (Tylenol -) 650 mg PO Q6H PRN PRN Reason: FEVER Last Admin: 05/21/17 01:14 Dose: 650 mg Docusate Sodium (Colace -) 100 mg PO BID PRN PRN Reason: CONSTIPATION Fentanyl 1 patch/ Fentanyl 1 (patch) 2 patch TD Q72H [facility] Last Admin: 05/20/17 17:32 Dose: 2 patch Ferrous Sulfate (Feosol -) 325 mg PO BIDWM [facility] Last Admin: 05/21/17 10:18 Dose: 325 mg Gabapentin (Neurontin -) 100 mg PO TID [facility] Last Admin: 05/21/17 15:04 Dose: 100 mg Hydromorphone HCl (Dilaudid Injection -) 1 mg IVPUSH Q3H PRN PRN Reason: PAIN LEVEL 6-10 Last Admin: 05/21/17 15:11 Dose: 1 mg Piperacillin Sod/Tazobactam (Sod 4.5 gm/ Dextrose) 100 mls @ 200 mls/hr IVPB Q8H-IV [facility] Last Admin: 05/21/17 10:18 Dose: 200 mls/hr Sodium Chloride (Normal Saline -) 1,000 mls @ 100 mls/hr IV ASDIR [facility] Last Admin: 05/21/17 10:17 Dose: 100 mls/hr Miscellaneous (Duragesic Patch Waste) 1 each TD PRN PRN PRN Reason: PAIN Polyethylene Glycol (Miralax (For Daily Use) -) 17 gm PO DAILY [facility] Last Admin: 05/21/17 10:18 Dose: 17 gm Vancomycin HCl (Vancomycin (Pre-Docked)) 1,000 mg IVPB BID IZABELLA PRN Reason: Protocol Warfarin Sodium (Coumadin -) 2 mg PO DAILY@1800 [facility] Last Admin: 05/20/17 17:31 Dose: 2 mg - Allergies Allergies: Allergies Allergy/AdvReac Type Severity Reaction Status Date / Time No Known Allergies Allergy Verified 10/24/17 16:01 - Current Living Status Usual Living Arrangement: With Significant Other - Current Mental Status Evaluation Appearance: Well Groomed Attitude: Cooperative - Affect Affect: Constrictive Appropriateness: Appropriate to Content - Mood Mood: Euthymic - Speech/Language Expressive: Coherent - Psychomotor Activity Psychomotor Activity: Normal - Thought Process Thought Process: Intact - Thought Content Hallucinations: Absent Delusions: Absent - Self Perception Self Perception: No Impairment - Cognition Attention: Alert Orientation: Time Memory, Immediate Recall: Intact Memory, Short Term: 3/3 Memory, Remote with Promptin/3 - Concentration Serial Sevens Intact: Yes Simple Calculations Intact: Yes - Abstraction Proverb Interpretation: Intact Judgement: Intact - Insight Insight: Intact - Impulse Control Impulse Control: Good Control - Suicidal Ideation Suicidal Ideation: No - Homicidal Ideation Homicidal Ideation: No Assessment/Plan 1) I offered patient [id number] po hs. He w2ants to think about it. 2) Patient has the functional capacity to make informed decisions at this time.
--- NOTE | 2017-05-21 16:06 | PN ---
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 (short form) - Note 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: PAtient seen and examined slightly improved pain control Last Vital Signs Temp Pulse Resp BP Pulse Ox 99.9 F H 113 H 18 103/61 96 05/21/17 13:51 05/21/17 13:51 05/21/17 13:51 05/21/17 13:51 05/20/17 21:00 Cor: RSR, No murmurs, No gallops Lungs: Clear to P&A Abd: Soft, Normal bowel sounds, No organomegaly Ext:No significant edema Abnormal Lab Results 05/18/17 05/21/17 05/21/17 15:10 06:00 06:00 WBC 29.0 H RBC 3.49 L Hgb 8.1 L Hct 26.1 L MCV 74.9 L MCH 23.1 L MCHC 30.9 L RDW 19.6 H Plt Count 913 H Lymphocytes % (Manual) 3.3 L Monocytes % (Manual) 3 L PT with INR 21.30 H INR 1.88 H Sodium BUN Creatinine Calcium AST ALT Total Protein Albumin Crossmatch See Detail 05/21/17 06:00 WBC RBC Hgb Hct MCV MCH MCHC RDW Plt Count Lymphocytes % (Manual) Monocytes % (Manual) PT with INR INR Sodium 134 L BUN 6 L Creatinine 0.5 L Calcium 7.3 L AST 11 L D ALT 9 L D Total Protein 5.0 L D Albumin 1.4 L D Crossmatch Active Medications Generic Name Dose Route Start Last Admin Trade Name Freq PRN Reason Stop Dose Admin Acetaminophen 650 mg 05/19/17 05:07 05/21/17 01:14 Tylenol - PO 650 mg Q6H PRN Administration FEVER Docusate Sodium 100 mg 05/20/17 03:03 Colace - PO BID PRN CONSTIPATION Fentanyl 1 patch/ Fentanyl 1 2 patch 05/20/17 17:15 05/20/17 17:32 patch TD 2 patch Q72H IZABELLA Administration Ferrous Sulfate 325 mg 05/19/17 08:00 05/21/17 10:18 Feosol - PO 325 mg BIDWM IZABELLA Administration Gabapentin 100 mg 05/20/17 22:00 05/21/17 15:04 Neurontin - PO 100 mg TID IZABELLA Administration Hydromorphone HCl 1 mg 05/20/17 14:42 05/21/17 15:11 Dilaudid Injection - IVPUSH 1 mg Q3H PRN Administration PAIN LEVEL 6-10 Piperacillin Sod/Tazobactam 100 mls @ 200 mls/hr 05/19/17 10:00 05/21/17 10: 18 Sod 4.5 gm/ Dextrose IVPB 200 mls/hr Q8H-IV IZABELLA Administration Sodium Chloride 1,000 mls @ 100 mls/hr 05/21/17 09:21 05/21/17 10:17 Normal Saline - IV 100 mls/hr ASDIR IZABELLA Administration Miscellaneous 1 each 05/18/17 22:34 Duragesic Patch Waste TD PRN PRN PAIN Polyethylene Glycol 17 gm 05/21/17 10:00 05/21/17 10:18 Miralax (For Daily Use) - PO 17 gm DAILY IZABELLA Administration Vancomycin HCl 1,000 mg 05/21/17 11:15 Vancomycin (Pre-Docked) IVPB BID IZABELLA Protocol Warfarin Sodium 2 mg 05/20/17 18:00 05/20/17 17:31 Coumadin - PO 2 mg DAILY@1800 IZABELLA Administration A/P Malignant pseudomyxoma peritonei diagnosed 2008, s/p FOLFOX, 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 s/p FOLFIRI/avastin s/p HIPEC x2, debulking surgeries --last being 02/13 Slowly progressive disease Had refused clinical trials, chemotherapy and most recently targeted therapy with olaparib. He understands his prognosis and ongoing discussions regarding goals of care will get palliative care team involved pain control antibiotics discussed with patient regarding health care proxy. ongoing discussions regarding goals of care
[2017-05-21] MEDS: WARFARIN NA 2 MG TABLET (UD) PO SCH (17:30)
[2017-05-21] MEDS: VANCOMYCIN 1,000 MG in DEXTROSE 5%-WATER - 250 ML IVPB SCH (17:30)
--- NOTE | 2017-05-21 20:01 | PN ---
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 - Current Medication List Current Medications: Active Medications Acetaminophen (Tylenol -) 650 mg PO Q6H PRN PRN Reason: FEVER Last Admin: 05/21/17 17:43 Dose: 650 mg Docusate Sodium (Colace -) 100 mg PO BID PRN PRN Reason: CONSTIPATION Fentanyl 1 patch/ Fentanyl 1 (patch) 2 patch TD Q72H [facility] Last Admin: 05/20/17 17:32 Dose: 2 patch Ferrous Sulfate (Feosol -) 325 mg PO BIDWM [facility] Last Admin: 05/21/17 17:30 Dose: 325 mg Gabapentin (Neurontin -) 100 mg PO TID [facility] Last Admin: 05/21/17 15:04 Dose: 100 mg Hydromorphone HCl (Dilaudid Injection -) 1 mg IVPUSH Q3H PRN PRN Reason: PAIN LEVEL 6-10 Last Admin: 05/21/17 15:11 Dose: 1 mg Piperacillin Sod/Tazobactam (Sod 4.5 gm/ Dextrose) 100 mls @ 200 mls/hr IVPB Q8H-IV [facility] Last Admin: 05/21/17 10:18 Dose: 200 mls/hr Sodium Chloride (Normal Saline -) 1,000 mls @ 100 mls/hr IV ASDIR [facility] Last Admin: 05/21/17 10:17 Dose: 100 mls/hr Vancomycin HCl 1,000 mg/ (Dextrose) 250 mls @ 166.667 mls/hr IVPB BID@0500, 1700 [facility] Last Admin: 05/21/17 17:30 Dose: 166.667 mls/hr Miscellaneous (Duragesic Patch Waste) 1 each TD PRN PRN PRN Reason: PAIN Polyethylene Glycol (Miralax (For Daily Use) -) 17 gm PO DAILY [facility] Last Admin: 05/21/17 10:18 Dose: 17 gm Warfarin Sodium (Coumadin -) 2 mg PO DAILY@1800 [facility] Last Admin: 05/21/17 17:30 Dose: 2 mg - Objective Vital Signs: Vital Signs Temperature 102.9 F H 05/21/17 18:22 Pulse Rate 111 H 05/21/17 18:22 Respiratory Rate 18 05/21/17 18:22 Blood Pressure 100/52 05/21/17 18:22 O2 Sat by Pulse Oximetry (%) 99 05/21/17 09:00 Cardiovascular: Yes: S1, S2 Respiratory: Yes: Regular, CTA Bilaterally Gastrointestinal: Yes: Normal Bowel Sounds, Soft, Palpable Mass, Tenderness Labs: CBC, BMP 05/21/17 06:00 05/21/17 06:00 INR, PTT INR 1.88 (0.82-1.09) H 05/21/17 06:00 Assessment/Plan - Problems (1) Abdominal pain Assessment/Plan: -pain management -IV abx -palliative Code(s): R10.9 - UNSPECIFIED ABDOMINAL PAIN (2) Anemia Assessment/Plan: -received transfusion upon admission -H/H gradually dropping again -hematology/oncology on board -transfuse 1 unit today -labs in AM Code(s): D64.9 - ANEMIA, UNSPECIFIED Qualifiers: Anemia type: unspecified type Qualified Code(s): D64.9 - Anemia, unspecified (3) Malignant pseudomyxoma peritonei Assessment/Plan: -terminal -palliative care -GI surgery at [facility] -CT abdomen noted, worsening of the abdominal masses Code(s): C78.6 - SECONDARY MALIGNANT NEOPLASM OF RETROPERITON AND PERITONEUM (4) History of DVT of lower extremity Assessment/Plan: -was supra-therapeutic upon admission, warfarin was held -sub-therapeutic today, warfarin restarted -seen by Hematology Code(s): Z86.718 - PERSONAL HISTORY OF OTHER VENOUS THROMBOSIS AND EMBOLISM (5) Fever Assessment/Plan: -acetaminophen for fever over 100.0F -IV abx -ID on board -BC pending -UC negative Code(s): R50.9 - FEVER, UNSPECIFIED
[2017-05-22] MEDS: SODIUM CHLORIDE 1,000 ML IV SCH ×2 (01:55→09:46)
[2017-05-22] MEDS: PIPERACILLIN/TAZOB 4.5 GM 4.5 GM in DEXTROSE 5%-WATER - 100 ML IVPB SCH ×3 (01:56→20:28)
[2017-05-22] MEDS: HYDROmorphone HCL CARPU-JECT 2 MG/1 ML DISP.SYRIN IVPUSH PRN ×3 (04:48→20:14)
[2017-05-22] MEDS: GABAPENTIN 100 MG CAPSULE (FP) PO SCH ×3 (05:24→21:59)
[2017-05-22] MEDS: VANCOMYCIN 1,000 MG in DEXTROSE 5%-WATER - 250 ML IVPB SCH ×2 (05:24→16:49)
[2017-05-22] MEDS: ACETAMINOPHEN 325 MG TABLET (FP) PO PRN ×3 (05:24→22:01)
[2017-05-22 07:16] LABS: INR 2.07 (0.82-1.09); PROTHROMBIN TIME (PATIENT) 23.4 SEC (9.98-11.88)
--- NOTE | 2017-05-22 08:22 | PN ---
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 - Current Medication List Current Medications: Active Medications Acetaminophen (Tylenol -) 650 mg PO Q6H PRN PRN Reason: FEVER Last Admin: 05/22/17 05:24 Dose: 650 mg Docusate Sodium (Colace -) 100 mg PO BID PRN PRN Reason: CONSTIPATION Fentanyl 1 patch/ Fentanyl 1 (patch) 2 patch TD Q72H [facility] Last Admin: 05/20/17 17:32 Dose: 2 patch Ferrous Sulfate (Feosol -) 325 mg PO BIDWM [facility] Last Admin: 05/21/17 17:30 Dose: 325 mg Gabapentin (Neurontin -) 100 mg PO TID [facility] Last Admin: 05/22/17 05:24 Dose: 100 mg Hydromorphone HCl (Dilaudid Injection -) 1 mg IVPUSH Q3H PRN PRN Reason: PAIN LEVEL 6-10 Last Admin: 05/22/17 04:48 Dose: 1 mg Piperacillin Sod/Tazobactam (Sod 4.5 gm/ Dextrose) 100 mls @ 200 mls/hr IVPB Q8H-IV [facility] Last Admin: 05/22/17 01:56 Dose: 200 mls/hr Sodium Chloride (Normal Saline -) 1,000 mls @ 100 mls/hr IV ASDIR [facility] Last Admin: 05/22/17 01:55 Dose: 100 mls/hr Vancomycin HCl 1,000 mg/ (Dextrose) 250 mls @ 166.667 mls/hr IVPB BID@0500, 1700 [facility] Last Admin: 05/22/17 05:24 Dose: 166.667 mls/hr Miscellaneous (Duragesic Patch Waste) 1 each TD PRN PRN PRN Reason: PAIN Polyethylene Glycol (Miralax (For Daily Use) -) 17 gm PO DAILY [facility] Last Admin: 05/21/17 10:18 Dose: 17 gm Warfarin Sodium (Coumadin -) 2 mg PO DAILY@1800 [facility] Last Admin: 05/21/17 17:30 Dose: 2 mg - Objective Vital Signs: Vital Signs Temperature 102.5 F H 05/22/17 06:15 Pulse Rate 104 H 05/22/17 06:15 Respiratory Rate 20 05/22/17 06:15 Blood Pressure 94/47 05/22/17 06:15 O2 Sat by Pulse Oximetry (%) 96 05/21/17 21:00 Cardiovascular: Yes: Regular Rate and Rhythm Respiratory: Yes: Regular, CTA Bilaterally Gastrointestinal: Yes: Normal Bowel Sounds, Soft, Palpable Mass, Tenderness Labs: CBC, BMP 05/21/17 06:00 05/21/17 06:00 INR, PTT INR 2.07 (0.82-1.09) H 05/22/17 06:43 Problem List - Problems (1) Severe malnutrition Assessment/Plan: monitor diet follow labs Code(s): E43 - UNSPECIFIED SEVERE PROTEIN-CALORIE MALNUTRITION Assessment/Plan - Problems (1) Abdominal pain Assessment/Plan: -pain management -IV abx -palliative Code(s): R10.9 - UNSPECIFIED ABDOMINAL PAIN (2) Anemia Assessment/Plan: -received transfusion upon admission -H/H gradually dropping again -hematology/oncology on board -transfuse 1 unit today -labs in AM Code(s): D64.9 - ANEMIA, UNSPECIFIED Qualifiers: Anemia type: unspecified type Qualified Code(s): D64.9 - Anemia, unspecified (3) Malignant pseudomyxoma peritonei Assessment/Plan: -terminal -palliative care -GI surgery at [facility] -CT abdomen noted, worsening of the abdominal masses Code(s): C78.6 - SECONDARY MALIGNANT NEOPLASM OF RETROPERITON AND PERITONEUM (4) History of DVT of lower extremity Assessment/Plan: -was supra-therapeutic upon admission, warfarin was held -sub-therapeutic today, warfarin restarted -seen by Hematology Code(s): Z86.718 - PERSONAL HISTORY OF OTHER VENOUS THROMBOSIS AND EMBOLISM (5) Fever Assessment/Plan: -acetaminophen for fever over 100.0F -IV abx -ID on board--follow up -BC pending -UC negative Code(s): R50.9 - FEVER, UNSPECIFIED
[2017-05-22] MEDS: FERROUS SO4 325 MG TABLET (FP) PO SCH ×2 (08:23→16:49)
[2017-05-22] MEDS ORDERED: PT OWN MED DRAWER 7, Y5N ONE ×2 (09:42→16:46)
[2017-05-22] MEDS: POLYETHYLENE GLYCOL 3350 119 GM BTL PO SCH (09:48)
--- NOTE | 2017-05-22 10:53 | PN ---
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 (short form) - Note 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: remains with intermittent fevers continued flank pain on left no vomiting, taking some po intermittently no cough, no sob Vital Signs Period Temp Pulse Resp BP Sys/Conte Pulse Ox Last 24 Hr 98.1 F-102.9 F 91-113 18-20 90-103/42-61 96-99 cor-rrr lungs clear abd soft, +erythema, induration left flank ext no edema CBC, BMP 05/21/17 06:00 05/21/17 06:00 Microbiology 05/18/17 15:10 Blood - Peripheral Venous Blood Culture - Preliminary NO GROWTH OBTAINED AFTER 72 HOURS, INCUBATION TO CONTINUE FOR 2 DAYS. 05/18/17 15:10 Blood - Peripheral Venous Blood Culture - Preliminary NO GROWTH OBTAINED AFTER 72 HOURS, INCUBATION TO CONTINUE FOR 2 DAYS. 05/19/17 03:00 Urine - Urine Clean Catch Urine Culture - Final NO GROWTH OBTAINED a/p fevers-suspected necrotis/infected tumor left flank leukocytosis malignant pseudomyxoma peritoneii palliative care being discussed continue vanco/zosyn for now not much to offer unless surgery or drainage is being entertained- will d/w oncology Problem List - Problems (1) Fever Code(s): R50.9 - FEVER, UNSPECIFIED (2) Abdominal pain Code(s): R10.9 - UNSPECIFIED ABDOMINAL PAIN (3) Coumadin toxicity Code(s): T45.511A - POISONING BY ANTICOAGULANTS, ACCIDENTAL, INIT (4) Anemia Code(s): D64.9 - ANEMIA, UNSPECIFIED Qualifiers: Anemia type: unspecified type Qualified Code(s): D64.9 - Anemia, unspecified (5) 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 - SECONDARY MALIGNANT NEOPLASM OF RETROPERITON AND PERITONEUM
[2017-05-22] MEDS: WARFARIN NA 2 MG TABLET (UD) PO SCH (17:55)
--- NOTE | 2017-05-22 20:08 | PN ---
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 (short form) - Note 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: Patient seen and examined continue to have pain Last Vital Signs Temp Pulse Resp BP Pulse Ox 100.1 F H 96 H 20 86/51 99 05/22/17 19:08 05/22/17 19:08 05/22/17 19:08 05/22/17 19:08 05/22/17 09:00 Cor: RSR, No murmurs, No gallops Lungs: Clear to P&A Abd: Soft, Normal bowel sounds, No organomegaly Ext:No significant edema Abnormal Lab Results 05/18/17 05/22/17 15:10 06:43 PT with INR 23.40 H INR 2.07 H Crossmatch See Detail Active Medications Generic Name Dose Route Start Last Admin Trade Name Freq PRN Reason Stop Dose Admin Acetaminophen 650 mg 05/19/17 05:07 05/22/17 14:56 Tylenol - PO 650 mg Q6H PRN Administration FEVER Docusate Sodium 100 mg 05/20/17 03:03 Colace - PO BID PRN CONSTIPATION Fentanyl 1 patch/ Fentanyl 1 2 patch 05/20/17 17:15 05/20/17 17:32 patch TD 2 patch Q72H IZABELLA Administration Ferrous Sulfate 325 mg 05/19/17 08:00 05/22/17 16:49 Feosol - PO 325 mg BIDWM IZABELLA Administration Gabapentin 100 mg 05/20/17 22:00 05/22/17 14:36 Neurontin - PO 100 mg TID IZABELLA Administration Hydromorphone HCl 1 mg 05/20/17 14:42 05/22/17 14:36 Dilaudid Injection - IVPUSH 1 mg Q3H PRN Administration PAIN LEVEL 6-10 Piperacillin Sod/Tazobactam 100 mls @ 200 mls/hr 05/19/17 10:00 05/22/17 09: 46 Sod 4.5 gm/ Dextrose IVPB 200 mls/hr Q8H-IV IZABELLA Administration Sodium Chloride 1,000 mls @ 100 mls/hr 05/21/17 09:21 05/22/17 09:46 Normal Saline - IV Not Given ASDIR IZABELLA Vancomycin HCl 1,000 mg/ 250 mls @ 166.667 mls/hr 05/21/17 17:00 05/22/17 16: 49 Dextrose IVPB 166.667 mls/hr BID@0500,1700 IZABELLA Administration Miscellaneous 1 each 05/18/17 22:34 Duragesic Patch Waste TD PRN PRN PAIN Polyethylene Glycol 17 gm 05/21/17 10:00 05/22/17 09:48 Miralax (For Daily Use) - PO 17 gm DAILY IZABELLA Administration Warfarin Sodium 2 mg 05/20/17 18:00 05/22/17 17:55 Coumadin - PO 2 mg DAILY@1800 IZABELLA Administration A/P Malignant pseudomyxoma peritonei diagnosed 2008, s/p FOLFOX, 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 s/p FOLFIRI/avastin s/p HIPEC x2, debulking surgeries --last being 02/13 Slowly progressive disease Had refused clinical trials, chemotherapy and most recently targeted therapy with olaparib. He understands his prognosis and ongoing discussions regarding goals of care pain control antibiotics discussed with Dr. calixto--repeating CT and touching pace with surgical saba at [facility] ongoing discussions regarding goals of care, code status, given advanced malignancy
--- NOTE | 2017-05-22 22:13 | HOSP ---
Subjective - Review of Symptoms Subjective: Called by radiology Dr. Castrejon Re CT ABDOMEN Rim Enhancing enlargement Left flank/Tumor with abscess On Abx Will Get IR for possible drainage Physical Examination Vital Signs: Vital Signs Temperature 100.1 F H 05/22/17 19:08 Pulse Rate 96 H 05/22/17 19:08 Respiratory Rate 20 05/22/17 19:08 Blood Pressure 86/51 05/22/17 19:08 O2 Sat by Pulse Oximetry (%) 99 05/22/17 09:00 Labs: CBC, BMP 05/21/17 06:00 05/21/17 06:00
[2017-05-23] MEDS ORDERED: PT OWN MED DRAWER 7, Y5N ONE ×2 (01:09→05:55)
[2017-05-23] MEDS: HYDROmorphone HCL CARPU-JECT 2 MG/1 ML DISP.SYRIN IVPUSH PRN ×5 (01:15→22:40)
[2017-05-23] MEDS: PIPERACILLIN/TAZOB 4.5 GM 4.5 GM in DEXTROSE 5%-WATER - 100 ML IVPB SCH ×3 (02:20→17:34)
[2017-05-23] MEDS: GABAPENTIN 100 MG CAPSULE (FP) PO SCH ×3 (06:11→21:54)
[2017-05-23] MEDS: VANCOMYCIN 1,000 MG in DEXTROSE 5%-WATER - 250 ML IVPB SCH ×2 (06:27→17:34)
[2017-05-23] MEDS: ACETAMINOPHEN 325 MG TABLET (FP) PO PRN ×3 (06:27→21:55)
[2017-05-23] MEDS: FERROUS SO4 325 MG TABLET (FP) PO SCH ×2 (08:45→17:34)
[2017-05-23] MEDS: POLYETHYLENE GLYCOL 3350 119 GM BTL PO SCH (09:36)
[2017-05-23] MEDS: SODIUM CHLORIDE 1,000 ML IV SCH (12:43)
--- NOTE | 2017-05-23 14:10 | PN ---
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 Chief Complaint: awake alert in bed - Current Medication List Current Medications: Active Medications Acetaminophen (Tylenol -) 650 mg PO Q6H PRN PRN Reason: FEVER Last Admin: 05/23/17 06:27 Dose: 650 mg Docusate Sodium (Colace -) 100 mg PO BID PRN PRN Reason: CONSTIPATION Fentanyl 1 patch/ Fentanyl 1 (patch) 2 patch TD Q72H [facility] Last Admin: 05/20/17 17:32 Dose: 2 patch Ferrous Sulfate (Feosol -) 325 mg PO BIDWM [facility] Last Admin: 05/23/17 08:45 Dose: 325 mg Gabapentin (Neurontin -) 100 mg PO TID [facility] Last Admin: 05/23/17 06:11 Dose: 100 mg Hydromorphone HCl (Dilaudid Injection -) 1 mg IVPUSH Q3H PRN PRN Reason: PAIN LEVEL 6-10 Last Admin: 05/23/17 12:43 Dose: 1 mg Piperacillin Sod/Tazobactam (Sod 4.5 gm/ Dextrose) 100 mls @ 200 mls/hr IVPB Q8H-IV [facility] Last Admin: 05/23/17 09:35 Dose: 200 mls/hr Sodium Chloride (Normal Saline -) 1,000 mls @ 100 mls/hr IV ASDIR [facility] Last Admin: 05/23/17 12:43 Dose: 100 mls/hr Vancomycin HCl 1,000 mg/ (Dextrose) 250 mls @ 166.667 mls/hr IVPB BID@0500, 1700 [facility] Last Admin: 05/23/17 06:27 Dose: 166.667 mls/hr Miscellaneous (Duragesic Patch Waste) 1 each TD PRN PRN PRN Reason: PAIN Polyethylene Glycol (Miralax (For Daily Use) -) 17 gm PO DAILY [facility] Last Admin: 05/23/17 09:36 Dose: 17 gm Warfarin Sodium (Coumadin -) 2 mg PO DAILY@1800 [facility] Last Admin: 05/22/17 17:55 Dose: 2 mg - Objective Vital Signs: Vital Signs Temperature 100.8 F H 05/23/17 09:50 Pulse Rate 105 H 05/23/17 09:50 Respiratory Rate 18 05/23/17 09:50 Blood Pressure 93/35 05/23/17 09:50 O2 Sat by Pulse Oximetry (%) 95 05/23/17 09:00 Constitutional: Yes: Calm, Thin Cardiovascular: Yes: Regular Rate and Rhythm, S1, S2 Respiratory: Yes: CTA Bilaterally Gastrointestinal: Yes: Tenderness (on left side firm) Labs: CBC, BMP 05/21/17 06:00 05/21/17 06:00 INR, PTT INR 2.07 (0.82-1.09) H 05/22/17 06:43 Problem List - Problems (1) Fever Assessment/Plan: iv abx lactic acid now trending down temp 100.[address] scan done abscess formation noted will need drain by IR- explained to patient that if it is placed it will be mcfp drain and then cannot go to hospice so today the procedure was cancelled as he wants to discuss with Dr sprague first Code(s): R50.9 - FEVER, UNSPECIFIED (2) Abdominal pain Assessment/Plan: ct scan report noted office number:[phone] dr Danilo Bustillos surgical oncologist at [facility] called his cell [phone] and left a message to call me back ID on board iv abx per ID ct scan shows abcess- plan for drainage by IR deferred for now until patient discuss with Dr sprague bc once drain is placed then hospice will not be possible surgery evaluation noted as well Code(s): R10.9 - UNSPECIFIED ABDOMINAL PAIN (3) Coumadin toxicity Assessment/Plan: heme on board on Coumadin s/p vitamin K INR is in 2 range Code(s): T45.511A - POISONING BY ANTICOAGULANTS, ACCIDENTAL, INIT (4) Malignant pseudomyxoma peritonei Assessment/Plan: oncology evaluation worsening progressive disease noted on CT scan ?palliative treatment/chemo renetta await for oncology to speak to patient tonight and then decide plan of care palliative team consult Code(s): C78.6 - SECONDARY MALIGNANT NEOPLASM OF RETROPERITON AND PERITONEUM (5) Anemia Assessment/Plan: got prbc h/h improved on ferrous sulfate heme on board stool occult pending Code(s): D64.9 - ANEMIA, UNSPECIFIED Qualifiers: Anemia type: unspecified type Qualified Code(s): D64.9 - Anemia, unspecified
[2017-05-23 16:57] LABS: INR 2.54 (0.82-1.09); PROTHROMBIN TIME (PATIENT) 28.7 SEC (9.98-11.88)
--- NOTE | 2017-05-23 16:59 | PN ---
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 (short form) - Note 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: remains with intermittent fevers continued flank pain on left -currently resting comfortably no vomiting, taking some po intermittently no cough, no sob feels the same as yesterday Vital Signs Period Temp Pulse Resp BP Sys/Conte Pulse Ox Last 24 Hr 99.7 F-101 F 96-109 18-20 86-102/35-70 95-99 cor-rrr lungs clear abd soft,left flank is firm, indurated and tender ext no edema ct scan with interval enlargement of left flank structure CBC, BMP 05/21/17 06:00 05/21/17 06:00 Microbiology 05/18/17 15:10 Blood - Peripheral Venous Blood Culture - Final NO GROWTH AFTER 5 DAYS INCUBATION 05/18/17 15:10 Blood - Peripheral Venous Blood Culture - Final NO GROWTH AFTER 5 DAYS INCUBATION 05/19/17 03:00 Urine - Urine Clean Catch Urine Culture - Final NO GROWTH OBTAINED a/p fevers-suspected necrotic/infected tumor left flank, ?abscess component leukocytosis malignant pseudomyxoma peritoneii palliative care being discussed not much to offer unless surgery or drainage is being entertained- awaiting oncology f/u continue vancomycin and zosyn repeat labs in am Problem List - Problems (1) Fever Code(s): R50.9 - FEVER, UNSPECIFIED (2) Abdominal pain Code(s): R10.9 - UNSPECIFIED ABDOMINAL PAIN (3) Coumadin toxicity Code(s): T45.511A - POISONING BY ANTICOAGULANTS, ACCIDENTAL, INIT (4) Anemia Code(s): D64.9 - ANEMIA, UNSPECIFIED Qualifiers: Anemia type: unspecified type Qualified Code(s): D64.9 - Anemia, unspecified (5) 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 - SECONDARY MALIGNANT NEOPLASM OF RETROPERITON AND PERITONEUM
[2017-05-23] MEDS ORDERED: fentaNYL 25mcg/hr PATCH.TD72 ONE (17:31)
[2017-05-23] MEDS ORDERED: fentaNYL 12mcg/hr PATCH.TD72 ONE (17:31)
[2017-05-23] MEDS: WARFARIN NA 2 MG TABLET (UD) PO SCH (17:34)
[2017-05-23] MEDS: FENTANYL TD SCH (17:34)
--- NOTE | 2017-05-23 18:44 | PN ---
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 (short form) - Note 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: Patient seen and examined continues to have pain continues to be febrile Last Vital Signs Temp Pulse Resp BP Pulse Ox 100.9 F H 100 H 18 93/58 95 05/23/17 17:16 05/23/17 17:16 05/23/17 17:16 05/23/17 17:16 05/23/17 09:00 Cor: RSR, No murmurs, No gallops Lungs: Clear to P&A Abd: Soft, Normal bowel sounds, tumor masses epigastrium, Lt. flank Ext:No significant edema Abnormal Lab Results 05/23/17 15:20 PT with INR 28.70 H INR 2.54 H Active Medications Generic Name Dose Route Start Last Admin Trade Name Freq PRN Reason Stop Dose Admin Acetaminophen 650 mg 05/19/17 05:07 05/23/17 14:50 Tylenol - PO 650 mg Q6H PRN Administration FEVER Docusate Sodium 100 mg 05/20/17 03:03 Colace - PO BID PRN CONSTIPATION Fentanyl 1 patch/ Fentanyl 1 2 patch 05/20/17 17:15 05/23/17 17:34 patch TD 2 patch Q72H [facility] Administration Ferrous Sulfate 325 mg 05/19/17 08:00 05/23/17 17:34 Feosol - PO 325 mg BIDWM IZABELLA Administration Gabapentin 100 mg 05/20/17 22:00 05/23/17 14:50 Neurontin - PO 100 mg TID [facility]LL[facility] Administration Hydromorphone HCl 3 mg 05/23/17 18:56 05/23/17 19:03 Dilaudid Injection - IVPUSH 3 mg Q3H PRN Administration BACK PAIN Piperacillin Sod/Tazobactam 100 mls @ 200 mls/hr 05/19/17 10:00 05/23/17 17: 34 Sod 4.5 gm/ Dextrose IVPB 200 mls/hr Q8H-IV [facility] Administration Sodium Chloride 1,000 mls @ 100 mls/hr 05/21/17 09:21 05/23/17 12:43 Normal Saline - IV 100 mls/hr ASDIR [facility] Administration Vancomycin HCl 1,000 mg/ 250 mls @ 166.667 mls/hr 05/21/17 17:00 05/23/17 17: 34 Dextrose IVPB 166.667 mls/hr BID@0500,1700 [facility] Administration Miscellaneous 1 each 05/18/17 22:34 Duragesic Patch Waste TD PRN PRN PAIN Polyethylene Glycol 17 gm 05/21/17 10:00 05/23/17 09:36 Miralax (For Daily Use) - PO 17 gm DAILY [facility] Administration Warfarin Sodium 2 mg 05/20/17 18:00 05/23/17 17:34 Coumadin - PO 2 mg DAILY@1800 [facility] Administration A/P Malignant pseudomyxoma peritonei diagnosed 2008, s/p FOLFOX, 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 s/p FOLFIRI/avastin s/p HIPEC x2, debulking surgeries --last being 02/13 Slowly progressive disease Had refused chemotherapy,clinical trials and most recently targeted therapy with olaparib. discussed with IR, ID , primary teams and Dr. Neal at [facility]. Discussed with patient about concerns for impending sepsis, as he is persistently febrile on antibiotics and CT scan is worsening. discussed that its a very difficult situation with tumor/abscess and impending sepsis. discussed that I had discussed with Dr. Neal and transfer to [facility] is an option with consideration of IR drainage there. Also discussed IR drainage here. discussed the possibility of controlling infection/sepsis atleast temporarily for a period of time with drainage of abscess and also discussed complications with drainage of tumor abscess including nonhealing,leaking cutaneous wound/ fistula. PAtient and his understand the above complicated, scenario and poor prognosis. He does not want to make the decision at this time and wants to think about it. PAtient is on coumadin. Would monitor INR closely. Will need to coordinatewith IR team regarding INR incase patient decides to have the drainage procedure done
[2017-05-24] MEDS: SODIUM CHLORIDE 1,000 ML IV SCH ×2 (02:49→09:49)
[2017-05-24] MEDS: PIPERACILLIN/TAZOB 4.5 GM 4.5 GM in DEXTROSE 5%-WATER - 100 ML IVPB SCH ×3 (02:49→19:51)
[2017-05-24] MEDS: ACETAMINOPHEN 325 MG TABLET (FP) PO PRN (05:22)
[2017-05-24] MEDS: GABAPENTIN 100 MG CAPSULE (FP) PO SCH ×2 (05:23→15:00)
[2017-05-24] MEDS: HYDROmorphone HCL CARPU-JECT 2 MG/1 ML DISP.SYRIN IVPUSH PRN ×3 (05:23→15:05)
[2017-05-24] MEDS: VANCOMYCIN 1,000 MG in DEXTROSE 5%-WATER - 250 ML IVPB SCH ×3 (05:41→17:30)
[2017-05-24 07:41] LABS: BASO % 0.2 % (0-2.0); EOS % 1.3 % (0-4.5); HEMATOCRIT 24.9 % (35.4-49); HEMOGLOBIN 7.4 GM/dL (11.7-16.9); LYMPH % 4.1 % (8-40); MCH 22.6 pg (25.7-33.7); MCHC 29.8 g/dl (32.0-35.9); MEAN CELL VOLUME 75.8 fl (80-96); MEAN PLT VOLUME 8.2 fl (7.5-11.1); MONO % 5.3 % (3.8-10.2); NEUT % 89.1 % (42.8-82.8); PLATELET COUNT 1023 K/MM3 (134-434); RBC 3.28 M/mm3 (4.00-5.60); RDW 21.1 % (11.9-15.9); WHITE BLOOD COUNT 28.1 K/mm3 (4.0-10.0)
[2017-05-24 07:47] LABS: CHLORIDE 101 mmol/L (98-107); POTASSIUM 4.8 mmol/L (3.5-5.1); SODIUM 137 mmol/L (136-145)
[2017-05-24 07:57] LABS: ALBUMIN 1.3 g/dl (3.4-5.0); ALK PHOS 130 U/L (45-117); ANION GAP 8 (8-16); BILIRUBIN,TOTAL 0.2 mg/dL (0.2-1.0); BLOOD UREA NITROGEN 6 mg/dL (7-18); CALCIUM 7.7 mg/dL (8.5-10.1); CO2 28 mmol/L (21-32); CREATININE 0.5 mg/dL (0.7-1.3); GLUCOSE,RANDOM 103 mg/dL (74-106); SGOT/AST 13 U/L (15-37); SGPT/ALT 10 U/L (12-78); TOT PROT 5.1 g/dl (6.4-8.2)
[2017-05-24] MEDS: FERROUS SO4 325 MG TABLET (FP) PO SCH ×2 (08:00→19:51)
[2017-05-24 08:14] LABS: INR 2.45 (0.82-1.09); PROTHROMBIN TIME (PATIENT) 27.7 SEC (9.98-11.88)
[2017-05-24 08:15] LABS: ACTIVATED PTT 36.5 SECONDS (26.9-34.4)
--- NOTE | 2017-05-24 09:02 | DS ---
Physical Examination Vital Signs: Vital Signs Temperature 99.4 F 05/24/17 06:10 Pulse Rate 97 H 05/24/17 06:10 Respiratory Rate 20 05/24/17 06:10 Blood Pressure 94/50 05/24/17 06:10 O2 Sat by Pulse Oximetry (%) 98 05/23/17 21:00 Findings/Remarks: SAME COMPLAINTS Cardiovascular: Yes: Regular Rate and Rhythm Respiratory: Yes: Regular, CTA Bilaterally Gastrointestinal: Yes: Pulsatile Mass, Tenderness Labs: CBC, BMP 05/24/17 06:00 05/24/17 06:00 Discharge Summary Reason For Visit: WEAKNESS/LOW HEMOGLOBIN/PSEUDOMYXOMA Current Active Problems Abdominal pain (Acute) Coumadin toxicity (Acute) Malignant pseudomyxoma peritonei (Acute) Supratherapeutic INR (Acute) Symptomatic anemia (Acute) Hospital Course: - Problems (1) Fever Assessment/Plan: iv abx lactic acid now trending down temp 100.[address] scan done abscess formation noted will need drain by IR- explained to patient that if it is placed it will be intermediate designer drain and then cannot go to hospice so today the procedure was cancelled as he wants to discuss with Dr sprague first PT AGREES TO BE TRANSFERRED TO [facility] Code(s): R50.9 - FEVER, UNSPECIFIED (2) Abdominal pain Assessment/Plan: ct scan report noted office number:[phone] dr Danilo Bustillos surgical oncologist [facility] called his cell [phone] and left a message to call me back ID on board iv abx per ID ct scan shows abcess- plan for drainage by IR deferred for now until patient discuss with Dr sprague bc once drain is placed then hospice will not be possible surgery evaluation noted as well Code(s): R10.9 - UNSPECIFIED ABDOMINAL PAIN (3) Coumadin toxicity Assessment/Plan: heme on board on Coumadin s/p vitamin K INR is in 2 range Code(s): T45.511A - POISONING BY ANTICOAGULANTS, ACCIDENTAL, INIT (4) Malignant pseudomyxoma peritonei Assessment/Plan: oncology evaluation worsening progressive disease noted on CT scan ?palliative treatment/chemo renetta await for oncology to speak to patient tonight and then decide plan of care palliative team consult Code(s): C78.6 - SECONDARY MALIGNANT NEOPLASM OF RETROPERITON AND PERITONEUM (5) Anemia Assessment/Plan: got prbc h/h improved on ferrous sulfate heme on board stool occult pending Code(s): D64.9 - ANEMIA, UNSPECIFIED Qualifiers: Anemia type: unspecified type Qualified Code(s): D64.9 - Anemia, unspecified (6) Severe malnutrition Assessment/Plan: monitor diet follow labs Code(s): E43 - UNSPECIFIED SEVERE PROTEIN-CALORIE MALNUTRITION Condition: Guarded - Instructions Referrals: Yuliana Addison MD [Primary Care Provider] - Disposition: TRANSFER ACUTE CARE/OTHER HOSP - Home Medications Comprehensive Discharge Medication List: Ambulatory Orders Warfarin Na [Coumadin -] 2.5 mg PO DAILY@1800 #30 tablet MDD 1 10/11/16 Tramadol HCl 50 mg PO QID 02/21/17 FENTANYL 12mcg PATCH [DURAGESIC 12mcg PATCH -] 1 patch TD Q72H #10 patch MDD 1 02/24/17 Tramadol HCl [Ultram -] 50 mg PO Q6H PRN #120 tablet MDD 4 02/24/17
[2017-05-24] MEDS: POLYETHYLENE GLYCOL 3350 119 GM BTL PO SCH (10:00)
[2017-05-24 14:51] VITALS: BP 98/53; PULSE 105; TEMP 102
--- NOTE | 2017-05-24 17:20 | PN ---
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 (short form) - Note 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: remains with intermittent fevers continued flank pain on left -currently resting comfortably vomitting today no cough, no sob receiving blood transfusion Vital Signs Period Temp Pulse Resp BP Sys/Conte Pulse Ox Last 24 Hr 99.0 F-102 F 94-105 18-20 91-104/44-57 98 cor-rrr lungs decreased bs at bases abd firm left flank warm and indurated ext no edema CBC, BMP 05/24/17 06:00 05/24/17 06:00 Microbiology 05/18/17 15:10 Blood - Peripheral Venous Blood Culture - Final NO GROWTH AFTER 5 DAYS INCUBATION 05/18/17 15:10 Blood - Peripheral Venous Blood Culture - Final NO GROWTH AFTER 5 DAYS INCUBATION 05/19/17 03:00 Urine - Urine Clean Catch Urine Culture - Final NO GROWTH OBTAINED a/p fevers-suspected necrotic/infected tumor left flank, abscess- d/w Dr Addison- for transfer to [place] tonight leukocytosis malignant pseudomyxoma peritoneii palliative care being discussed not much to offer unless surgery or drainage is being entertained- continue vancomycin and zosyn d/w Dr Addison Problem List - Problems (1) Fever Code(s): R50.9 - FEVER, UNSPECIFIED (2) Abdominal pain Code(s): R10.9 - UNSPECIFIED ABDOMINAL PAIN (3) Coumadin toxicity Code(s): T45.511A - POISONING BY ANTICOAGULANTS, ACCIDENTAL, INIT (4) Anemia Code(s): D64.9 - ANEMIA, UNSPECIFIED Qualifiers: Anemia type: unspecified type Qualified Code(s): D64.9 - Anemia, unspecified (5) 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 - SECONDARY MALIGNANT NEOPLASM OF RETROPERITON AND PERITONEUM
[2017-05-24] MEDS ORDERED: VANCOMYCIN 1,250 MG in DEXTROSE 5%-WATER - 250 ML IVPB SCH (18:00)
== END 2017-05-24 21:48 | disposition short-term general hospital (02) | DRG 374 ==
LOC: JER 13:08 → JERBED 21:32 → J7W 05-19 17:55
PROVIDERS: ADMIT Internal Medicine; ATTEND Family Medicine
PROC: 30233N1 Transfusion of Nonautologous Red Blood Cells into Peripheral Vein, Percutaneous Approach (ICD-10-PCS; principal; 2017-05-18)
PROC: 30233L1 Transfusion of Nonautologous Fresh Plasma into Peripheral Vein, Percutaneous Approach (ICD-10-PCS; 2017-05-19)
PROC: 30233K1 Transfusion of Nonautologous Frozen Plasma into Peripheral Vein, Percutaneous Approach (ICD-10-PCS; 2017-05-19)
DX: C78.6 Secondary malignant neoplasm of retroperitoneum and peritoneum (principal); E43 Unspecified severe protein-calorie malnutrition; R64 Cachexia; Z68.1 Body mass index [BMI] 19.9 or less, adult; D64.9 Anemia, unspecified; R50.9 Fever, unspecified; R10.9 Unspecified abdominal pain; D72.829 Elevated white blood cell count, unspecified; R79.1 Abnormal coagulation profile
CPT/HCPCS: 36415; 36430; 71045-TC; 74177-TC; 80048; 80053; 81003; 82550; 83605; 83735; 84100; 84484; 85025; 85610; 85730; 86850; 86900; 86901; 86922; 87040; 87086; 93005; 93010; 99284-25; G0480; P9017; P9038; P9058

== ENCOUNTER 2017-07-04 22:32 | Inpatient (IN) | payer OTHER ==
[2017-07-04] MEDS: SODIUM CHLORIDE 1,000 ML IV SCH (23:31)
[2017-07-05 01:14] LABS: BASO % 1.2 % (0-2.0); LYMPH % 22.4 % (8-40); MCH 23.9 pg (25.7-33.7); MCHC 31.1 g/dl (32.0-35.9); MEAN PLT VOLUME 8.3 fl (7.5-11.1); MONO % 9.9 % (3.8-10.2); NEUT % 63.5 % (42.8-82.8); PLATELET COUNT 902 K/MM3 (134-434); RBC 2.53 M/mm3 (4.00-5.60); RDW 21.6 % (11.9-15.9); URINE APPEARANCE CLEAR; URINE BILIRUBIN NEGATIVE (NEGATIVE); URINE BLOOD NEGATIVE (NEGATIVE); URINE COLOR YELLOW; URINE GLUCOSE (UA) NEGATIVE (NEGATIVE); URINE KETONE TRACE (NEGATIVE); URINE LEUK ESTERASE NEGATIVE (NEGATIVE); URINE NITRITE NEGATIVE (NEGATIVE); URINE PROTEIN NEGATIVE (NEGATIVE); URINE UROBILINOGEN 4.0 E.U/dl mg/dL (0.2-1.0); WHITE BLOOD COUNT 8.9 K/mm3 (4.0-10.0)
[2017-07-05 01:19] LABS: ADD RBC MORPHOLOGY YES; HEMATOCRIT 19.5 % (35.4-49)
--- NOTE | 2017-07-05 01:21 | PDOC ---
History of Present Illness - General History Source: Patient Exam Limitations: No Limitations - History of Present Illness Initial Comments: 07/05/17 01:54 47 year old male with past medical history of malignant pseudomyoxma peritonei who presents to the ED with complaints of increasing weakness and abdominal pain that is more pronounced than his chronic symptoms. He reports being bed ridden for the past week. The patient denies any associated nausea, vomiting, diarrhea, melena, hematochezia, cough, chest pain, shortness of breath or urinary symptoms. Denies any fevers or chills. PCP: Dr. Addison Allergies: NKDA <Sameera Whittington - Last Filed: 07/05/17 02:00> <Aura García - Last Filed: 07/05/17 02:36> - General Chief Complaint: Pain Stated Complaint: ABD PAIN Time Seen by Provider: 07/04/17 22:41 Past History <Sameera Whittington - Last Filed: 07/05/17 02:00> - Past Medical History Anemia: Yes Asthma: No Cancer: Yes (APPENDICEAL CA, 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) Cardiac Disorders: No CVA: No COPD: No CHF: No DVT: Yes (LLE BLOOD CLOT 5 YEARS AGO) Dementia: No Diabetes: No GI Disorders: Yes (C-DIFF 2013) Disorders: Yes (CDIFF 2013) HTN: No Hypercholesterolemia: No Liver Disease: No Seizures: No Thyroid Disease: No - Surgical History Abdominal Surgery: Yes (spleenectomy, COLECTOMY,) Appendectomy: Yes Cardiac Surgery: No Cholecystectomy: No GI Surgery: Yes (for stomach cancer--pnp) Lung Surgery: No Neurologic Surgery: No Orthopedic Surgery: No - Immunization History Immunization Up to Date: Yes - Suicide/Smoking/Psychosocial Hx Smoking Status: No Smoking History: Never smoked Have you smoked in the past 12 months: No Number of Cigarettes Smoked Daily: 0 Cigars Per Day: 0 Information on smoking cessation initiated: No Hx Alcohol Use: No Drug/Substance Use Hx: No Substance Use Type: None Hx Substance Use Treatment: No <Aura García - Last Filed: 07/05/17 02:36> - Past Medical History Allergies/Adverse Reactions: Allergies Allergy/AdvReac Type Severity Reaction Status Date / Time No Known Allergies Allergy Verified 07/04/17 22:52 Home Medications: Ambulatory Orders Warfarin Na [Coumadin -] 2.5 mg PO DAILY@1800 #30 tablet MDD 1 10/11/16 Tramadol HCl 50 mg PO QID 02/21/17 FENTANYL 12mcg PATCH [DURAGESIC 12mcg PATCH -] 1 patch TD Q72H #10 patch MDD 1 02/24/17 traMADol HCL [Ultram -] 50 mg PO Q6H PRN #120 tablet MDD 4 02/24/17 Review of Systems - Review of Systems Able to Perform ROS?: Yes Is the patient limited Austrian proficient: No Constitutional: Yes: Weakness, Unintentional Wgt. Loss HEENTM: Yes: Difficulty Swallowing Respiratory: No: Symptoms reported, See HPI, Cough, Orthopnea, Shortness of Breath, SOB with Exertion, SOB at Rest, Stridor, Wheezing, Productive cough, Hemoptysis, Other Cardiac (ROS): Yes: Other (tachycardia) ABD/GI: Yes: Difficulty Swallowing (abdominal pain), Other (abdomianl pain) : No: Symptoms Reported, See HPI, Burning, Dysuria, Discharge, Frequency, Flank Pain, Hematuria, Incontinence, Pain, Urgency, Testicular Mass, Testicular Swelling, Lesions, Testicular Pain, Other Musculoskeletal: Yes: Muscle Weakness Integumentary: Yes: Dryness Neurological: No: Symptoms reported, See HPI, Headache, Numbness, Paresthesia, Pre-Existing Deficit, Seizure, Tingling, Tremors, Weakness, Unsteady Gait, Ataxia, Dizziness, Other Psychiatric: Yes: Anxiety, Depression, Frequent Crying, Stressors, Sleep Pattern Change, Emotional Problems, Mood Swings, Change in Appetite, Other Endocrine: Yes: Intolerance to Cold Hematologic/Lymphatic: Yes: Anemia <Aura García - Last Filed: 07/05/17 02:36> *Physical Exam - Vital Signs Last Vital Signs Temp Pulse Resp BP Pulse Ox 99.3 F 123 H 14 104/74 100 07/04/17 22:53 07/04/17 22:53 07/04/17 22:53 07/04/17 22:53 07/04/17 22:53 - Physical Exam Comments: 07/05/17 02:01 GENERAL: Cachectic. Awake and alert. No acute distress. HEENT: Normocephalic, atraumatic. Temporal wasting. PERRLA, EOMI. No conjunctival pallor. Sclera are non-icteric. Moist mucous membranes. Oropharynx is clear. NECK: Supple. Full ROM. No JVD. Carotid pulses 2+ and symmetric, without bruits. No thyromegaly. No lymphadenopathy. CARDIOVASCULAR: Tachycardic. No murmurs, rubs, or gallops. Distal pulses are 2+ and symmetric. PULMONARY: No evidence of respiratory distress. Lungs clear to auscultation bilaterally. No wheezing, rales or rhonchi. ABDOMINAL: Soft. Non-distended. No rebound or guarding. Multiple palpable masses on midline of abdomen. Hyperactive bowel sounds. MUSCULOSKELETAL Normal range of motion at all joints. No bony deformities or tenderness. No CVA tenderness. EXTREMITIES: No cyanosis. No clubbing. No edema. No calf tenderness. SKIN: Warm and dry. Normal capillary refill. No rashes. No jaundice. NEUROLOGICAL: Alert, awake, appropriate. Cranial nerves 2-12 intact. No deficits to light touch and temperature in face, upper extremities and lower extremities. No motor deficits in the in face, upper extremities and lower extremities. Normoreflexic in the upper and lower extremities. Normal speech. Toes are down-going bilaterally. Gait is normal without ataxia. PSYCHIATRIC: Cooperative. Good eye contact. Appropriate mood and affect. <Sameera Whittington - Last Filed: 07/05/17 02:00> - Vital Signs Last Vital Signs Temp Pulse Resp BP Pulse Ox 99.3 F 123 H 14 104/74 100 07/04/17 22:53 07/04/17 22:53 07/04/17 22:53 07/04/17 22:53 07/04/17 22:53 <Aura García - Last Filed: 07/05/17 02:36> ED Treatment Course - LABORATORY CBC & Chemistry Diagram: 07/05/17 00:46 07/05/17 00:46 - ADDITIONAL ORDERS Additional order review: Laboratory Results 07/05/17 07/05/17 07/05/17 01:42 00:46 00:46 Sodium 140 Potassium 4.7 Chloride 104 Carbon Dioxide 27 Anion Gap 9 BUN 15 D Creatinine 0.4 L Creat Clearance w eGFR > 60 Random Glucose 75 D Calcium 8.3 L Total Bilirubin 0.2 AST 11 L ALT 7 L D Alkaline Phosphatase 76 D Total Protein 6.2 L D Albumin 2.2 L D Lipase 129 Urine Color Yellow Urine Appearance Clear Urine pH 5.0 Ur Specific [place] 1.024 Urine Protein Negative Urine Glucose (UA) Negative Urine Ketones Trace H Urine Blood Negative Urine Nitrite Negative Urine Bilirubin Negative Urine Urobilinogen 4.0 e.u/dl Ur Leukocyte Esterase Negative Crossmatch See Detail 07/05/17 00:46 RBC 2.53 L D MCV 77.0 L MCHC 31.1 L RDW 21.6 H MPV 8.3 Neutrophils % 63.5 D Lymphocytes % 22.4 D Monocytes % 9.9 D Eosinophils % 3.0 D Basophils % 1.2 D - Medications Given in the ED: ED Medications Discontinued Medications Generic Name Dose Route Start Last Admin Trade Name Jyothi PRN Reason Stop Dose Admin Morphine Sulfate 4 mg 07/05/17 01:32 07/05/17 01:37 Morphine Injection - IVPUSH 07/05/17 01:33 4 mg ONCE ONE Administration Ondansetron HCl 4 mg 07/05/17 01:33 07/05/17 01:37 Zofran Injection IVPUSH 07/05/17 01:34 4 mg ONCE ONE Administration <Sameera Whittington - Last Filed: 07/05/17 02:00> - LABORATORY CBC & Chemistry Diagram: 07/05/17 00:46 07/05/17 00:46 - ADDITIONAL ORDERS Additional order review: 07/05/17 00:46 RBC 2.53 L D MCV 77.0 L MCHC 31.1 L RDW 21.6 H MPV 8.3 Neutrophils % 63.5 D Lymphocytes % 22.4 D Monocytes % 9.9 D Eosinophils % 3.0 D Basophils % 1.2 D <Aura García - Last Filed: 07/05/17 02:36> Medical Decision Making - Medical Decision Making 07/05/17 02:04 Microblog sent to [facility]. Call was returned promptly and case was discussed. <Sameera Whittington - Last Filed: 07/05/17 02:00> - Medical Decision Making 07/05/17 01:22 47-year-old male brought in by ambulance for abdominal pain and increasing weakness DENIES chest pain or shortness of breath, afebrile, pulse ox=99 % on room air. ekh is NSR @ 97 bpm This patient is known to our facility. He has a history of malignant pseudomyxoma peritonei, anemia 07/05/17 02:32 pt found to have hbg=9 and hct 19 and will be admitted for transfusion <Aura García - Last Filed: 07/05/17 02:36> *DC/Admit/Observation/Transfer - Attestations Scribe Attestion: 07/05/17 02:03 Documentation prepared by Sameera Whittington, acting as medical record coder for Aura García MD. <Sameera Whittington - Last Filed: 07/05/17 02:00> - Discharge Dispostion Admit: Yes <Aura García - Last Filed: 07/05/17 02:36> Diagnosis at time of Disposition: Malignant pseudomyxoma peritonei, Weight loss, Generalized weakness Abdominal pain Qualifiers: Abdominal location: generalized Qualified Code(s): R10.84 - Generalized abdominal pain Anemia Qualifiers: Anemia type: unspecified type Qualified Code(s): D64.9 - Anemia, unspecified - Referrals Referrals: Yuliana Addison MD [Primary Care Provider] - - Patient Instructions - Post Discharge Activity
[2017-07-05] MEDS ORDERED: ONDANSETRON 4 MG/2 ML VIAL ONE (01:30)
[2017-07-05] MEDS ORDERED: MORPHINE SULFATE 10 MG/1 ML *VIAL ONE (01:30)
[2017-07-05] MEDS ORDERED: morphine CARPU-JECT 4 MG/1 ML DISP.SYRIN IVPUSH ONE (01:32)
[2017-07-05] MEDS ORDERED: ONDANSETRON 4 MG/2 ML VIAL IVPUSH ONE (01:33)
[2017-07-05 01:42] LABS: ALBUMIN 2.2 g/dl (3.4-5.0); ALK PHOS 76 U/L (45-117); ANION GAP 9 (8-16); BILIRUBIN,TOTAL 0.2 mg/dL (0.2-1.0); BLOOD UREA NITROGEN 15 mg/dL (7-18); CALCIUM 8.3 mg/dL (8.5-10.1); CHLORIDE 104 mmol/L (98-107); CO2 27 mmol/L (21-32); CREATININE 0.4 mg/dL (0.7-1.3); GLUCOSE,RANDOM 75 mg/dL (74-106); LIPASE 129 U/L (73-393); POTASSIUM 4.7 mmol/L (3.5-5.1); SGOT/AST 11 U/L (15-37); SGPT/ALT 7 U/L (12-78); SODIUM 140 mmol/L (136-145); TOT PROT 6.2 g/dl (6.4-8.2)
[2017-07-05 02:45] LABS: INR 2.71 (0.82-1.09); PROTHROMBIN TIME (PATIENT) 30.6 SEC (9.98-11.88)
[2017-07-05 03:06] LABS: ANISOCYTOSIS 2+; PLATELET ESTIMATE SIGNIFICANT INCREASE
[2017-07-05 05:11] VITALS: BMI 16.7
[2017-07-05] MEDS ORDERED: traMADol HCL 50 MG TABLET PO PRN (07:30)
[2017-07-05] MEDS ORDERED: FENTANYL PATCH WASTE MC PRN (08:07)
[2017-07-05] MEDS ORDERED: ONDANSETRON *ODT* 4 MG TABLET SL PRN (08:10)
--- NOTE | 2017-07-05 08:11 | HP ---
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 HERE WITH ANEMIA HBG LESS THAN 6 WEAKNESS AND NEOPLASTIC/JELLY CREAM WHITE DISCHARGE FROM LEFT FLANK. 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), Other (Intestinal obstruction.) Heme/Onc: Yes: Anemia, Cancer (last chemo 2012) Infectious Disease: Yes: C-Diff Psych: Yes: Anxiety, Depression - Past Surgical History Past Surgical History: Yes: Appendectomy (2008), Colectomy (partial), Colonoscopy, Splenectomy (2008), Stent (gastric ([facility] - Smoking History Smoking history: Never smoked Have you smoked in the past 12 months: No Aproximately how many cigarettes per day: 0 - Alcohol/Substance Use Hx Alcohol Use: No History of Substance Use: reports: None - Social History ADL: Independent History of Recent Travel: No Home Medications - Allergies Allergies/Adverse Reactions: Allergies Allergy/AdvReac Type Severity Reaction Status Date / Time No Known Allergies Allergy Verified 07/04/17 22:52 - Home Medications Home Medications: Ambulatory Orders Warfarin Na [Coumadin -] 2.5 mg PO DAILY@1800 #30 tablet MDD 1 10/11/16 Tramadol HCl 50 mg PO QID 02/21/17 FENTANYL 12mcg PATCH [DURAGESIC 12mcg PATCH -] 1 patch TD Q72H #10 patch MDD 1 02/24/17 traMADol HCL [Ultram -] 50 mg PO Q6H PRN #120 tablet MDD 4 02/24/17 Family Disease History - Family Disease History Family Disease History: CA: Father (COLON CA, ESRD), Other: Father, Mother ( ARTHRITIS, BACK SURGERY), Brother (3 BROTHERS- ALL HEALTHY), Daughter (HEALTHY) Review of Systems - Review of Systems Constitutional: reports: Weakness Eyes: reports: No Symptoms HENT: reports: No Symptoms Neck: reports: No Symptoms Cardiovascular: reports: No Symptoms Respiratory: reports: No Symptoms Gastrointestinal: reports: Other Genitourinary: reports: No Symptoms Integumentary: reports: Wound (LEFT LOWER ABD/FLANK) Neurological: reports: Weakness Endocrine: reports: No Symptoms Hematology/Lymphatic: reports: No Symptoms Psychiatric: reports: No Symptoms Physical Examination Vital Signs: Vital Signs Temperature 98.5 F 07/05/17 05:45 Pulse Rate 90 07/05/17 05:45 Respiratory Rate 18 07/05/17 05:45 Blood Pressure 92/55 07/05/17 05:45 O2 Sat by Pulse Oximetry (%) 99 07/05/17 04:35 Constitutional: Yes: Moderate Distress Eyes: Yes: WNL HENT: Yes: WNL Neck: Yes: WNL Cardiovascular: Yes: WNL Respiratory: Yes: WNL Gastrointestinal: Yes: Other (LEFT SIDED LOWER QUADRANT ABSCESS 4X4 NON-TENDER WITH JELLY/WHITE DISCHARGE) Renal/: Yes: WNL Musculoskeletal: Yes: Muscle Weakness Extremities: Yes: WNL Edema: No Peripheral Pulses WNL: Yes Integumentary: Yes: Other Wound/Incision: Yes: Open to air, Draining Neurological: Yes: Other ...Motor Strength: LLE, RLE Psychiatric: Yes: Other Labs: CBC, BMP 07/05/17 00:46 07/05/17 00:46 Problem List - Problems (1) Abdominal pain Code(s): R10.9 - UNSPECIFIED ABDOMINAL PAIN Qualifiers: Abdominal location: generalized Qualified Code(s): R10.84 - Generalized abdominal pain (2) Abscess Code(s): L02.91 - CUTANEOUS ABSCESS, UNSPECIFIED (3) Anemia Code(s): D64.9 - ANEMIA, UNSPECIFIED Qualifiers: Anemia type: unspecified type Qualified Code(s): D64.9 - Anemia, unspecified (4) Generalized weakness Code(s): R53.1 - WEAKNESS (5) 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 - SECONDARY MALIGNANT NEOPLASM OF RETROPERITON AND PERITONEUM (6) Weight loss Code(s): R63.4 - ABNORMAL WEIGHT LOSS (7) Colon cancer Code(s): C18.9 - MALIGNANT NEOPLASM OF COLON, UNSPECIFIED (8) Severe malnutrition Code(s): E43 - UNSPECIFIED SEVERE PROTEIN-CALORIE MALNUTRITION Assessment/Plan CT ABDOMEN / PELVIS NOW DRAINED ABSCESS BEDSIDE CULTURED ID AND ONCOLOGY EVAL IV ABX TRANSFUSE PRBC NOW FOLLOW CLOSELY
[2017-07-05] MEDS ORDERED: fentaNYL 25mcg/hr PATCH.TD72 TD SCH (08:15)
--- NOTE | 2017-07-05 08:32 | PROC ---
Procedure Note Procedure: bedside drainage of left flank abscess, draining clear sanguinous fluid then cream white transudate discharge , approx 250cc drained, cleaned with saline and dressing applied, sterile technique, wound cultures taken. ct abd/pelvis now w/out contrast id consult and oncology consult
--- NOTE | 2017-07-05 09:07 | PN ---
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 Chief Complaint: ID Full note dictated - Current Medication List Current Medications: Active Medications Fentanyl (Duragesic 25mcg Patch -) 1 patch TD Q72H [facility] Stop: 07/12/17 08:07 Sodium Chloride (Normal Saline -) 1,000 mls @ 125 mls/hr IV ASDIR [facility] Last Admin: 07/04/17 23:31 Dose: 125 mls/hr Miscellaneous (Duragesic Patch Waste) 1 each MC PRN PRN PRN Reason: PAIN Morphine Sulfate (Morphine Sulfate) 4 mg IVPUSH Q6H PRN PRN Reason: PAIN LEVEL 6-10 Ondansetron HCl (Zofran Odt -) 4 mg SL Q6H PRN PRN Reason: NAUSEA AND/OR VOMITING Pantoprazole Sodium (Protonix -) 40 mg PO DAILY [facility] Tramadol HCl (Ultram -) 50 mg PO Q8H PRN PRN Reason: PAIN LEVEL 1-5 - Objective Vital Signs: Vital Signs Temperature 98.7 F 07/05/17 08:59 Pulse Rate 93 H 07/05/17 08:59 Respiratory Rate 18 07/05/17 08:59 Blood Pressure 109/66 07/05/17 08:59 O2 Sat by Pulse Oximetry (%) 99 07/05/17 04:35 Constitutional: Yes: No Distress HENT: Yes: WNL, Atraumatic Neck: Yes: WNL, Supple Cardiovascular: Yes: S1, S2 Respiratory: Yes: WNL, Regular, CTA Bilaterally Gastrointestinal: Yes: Soft, Other (Tumor abd wall with abscess left hip drained ) Labs: CBC, BMP 07/05/17 00:46 07/05/17 00:46 INR, PTT INR 2.71 (0.82-1.09) H 07/05/17 02:14 Problem List - Problems (1) Abscess Code(s): L02.91 - CUTANEOUS ABSCESS, UNSPECIFIED (2) 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 - SECONDARY MALIGNANT NEOPLASM OF RETROPERITON AND PERITONEUM Assessment/Plan Selected Entries 07/05/17 08:59 Temperature 98.7 F Pulse Rate 93 H Respiratory 18 Rate Blood Pressure 109/66 Laboratory Tests 07/05/17 07/05/17 00:46 00:46 WBC 8.9 D RBC 2.53 L D Hct 19.5 L D Plt Count 902 H BUN 15 D Assessment Metastatic cancer draining through the left hip likely tumor possible secondary nfection "pus" gel material Plan Pending cultures Vancomycin and Shyam Sinha MD
[2017-07-05] MEDS: morphine SULFATE 4 MG/ML VIAL IVPUSH PRN ×2 (09:32→16:44)
[2017-07-05] MEDS: PANTOPRAZOLE 40 MG TABLET (FP) PO SCH (09:32)
[2017-07-05] MEDS: SODIUM CHLORIDE 1,000 ML IV SCH (10:00)
[2017-07-05] MEDS: PIPERACILLIN/TAZOB 4.5 GM 4.5 GM in DEXTROSE 5%-WATER - 100 ML IVPB SCH ×2 (10:00→18:02)
[2017-07-05 10:24] LABS: BASO % 1.3 % (0-2.0); EOS % 5.2 % (0-4.5); HEMATOCRIT 21.7 % (35.4-49); LYMPH % 16.6 % (8-40); MCH 25.2 pg (25.7-33.7); MCHC 32.3 g/dl (32.0-35.9); MEAN CELL VOLUME 77.9 fl (80-96); MEAN PLT VOLUME 8.1 fl (7.5-11.1); MONO % 14.8 % (3.8-10.2); NEUT % 62.1 % (42.8-82.8); PLATELET COUNT 812 K/MM3 (134-434); RBC 2.79 M/mm3 (4.00-5.60); WHITE BLOOD COUNT 7.2 K/mm3 (4.0-10.0)
--- NOTE | 2017-07-05 10:47 | PN ---
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 (short form) - Note 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: Patient well known, chart reviewed, seen and examined. He says he is tired, in pain. Was at [facility] in May, and a drain was placed, removed and was discharged on antibiotics as per him Onc Hx: Malignant pseudomyxoma peritonei. diagnosed 2008, s/p FOLFOX, 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 s/p FOLFIRI/avastin s/p HIPEC x2, debulking surgeries --last being 02/13 Slowly progressive disease Had refused chemotherapy,clinical trials and most recently also refused targeted therapy with olaparib, unable to accept the prognosis. O/E: general: appears chronically ill, cachectic HEENT: NCAT Cor: RSR, No murmurs, No gallops Lungs: Clear to P&A Abd: ++peritoneal nodules, increased from prior Ext:No significant edema Neuro: AAOx3. Last Vital Signs Temp Pulse Resp BP Pulse Ox 98.7 F 93 H 18 109/66 99 07/05/17 08:59 07/05/17 08:59 07/05/17 08:59 07/05/17 08:59 07/05/17 04:35 CBC, BMP 07/05/17 09:40 07/05/17 00:46 Current Medications Generic Name Dose Route Start Last Admin Trade Name Freq PRN Reason Stop Dose Admin Fentanyl 1 patch 07/05/17 08:15 07/05/17 09:32 Duragesic 25mcg Patch - TD 07/12/17 08:07 1 patch Q72H IZABELLA Administration Sodium Chloride 1,000 mls @ 125 mls/hr 07/04/17 23:15 07/05/17 10:00 Normal Saline - IV 125 mls/hr ASDIR IZABELLA Administration Vancomycin HCl 750 mg/ 250 mls @ 250 mls/hr 07/05/17 10:00 Dextrose IVPB BID IZABELLA Protocol Piperacillin Sod/Tazobactam 100 mls @ 200 mls/hr 07/05/17 10:00 07/05/17 10: 00 Sod 4.5 gm/ Dextrose IVPB 200 mls/hr Q8H-IV IZABELLA Administration Protocol Miscellaneous 1 each 07/05/17 08:07 Duragesic Patch Waste MC PRN PRN PAIN Morphine Sulfate 4 mg 07/05/17 08:07 07/05/17 09:32 Morphine Sulfate IVPUSH 4 mg Q6H PRN Administration PAIN LEVEL 6-10 Ondansetron HCl 4 mg 07/05/17 08:10 Zofran Odt - SL Q6H PRN NAUSEA AND/OR VOMITING Pantoprazole Sodium 40 mg 07/05/17 10:00 07/05/17 09:32 Protonix - PO 40 mg DAILY IZABELLA Administration Tramadol HCl 50 mg 07/05/17 08:07 Ultram - PO Q8H PRN PAIN LEVEL 1-5 A/P: ?Recurrent abscess, drained at bedside by PMD, awaiting CT scan, VSS, afebrile unlike last time ID input noted. on Vanc/zosyn. Clinically, there is Progression of disease, on physical exam the nodules are bigger than the past. will need to f/u on CT scan as ordered, he prefers to stay here. Abd pain from the peritoneal disease, for pain control anemia: supportive care and transfusions prn thrombocytosis: reactive , will monitor INR of 2.7, has h/o VTE, on coumadin, need to re-order if no procedures planned In re: to his advanced malignancy: Multiple discussions in the past as documented in terms of his disease, his reluctancy to go on therapy , the prognosis was done. discussed about this, he said he is not ready to make any decisions. will need palliative care assistance.
--- NOTE | 2017-07-05 10:51 | EKG ---
Test Reason : Blood Pressure : / mmHG Vent. Rate : 097 BPM Atrial Rate : 097 BPM P-R Int : 166 ms QRS Dur : 082 ms QT Int : 338 ms P-R-T Axes : 080 064 066 degrees QTc Int : 429 ms NORMAL SINUS RHYTHM NORMAL ECG WHEN COMPARED WITH ECG OF 18-MAY-2017 16:16, NO SIGNIFICANT CHANGE WAS FOUND Confirmed by JADON JIN MD ([id number]) on 07/05/2017 10:50:55 AM Referred By: Confirmed By:JADON JIN MD
[2017-07-05] MEDS: VANCOMYCIN 750 MG in DEXTROSE 5%-WATER - 250 ML IVPB SCH ×2 (11:10→21:48)
--- NOTE | 2017-07-05 12:22 | CONS ---
DATE OF CONSULTATION: 07/05/2017 HISTORY OF PRESENT ILLNESS: This is a readmission for this 47-year-old male with malignant pseudomyxoma peritonei. The patient presents with increasing weakness and an indurated area above the left hip which he says has been chronically draining. He apparently had been previously at [facility] where he states he had a collection drained from the same area presumed to be his tumor. He has felt weak and mostly in bed for the last week. He has no associated fever, chills, abdominal pain, cough, chest pain, or urinary complaints. A procedure note per Dr. Tripp earlier this morning indicates a left flank abscess draining clear sanguineous fluid becoming thicker and possibly purulent; 250 mL were drained. A CT scan of the abdomen was ordered. CURRENT MEDICATIONS: Include a Duragesic patch, Protonix, and Ultram. ALLERGIES: None known. FAMILY HISTORY: Noncontributory. REVIEW OF SYSTEMS: Respiratory: No cough, shortness of breath. Cardiac: No chest pain, palpitations. Gastrointestinal: Some mild abdominal pain. No diarrhea, vomiting, blood per rectum. Abdominal tumor involving the abdominal wall. PHYSICAL EXAMINATION: General: He was a thin male in no distress. Vital signs: Weight 104 pounds, temperature 98.7, pulse 93, blood pressure 110/66m, respirations 18. Neck: Supple. No adenopathy. Lungs: Clear to percussion and auscultation. Heart: S1, S2, regular rhythm. No audible murmur. Abdomen: Soft with no localized tenderness. Marked induration below the ribs noted reflective of his cancer. Extremities: Revealed a left hip wound status post drainage. No surrounding cellulitis. The white count was 8.9, hemoglobin 6, hematocrit 19.5, platelets 902. BUN 15, creatinine 0.4. Urinalysis negative leukocyte esterase. ASSESSMENT: A 47-year-old male with metastatic gastrointestinal malignancy involving abdominal wall presents with recurrence of necrotic tumor, 250 mL material drained earlier through the left hip. Have reviewed previous cultures here including multiple blood and urine cultures, all no growth. I do not see any previous wound cultures obtained. PLAN: Empiric therapy with vancomycin and Zosyn. Wound cultures of this material sent today. Severe anemia noted. Will likely need blood transfusion. Dr. Tripp has ordered a CT scan of the abdomen, which has been done in the past showing tumor in the left flank extending to the subcutaneous fat, most likely neoplastic and/or bowel fistula. JOSIE JULIAN M.D. DELMAR/[id number]
[2017-07-05] MEDS: traMADol HCL 50 MG TABLET PO PRN ×2 (14:12→21:49)
[2017-07-05] MEDS: AMINO ACIDS/PROTEIN HYDROLYS 30 ML LIQUID.PKT PO SCH (16:45)
[2017-07-05] MEDS ORDERED: PT OWN MED DRAWER 7, Y5N ONE ×2 (17:18→21:16)
[2017-07-06] MEDS: morphine SULFATE 4 MG/ML VIAL IVPUSH PRN ×3 (00:03→15:17)
[2017-07-06] MEDS: PIPERACILLIN/TAZOB 4.5 GM 4.5 GM in DEXTROSE 5%-WATER - 100 ML IVPB SCH ×3 (01:20→17:08)
[2017-07-06] MEDS: SODIUM CHLORIDE 1,000 ML IV SCH ×3 (03:13→23:15)
[2017-07-06 07:52] LABS: HEMATOCRIT 24.3 % (35.4-49); HEMOGLOBIN 8.1 GM/dL (11.7-16.9); MCH 26.2 pg (25.7-33.7); MCHC 33.3 g/dl (32.0-35.9); MEAN CELL VOLUME 78.8 fl (80-96); MEAN PLT VOLUME 8.2 fl (7.5-11.1); PLATELET COUNT 832 K/MM3 (134-434); RBC 3.08 M/mm3 (4.00-5.60); RDW 18.8 % (11.9-15.9); WHITE BLOOD COUNT 7.8 K/mm3 (4.0-10.0)
[2017-07-06 08:04] LABS: INR 2.03 (0.82-1.09); PROTHROMBIN TIME (PATIENT) 22.9 SEC (9.98-11.88)
[2017-07-06 08:18] LABS: ANION GAP 9 (8-16); BLOOD UREA NITROGEN 6 mg/dL (7-18); CALCIUM 8.1 mg/dL (8.5-10.1); CHLORIDE 105 mmol/L (98-107); CO2 26 mmol/L (21-32); CREATININE 0.6 mg/dL (0.7-1.3); GLUCOSE,RANDOM 81 mg/dL (74-106); MAGNESIUM 2.2 mg/dL (1.8-2.4); PHOSPHOROUS 3.6 mg/dL (2.5-4.9); POTASSIUM 4.3 mmol/L (3.5-5.1); SODIUM 140 mmol/L (136-145)
[2017-07-06] MEDS: AMINO ACIDS/PROTEIN HYDROLYS 30 ML LIQUID.PKT PO SCH ×2 (08:30→17:06)
[2017-07-06] MEDS ORDERED: PT OWN MED DRAWER 7, Y5N ONE ×3 (09:22→19:56)
[2017-07-06] MEDS: PANTOPRAZOLE 40 MG TABLET (FP) PO SCH (09:44)
[2017-07-06] MEDS: MULTIVITAMINS (DAILY MVI) TABLET (FP) PO SCH (09:45)
[2017-07-06] MEDS: ASCORBIC ACID 500 MG TABLET (FP) PO SCH (09:45)
--- NOTE | 2017-07-06 10:45 | PN ---
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 Chief Complaint: Left flank abscess History of Present Illness: NAD Anemic received 2 units PRBC seen by ID and Hematology wound culture from abscess drain pending abscess looks better IV abx to be seen by Surgery - Current Medication List Current Medications: Active Medications Amino Acids (Prosource No Carb Liquid Pkt) 30 ml PO BID@0800,1730 [facility] Last Admin: 07/06/17 08:30 Dose: 30 ml Ascorbic Acid (Vitamin C -) 500 mg PO DAILY [facility] Last Admin: 07/06/17 09:45 Dose: 500 mg Fentanyl (Duragesic 25mcg Patch -) 1 patch TD Q72H [facility] Stop: 07/12/17 08:07 Last Admin: 07/05/17 09:32 Dose: 1 patch Sodium Chloride (Normal Saline -) 1,000 mls @ 125 mls/hr IV ASDIR [facility] Last Admin: 07/06/17 03:13 Dose: 125 mls/hr Vancomycin HCl 750 mg/ (Dextrose) 250 mls @ 250 mls/hr IVPB BID IZABELLA PRN Reason: Protocol Last Admin: 07/05/17 21:48 Dose: 250 mls/hr Piperacillin Sod/Tazobactam (Sod 4.5 gm/ Dextrose) 100 mls @ 200 mls/hr IVPB Q8H-IV IZABELLA PRN Reason: Protocol Last Admin: 07/06/17 09:44 Dose: 200 mls/hr Miscellaneous (Duragesic Patch Waste) 1 each MC PRN PRN PRN Reason: PAIN Morphine Sulfate (Morphine Sulfate) 4 mg IVPUSH Q6H PRN PRN Reason: PAIN LEVEL 6-10 Last Admin: 07/06/17 08:30 Dose: 4 mg Multivitamins/Minerals/Vitamin C (Tab-A-Vit -) 1 tab PO DAILY [facility] Last Admin: 07/06/17 09:45 Dose: 1 tab Ondansetron HCl (Zofran Odt -) 4 mg SL Q6H PRN PRN Reason: NAUSEA AND/OR VOMITING Pantoprazole Sodium (Protonix -) 40 mg PO DAILY [facility] Last Admin: 07/06/17 09:44 Dose: 40 mg Tramadol HCl (Ultram -) 50 mg PO Q8H PRN PRN Reason: PAIN LEVEL 1-5 Last Admin: 07/05/17 21:49 Dose: 50 mg - Objective Vital Signs: Vital Signs Temperature 98.1 F 07/06/17 09:09 Pulse Rate 95 H 07/06/17 09:09 Respiratory Rate 20 07/06/17 09:09 Blood Pressure 107/72 07/06/17 09:09 O2 Sat by Pulse Oximetry (%) 99 07/05/17 21:00 Constitutional: Yes: Well Nourished, No Distress, Calm Cardiovascular: Yes: Regular Rate and Rhythm Respiratory: Yes: Regular Gastrointestinal: Yes: Normal Bowel Sounds, Soft Musculoskeletal: Yes: WNL Extremities: Yes: WNL Edema: No Peripheral Pulses WNL: Yes Wound/Incision: Yes: Dressing Dry and Intact Neurological: Yes: Alert, Oriented Psychiatric: Yes: Alert, Oriented Labs: CBC, BMP 07/06/17 06:45 07/06/17 06:45 INR, PTT INR 2.03 (0.82-1.09) H 07/06/17 06:45 Problem List - Problems (1) Abdominal pain Assessment/Plan: -pain management consult -morphine, tramadol and fentanyl patch Code(s): R10.9 - UNSPECIFIED ABDOMINAL PAIN Qualifiers: Abdominal location: generalized Qualified Code(s): R10.84 - Generalized abdominal pain (2) Abscess Assessment/Plan: -drained -ID consult appreciated -IV abx -Surgery to see -wound culture pending Code(s): L02.91 - CUTANEOUS ABSCESS, UNSPECIFIED (3) Malignant pseudomyxoma peritonei Assessment/Plan: -terminal -pt is aware -palliative care Code(s): C78.6 - SECONDARY MALIGNANT NEOPLASM OF RETROPERITON AND PERITONEUM (4) Anemia Assessment/Plan: -seen by Hematology -Chronic 2/2 metastasis -received 2 units PRBC this admission -normal transfusion parameters Code(s): D64.9 - ANEMIA, UNSPECIFIED Qualifiers: Anemia type: unspecified type Qualified Code(s): D64.9 - Anemia, unspecified (5) Malnutrition Assessment/Plan: BMI 16.8 -RD consult -Poor PO intake -Low protein and albumin -prosource -multivitamin Code(s): E46 - UNSPECIFIED PROTEIN-CALORIE MALNUTRITION (6) History of DVT of lower extremity Assessment/Plan: -on Warfarin -therapeutic -check daily INR's Code(s): Z86.718 - PERSONAL HISTORY OF OTHER VENOUS THROMBOSIS AND EMBOLISM Assessment/Plan see problem list
[2017-07-06] MEDS: VANCOMYCIN 750 MG in DEXTROSE 5%-WATER - 250 ML IVPB SCH ×2 (10:46→21:44)
--- NOTE | 2017-07-06 11:10 | PN ---
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 Chief Complaint: ID Vancomycin and Zosyn day 1 - Current Medication List Current Medications: Active Medications Amino Acids (Prosource No Carb Liquid Pkt) 30 ml PO BID@0800,1730 [facility] Last Admin: 07/06/17 08:30 Dose: 30 ml Ascorbic Acid (Vitamin C -) 500 mg PO DAILY [facility] Last Admin: 07/06/17 09:45 Dose: 500 mg Fentanyl (Duragesic 25mcg Patch -) 1 patch TD Q72H [facility] Stop: 07/12/17 08:07 Last Admin: 07/05/17 09:32 Dose: 1 patch Sodium Chloride (Normal Saline -) 1,000 mls @ 125 mls/hr IV ASDIR [facility] Last Admin: 07/06/17 03:13 Dose: 125 mls/hr Vancomycin HCl 750 mg/ (Dextrose) 250 mls @ 250 mls/hr IVPB BID [facility]ELLA PRN Reason: Protocol Last Admin: 07/06/17 10:46 Dose: 250 mls/hr Piperacillin Sod/Tazobactam (Sod 4.5 gm/ Dextrose) 100 mls @ 200 mls/hr IVPB Q8H-IV [facility]ELLA PRN Reason: Protocol Last Admin: 07/06/17 09:44 Dose: 200 mls/hr Miscellaneous (Duragesic Patch Waste) 1 each MC PRN PRN PRN Reason: PAIN Morphine Sulfate (Morphine Sulfate) 4 mg IVPUSH Q6H PRN PRN Reason: PAIN LEVEL 6-10 Last Admin: 07/06/17 08:30 Dose: 4 mg Multivitamins/Minerals/Vitamin C (Tab-A-Vit -) 1 tab PO DAILY [facility] Last Admin: 07/06/17 09:45 Dose: 1 tab Ondansetron HCl (Zofran Odt -) 4 mg SL Q6H PRN PRN Reason: NAUSEA AND/OR VOMITING Pantoprazole Sodium (Protonix -) 40 mg PO DAILY [facility] Last Admin: 07/06/17 09:44 Dose: 40 mg Tramadol HCl (Ultram -) 50 mg PO Q8H PRN PRN Reason: PAIN LEVEL 1-5 Last Admin: 07/05/17 21:49 Dose: 50 mg - Objective Vital Signs: Vital Signs Temperature 98.1 F 07/06/17 09:09 Pulse Rate 95 H 07/06/17 09:09 Respiratory Rate 20 07/06/17 09:09 Blood Pressure 107/72 07/06/17 09:09 O2 Sat by Pulse Oximetry (%) 99 07/06/17 09:00 Constitutional: Yes: No Distress, Cachectic Cardiovascular: Yes: S1, S2 Respiratory: Yes: WNL, Regular, CTA Bilaterally Gastrointestinal: Yes: WNL, Normal Bowel Sounds, Soft, Tenderness, Other ( Palpable tumor abd wall with sinus some drainage left hip) Labs: CBC, BMP 07/06/17 06:45 07/06/17 06:45 INR, PTT INR 2.03 (0.82-1.09) H 07/06/17 06:45 Problem List - Problems (1) Abscess Code(s): L02.91 - CUTANEOUS ABSCESS, UNSPECIFIED (2) 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 - SECONDARY MALIGNANT NEOPLASM OF RETROPERITON AND PERITONEUM Assessment/Plan Microbiology 07/05/17 10:15 Blood - Peripheral Venous Blood Culture - Preliminary NO GROWTH OBTAINED AFTER 24 HOURS, INCUBATION TO CONTINUE FOR 4 DAYS. 07/05/17 09:40 Blood - Peripheral Venous Blood Culture - Preliminary NO GROWTH OBTAINED AFTER 24 HOURS, INCUBATION TO CONTINUE FOR 4 DAYS. Laboratory Tests 07/06/17 07/06/17 06:45 06:45 WBC 7.8 Hgb 8.1 L D Plt Count 832 H BUN 6 L D Creatinine 0.6 L D Assessment Progressive GI malignancy with drainage through left hip ? Infected Plan Suspect sterile cancerous material draining through the hip NO fever no WBC Thus far culture sterile Continue antibiotics for today ? stop soon ? Cytology of drainage Ernestine FROST
--- NOTE | 2017-07-06 12:32 | CONSULT ---
Consult Consult Specialty:: general surgery Referred by:: Wendie Tripp Reason for Consultation:: draining infected tumor - History of Present Illness Chief Complaint: draining infected tumor History of Present Illness: 47yo male PMH appendiceal CA s/p appendetomy 2008, subsequent pseudomyxoma peritonei and debulking surgeries 2008 and 2012 at [facility] (including partial colectomy and splenectomy, s/p chemo also last around then, with slowly progressive disease, now s/p gastric stent 2016, and unresectable multiple abdominal tumors. Follows with Dr. Neal at [facility]. He has a painful left flank tumor that began to drain to the skin 1 day ago while being examined. An estimated 150ml of yellow gel and pus was expressed. He has fevers and chills and sweats at home. He been intermittently anemic with Hb 6.[address] scan of the abdomen confirms progressive disease, including multiple masses with new involvement of left psoas muscle, some gas bubbles in one of the left-sided masses, gastric mass with extension to abdominal wall, and gastric stent in place. We were asked to assess. 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), Other (Intestinal obstruction.) Infectious Disease: Yes: C-Diff Psych: Yes: Anxiety, Depression - Past Surgical History Past Surgical History: Yes: Appendectomy (2008), Colectomy (partial), Colonoscopy, Splenectomy (2008), Stent (gastric ([facility])) - Alcohol/Substance Use Hx Alcohol Use: No History of Substance Use: reports: None - Smoking History Smoking history: Never smoked Have you smoked in the past 12 months: No Aproximately how many cigarettes per day: 0 - Social History Usual Living Arrangement: With Significant Other ADL: Independent History of Recent Travel: No Home Medications - Allergies Allergies/Adverse Reactions: Allergies Allergy/AdvReac Type Severity Reaction Status Date / Time No Known Allergies Allergy Verified 07/04/17 22:52 - Home Medications Home Medications: Ambulatory Orders Warfarin Na [Coumadin -] 2.5 mg PO DAILY@1800 #30 tablet MDD 1 10/11/16 Tramadol HCl 50 mg PO QID 02/21/17 FENTANYL 12mcg PATCH [DURAGESIC 12mcg PATCH -] 1 patch TD Q72H #10 patch MDD 1 02/24/17 traMADol HCL [Ultram -] 50 mg PO Q6H PRN #120 tablet MDD 4 02/24/17 Family Disease History - Family Disease History Family Disease History: CA: Father (COLON CA, ESRD), Other: Father, Mother ( ARTHRITIS, BACK SURGERY), Brother (3 BROTHERS- ALL HEALTHY), Daughter (HEALTHY) Review of Systems - Review of Systems Constitutional: reports: Chills, Fever Eyes: denies: Blurred Vision, Recent Change in Vision HENT: reports: Difficult Swallowing. denies: Throat Pain Neck: denies: Lumps Cardiovascular: denies: Chest Pain, Palpitations Respiratory: denies: Cough, SOB Gastrointestinal: reports: Abdominal Pain Genitourinary: reports: Flank Pain. denies: Discharge, Dysuria Musculoskeletal: reports: Muscle Weakness. denies: Muscle Pain, Muscle Cramps Integumentary: reports: Lump, Pallor. denies: Lesions, Rash Neurological: denies: Seizure, Syncope Endocrine: reports: Unexplained Weight Loss. denies: Unexplained Weight Gain Hematology/Lymphatic: denies: Easily Bruised, Excessive Bleeding Psychiatric: denies: Anxiety, Depression Physical Exam Vital Signs: Vital Signs Temperature 98.1 F 07/06/17 09:09 Pulse Rate 95 H 07/06/17 09:09 Respiratory Rate 20 07/06/17 09:09 Blood Pressure 107/72 07/06/17 09:09 O2 Sat by Pulse Oximetry (%) 99 07/06/17 09:00 Vital Signs Period Temp Pulse Resp BP Sys/Conte Pulse Ox Last 24 Hr 98 F-98.8 F 86-99 20-20 93-114/52-72 99-99 Constitutional: Yes: No Distress, Calm, Cachectic, Thin Eyes: Yes: Conjunctiva Clear, EOM Intact HENT: Yes: Atraumatic, Normocephalic Neck: Yes: Supple, Trachea Midline Cardiovascular: Yes: Regular Rate and Rhythm, S1, S2 Respiratory: Yes: Regular, CTA Bilaterally Gastrointestinal: Yes: Normal Bowel Sounds, Soft, Tenderness (left posterior flank/ back mass. 8cm X6cm compressible and fluctuant with central ersosion, minimal erythema no active drainge. at the level of the left iliac crest) ...Rectal Exam: Yes: Deferred Renal/: Yes: CVA Tenderness - Left, Other Musculoskeletal: No: Muscle Pain, Muscle Weakness Extremities: No: Calf Tenderness, Cool, Cyanosis Edema: Yes Peripheral Pulses WNL: Yes Integumentary: No: Jaundice, Rash Neurological: Yes: Alert, Oriented Psychiatric: Yes: Alert, Oriented Labs: CBC, BMP 07/06/17 06:45 07/06/17 06:45 Imaging - Results Cat Scan: Report Reviewed, Image Reviewed (Porgressive tumors all over the abdomen Left flank tumor with soft tissue and skin) Problem List - Problems (1) Malignant pseudomyxoma peritonei Assessment/Plan: 47 yo male with pseudomyoma retroperitonei that has eroded through the skin. CT findings consistent with advanced and progressive disease, previously noted as unresectable by Dr. Neal. Findings of pus and drainge are likely a result of result from tumor necrosis, and skin fistula with superimposed infection. Unfortunately there are no surgical options at this time. Wound care will have to be the mainstay. Any attempt at drainage or debridement may worsen his condition and will not heal. This was discussed with the patient. 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 - OTH DISRD OF THE SKIN AND SUBCUTANEOUS TISSUE (3) Abdominal pain Code(s): R10.9 - UNSPECIFIED ABDOMINAL PAIN Qualifiers: Abdominal location: generalized Qualified Code(s): R10.84 - Generalized abdominal pain (4) Dehydration Code(s): E86.0 - DEHYDRATION (5) Leukocytosis Code(s): D72.829 - ELEVATED WHITE BLOOD CELL COUNT, UNSPECIFIED Qualifiers: Leukocytosis type: unspecified Qualified Code(s): D72.829 - Elevated white blood cell count, unspecified (6) Mucinous adenocarcinoma of appendix Code(s): C18.1 - MALIGNANT NEOPLASM OF APPENDIX (7) Severe malnutrition Code(s): E43 - UNSPECIFIED SEVERE PROTEIN-CALORIE MALNUTRITION
[2017-07-06] MEDS: traMADol HCL 50 MG TABLET PO PRN (14:08)
[2017-07-06] MEDS ORDERED: WARFARIN NA 2.5 MG TABLET (FP) PO SCH (18:00)
--- NOTE | 2017-07-06 18:34 | CONSULT ---
Consult Consult Specialty:: Pain Management Reason for Consultation:: Abdominal pain s/p CA - History of Present Illness History of Present Illness: 47yo male with abdominal pain s/p tumour. He was taking Utram and Fentanyl patch 25 mcg/hr .He had acute excerbation on pain. Pain 5/10 having Morphine 4 mg IV . Currently He is comfortable. Tumour is growing and spread in abdomen No Bowel/Bladder issues. 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), Other (Intestinal obstruction.) Infectious Disease: Yes: C-Diff Psych: Yes: Anxiety, Depression - Past Surgical History Past Surgical History: Yes: Appendectomy (2008), Colectomy (partial), Colonoscopy, Splenectomy (2008), St[facility] ([facility] - Alcohol/Substance Use Hx Alcohol Use: No History of Substance Use: reports: None - Smoking History Smoking history: Never smoked Have you smoked in the past 12 months: No Aproximately how many cigarettes per day: 0 - Social History Usual Living Arrangement: With Significant Other ADL: Independent History of Recent Travel: No Home Medications - Allergies Allergies/Adverse Reactions: Allergies Allergy/AdvReac Type Severity Reaction Status Date / Time No Known Allergies Allergy Verified 07/04/17 22:52 - Home Medications Home Medications: Ambulatory Orders Warfarin Na [Coumadin -] 2.5 mg PO DAILY@1800 #30 tablet MDD 1 10/11/16 Tramadol HCl 50 mg PO QID 02/21/17 FENTANYL 12mcg PATCH [DURAGESIC 12mcg PATCH -] 1 patch TD Q72H #10 patch MDD 1 02/24/17 traMADol HCL [Ultram -] 50 mg PO Q6H PRN #120 tablet MDD 4 02/24/17 Family Disease History - Family Disease History Family Disease History: CA: Father (COLON CA, ESRD), Other: Father, Mother ( ARTHRITIS, BACK SURGERY), Brother (3 BROTHERS- ALL HEALTHY), Daughter (HEALTHY) Review of Systems - Review of Systems Constitutional: reports: No Symptoms, Loss of Appetite, Weakness Eyes: reports: No Symptoms HENT: reports: No Symptoms Neck: reports: No Symptoms Cardiovascular: reports: No Symptoms Respiratory: reports: No Symptoms Gastrointestinal: reports: Abdominal Pain, Bloating, Other (Swelling) Genitourinary: reports: No Symptoms Musculoskeletal: reports: No Symptoms Neurological: reports: No Symptoms Pain Intensity: 5 Physical Exam Vital Signs: Vital Signs Temperature 98 F 07/06/17 13:25 Pulse Rate 95 H 07/06/17 13:25 Respiratory Rate 20 07/06/17 13:25 Blood Pressure 106/63 07/06/17 13:25 O2 Sat by Pulse Oximetry (%) 99 07/06/17 09:00 Constitutional: Yes: No Distress, Calm Eyes: Yes: WNL HENT: Yes: WNL Neck: Yes: WNL Respiratory: Yes: WNL Gastrointestinal: Yes: WNL, Abdomen, Obese Extremities: Yes: WNL Edema: No Neurological: Yes: WNL ...Motor Strength: WNL Psychiatric: Yes: WNL Labs: CBC, BMP 07/06/17 06:45 07/06/17 06:45 Problem List - Problems (1) Pain, neoplasm-related Code(s): G89.3 - NEOPLASM RELATED PAIN (ACUTE) (CHRONIC) Assessment/Plan Discussed in detail and answered all questions 1. continue current care 2. D/C fentanyl patch 3. D/C Tramdol 4. Dilaudid 2 mg PO Q6 5. Neurontin 100 mg PO BID 6. Continue Morphine 2 mg IVP q 6 PRN and repeat 2 mg IVP if required. Thank you very much for your kind referral, Jc Rosen MD [phone]
[2017-07-06] MEDS ORDERED: HYDROmorphone HCL 2 MG TABLET PO SCH (18:45)
[2017-07-06] MEDS: GABAPENTIN 100 MG CAPSULE (FP) PO SCH (20:09)
--- NOTE | 2017-07-06 20:26 | PN ---
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 (short form) - Note 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: PAtient seen and examined Last Vital Signs Temp Pulse Resp BP Pulse Ox 98.4 F 85 20 95/58 99 07/06/17 18:00 07/06/17 18:00 07/06/17 18:00 07/06/17 18:00 07/06/17 09:00 Cor: RSR, No murmurs, No gallops Lungs: Clear to P&A Abd: Soft, Normal bowel sounds, No organomegaly Ext:No significant edema Abnormal Lab Results 07/06/17 07/06/17 07/06/17 06:45 06:45 06:45 RBC 3.08 L Hgb 8.1 L D Hct 24.3 L MCV 78.8 L RDW 18.8 H Plt Count 832 H PT with INR 22.90 H INR 2.03 H BUN 6 L D Creatinine 0.6 L D Calcium 8.1 L Active Medications Generic Name Dose Route Start Last Admin Trade Name Freq PRN Reason Stop Dose Admin Amino Acids 30 ml 07/05/17 17:30 07/06/17 17:06 Prosource No Carb Liquid Pkt PO 30 ml BID@0800,1730 IZABELLA Administration Ascorbic Acid 500 mg 07/06/17 10:00 07/06/17 09:45 Vitamin C - PO 500 mg DAILY IZABELLA Administration Gabapentin 100 mg 07/06/17 19:00 07/06/17 20:09 Neurontin - PO 100 mg DAILY IZABELLA Administration Hydromorphone HCl 2 mg 07/06/17 18:45 07/06/17 20:08 Dilaudid - PO 2 mg QID IZABELLA Administration Sodium Chloride 1,000 mls @ 125 mls/hr 07/04/17 23:15 07/06/17 15:17 Normal Saline - IV 125 mls/hr ASDIR IZABELLA Administration Vancomycin HCl 750 mg/ 250 mls @ 250 mls/hr 07/05/17 10:00 07/06/17 10:46 Dextrose IVPB 250 mls/hr BID IZABELLA Administration Protocol Piperacillin Sod/Tazobactam 100 mls @ 200 mls/hr 07/05/17 10:00 07/06/17 17: 08 Sod 4.5 gm/ Dextrose IVPB 200 mls/hr Q8H-IV IZABELLA Administration Protocol Morphine Sulfate 4 mg 07/05/17 08:07 07/06/17 15:17 Morphine Sulfate IVPUSH 4 mg Q6H PRN Administration PAIN LEVEL 6-10 Multivitamins/Minerals/Vitamin C 1 tab 07/06/17 10:00 07/06/17 09:45 Tab-A-Vit - PO 1 tab DAILY IZABELLA Administration Ondansetron HCl 4 mg 07/05/17 08:10 Zofran Odt - SL Q6H PRN NAUSEA AND/OR VOMITING Pantoprazole Sodium 40 mg 07/05/17 10:00 07/06/17 09:44 Protonix - PO 40 mg DAILY IZABELLA Administration Warfarin Sodium 2.5 mg 07/06/17 18:00 07/06/17 17:07 Coumadin - PO 2.5 mg DAILY@1800 IZABELLA Administration A/P Recurrent abscess, s/p I andD on Vanc/zosyn. Clinically, there is Progression of disease, on physical exam the nodules are bigger than the past. will need to f/u on CT scan as ordered, he prefers to stay here. Abd pain from the peritoneal disease, for pain control anemia: supportive care and transfusions prn thrombocytosis: reactive , will monitor Pain control---discussed with --will change to dilaudid 1mg IVPB Q 4hrs prn and change to PO whenpain well contriolled on IV Patient wants to continue supportive care for now and not hospice yet. He does not want to try olaparib--rediscussed benefits/risks --but not willing to try
[2017-07-06] MEDS: HYDROmorphone HCL CARPU-JECT 4 MG/1 ML DISP.SYRIN IVPB PRN (21:44)
[2017-07-07] MEDS: PIPERACILLIN/TAZOB 4.5 GM 4.5 GM in DEXTROSE 5%-WATER - 100 ML IVPB SCH ×2 (01:35→10:14)
[2017-07-07] MEDS: HYDROmorphone HCL CARPU-JECT 4 MG/1 ML DISP.SYRIN IVPB PRN ×2 (01:47→10:13)
[2017-07-07] MEDS: SODIUM CHLORIDE 1,000 ML IV SCH ×2 (03:30→22:55)
[2017-07-07 07:56] LABS: HEMATOCRIT 23.4 % (35.4-49); HEMOGLOBIN 7.6 GM/dL (11.7-16.9); RBC 2.98 M/mm3 (4.00-5.60)
[2017-07-07 08:12] LABS: MCH 25.6 pg (25.7-33.7); MCHC 32.6 g/dl (32.0-35.9); MEAN CELL VOLUME 78.6 fl (80-96); MEAN PLT VOLUME 8.2 fl (7.5-11.1); PLATELET COUNT 860 K/MM3 (134-434); RDW 19.6 % (11.9-15.9); WHITE BLOOD COUNT 7.1 K/mm3 (4.0-10.0)
[2017-07-07 08:25] LABS: INR 1.77 (0.82-1.09)
[2017-07-07 08:57] LABS: CHLORIDE 107 mmol/L (98-107); POTASSIUM 4.2 mmol/L (3.5-5.1); SODIUM 140 mmol/L (136-145)
[2017-07-07 09:10] LABS: ALK PHOS 64 U/L (45-117); ANION GAP 8 (8-16); BILIRUBIN,TOTAL 0.3 mg/dL (0.2-1.0); BLOOD UREA NITROGEN 5 mg/dL (7-18); CALCIUM 7.8 mg/dL (8.5-10.1); CO2 25 mmol/L (21-32); CREATININE 0.5 mg/dL (0.7-1.3); GLUCOSE,RANDOM 93 mg/dL (74-106); SGOT/AST 6 U/L (15-37); SGPT/ALT < 6 U/L (12-78); TOT PROT 5.5 g/dl (6.4-8.2)
[2017-07-07 09:53] LABS: ACANTHOCYTES 1+; ANISOCYTOSIS 1+; MACROCYTOSIS 0; PLATELET ESTIMATE INCREASED; TARGET CELLS 2+
[2017-07-07] MEDS: AMINO ACIDS/PROTEIN HYDROLYS 30 ML LIQUID.PKT PO SCH ×2 (10:13→17:59)
[2017-07-07] MEDS: GABAPENTIN 100 MG CAPSULE (FP) PO SCH (10:14)
[2017-07-07] MEDS: MULTIVITAMINS (DAILY MVI) TABLET (FP) PO SCH (10:14)
[2017-07-07] MEDS: PANTOPRAZOLE 40 MG TABLET (FP) PO SCH (10:14)
[2017-07-07] MEDS: ASCORBIC ACID 500 MG TABLET (FP) PO SCH (10:14)
[2017-07-07] MEDS: VANCOMYCIN 750 MG in DEXTROSE 5%-WATER - 250 ML IVPB SCH ×2 (10:16→22:54)
--- NOTE | 2017-07-07 10:57 | PN ---
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 Chief Complaint: Left flank abscess History of Present Illness: NAD Anemic seen by ID and Hematology wound culture from abscess drain pending abscess looks better IV abx to be seen by Surgery -H/H drop today - Current Medication List Current Medications: Active Medications Amino Acids (Prosource No Carb Liquid Pkt) 30 ml PO BID@0800,1730 [facility] Last Admin: 07/07/17 10:13 Dose: 30 ml Ascorbic Acid (Vitamin C -) 500 mg PO DAILY [facility] Last Admin: 07/07/17 10:14 Dose: 500 mg Gabapentin (Neurontin -) 100 mg PO DAILY [facility] Last Admin: 07/07/17 10:14 Dose: 100 mg Hydromorphone HCl (Dilaudid Injection -) 1 mg IVPB Q4H PRN PRN Reason: PAIN LEVEL 6-10 Last Admin: 07/07/17 10:13 Dose: 1 mg Sodium Chloride (Normal Saline -) 1,000 mls @ 125 mls/hr IV ASDIR [facility] Last Admin: 07/07/17 03:30 Dose: 125 mls/hr Vancomycin HCl 750 mg/ (Dextrose) 250 mls @ 250 mls/hr IVPB BID [facility] PRN Reason: Protocol Last Admin: 07/07/17 10:16 Dose: 250 mls/hr Piperacillin Sod/Tazobactam (Sod 4.5 gm/ Dextrose) 100 mls @ 200 mls/hr IVPB Q8H-IV IZABELLA PRN Reason: Protocol Last Admin: 07/07/17 10:14 Dose: 200 mls/hr Multivitamins/Minerals/Vitamin C (Tab-A-Vit -) 1 tab PO DAILY [facility] Last Admin: 07/07/17 10:14 Dose: 1 tab Ondansetron HCl (Zofran Odt -) 4 mg SL Q6H PRN PRN Reason: NAUSEA AND/OR VOMITING Pantoprazole Sodium (Protonix -) 40 mg PO DAILY [facility] Last Admin: 07/07/17 10:14 Dose: 40 mg Warfarin Sodium (Coumadin -) 2.5 mg PO DAILY@1800 [facility] - Objective Vital Signs: Vital Signs Temperature 98.3 F 07/07/17 07:22 Pulse Rate 82 07/07/17 07:22 Respiratory Rate 20 07/07/17 07:22 Blood Pressure 86/50 07/07/17 07:22 O2 Sat by Pulse Oximetry (%) 99 07/06/17 21:00 Constitutional: Yes: Well Nourished, No Distress, Calm Cardiovascular: Yes: Regular Rate and Rhythm Respiratory: Yes: Regular Gastrointestinal: Yes: Normal Bowel Sounds, Soft, Tenderness (generalized) Musculoskeletal: Yes: WNL Extremities: Yes: WNL Edema: No Peripheral Pulses WNL: Yes Neurological: Yes: Alert, Oriented Psychiatric: Yes: Alert, Oriented Labs: CBC, BMP 07/07/17 06:35 07/07/17 06:35 INR, PTT INR 1.77 (0.82-1.09) H 07/07/17 06:35 Problem List - Problems (1) Abdominal pain Assessment/Plan: -pain management consult appreciated - Dilaudid IVPB Code(s): R10.9 - UNSPECIFIED ABDOMINAL PAIN Qualifiers: Abdominal location: generalized Qualified Code(s): R10.84 - Generalized abdominal pain (2) Abscess Assessment/Plan: -drained -ID consult appreciated -IV abx -Surgery consult appreciated -wound culture pending Code(s): L02.91 - CUTANEOUS ABSCESS, UNSPECIFIED (3) Malignant pseudomyxoma peritonei Assessment/Plan: -terminal -pt is aware -palliative care Code(s): C78.6 - SECONDARY MALIGNANT NEOPLASM OF RETROPERITON AND PERITONEUM (4) Anemia Assessment/Plan: -seen by Hematology -Chronic 2/2 metastasis -PRBC today -monitor H/H -normal transfusion parameters Code(s): D64.9 - ANEMIA, UNSPECIFIED Qualifiers: Anemia type: unspecified type Qualified Code(s): D64.9 - Anemia, unspecified (5) Malnutrition Assessment/Plan: BMI 16.8 -RD consult -Poor PO intake -Low protein and albumin -prosource -multivitamin Code(s): E46 - UNSPECIFIED PROTEIN-CALORIE MALNUTRITION (6) History of DVT of lower extremity Assessment/Plan: -on Warfarin -Subtherapeutic, give Warfarin 5 mg today -check daily INR's Code(s): Z86.718 - PERSONAL HISTORY OF OTHER VENOUS THROMBOSIS AND EMBOLISM Assessment/Plan see problem list
--- NOTE | 2017-07-07 13:16 | PN ---
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 (short form) - Note 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: Seen and examined. [place] Seen by pain mgmt. O/E: general: appears chronically ill, cachectic HEENT: NCAT Cor: RSR, No murmurs, No gallops Lungs: Clear to P&A Abd: ++peritoneal nodules, increased from prior Ext:No significant edema Neuro: AAOx3. Last Vital Signs Temp Pulse Resp BP Pulse Ox 98.3 F 82 20 86/50 99 07/07/17 07:22 07/07/17 07:22 07/07/17 07:22 07/07/17 07:22 07/07/17 09:00 CBC, BMP 07/07/17 06:35 07/07/17 06:35 Current Medications Generic Name Dose Route Start Last Admin Trade Name Freq PRN Reason Stop Dose Admin Amino Acids 30 ml 07/05/17 17:30 07/07/17 10:13 Prosource No Carb Liquid Pkt PO 30 ml BID@0800,1730 IZABELLA Administration Ascorbic Acid 500 mg 07/06/17 10:00 07/07/17 10:14 Vitamin C - PO 500 mg DAILY IZABELLA Administration Gabapentin 100 mg 07/06/17 19:00 07/07/17 10:14 Neurontin - PO 100 mg DAILY IZABELLA Administration Hydromorphone HCl 1 mg 07/06/17 20:46 07/07/17 10:13 Dilaudid Injection - IVPB 1 mg Q4H PRN Administration PAIN LEVEL 6-10 Sodium Chloride 1,000 mls @ 125 mls/hr 07/04/17 23:15 07/07/17 03:30 Normal Saline - IV 125 mls/hr ASDIR IZABELLA Administration Vancomycin HCl 750 mg/ 250 mls @ 250 mls/hr 07/05/17 10:00 07/07/17 10:16 Dextrose IVPB 250 mls/hr BID IZABELLA Administration Protocol Piperacillin Sod/Tazobactam 100 mls @ 200 mls/hr 07/05/17 10:00 07/07/17 10: 14 Sod 4.5 gm/ Dextrose IVPB 200 mls/hr Q8H-IV IZABELLA Administration Protocol Multivitamins/Minerals/Vitamin C 1 tab 07/06/17 10:00 07/07/17 10:14 Tab-A-Vit - PO 1 tab DAILY IZABELLA Administration Ondansetron HCl 4 mg 07/05/17 08:10 Zofran Odt - SL Q6H PRN NAUSEA AND/OR VOMITING Pantoprazole Sodium 40 mg 07/05/17 10:00 07/07/17 10:14 Protonix - PO 40 mg DAILY [facility] Administration Warfarin Sodium 5 mg 07/07/17 18:00 Coumadin - PO SuTuThFrSa@1800 [facility] Warfarin Sodium 2.5 mg 07/10/17 18:00 Coumadin - PO MoWe@1800 [facility] Microbiology 07/05/17 08:00 Hip - Left Gram Stain - Final 07/05/17 08:00 Hip - Left Wound Culture - Preliminary Staphylococcus Coagulase Neg Diphtheroid/Corynebacterium A/P: Pain: Seen by pain management presently on dilaudid titartion per pain management Wound cx positive for staph coag neg ID fu noted Anemia/Thrombocytosis: Will f/u iron studies if needed will dose Venofer. Supportive transfusions prn Reactive thrombocytosis Advanced malignancy as per prior discussions, not hospice, DNR/DNI, appreciate palliative care recs
[2017-07-07] MEDS: morphine SULFATE 4 MG/ML VIAL IVPUSH PRN ×3 (15:28→23:35)
--- NOTE | 2017-07-07 17:02 | PN ---
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 (short form) - Note 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: no complaints, pain better controlled today receiving blood transfusion Vital Signs Period Temp Pulse Resp BP Sys/Conte Pulse Ox Last 24 Hr 98 F-98.6 F 82-93 18-20 86-96/50-58 99-99 cor-rrr lungs decreased bs at bases abd soft,nt drainage from left flank- serous material- no pus ext no edema CBC, BMP 07/07/17 06:35 07/07/17 06:35 Microbiology 07/05/17 08:00 Hip - Left Gram Stain - Final 07/05/17 08:00 Hip - Left Wound Culture - Preliminary Staphylococcus Coagulase Neg Diphtheroid/Corynebacterium 07/05/17 10:15 Blood - Peripheral Venous Blood Culture - Preliminary NO GROWTH OBTAINED AFTER 48 HOURS, INCUBATION TO CONTINUE FOR 3 DAYS. 07/05/17 09:40 Blood - Peripheral Venous Blood Culture - Preliminary NO GROWTH OBTAINED AFTER 48 HOURS, INCUBATION TO CONTINUE FOR 3 DAYS. a/p suspect sterile fluid from enlarging necrotic malignancy d/c geovannin today would sent fluid for cytology pain management transfusion as needed
[2017-07-07] MEDS: WARFARIN NA 5 MG TABLET (UD) PO SCH (17:59)
[2017-07-07] MEDS ORDERED: PT OWN MED DRAWER 7, Y5N ONE (21:00)
[2017-07-07] MEDS ORDERED: morphine SULFATE 4 MG/ML VIAL IVPUSH ONE (22:11)
[2017-07-08] MEDS: morphine SULFATE 4 MG/ML VIAL IVPUSH PRN ×5 (03:32→20:39)
[2017-07-08 07:44] LABS: CHLORIDE 104 mmol/L (98-107); POTASSIUM 4.6 mmol/L (3.5-5.1); SODIUM 140 mmol/L (136-145)
[2017-07-08 07:52] LABS: INR 1.5 (0.82-1.09)
[2017-07-08 07:53] LABS: ALBUMIN 2.4 g/dl (3.4-5.0); ALK PHOS 80 U/L (45-117); ANION GAP 12 (8-16); BLOOD UREA NITROGEN 6 mg/dL (7-18); CALCIUM 8.9 mg/dL (8.5-10.1); CO2 24 mmol/L (21-32); CREATININE 0.5 mg/dL (0.7-1.3); GLUCOSE,RANDOM 88 mg/dL (74-106); SGOT/AST 12 U/L (15-37); SGPT/ALT 7 U/L (12-78); TOT PROT 6.8 g/dl (6.4-8.2)
[2017-07-08 08:07] LABS: SERUM IRON SATURATION 4 % (15-55); TOTAL IRON BINDING CAPACITY 190 ug/dL (250-450); UIBC 182 ug/dL (111-343)
[2017-07-08 08:49] LABS: HEMATOCRIT 34.5 % (35.4-49); HEMOGLOBIN 11.4 GM/dL (11.7-16.9); MCH 26.3 pg (25.7-33.7); MCHC 32.9 g/dl (32.0-35.9); MEAN CELL VOLUME 80.1 fl (80-96); MEAN PLT VOLUME 8.2 fl (7.5-11.1); PLATELET COUNT 883 K/MM3 (134-434); RBC 4.31 M/mm3 (4.00-5.60); RDW 18.6 % (11.9-15.9); WHITE BLOOD COUNT 9.7 K/mm3 (4.0-10.0)
[2017-07-08] MEDS: SODIUM CHLORIDE 1,000 ML IV SCH (08:59)
[2017-07-08] MEDS: AMINO ACIDS/PROTEIN HYDROLYS 30 ML LIQUID.PKT PO SCH ×2 (09:00→17:35)
[2017-07-08] MEDS: ASCORBIC ACID 500 MG TABLET (FP) PO SCH (09:04)
[2017-07-08] MEDS: GABAPENTIN 100 MG CAPSULE (FP) PO SCH (09:05)
[2017-07-08] MEDS: MULTIVITAMINS (DAILY MVI) TABLET (FP) PO SCH (09:05)
[2017-07-08] MEDS: PANTOPRAZOLE 40 MG TABLET (FP) PO SCH (09:05)
[2017-07-08] MEDS: VANCOMYCIN 750 MG in DEXTROSE 5%-WATER - 250 ML IVPB SCH (09:37)
[2017-07-08 10:26] LABS: ACANTHOCYTES 3+; ANISOCYTOSIS 2+; MACROCYTOSIS 1+; PLATELET ESTIMATE INCREASED; TARGET CELLS 3+
--- NOTE | 2017-07-08 12:41 | PN ---
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 (short form) - Note 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: Seen and examined. Seen by pain mgmt. restartd on the pain [patch O/E: general: appears chronically ill, cachectic HEENT: NCAT Cor: RSR, No murmurs, No gallops Lungs: Clear to P&A Abd: ++peritoneal nodules, increased from prior Ext:No significant edema Neuro: AAOx3. Vital Signs Period Temp Pulse Resp BP Sys/Conte Pulse Ox Last 24 Hr 97.9 F-99.3 F 77-91 16-18 92-110/53-66 99-99 CBC, BMP 07/08/17 06:30 07/08/17 06:30 Active Medications Generic Name Dose Route Start Last Admin Trade Name Freq PRN Reason Stop Dose Admin Amino Acids 30 ml 07/05/17 17:30 07/08/17 09:00 Prosource No Carb Liquid Pkt PO 30 ml BID@0800,1730 IZABELLA Administration Ascorbic Acid 500 mg 07/06/17 10:00 07/08/17 09:04 Vitamin C - PO 500 mg DAILY IZABELLA Administration Gabapentin 100 mg 07/06/17 19:00 07/08/17 09:05 Neurontin - PO 100 mg DAILY IZABELLA Administration Sodium Chloride 1,000 mls @ 125 mls/hr 07/04/17 23:15 07/08/17 08:59 Normal Saline - IV 125 mls/hr ASDIR IZABELLA Administration Vancomycin HCl 750 mg/ 250 mls @ 250 mls/hr 07/05/17 10:00 07/08/17 09:37 Dextrose IVPB 250 mls/hr BID IZABELLA Administration Protocol Morphine Sulfate 4 mg 07/07/17 14:43 07/08/17 11:40 Morphine Sulfate IVPUSH 4 mg Q4H PRN Administration PAIN LEVEL 4 - 6 Multivitamins/Minerals/Vitamin C 1 tab 07/06/17 10:00 07/08/17 09:05 Tab-A-Vit - PO 1 tab DAILY IZABELLA Administration Ondansetron HCl 4 mg 07/05/17 08:10 Zofran Odt - SL Q6H PRN NAUSEA AND/OR VOMITING Pantoprazole Sodium 40 mg 07/05/17 10:00 07/08/17 09:05 Protonix - PO 40 mg DAILY IZABELLA Administration Warfarin Sodium 5 mg 07/07/17 18:00 07/07/17 17:59 Coumadin - PO 5 mg SuTuThFrSa@1800 [facility] Administration Warfarin Sodium 2.5 mg 07/10/17 18:00 Coumadin - PO MoWe@1800 [facility] Microbiology 07/05/17 08:00 Hip - Left Gram Stain - Final 07/05/17 08:00 Hip - Left Wound Culture - Preliminary Staphylococcus Coagulase Neg Diphtheroid/Corynebacterium A/P: Pain: Seen by pain management for morphine He says he has fiugured out a plan with to put the patch on ?fentanyl, iv morphine and oral dilaudid Wound cx positive for staph coag neg ID fu noted Advanced malignancy as per prior discussions, not hospice, DNR/DNI, appreciate palliative care recs
[2017-07-08] MEDS ORDERED: FENTANYL PATCH WASTE TD PRN (13:38)
--- NOTE | 2017-07-08 13:40 | PN ---
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 - Current Medication List Current Medications: Active Medications Amino Acids (Prosource No Carb Liquid Pkt) 30 ml PO BID@0800,1730 [facility] Last Admin: 07/08/17 09:00 Dose: 30 ml Ascorbic Acid (Vitamin C -) 500 mg PO DAILY [facility] Last Admin: 07/08/17 09:04 Dose: 500 mg Docusate Sodium (Colace -) 300 mg PO [facility] Fentanyl (Duragesic 50mcg Patch -) 1 patch TD Q72H [facility] Stop: 07/15/17 13:39 Gabapentin (Neurontin -) 100 mg PO DAILY [facility] Last Admin: 07/08/17 09:05 Dose: 100 mg Sodium Chloride (Normal Saline -) 1,000 mls @ 125 mls/hr IV ASDIR [facility] Last Admin: 07/08/17 08:59 Dose: 125 mls/hr Vancomycin HCl 750 mg/ (Dextrose) 250 mls @ 250 mls/hr IVPB BID [facility] PRN Reason: Protocol Last Admin: 07/08/17 09:37 Dose: 250 mls/hr Miscellaneous (Duragesic Patch Waste) 1 each MC PRN PRN PRN Reason: PAIN Morphine Sulfate (Morphine Sulfate) 4 mg IVPUSH Q4H PRN PRN Reason: PAIN LEVEL 4 - 6 Last Admin: 07/08/17 11:40 Dose: 4 mg Multivitamins/Minerals/Vitamin C (Tab-A-Vit -) 1 tab PO DAILY [facility] Last Admin: 07/08/17 09:05 Dose: 1 tab Ondansetron HCl (Zofran Odt -) 4 mg SL Q6H PRN PRN Reason: NAUSEA AND/OR VOMITING Pantoprazole Sodium (Protonix -) 40 mg PO DAILY [facility] Last Admin: 07/08/17 09:05 Dose: 40 mg Warfarin Sodium (Coumadin -) 5 mg PO SuTuThFrSa@1800 [facility] Last Admin: 07/07/17 17:59 Dose: 5 mg Warfarin Sodium (Coumadin -) 2.5 mg PO MoWe@1800 [facility] - Objective Vital Signs: Vital Signs Temperature 97.9 F 07/08/17 08:20 Pulse Rate 77 07/08/17 08:20 Respiratory Rate 16 07/08/17 08:20 Blood Pressure 102/66 07/08/17 08:20 O2 Sat by Pulse Oximetry (%) 99 07/08/17 09:00 Labs: CBC, BMP 07/08/17 06:30 07/08/17 06:30 INR, PTT INR 1.50 (0.82-1.09) H 07/08/17 06:30 Assessment/Plan - Problems (1) Abdominal pain Assessment/Plan: -pain management consult appreciated - Start duragesic patch 50 q 72 -morphine prn Code(s): R10.9 - UNSPECIFIED ABDOMINAL PAIN Qualifiers: Abdominal location: generalized Qualified Code(s): R10.84 - Generalized abdominal pain (2) Abscess Assessment/Plan: -drained -ID consult appreciated -IV abx -Surgery consult appreciated -wound culture pending Code(s): L02.91 - CUTANEOUS ABSCESS, UNSPECIFIED (3) Malignant pseudomyxoma peritonei Assessment/Plan: -terminal -pt is aware -palliative care Code(s): C78.6 - SECONDARY MALIGNANT NEOPLASM OF RETROPERITON AND PERITONEUM (4) Anemia Assessment/Plan: -seen by Hematology -Chronic 2/2 metastasis -PRBC today -monitor H/H -normal transfusion parameters Code(s): D64.9 - ANEMIA, UNSPECIFIED Qualifiers: Anemia type: unspecified type Qualified Code(s): D64.9 - Anemia, unspecified (5) Malnutrition Assessment/Plan: BMI 16.8 -RD consult -Poor PO intake -Low protein and albumin -prosource -multivitamin Code(s): E46 - UNSPECIFIED PROTEIN-CALORIE MALNUTRITION (6) History of DVT of lower extremity Assessment/Plan: -on Warfarin -Subtherapeutic, give Warfarin 5 mg today -check daily INR's Code(s): Z86.718 - PERSONAL HISTORY OF OTHER VENOUS THROMBOSIS AND EMBOLISM
[2017-07-08] MEDS ORDERED: fentaNYL 50mcg/hr PATCH.TD72 TD SCH (13:45)
--- NOTE | 2017-07-08 15:13 | PN ---
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 (short form) - Note 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: no complaints, pain better controlled today ambulating comfortably Vital Signs Period Temp Pulse Resp BP Sys/Conte Pulse Ox Last 24 Hr 97.9 F-99.3 F 77-90 16-18 102-110/58-66 99-99 cor-rrr lungs clear abd firm minimal drainage noted, no erythema ext no edema CBC, BMP 07/08/17 06:30 07/08/17 06:30 Microbiology 07/05/17 08:00 Hip - Left Gram Stain - Final 07/05/17 08:00 Hip - Left Wound Culture - Preliminary Staphylococcus Coagulase Neg Diphtheroid/Corynebacterium 07/05/17 10:15 Blood - Peripheral Venous Blood Culture - Preliminary NO GROWTH OBTAINED AFTER 72 HOURS, INCUBATION TO CONTINUE FOR 2 DAYS. 07/05/17 09:40 Blood - Peripheral Venous Blood Culture - Preliminary NO GROWTH OBTAINED AFTER 72 HOURS, INCUBATION TO CONTINUE FOR 2 DAYS. a/p necrotic tumor- culture is skin anel, will d/c antiibotics would sent fluid for cytology pain management transfusion as needed
[2017-07-08] MEDS: WARFARIN NA 5 MG TABLET (UD) PO SCH (17:34)
[2017-07-08] MEDS: DOCUSATE SODIUM 100 MG CAPSULE (FP) PO SCH (21:22)
[2017-07-09] MEDS: SODIUM CHLORIDE 1,000 ML IV SCH ×2 (00:16→09:52)
[2017-07-09] MEDS: morphine SULFATE 4 MG/ML VIAL IVPUSH PRN ×4 (03:42→22:04)
[2017-07-09 07:52] LABS: ALBUMIN 1.9 g/dl (3.4-5.0); ANION GAP 6 (8-16); BLOOD UREA NITROGEN 7 mg/dL (7-18); CALCIUM 7.6 mg/dL (8.5-10.1); CHLORIDE 108 mmol/L (98-107); CO2 26 mmol/L (21-32); GLUCOSE,RANDOM 99 mg/dL (74-106); INR 1.86 (0.82-1.09); POTASSIUM 4.1 mmol/L (3.5-5.1); SGOT/AST 7 U/L (15-37); SGPT/ALT < 6 U/L (12-78); SODIUM 140 mmol/L (136-145)
[2017-07-09 07:54] LABS: ALK PHOS 61 U/L (45-117); BILIRUBIN,TOTAL 0.4 mg/dL (0.2-1.0); CREATININE 0.4 mg/dL (0.7-1.3); TOT PROT 5.3 g/dl (6.4-8.2)
[2017-07-09] MEDS: AMINO ACIDS/PROTEIN HYDROLYS 30 ML LIQUID.PKT PO SCH ×2 (08:45→17:23)
[2017-07-09 09:04] LABS: HEMATOCRIT 28.8 % (35.4-49); HEMOGLOBIN 9.4 GM/dL (11.7-16.9); MCH 26.7 pg (25.7-33.7); MCHC 32.8 g/dl (32.0-35.9); MEAN CELL VOLUME 81.4 fl (80-96); MEAN PLT VOLUME 8.2 fl (7.5-11.1); PLATELET COUNT 768 K/MM3 (134-434); RBC 3.54 M/mm3 (4.00-5.60); WHITE BLOOD COUNT 7.1 K/mm3 (4.0-10.0)
[2017-07-09] MEDS: ASCORBIC ACID 500 MG TABLET (FP) PO SCH (09:52)
[2017-07-09] MEDS: MULTIVITAMINS (DAILY MVI) TABLET (FP) PO SCH (09:52)
[2017-07-09] MEDS: PANTOPRAZOLE 40 MG TABLET (FP) PO SCH (09:52)
[2017-07-09] MEDS: GABAPENTIN 100 MG CAPSULE (FP) PO SCH (09:52)
[2017-07-09 11:29] LABS: PLATELET ESTIMATE INCREASED
--- NOTE | 2017-07-09 11:58 | PN ---
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 - Current Medication List Current Medications: Active Medications Amino Acids (Prosource No Carb Liquid Pkt) 30 ml PO BID@0800,1730 [facility] Last Admin: 07/09/17 08:45 Dose: 30 ml Ascorbic Acid (Vitamin C -) 500 mg PO DAILY [facility] Last Admin: 07/09/17 09:52 Dose: 500 mg Docusate Sodium (Colace -) 300 mg PO HS [facility] Last Admin: 07/08/17 21:22 Dose: Not Given Fentanyl (Duragesic 50mcg Patch -) 1 patch TD Q72H [facility] Stop: 07/15/17 13:39 Last Admin: 07/08/17 14:31 Dose: 1 patch Gabapentin (Neurontin -) 100 mg PO DAILY [facility] Last Admin: 07/09/17 09:52 Dose: 100 mg Sodium Chloride (Normal Saline -) 1,000 mls @ 125 mls/hr IV ASDIR [facility] Last Admin: 07/09/17 09:52 Dose: 125 mls/hr Miscellaneous (Duragesic Patch Waste) 1 each TD PRN PRN PRN Reason: PAIN Morphine Sulfate (Morphine Sulfate) 4 mg IVPUSH Q4H PRN PRN Reason: PAIN LEVEL 4 - 6 Last Admin: 07/09/17 09:51 Dose: 4 mg Multivitamins/Minerals/Vitamin C (Tab-A-Vit -) 1 tab PO DAILY [facility] Last Admin: 07/09/17 09:52 Dose: 1 tab Ondansetron HCl (Zofran Odt -) 4 mg SL Q6H PRN PRN Reason: NAUSEA AND/OR VOMITING Pantoprazole Sodium (Protonix -) 40 mg PO DAILY [facility] Last Admin: 07/09/17 09:52 Dose: 40 mg Warfarin Sodium (Coumadin -) 5 mg PO SuTuThFrSa@1800 [facility] Last Admin: 07/08/17 17:34 Dose: 5 mg Warfarin Sodium (Coumadin -) 2.5 mg PO MoWe@1800 [facility] - Objective Vital Signs: Vital Signs Temperature 98.9 F 07/09/17 08:59 Pulse Rate 81 07/09/17 08:59 Respiratory Rate 16 07/09/17 08:59 Blood Pressure 97/58 07/09/17 08:59 O2 Sat by Pulse Oximetry (%) 99 07/09/17 09:00 Neck: Yes: Supple Cardiovascular: Yes: Regular Rate and Rhythm Respiratory: Yes: Regular, CTA Bilaterally Gastrointestinal: Yes: Normal Bowel Sounds, Soft, Tenderness Labs: CBC, BMP 07/09/17 06:00 07/09/17 06:00 INR, PTT INR 1.86 (0.82-1.09) H 07/09/17 06:00 Assessment/Plan - Problems (1) Abdominal pain Assessment/Plan: -pain management consult appreciated - Start duragesic patch 50 q 72 -morphine prn Code(s): R10.9 - UNSPECIFIED ABDOMINAL PAIN Qualifiers: Abdominal location: generalized Qualified Code(s): R10.84 - Generalized abdominal pain (2) Abscess Assessment/Plan: -drained -ID consult appreciated -IV abx -Surgery consult appreciated -wound culture pending Code(s): L02.91 - CUTANEOUS ABSCESS, UNSPECIFIED (3) Malignant pseudomyxoma peritonei Assessment/Plan: -terminal -pt is aware -palliative care Code(s): C78.6 - SECONDARY MALIGNANT NEOPLASM OF RETROPERITON AND PERITONEUM (4) Anemia Assessment/Plan: -seen by Hematology -Chronic 2/2 metastasis -PRBC today -monitor H/H -normal transfusion parameters Code(s): D64.9 - ANEMIA, UNSPECIFIED Qualifiers: Anemia type: unspecified type Qualified Code(s): D64.9 - Anemia, unspecified (5) Malnutrition Assessment/Plan: BMI 16.8 -RD consult -Poor PO intake -Low protein and albumin -prosource -multivitamin Code(s): E46 - UNSPECIFIED PROTEIN-CALORIE MALNUTRITION (6) History of DVT of lower extremity Assessment/Plan: -on Warfarin -Subtherapeutic, give Warfarin 5 mg today -check daily INR's Code(s): Z86.718 - PERSONAL HISTORY OF OTHER VENOUS THROMBOSIS AND EMBOLISM
--- NOTE | 2017-07-09 13:06 | PN ---
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 (short form) - Note 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: Seen and examined. Seen by pain mgmt. pain is better controlled today Vital Signs Period Temp Pulse Resp BP Sys/Conte Pulse Ox Last 24 Hr 98.1 F-98.9 F 81-90 16-20 94-116/58-71 97-99 CBC, BMP 07/09/17 06:00 07/09/17 06:00 Active Medications Generic Name Dose Route Start Last Admin Trade Name Freq PRN Reason Stop Dose Admin Amino Acids 30 ml 07/05/17 17:30 07/09/17 08:45 Prosource No Carb Liquid Pkt PO 30 ml BID@0800,1730 [facility] Administration Ascorbic Acid 500 mg 07/06/17 10:00 07/09/17 09:52 Vitamin C - PO 500 mg DAILY [facility] Administration Docusate Sodium 300 mg 07/08/17 22:00 07/08/17 21:22 Colace - PO Not Given HS [facility] Fentanyl 1 patch 07/08/17 13:45 07/08/17 14:31 Duragesic 50mcg Patch - TD 07/15/17 13:39 1 patch Q72H [facility] Administration Gabapentin 100 mg 07/06/17 19:00 07/09/17 09:52 Neurontin - PO 100 mg DAILY [facility] Administration Sodium Chloride 1,000 mls @ 125 mls/hr 07/04/17 23:15 07/09/17 09:52 Normal Saline - IV 125 mls/hr ASDIR [facility] Administration Miscellaneous 1 each 07/08/17 13:38 Duragesic Patch Waste TD PRN PRN PAIN Morphine Sulfate 4 mg 07/07/17 14:43 07/09/17 09:51 Morphine Sulfate IVPUSH 4 mg Q4H PRN Administration PAIN LEVEL 4 - 6 Multivitamins/Minerals/Vitamin C 1 tab 07/06/17 10:00 07/09/17 09:52 Tab-A-Vit - PO 1 tab DAILY [facility] Administration Ondansetron HCl 4 mg 07/05/17 08:10 Zofran Odt - SL Q6H PRN NAUSEA AND/OR VOMITING Pantoprazole Sodium 40 mg 07/05/17 10:00 07/09/17 09:52 Protonix - PO 40 mg DAILY [facility] Administration Warfarin Sodium 5 mg 07/07/17 18:00 07/08/17 17:34 Coumadin - PO 5 mg SuTuThFrSa@1800 [facility] Administration Warfarin Sodium 2.5 mg 07/10/17 18:00 Coumadin - PO MoWe@1800 [facility] A/P: Pain: Seen by pain management for morphine better control of pain now Advanced malignancy as per prior discussions, not hospice, DNR/DNI, appreciate palliative care recs
[2017-07-09] MEDS: WARFARIN NA 5 MG TABLET (UD) PO SCH (17:23)
[2017-07-09] MEDS: DOCUSATE SODIUM 100 MG CAPSULE (FP) PO SCH (22:04)
[2017-07-10] MEDS: SODIUM CHLORIDE 1,000 ML IV SCH
[2017-07-10] MEDS: morphine SULFATE 4 MG/ML VIAL IVPUSH PRN ×3 (03:36→14:28)
[2017-07-10 08:20] LABS: BASO % 0.6 % (0-2.0); EOS % 4.5 % (0-4.5); HEMATOCRIT 28.9 % (35.4-49); HEMOGLOBIN 9.6 GM/dL (11.7-16.9); LYMPH % 14.1 % (8-40); MCH 27.1 pg (25.7-33.7); MCHC 33.2 g/dl (32.0-35.9); MEAN CELL VOLUME 81.4 fl (80-96); MEAN PLT VOLUME 8.2 fl (7.5-11.1); MONO % 8.7 % (3.8-10.2); NEUT % 72.1 % (42.8-82.8); PLATELET COUNT 770 K/MM3 (134-434); RBC 3.54 M/mm3 (4.00-5.60); RDW 19.4 % (11.9-15.9); WHITE BLOOD COUNT 10.3 K/mm3 (4.0-10.0)
[2017-07-10 08:24] LABS: INR 1.88 (0.82-1.09); PROTHROMBIN TIME (PATIENT) 21.2 SEC (9.98-11.88)
[2017-07-10 08:26] LABS: ALBUMIN 1.9 g/dl (3.4-5.0); ANION GAP 9 (8-16); BLOOD UREA NITROGEN 7 mg/dL (7-18); CHLORIDE 104 mmol/L (98-107); CO2 28 mmol/L (21-32); GLUCOSE,RANDOM 131 mg/dL (74-106); POTASSIUM 4.3 mmol/L (3.5-5.1); SODIUM 141 mmol/L (136-145)
[2017-07-10 08:31] LABS: ALK PHOS 67 U/L (45-117); BILIRUBIN,TOTAL 0.3 mg/dL (0.2-1.0); CREATININE 0.4 mg/dL (0.7-1.3); SGOT/AST 9 U/L (15-37); SGPT/ALT < 6 U/L (12-78); TOT PROT 5.6 g/dl (6.4-8.2)
[2017-07-10] MEDS: AMINO ACIDS/PROTEIN HYDROLYS 30 ML LIQUID.PKT PO SCH ×2 (08:44→17:38)
[2017-07-10] MEDS: ASCORBIC ACID 500 MG TABLET (FP) PO SCH (09:34)
[2017-07-10] MEDS: MULTIVITAMINS (DAILY MVI) TABLET (FP) PO SCH (09:34)
[2017-07-10] MEDS: PANTOPRAZOLE 40 MG TABLET (FP) PO SCH (09:34)
[2017-07-10] MEDS: GABAPENTIN 100 MG CAPSULE (FP) PO SCH (09:34)
--- NOTE | 2017-07-10 11:24 | PN ---
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 Chief Complaint: Left flank abscess History of Present Illness: NAD Anemic seen by ID and Hematology - Current Medication List Current Medications: Active Medications Amino Acids (Prosource No Carb Liquid Pkt) 30 ml PO BID@0800,1730 [facility] Last Admin: 07/10/17 08:44 Dose: 30 ml Ascorbic Acid (Vitamin C -) 500 mg PO DAILY [facility] Last Admin: 07/10/17 09:34 Dose: 500 mg Docusate Sodium (Colace -) 300 mg PO HS [facility] Last Admin: 07/09/17 22:04 Dose: Not Given Fentanyl (Duragesic 50mcg Patch -) 1 patch TD Q72H [facility] Stop: 07/15/17 13:39 Last Admin: 07/08/17 14:31 Dose: 1 patch Gabapentin (Neurontin -) 100 mg PO DAILY [facility] Last Admin: 07/10/17 09:34 Dose: 100 mg Sodium Chloride (Normal Saline -) 1,000 mls @ 125 mls/hr IV ASDIR [facility] Last Admin: 07/10/17 00:00 Dose: 125 mls/hr Miscellaneous (Duragesic Patch Waste) 1 each TD PRN PRN PRN Reason: PAIN Morphine Sulfate (Morphine Sulfate) 4 mg IVPUSH Q4H PRN PRN Reason: PAIN LEVEL 4 - 6 Last Admin: 07/10/17 10:35 Dose: 4 mg Multivitamins/Minerals/Vitamin C (Tab-A-Vit -) 1 tab PO DAILY [facility] Last Admin: 07/10/17 09:34 Dose: 1 tab Ondansetron HCl (Zofran Odt -) 4 mg SL Q6H PRN PRN Reason: NAUSEA AND/OR VOMITING Pantoprazole Sodium (Protonix -) 40 mg PO DAILY [facility] Last Admin: 07/10/17 09:34 Dose: 40 mg Warfarin Sodium (Coumadin -) 5 mg PO DAILY [facility] - Objective Vital Signs: Vital Signs Temperature 97.9 F 07/10/17 06:16 Pulse Rate 83 07/10/17 06:16 Respiratory Rate 20 07/10/17 06:16 Blood Pressure 90/54 07/10/17 06:16 O2 Sat by Pulse Oximetry (%) 97 07/09/17 21:00 Constitutional: Yes: Well Nourished, No Distress, Calm Cardiovascular: Yes: Regular Rate and Rhythm Respiratory: Yes: Regular Gastrointestinal: Yes: Normal Bowel Sounds, Soft Musculoskeletal: Yes: WNL Extremities: Yes: WNL Edema: No Peripheral Pulses WNL: Yes Neurological: Yes: Alert, Oriented Psychiatric: Yes: Alert, Oriented Labs: CBC, BMP 07/10/17 06:10 07/10/17 06:00 INR, PTT INR 1.88 (0.82-1.09) H 07/10/17 06:10 Problem List - Problems (1) Abdominal pain Assessment/Plan: -pain management consult appreciated - morphine and fentanyl patch Code(s): R10.9 - UNSPECIFIED ABDOMINAL PAIN Qualifiers: Abdominal location: generalized Qualified Code(s): R10.84 - Generalized abdominal pain (2) Abscess Assessment/Plan: -drained -ID consult appreciated -IV abx finished -Surgery consult appreciated -wound culture: Microbiology 07/05/17 10:15 Blood Culture - Final Blood - Peripheral Venous NO GROWTH AFTER 5 DAYS INCUBATION 07/05/17 09:40 Blood Culture - Final Blood - Peripheral Venous NO GROWTH AFTER 5 DAYS INCUBATION 07/05/17 08:00 Gram Stain - Final Hip - Left Wound Culture - Final Staphylococcus Epidermidis Diphtheroid/Corynebacterium Code(s): L02.91 - CUTANEOUS ABSCESS, UNSPECIFIED (3) Malignant pseudomyxoma peritonei Assessment/Plan: -terminal -pt is aware -palliative care Code(s): C78.6 - SECONDARY MALIGNANT NEOPLASM OF RETROPERITON AND PERITONEUM (4) Anemia Assessment/Plan: -seen by Hematology -Chronic 2/2 metastasis -monitor H/H -normal transfusion parameters Code(s): D64.9 - ANEMIA, UNSPECIFIED Qualifiers: Anemia type: unspecified type Qualified Code(s): D64.9 - Anemia, unspecified (5) Malnutrition Assessment/Plan: BMI 16.8 -RD consult -Poor PO intake -Low protein and albumin -prosource -multivitamin Code(s): E46 - UNSPECIFIED PROTEIN-CALORIE MALNUTRITION (6) History of DVT of lower extremity Assessment/Plan: -on Warfarin -Subtherapeutic, give Warfarin 5 mg today, change to 5 mg po daily -check daily INR's Code(s): Z86.718 - PERSONAL HISTORY OF OTHER VENOUS THROMBOSIS AND EMBOLISM Assessment/Plan see problem list
--- NOTE | 2017-07-10 16:52 | PN ---
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 (short form) - Note 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: PAtient seen and examined Last Vital Signs Temp Pulse Resp BP Pulse Ox 98.9 F 79 18 91/56 97 07/10/17 13:26 07/10/17 13:26 07/10/17 13:26 07/10/17 13:26 07/10/17 09:00 Cor: RSR, No murmurs, No gallops Lungs: Clear to P&A Abd: Soft, Normal bowel sounds, No organomegaly Ext:No significant edema A/P Recurrent abscess, s/p I andD on Vanc/zosyn. Clinically, there is Progression of disease, on physical exam the nodules are bigger than the past. will need to f/u on CT scan as ordered, he prefers to stay here. Abd pain from the peritoneal disease, for pain control anemia: supportive care and transfusions prn thrombocytosis: reactive , will monitor Pain control---discussed with --will change to dilaudid 1mg IVPB Q 4hrs prn and change to PO whenpain well contriolled on IV Patient wants to continue supportive care for now and not hospice yet. He does not want to try olaparib--rediscussed benefits/risks --but not willing to try
[2017-07-10 16:59] VITALS: BP 104/61; PULSE 96; TEMP 98.7
[2017-07-10] MEDS ORDERED: WARFARIN NA 5 MG TABLET (UD) PO SCH (18:00)
[2017-07-10] MEDS ORDERED: WARFARIN NA 2.5 MG TABLET (FP) PO SCH (18:00)
== END 2017-07-10 18:24 | disposition home or self-care (01) | DRG 374 ==
LOC: JER 22:32 → JERBED 07-05 02:36 → J7W 07-05 04:00
PROVIDERS: ADMIT Internal Medicine; ATTEND Family Medicine
PROC: 0J9P30Z Drainage of Left Lower Leg Subcutaneous Tissue and Fascia with Drainage Device, Percutaneous Approach (ICD-10-PCS; principal; 2017-07-05)
PROC: 30233H1 Transfusion of Nonautologous Whole Blood into Peripheral Vein, Percutaneous Approach (ICD-10-PCS; 2017-07-05)
DX: C78.6 Secondary malignant neoplasm of retroperitoneum and peritoneum (principal); E43 Unspecified severe protein-calorie malnutrition; R64 Cachexia; L02.416 Cutaneous abscess of left lower limb; Z68.1 Body mass index [BMI] 19.9 or less, adult; D64.9 Anemia, unspecified; Z85.89 Personal history of malignant neoplasm of other organs and systems; Z53.29 Procedure and treatment not carried out because of patient's decision for other reasons; D47.3 Essential (hemorrhagic) thrombocythemia; Z86.718 Personal history of other venous thrombosis and embolism; Z90.81 Acquired absence of spleen; Z90.49 Acquired absence of other specified parts of digestive tract; Z86.711 Personal history of pulmonary embolism; B95.7 Other staphylococcus as the cause of diseases classified elsewhere
CPT/HCPCS: 36415; 36430; 71045-TC-FY; 74176-TC; 80048; 80053; 81003; 82272; 82607; 82728; 83540; 83550; 83690; 83735; 84100; 85025; 85027; 85610; 86850; 86900; 86901; 86922; 87040; 87070; 87077; 87186; 87205; 93005; 93010; 99283-25; P9038; P9058

== ENCOUNTER 2017-08-11 20:44 | Inpatient (IN) | payer OTHER ==
[2017-08-12 06:02] VITALS: BMI 16.4
[2017-08-14 13:23] VITALS: BP 112/67; PULSE 80; TEMP 98
== END 2017-08-14 16:01 | disposition home or self-care (01) | DRG 374 ==
LOC: JER 20:44 → JERBED 08-12 02:37 → UNDOADMIN 08-12 02:39 → J7W 08-12 03:17
PROVIDERS: ADMIT Internal Medicine; ATTEND Family Medicine
PROC: 30233N1 Transfusion of Nonautologous Red Blood Cells into Peripheral Vein, Percutaneous Approach (ICD-10-PCS; principal; 2017-08-12)
DX: C78.6 Secondary malignant neoplasm of retroperitoneum and peritoneum (principal); E43 Unspecified severe protein-calorie malnutrition; R64 Cachexia; Z68.1 Body mass index [BMI] 19.9 or less, adult; D64.9 Anemia, unspecified; F41.9 Anxiety disorder, unspecified; F32.9 Major depressive disorder, single episode, unspecified; Z86.718 Personal history of other venous thrombosis and embolism; G89.3 Neoplasm related pain (acute) (chronic); Z86.711 Personal history of pulmonary embolism; Z79.01 Long term (current) use of anticoagulants; Z80.0 Family history of malignant neoplasm of digestive organs
CPT/HCPCS: 36415; 36430; 74177-TC; 80048; 80053; 82550; 83690; 84484; 85025; 85610; 86850; 86900; 86901; 86922; 93005; 93010; 94010; 99283-25; J7030; P9038; P9058

== ENCOUNTER 2017-09-01 16:25 | Inpatient (IN) | payer OTHER ==
--- NOTE | 2017-09-01 16:41 | PDOC ---
Rapid Medical Evaluation Chief Complaint: Pain, Acute Time Seen by Provider: 09/01/17 16:37 Medical Evaluation: Allergies Allergy/AdvReac Type Severity Reaction Status Date / Time No Known Allergies Allergy Verified 09/01/17 16:36 09/01/17 16:37 I have performed a brief in-person evaluation of the patient. The patient presents with a chief complaints of abdominal pain x 2 days reports pain in epigastric area. Patient reports history of stomach cancer, taking dilaudid po but states it is ineffective x 2 days. Requesting iv dilaudid and drainage of lesion on left side Pertinent physical exam findings: NAD even and unlabored breathing hypoactive bowels I have ordered the following: took po dilaudid po at 2pm, no orders The patient will proceed to the ED for further evaluation.
[2017-09-01] MEDS ORDERED: SODIUM CHLORIDE 0.9% 500 ML INFUS.BAG IV ONE ×2 (17:36→20:06)
[2017-09-01] MEDS ORDERED: morphine CARPU-JECT 4 MG/1 ML DISP.SYRIN IVPUSH ONE ×2 (17:36→22:28)
--- NOTE | 2017-09-01 17:54 | PDOC ---
History of Present Illness - General Chief Complaint: Pain, Acute Stated Complaint: PAIN Time Seen by Provider: 09/01/17 16:37 - History of Present Illness Initial Comments: 09/01/17 17:42 47 year old male with a PMHx of pseudomyxoma peritonei, SBO who presents to our ED c/o 1 day h/o diffuse abdominal pain. Pain is cramping, constant, 10/10, diffuse with radiation to his back. Endorses nausea, denies vomiting, however not tolerating PO intake. Denies fevers/chills, diarrhea/constipation, dysuria/ hematuria, testicular/penile pain. Last BM earlier today prior to presentation , was normal. Patient denies chest pain, shortness of breath. Patient denies fevers/chills, headache, sore throat, cough. Patient denies sick contacts, recent travel. NKDA PMD: Dr. Addison As per EMR, patient evaluated for similar complaints in 07/2017 at which time clinical impression was abdominal pain 2/2 to pseudomyxoma peritonei. Past History - Past Medical History Allergies/Adverse Reactions: Allergies Allergy/AdvReac Type Severity Reaction Status Date / Time No Known Allergies Allergy Verified 09/01/17 16:36 Home Medications: Ambulatory Orders Multivitamins [Multivit ([facility] Formulary)] 1 tab PO DAILY #30 tab 07/10/17 HYDROmorphone [Dilaudid -] 2 mg PO Q6H PRN 09/01/17 FENTANYL 12mcg PATCH [DURAGESIC 12mcg PATCH -] 1 patch TD Q72H #10 patch.td72 MDD 1 09/05/17 FENTANYL 50mcg PATCH [DURAGESIC 50 mcg PATCH -] 1 patch TD Q72H #10 patch.td72 MDD 1 09/05/17 Warfarin Na [Coumadin -] 5 mg PO DAILY@1800 #0 tablet 09/05/17 Anemia: Yes Asthma: No Cancer: Yes (APPENDICEAL CA, 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) Cardiac Disorders: No CVA: No COPD: No CHF: No DVT: Yes (LLE BLOOD CLOT 5 YEARS AGO) Dementia: No Diabetes: No GI Disorders: Yes (C-DIFF 2013) Disorders: Yes (CDIFF 2013) HTN: No Hypercholesterolemia: No Liver Disease: No Seizures: No Thyroid Disease: No - Surgical History Abdominal Surgery: Yes (spleenectomy, COLECTOMY,) Appendectomy: Yes Cardiac Surgery: No Cholecystectomy: No GI Surgery: Yes (for stomach cancer--pnp) Lung Surgery: No Neurologic Surgery: No Orthopedic Surgery: No - Immunization History Immunization Up to Date: Yes - Suicide/Smoking/Psychosocial Hx Smoking Status: No Smoking History: Never smoked Have you smoked in the past 12 months: No Number of Cigarettes Smoked Daily: 0 Cigars Per Day: 0 Hx Alcohol Use: No Drug/Substance Use Hx: No Substance Use Type: None Hx Substance Use Treatment: No Review of Systems - Review of Systems Constitutional: No: Chills, Fever HEENTM: No: Recent change in vision Respiratory: No: Cough, Shortness of Breath Cardiac (ROS): No: Chest Pain, Lightheadedness, Palpitations, Syncope ABD/GI: No: Constipated, Diarrhea, Nausea, Vomiting : No: Burning, Dysuria *Physical Exam - Vital Signs Last Vital Signs Temp Pulse Resp BP Pulse Ox 98.4 F 106 H 20 104/77 100 09/01/17 16:36 09/01/17 16:36 09/01/17 16:36 09/01/17 16:36 09/01/17 16:36 - Physical Exam Comments: 09/14/17 15:24 General: Thin, non-toxic appearing Abdomen: Diffuse TTP, (+) bowel sounds, non-tympanitic CV: S1/S2, RRR Respiratory: CLTA B/L ED Treatment Course - LABORATORY CBC & Chemistry Diagram: 09/04/17 06:30 09/04/17 06:30 - RADIOLOGY Radiology Studies Ordered: Category Date Time Status ABDOMEN & PELVIS CT WITH CONTR [CT] Stat CT Scan 09/01/17 17:38 Ordered Medical Decision Making - Medical Decision Making 47 year old male with PMH of pseudomyxoma peritonei, SBO presents with abdominal pain that radiates to the back. H/o multiple evaluations for pain 2/ 2 to his CA. PE significant for diffuse abdominal TTP. Frontal diagnosis: pancreatitis, SBO, CA mets. CBC, CMP, Lipase, CT Abdomen pending. Patient signed out to Dr. Hart (Resident) and Dr. Summers (Attending) w/labs, CT abdomen pending. *DC/Admit/Observation/Transfer Diagnosis at time of Disposition: Pancreatitis Qualifiers: Chronicity: acute Pancreatitis type: biliary Acute pancreatitis complication: no infection or necrosis Qualified Code(s): K85.10 - Biliary acute pancreatitis without necrosis or infection - Discharge Dispostion Disposition: HOME Condition at time of disposition: Stable - Prescriptions - Referrals - Patient Instructions - Post Discharge Activity
[2017-09-01] MEDS ORDERED: morphine SULFATE 4 MG/ML VIAL ONE (18:03)
--- NOTE | 2017-09-01 18:05 | PDOC ---
Attending Attestation - Resident Resident Name: Chandni Muhammad - ED Attending Attestation I have performed the following: I agree w/resident's findings & plan - HPI HPI: 09/02/17 20:13 Pt with gastric cancer with mets comes with abd pain and weight loss and inability to eat. - Physicial Exam PE: 09/02/17 20:13 see resident exam - Medical Decision Making 09/01/17 20:00 I receievd pt on signout. Abd pain. Lipase 905. Pt with pancreatitis. We are awaiting CT scan result to ensure there is no other pathology in the abdoomen/ pelvis. Pt will be admitted to the hospitalist (CINTIA Addison) and kept NPO. He will also require IV hydration and GI consult. 09/01/17 22:[address] scan returned. No interval change. Gastric cancer masses throughout abd/ pelvis. Pt will be admitted for hydration, as he cannot tolerate PO. He is also willing to discuss hospitce care. <Tata Summers - Last Filed: 09/02/17 20:13> - Resident Resident Name: Chandni Muhammad - ED Attending Attestation I have performed the following: I have examined & evaluated the patient, The case was reviewed & discussed with the resident, I agree w/resident's findings & plan, Exceptions are as noted - HPI HPI: 09/02/17 21:28 Mr Cancino is a 47 yo M h/o pseudomyxoma peritonei, chronic abdominal pain who presented to the ED worsening abdominal pain and poor po intake. No fevers or chills No vomiting No diarrhea - Physicial Exam PE: 09/02/17 21:29 On examination GENERAL: Awake, alert, and fully oriented, in no acute distress. LUNGS: Breath sounds equal, clear to auscultation bilaterally. HEART: Regular rate and rhythm, normal S1 and S2 ABDOMEN: Soft, diffusely tender to palpation, not distended, mass noted left flank NEUROLOGICAL: Cranial nerves II-XII intact. Normal speech. - Medical Decision Making 09/02/17 21:31 Pt presents to the ER with abdominal pain, requesting evaluation by Dr Agee Pt differential is broad, Will do labs, CT, Pain medications, re assess Pt signed out to night team <Bee Cooney - Last Filed: 05/05/18 21:33> Heart Score/ECG Review - ECG Intrepretation Comment:: 09/02/17 06:11 Completed @0:48:14 normal sinus rhythm Normal ECG Vent. rate 80 bpm [place] interval 170 ms QRS duration 86 ms <Ron Castillo - Last Filed: 09/02/17 06:11>
[2017-09-01 18:20] LABS: HEMOGLOBIN 9.1 GM/dL (11.7-16.9); MCH 25.7 pg (25.7-33.7); MCHC 32.6 g/dl (32.0-35.9); MEAN CELL VOLUME 78.8 fl (80-96); MEAN PLT VOLUME 8.2 fl (7.5-11.1); PLATELET COUNT 732 K/MM3 (134-434); RBC 3.56 M/mm3 (4.00-5.60); RDW 19.4 % (11.9-15.9); WHITE BLOOD COUNT 6.3 K/mm3 (4.0-10.0)
[2017-09-01 18:32] LABS: INR 1.5 (0.82-1.09)
[2017-09-01 18:36] LABS: ACTIVATED PTT 34.6 SECONDS (26.9-34.4)
[2017-09-01 18:46] LABS: ANION GAP 5 (8-16); BILIRUBIN,TOTAL 0.3 mg/dL (0.2-1.0); BLOOD UREA NITROGEN 12 mg/dL (7-18); CALCIUM 8.8 mg/dL (8.5-10.1); CHLORIDE 107 mmol/L (98-107); CO2 29 mmol/L (21-32); CREATININE 0.5 mg/dL (0.7-1.3); GLUCOSE,RANDOM 96 mg/dL (74-106); POTASSIUM 4.4 mmol/L (3.5-5.1); SGOT/AST 13 U/L (15-37); SGPT/ALT 11 U/L (12-78); SODIUM 141 mmol/L (136-145); TOT PROT 7.1 g/dl (6.4-8.2)
[2017-09-01 18:47] LABS: ALBUMIN 2.8 g/dl (3.4-5.0); ALK PHOS 76 U/L (45-117)
[2017-09-01 18:51] LABS: LIPASE 905 U/L (73-393)
--- NOTE | 2017-09-01 19:26 | PDOC ---
*Physical Exam - Vital Signs Last Vital Signs Temp Pulse Resp BP Pulse Ox 98.4 F 106 H 20 104/77 100 09/01/17 16:36 09/01/17 16:36 09/01/17 16:36 09/01/17 16:36 09/01/17 16:36 ED Treatment Course - LABORATORY CBC & Chemistry Diagram: 09/01/17 18:10 09/01/17 18:10 - ADDITIONAL ORDERS Additional order review: Laboratory Results 09/01/17 09/01/17 18:13 18:10 PT with INR 17.00 H INR 1.50 H D PTT (Actin FS) 34.6 H Sodium 141 Potassium 4.4 Chloride 107 Carbon Dioxide 29 Anion Gap 5 L BUN 12 D Creatinine 0.5 L Creat Clearance w eGFR > 60 Random Glucose 96 Calcium 8.8 Total Bilirubin 0.3 D AST 13 L ALT 11 L D Alkaline Phosphatase 76 Total Protein 7.1 D Albumin 2.8 L D Lipase 905 H 09/01/17 18:10 RBC 3.56 L MCV 78.8 L MCHC 32.6 RDW 19.4 H MPV 8.2 Neutrophils % No Result Required. Lymphocytes % No Result Required. - Medications Given in the ED: ED Medications Discontinued Medications Generic Name Dose Route Start Last Admin Trade Name Freq PRN Reason Stop Dose Admin Morphine Sulfate 4 mg 09/01/17 17:36 09/01/17 18:12 Morphine Injection - IVPUSH 09/01/17 17:37 4 mg ONCE ONE Administration Sodium Chloride 1,000 ml 09/01/17 17:36 09/01/17 18:12 Normal Saline - IV 09/01/17 17:37 1,000 ml ONCE ONE Administration Medical Decision Making - Medical Decision Making 47 year old with pseudomixoma pertonei signed out to me ins table condition pending CT abdomen pelvis. 09/01/17 19:19 CT abdomen results not back but labs demonstrating pancreatitis which is corroborated by patient's story of not tolerating PO today. He has had struggles dealing with the ultimate prognosis of his disease course and now feels that he needs assistance along with IV pain medications at home. He is now considering hospice since his surgeons have decided that he is not a candidate for operation and he does not want pursue chemo any further. 09/01/17 22:10 Will admit for pancreatitis and possible home hospice placement. *DC/Admit/Observation/Transfer Diagnosis at time of Disposition: Pancreatitis Qualifiers: Chronicity: acute Pancreatitis type: unspecified pancreatitis type Acute pancreatitis complication: no infection or necrosis Qualified Code(s): K85.90 - Acute pancreatitis without necrosis or infection, unspecified - Discharge Dispostion Condition at time of disposition: Stable Admit: Yes - Referrals Referrals: Yuliana Addison MD [Primary Care Provider] - - Patient Instructions - Post Discharge Activity
[2017-09-01 21:20] LABS: ANISOCYTOSIS 2+; MACROCYTOSIS 1+; OVALOCYTE 1+
[2017-09-01 21:21] LABS: PLATELET ESTIMATE MOD INCREASED
[2017-09-01] MEDS ORDERED: HYDROmorphone HCL CARPU-JECT 1 MG/1 ML DISP.SYRIN IVPUSH ONE (22:07)
[2017-09-01] MEDS ORDERED: MORPHINE SULFATE 10 MG/1 ML *VIAL ONE (23:23)
[2017-09-01] MEDS ORDERED: HYDROmorphone HCL 2 MG TABLET PO PRN (23:41)
[2017-09-01] MEDS ORDERED: WARFARIN NA 7.5 MG TABLET (FP) PO ONE (23:45)
[2017-09-01] MEDS ORDERED: FENTANYL 50 MCG TD SCH (23:45)
--- NOTE | 2017-09-01 23:48 | HP ---
CHIEF COMPLAINT: abdominal pain PCP: Azael HISTORY OF PRESENT ILLNESS: This is a 47 year old male with a past medical history of pseudomyxoma peritonei , chronic abdominal pain who presented to the ED worsening abdominal pain and poor po intake. Pt states that he had absolutely no appetite today. He states that the pain has been increasing and today is unbearable. 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, c diff PAST SURGICAL HISTORY: splenectomy partial colectomy appendectomy gastric stent Social History: Smoking: pt denies Alcohol: pt denies Drugs: pt denies Family History: mother alive and well father age 79, ESRD, colon CA, DM 3 brothers alive and well Allergies No Known Allergies Allergy (Verified 09/01/17 16:36) HOME MEDICATIONS: 3 Medication Instructions Recorded Multivitamins [Multivit ([facility] 1 tab PO DAILY #30 tab 07/10/17 Formulary)] Warfarin Na [Coumadin -] 5 mg PO DAILY@1800 tablet 07/10/17 Fentanyl 50 mcg TD Q3D 08/12/17 HYDROmorphone [Dilaudid -] 2 mg PO Q6H PRN 09/01/17 REVIEW OF SYSTEMS CONSTITUTIONAL: Absent: fever, chills, diaphoresis, generalized weakness, malaise, loss of appetite, weight change HEENT: Absent: rhinorrhea, nasal congestion, throat pain, throat swelling, difficulty swallowing, mouth swelling, ear pain, eye pain, visual changes CARDIOVASCULAR: Absent: chest pain, syncope, palpitations, irregular heart rate, lightheadedness , peripheral edema RESPIRATORY: Absent: cough, shortness of breath, dyspnea with exertion, orthopnea, wheezing, stridor, hemoptysis GASTROINTESTINAL: Present: abdominal pain, poor appetite Absent: abdominal distension, nausea, vomiting, diarrhea, constipation, melena, hematochezia GENITOURINARY: Absent: dysuria, frequency, urgency, hesitancy, hematuria, flank pain, genital pain MUSCULOSKELETAL: Absent: myalgia, arthralgia, joint swelling, back pain, neck pain SKIN: Absent: rash, itching, pallor HEMATOLOGIC/IMMUNOLOGIC: Absent: easy bleeding, easy bruising, lymphadenopathy, frequent infections ENDOCRINE: Absent: unexplained weight gain, unexplained weight loss, heat intolerance, cold intolerance NEUROLOGIC: Absent: headache, focal weakness or paresthesias, dizziness, unsteady gait, seizure, mental status changes, bladder or bowel incontinence PSYCHIATRIC: Absent: anxiety, depression, suicidal or homicidal ideation, hallucinations. PHYSICAL EXAMINATION Vital Signs - 24 hr 3 09/01/17 16:36 Temperature 98.4 F Pulse Rate 106 H Respiratory 20 Rate Blood Pressure 104/77 O2 Sat by Pulse 100 Oximetry (%) GENERAL: Awake, alert, and fully oriented, in no acute distress. HEAD: Normal with no signs of trauma. EYES: Pupils equal, round and reactive to light, extraocular movements intact, sclera anicteric, conjunctiva clear. No lid lag. EARS, NOSE, THROAT: Ears normal, nares patent, oropharynx clear without exudates. Moist mucous membranes. NECK: Normal range of motion, supple without lymphadenopathy, JVD, or masses. LUNGS: Breath sounds equal, clear to auscultation bilaterally. No wheezes, and no crackles. No accessory muscle use. HEART: Regular rate and rhythm, normal S1 and S2 without murmur, rub or gallop. ABDOMEN: Soft, tender all over, + visible and palpable mass noted to epigastric region, not distended, normoactive bowel sounds, no guarding, no rebound, no masses. No hepatomegaly or splenomegaly. soft mass noted left flank as well, nontender, no excessive warmth MUSCULOSKELETAL: Normal range of motion at all joints. No bony deformities or tenderness. No CVA tenderness. UPPER EXTREMITIES: 2+ pulses, warm, well-perfused. No cyanosis. No clubbing. No peripheral edema. LOWER EXTREMITIES: 2+ pulses, warm, well-perfused. No calf tenderness. No peripheral edema. NEUROLOGICAL: Cranial nerves II-XII intact. Normal speech. Normal gait. PSYCHIATRIC: Cooperative. Good eye contact. Appropriate mood and affect. SKIN: Warm, dry, normal turgor, no rashes or lesions noted, normal capillary refill. Laboratory Results - last 24 hr 3 09/01/17 09/01/17 09/01/17 09/01/17 18:10 18:10 18:10 18:13 WBC 6.3 RBC 3.56 L Hgb 9.1 L Hct 28.0 L MCV 78.8 L MCH 25.7 MCHC 32.6 RDW 19.4 H Plt Count 732 H MPV 8.2 Total Counted 100 Neutrophils % No Result Required. Neutrophils % (Manual) 67.0 Lymphocytes % No Result Required. Lymphocytes % (Manual) 19.0 D Monocytes % (Manual) 10 Eosinophils % (Manual) 4.0 Differential Comment Man diff performed Hypochromia 2+ Platelet Estimate Mod increased Platelet Comment Scanned slide Poikilocytosis 1+ Anisocytosis 2+ Microcytosis 1+ Macrocytosis 1+ Ovalocytes 1+ Schistocytes 1+ PT with INR 17.00 H INR 1.50 H D PTT (Actin FS) 34.6 H Sodium 141 Potassium 4.4 Chloride 107 Carbon Dioxide 29 Anion Gap 5 L BUN 12 D Creatinine 0.5 L Creat Clearance w eGFR > 60 Random Glucose 96 Lactic Acid Calcium 8.8 Total Bilirubin 0.3 D AST 13 L ALT 11 L D Alkaline Phosphatase 76 Total Protein 7.1 D Albumin 2.8 L D Lipase 905 H Blood Type A POSITIVE Antibody Screen Negative Radiology Reports CT abd/pelvis with IV contrast No obvious interval change is noted in comparison to a prior CT exam of 2017. There is no evidence of pneumoperitoneum or ascites. S everal noncalcified pulmonary nodules are seen within the partially imaged lower lung greene bilaterally. A gastric stent is seen in place which may be partially patent. Intraluminal material is seen within the stent which may be on the basis of debris and/or neoplastic disease. Multiple hypodense mass lesions are seen within the upper abdomen and pelvis at least partially encasing the gastric body and extending posteriorly to the peripancreatic region. As on the prior study a large hypodense mass lesion is seen within the left lower abdomen extending through the posterior lateral abdominal wall. In addition a component of this hypodense mass lesion extends into and through the ventral abdominal wall in the epigastric region along the midline. A partially necrotic hypodense lesion is seen within the right lateral aspect of the pelvis a small amount of air is seen within this hypodense lesion which could be on the basis of involvement of contiguous bowel. Bilateral abdominal surgical bowel anastomoses is seen. Status post splenectomy. The liver demonstrates no obvious intrinsic pathology. There is extrinsic indentation upon the left hepatic lobe secondary to the previously described large upper abdominal mass lesion. The kidneys, and adrenal glands demonstrate no discrete abnormality. There is no aortic aneurysm. The osseous structures demonstrate no obvious acute pathology or neoplastic disease. Impression: No definite interval change is identified in comparison to a prior CT exam of 08/11/2017. Numerous hypodense mass lesions are seen within the abdomen and pelvis as discussed including a mass lesion which extends into and through the epigastric abdominal wall. Reported By: Fredi Castrejon MD 09/01/17 4037 ASSESSMENT/PLAN: 47yM with PMH DVT, malignant pseudomyxoma peritonei, anemia, chronic abdominal pain, appendiceal CA 2008 last chemo 2013, c diff presented to the ED with worsening abdominal pain. pancreatitis - lipase up to 905 from a previous personal high of 224 in 2016 - NPO except meds - NS @ 100cc/hr - GI consult Malignant pseudomyxoma peritonei - pt now willing to consider hospice, will obtain palliative care consult - oncology consult - cont home pain meds, add morphine PRN Protein calorie malnutrition - pt reports a 40-50 pound weight loss over the past 6 months - expected finding in malignancy - dietary consult subtherapeutic INR - INR 1.5 - pt states that it was on hold because it was elevated - will give warfarin 7.5mg x 1 tonight, restart 5mg daily and adjust according to INR. anemia - Hgb 9.1, cont to trend, transfuse if less than 7. DVT PPX - on warfarin FEN - NS @ 100cc/hr - bmp in am - NPO for now. Dispo: pt currently requires further inpatient management of his emergent condition Visit type - Emergency Visit Emergency Visit: Yes ED Registration Date: 09/01/17 Care time: The patient presented to the Emergency Department on the above date and was hospitalized for further evaluation of their emergent condition. - New Patient This patient is new to me today: Yes Date on this admission: 09/01/17 - Critical Care Critical Care patient: No Hospitalist Screening - Colonoscopy Questionnaire Colonoscopy Questionnaire: Colonoscopy Questionnaire - Patient: 50 - 75 years old and never had a screening colonoscopy: No History of colon or rectal polyps, or CA: Yes History of IBD, Crohn's disease or UC: No History of abdominal radiation therapy as a child: No - Relative: 1 with colon or rectal CA, or polyps at age 60 or younger: Yes Colon or rectal CA diagnosed at age 45 or younger: No Multiple relatives with colon or rectal CA: No - Outcome: Screening Result: Positive Screen
[2017-09-01] MEDS ORDERED: fentaNYL 50mcg/hr PATCH.TD72 TD SCH (23:51)
[2017-09-01] MEDS ORDERED: WARFARIN NA 5 MG TABLET (UD) ONE (23:57)
[2017-09-02] MEDS: FENTANYL PATCH WASTE TD PRN (00:35)
[2017-09-02] MEDS: morphine SULFATE 4 MG/ML VIAL IVPUSH PRN ×5 (05:37→21:26)
[2017-09-02 08:20] LABS: HEMATOCRIT 22.9 % (35.4-49); HEMOGLOBIN 7.5 GM/dL (11.7-16.9); MCH 25.4 pg (25.7-33.7); MCHC 32.6 g/dl (32.0-35.9); MEAN CELL VOLUME 77.9 fl (80-96); PLATELET COUNT 658 K/MM3 (134-434); RBC 2.94 M/mm3 (4.00-5.60); RDW 19.7 % (11.9-15.9); WHITE BLOOD COUNT 5.9 K/mm3 (4.0-10.0)
[2017-09-02 08:51] LABS: ANION GAP 9 (8-16); BLOOD UREA NITROGEN 7 mg/dL (7-18); CALCIUM 8.1 mg/dL (8.5-10.1); CHLORIDE 107 mmol/L (98-107); CO2 25 mmol/L (21-32); CREATININE 0.4 mg/dL (0.7-1.3); GLUCOSE,RANDOM 75 mg/dL (74-106); LIPASE 104 U/L (73-393); MAGNESIUM 1.7 mg/dL (1.8-2.4); PHOSPHOROUS 2.9 mg/dL (2.5-4.9); POTASSIUM 3.7 mmol/L (3.5-5.1); SODIUM 141 mmol/L (136-145)
[2017-09-02 09:25] LABS: ANISOCYTOSIS 1+; MACROCYTOSIS 1+; TARGET CELLS 1+
[2017-09-02 09:26] LABS: ACANTHOCYTES 1+; OVALOCYTE 1+
[2017-09-02] MEDS: MULTIVITAMINS (DAILY MVI) TABLET (FP) PO SCH (09:35)
[2017-09-02 10:56] VITALS: BMI 16.6
--- NOTE | 2017-09-02 11:58 | PN ---
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 - Current Medication List Current Medications: Active Medications Fentanyl (Duragesic 50mcg Patch -) 1 patch TD Q72H [facility] Last Admin: 09/02/17 00:35 Dose: 1 patch Hydromorphone HCl (Dilaudid -) 2 mg PO Q6H PRN PRN Reason: PAIN LEVEL 6-10 Miscellaneous (Duragesic Patch Waste) 1 each TD PRN PRN Last Admin: 09/02/17 00:35 Dose: 1 each Morphine Sulfate (Morphine Sulfate) 4 mg IVPUSH Q4H PRN PRN Reason: PAIN LEVEL 6-10 Last Admin: 09/02/17 09:35 Dose: 4 mg Multivitamins/Minerals/Vitamin C (Tab-A-Vit -) 1 tab PO DAILY [facility] Last Admin: 09/02/17 09:35 Dose: 1 tab Warfarin Sodium (Coumadin -) 5 mg PO DAILY@1800 [facility] - Objective Vital Signs: Vital Signs Temperature 98.8 F 09/02/17 08:00 Pulse Rate 95 H 09/02/17 08:00 Respiratory Rate 20 09/02/17 08:00 Blood Pressure 111/64 09/02/17 08:00 O2 Sat by Pulse Oximetry (%) 100 09/02/17 08:00 Labs: CBC, BMP 09/02/17 07:00 09/02/17 07:00 INR, PTT INR 1.50 (0.82-1.09) H D 09/01/17 18:13 Problem List - Problems (1) Pancreatitis Assessment/Plan: -Radiology Reports CT abd/pelvis with IV contrast No obvious interval change is noted in comparison to a prior CT exam of 2017. There is no evidence of pneumoperitoneum or ascites. S everal noncalcified pulmonary nodules are seen within the partially imaged lower lung greene bilaterally. A gastric stent is seen in place which may be partially patent. Intraluminal material is seen within the stent which may be on the basis of debris and/or neoplastic disease. Multiple hypodense mass lesions are seen within the upper abdomen and pelvis at least partially encasing the gastric body and extending posteriorly to the peripancreatic region. As on the prior study a large hypodense mass lesion is seen within the left lower abdomen extending through the posterior lateral abdominal wall. In addition a component of this hypodense mass lesion extends into and through the ventral abdominal wall in the epigastric region along the midline. A partially necrotic hypodense lesion is seen within the right lateral aspect of the pelvis a small amount of air is seen within this hypodense lesion which could be on the basis of involvement of contiguous bowel. Bilateral abdominal surgical bowel anastomoses is seen. Status post splenectomy. The liver demonstrates no obvious intrinsic pathology. There is extrinsic indentation upon the left hepatic lobe secondary to the previously described large upper abdominal mass lesion. The kidneys, and adrenal glands demonstrate no discrete abnormality. There is no aortic aneurysm. The osseous structures demonstrate no obvious acute pathology or neoplastic disease. Impression: No definite interval change is identified in comparison to a prior CT exam of 08/11/2017. Numerous hypodense mass lesions are seen within the abdomen and pelvis as discussed including a mass lesion which extends into and through the epigastric abdominal wall. Reported By: Fredi Castrejon MD 09/01/17 2140 - lipase up to 905 from a previous personal high of 224 in 2016 - NPO except meds - NS @ 100cc/hr - GI consult - NS @ 100cc/hr - bmp in am - NPO for now. Code(s): K85.90 - ACUTE PANCREATITIS WITHOUT NECROSIS OR INFECTION, UNSP Qualifiers: Chronicity: acute Pancreatitis type: unspecified pancreatitis type Acute pancreatitis complication: no infection or necrosis Qualified Code(s): K85.90 - Acute pancreatitis without necrosis or infection, unspecified (2) Abdominal pain Assessment/Plan: -SURGICAL CONSULT Code(s): R10.9 - UNSPECIFIED ABDOMINAL PAIN Qualifiers: Abdominal location: unspecified location Qualified Code(s): R10.9 - Unspecified abdominal pain (3) Malignant pseudomyxoma peritonei Assessment/Plan: - pt now willing to consider hospice, will obtain palliative care consult - oncology consult - cont home pain meds, add morphine PRN Code(s): C78.6 - SECONDARY MALIGNANT NEOPLASM OF RETROPERITON AND PERITONEUM (4) Pulmonary embolism Assessment/Plan: - subtherapeutic INR - INR 1.5 - pt states that it was on hold because it was elevated - will give warfarin 7.5mg x 1 tonight, restart 5mg daily and adjust according to INR. Code(s): I26.99 - OTHER PULMONARY EMBOLISM WITHOUT ACUTE COR PULMONALE (5) Symptomatic anemia Assessment/Plan: TRANSFUSE Code(s): D64.9 - ANEMIA, UNSPECIFIED (6) Severe malnutrition Assessment/Plan: - Protein calorie malnutrition - pt reports a 40-50 pound weight loss over the past 6 months - expected finding in malignancy - dietary consult Code(s): E43 - UNSPECIFIED SEVERE PROTEIN-CALORIE MALNUTRITION
--- NOTE | 2017-09-02 13:09 | CONSULT ---
Consult Consult Specialty:: general surgery Referred by:: Yuliana Addison MD Reason for Consultation:: pancreatitis and left flank tumor - History of Present Illness Chief Complaint: Pain History of Present Illness: 47yo male PMH appendiceal CA s/p appendetomy 2008, subsequent pseudomyxoma peritonei and debulking surgeries 2008 and 2012 at [facility] (including partial colectomy and splenectomy, s/p chemo also last around then, with slowly progressive disease, now s/p gastric stent 2016, and unresectable multiple abdominal tumors. Follows with Dr. Neal at [facility]. He has a painful left flank tumor that has previously been drained. Currently there is no opening to the skin. He reports feeling weak and losing weight. He has fevers and chills and sweats at home. He been intermittently anemic with Hb 7.2 now and is being transfused PRBCs. CT scan of the abdomen confirms progressive disease, including multiple masses with new involvement of left psoas muscle, some gas bubbles in one of the left-sided masses, gastric mass with extension to abdominal wall, and gastric stent in place. We were asked to assess. - Past Medical History Cardio/Vascular: Yes: Deep Vein Thrombosis Pulmonary: Yes: Pulmonary Embolus Gastrointestinal: Yes: Cancer (appendiceal cancer- 2009 -> pseudomyxoma peritonei), Other (Intestinal obstruction.) Infectious Disease: Yes: C-Diff Psych: Yes: Anxiety, Depression - Past Surgical History Past Surgical History: Yes: Appendectomy (2008), Colectomy (partial), Colonoscopy, Splenectomy (2008), Stent (gastric ([facility])) - Alcohol/Substance Use Hx Alcohol Use: No History of Substance Use: reports: None - Smoking History Smoking history: Never smoked Have you smoked in the past 12 months: No Aproximately how many cigarettes per day: 0 - Social History Usual Living Arrangement: With Significant Other ADL: Independent Place of : [facility] History of Recent Travel: No Home Medications - Allergies Allergies/Adverse Reactions: Allergies Allergy/AdvReac Type Severity Reaction Status Date / Time No Known Allergies Allergy Verified 09/01/17 16:36 - Home Medications Home Medications: Ambulatory Orders Multivitamins [Multivit ([facility] Formulary)] 1 tab PO DAILY #30 tab 07/10/17 Warfarin Na [Coumadin -] 5 mg PO DAILY@1800 tablet 03/12/18 Fentanyl 50 mcg TD Q3D 08/12/17 HYDROmorphone [Dilaudid -] 2 mg PO Q6H PRN 09/01/17 Family Disease History - Family Disease History Family Disease History: CA: Father (COLON CA, ESRD), Other: Father, Mother ( ARTHRITIS, BACK SURGERY), Brother (3 BROTHERS- ALL HEALTHY), Daughter (HEALTHY) Review of Systems - Review of Systems Constitutional: denies: Chills, Fever Eyes: denies: Blurred Vision, Recent Change in Vision HENT: denies: Difficult Swallowing, Throat Pain Neck: reports: Lumps. denies: Swollen Glands, Tenderness Cardiovascular: denies: Chest Pain, Palpitations Respiratory: denies: Cough, SOB Gastrointestinal: reports: Abdominal Pain, Nausea. denies: Bloating, Rectal Bleeding Genitourinary: denies: Discharge, Dysuria Breasts: reports: No Symptoms Reported. denies: Pain Musculoskeletal: reports: Muscle Weakness. denies: Muscle Pain Integumentary: reports: Lump, Pallor. denies: Lesions, Rash Neurological: denies: Seizure, Syncope Endocrine: denies: Unexplained Weight Gain, Unexplained Weight Loss Hematology/Lymphatic: denies: Easily Bruised, Excessive Bleeding Psychiatric: denies: Anxiety, Depression Physical Exam Vital Signs: Vital Signs Temperature 98.8 F 09/02/17 08:00 Pulse Rate 95 H 09/02/17 08:00 Respiratory Rate 20 09/02/17 08:00 Blood Pressure 111/64 09/02/17 08:00 O2 Sat by Pulse Oximetry (%) 100 09/02/17 08:00 Constitutional: Yes: No Distress, Calm, Cachectic, Thin Eyes: Yes: Conjunctiva Clear, EOM Intact HENT: Yes: Atraumatic, Normocephalic Neck: Yes: Supple, Trachea Midline Cardiovascular: Yes: Regular Rate and Rhythm, S1, S2 Respiratory: Yes: Regular, CTA Bilaterally Gastrointestinal: Yes: Normal Bowel Sounds, Soft ...Rectal Exam: Yes: Mass (Left flank posterolateral) Renal/: No: CVA Tenderness - Left, CVA Tenderness - Right Extremities: No: Cool, Cyanosis Edema: No Peripheral Pulses WNL: Yes Integumentary: No: Jaundice Neurological: Yes: Alert, Oriented Psychiatric: Yes: Alert, Oriented Labs: CBC, BMP 09/02/17 07:00 09/02/17 07:00 Imaging - Results Cat Scan: Report Reviewed (peripancratic mass and pancratitis), Image Reviewed Problem List - Problems (1) Pancreatitis Assessment/Plan: 47yo male MMP including pseudomyxoma peritonei now recurrent tumor transiently obstructing biliary pancreatitis. No acute general surgery intervention. The left flank mass is tumor, no I&D is indicated, it would provide a path of entry for bacteria to retroperitoneal/ intrabadominal spaces. Palliative care consult to discuss comfort care/ goals of care IVF hydration empiric IV antibiotics trend labs MRCP Monday 09/[address] Leonard for ERCP and stent will follow Thank you for the opportunity to participate in the care of this patient. Code(s): K85.90 - ACUTE PANCREATITIS WITHOUT NECROSIS OR INFECTION, UNSP Qualifiers: Chronicity: acute Pancreatitis type: biliary Acute pancreatitis complication: no infection or necrosis Qualified Code(s): K85.10 - Biliary acute pancreatitis without necrosis or infection (2) 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 - SECONDARY MALIGNANT NEOPLASM OF RETROPERITON AND PERITONEUM (3) Symptomatic anemia Code(s): D64.9 - ANEMIA, UNSPECIFIED (4) Dehydration Code(s): E86.0 - DEHYDRATION (5) Low hemoglobin Code(s): D64.9 - ANEMIA, UNSPECIFIED
[2017-09-02] MEDS: ENOXAPARIN NA (PORCINE) 40 MG/0.4 ML DISP.SYRIN SQ SCH ×2 (15:03→21:28)
--- NOTE | 2017-09-02 15:30 | CON.GI ---
Consult Consult Specialty:: GI Referred by:: Dr Addison - History of Present Illness History of Present Illness: Patient with progressive pseudomyxoma peritoneii was asked to be seen because of elevated lipase. - Past Medical History Cardio/Vascular: Yes: Deep Vein Thrombosis Pulmonary: Yes: Pulmonary Embolus Gastrointestinal: Yes: Cancer (appendiceal cancer- 2008 -> pseudomyxoma peritonei), Other (Intestinal obstruction.) Infectious Disease: Yes: C-Diff Psych: Yes: Anxiety, Depression - Past Surgical History Past Surgical History: Yes: Appendectomy (2008), Colectomy (partial), Colonoscopy, Splenectomy (2008), Stent (gastric ([facility] - Alcohol/Substance Use Hx Alcohol Use: No History of Substance Use: reports: None - Smoking History Smoking history: Never smoked Have you smoked in the past 12 months: No Aproximately how many cigarettes per day: 0 - Social History Usual Living Arrangement: With Significant Other ADL: Independent History of Recent Travel: No Home Medications - Allergies Allergies/Adverse Reactions: Allergies Allergy/AdvReac Type Severity Reaction Status Date / Time No Known Allergies Allergy Verified 09/01/17 16:36 - Home Medications Home Medications: Ambulatory Orders Multivitamins [Multivit ([facility] Formul[facility])] 1 tab PO DAILY #30 tab 07/10/17 Warfarin Na [Coumadin -] 5 mg PO DAILY@1800 tablet 07/10/17 Fentanyl 50 mcg TD Q3D 08/12/17 HYDROmorphone [Dilaudid -] 2 mg PO Q6H PRN 09/01/17 Family Disease History - Family Disease History Family Disease History: CA: Father (COLON CA, ESRD), Other: Father, Mother ( ARTHRITIS, BACK SURGERY), Brother (3 BROTHERS- ALL HEALTHY), Daughter (HEALTHY) Physical Exam-GI Vital Signs: Vital Signs Temperature 98.8 F 09/02/17 14:00 Pulse Rate 84 09/02/17 14:00 Respiratory Rate 18 09/02/17 14:00 Blood Pressure 92/56 09/02/17 14:00 O2 Sat by Pulse Oximetry (%) 100 09/02/17 08:00 Constitutional: Yes: Cachectic Eyes: Yes: Conjunctiva Clear HENT: Yes: Normocephalic Neck: Yes: Trachea Midline Cardiovascular: Yes: Regular Rate and Rhythm Respiratory: Yes: CTA Bilaterally Gastrointestinal Inspection: Yes: Other (masses in epigastric and left lower quadrant and lower flank) Labs: CBC, BMP 09/02/17 07:00 09/02/17 07:00 INR, PTT INR 1.50 (0.82-1.09) H D 09/01/17 18:13 Problem List - Problems (1) Elevated lipase Assessment/Plan: most likely secondary to tumor burden and metastasis to the pancreas, no evidence of pancreatitis R> soft diet ensure 1 can 5 times a day Code(s): R74.8 - ABNORMAL LEVELS OF OTHER SERUM ENZYMES
[2017-09-02] MEDS: WARFARIN NA 5 MG TABLET (UD) PO SCH (17:32)
[2017-09-03] MEDS: morphine SULFATE 4 MG/ML VIAL IVPUSH PRN ×6 (01:58→21:50)
[2017-09-03 08:27] LABS: HEMATOCRIT 30.5 % (35.4-49); HEMOGLOBIN 10.2 GM/dL (11.7-16.9); MCH 26.7 pg (25.7-33.7); MCHC 33.5 g/dl (32.0-35.9); MEAN CELL VOLUME 79.6 fl (80-96); MEAN PLT VOLUME 8.3 fl (7.5-11.1); PLATELET COUNT 647 K/MM3 (134-434); RBC 3.83 M/mm3 (4.00-5.60); RDW 19.1 % (11.9-15.9); WHITE BLOOD COUNT 6.7 K/mm3 (4.0-10.0)
[2017-09-03 08:37] LABS: INR 2.29 (0.82-1.09); PROTHROMBIN TIME (PATIENT) 25.9 SEC (9.7-13.0)
[2017-09-03 08:52] LABS: ALBUMIN 2.3 g/dl (3.4-5.0); ANION GAP 9 (8-16); BLOOD UREA NITROGEN 8 mg/dL (7-18); CALCIUM 8.3 mg/dL (8.5-10.1); CHLORIDE 106 mmol/L (98-107); CO2 28 mmol/L (21-32); CREATININE 0.4 mg/dL (0.7-1.3); GLUCOSE,RANDOM 80 mg/dL (74-106); POTASSIUM 3.7 mmol/L (3.5-5.1); SGOT/AST 11 U/L (15-37); SGPT/ALT 8 U/L (12-78); SODIUM 143 mmol/L (136-145)
[2017-09-03 08:54] LABS: ALK PHOS 71 U/L (45-117); BILIRUBIN,TOTAL 0.5 mg/dL (0.2-1.0); TOT PROT 5.9 g/dl (6.4-8.2)
--- NOTE | 2017-09-03 09:46 | PN ---
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 Chief Complaint: recurrent tumor History of Present Illness: 47yo male PMH appendiceal CA s/p appendetomy 2008, subsequent pseudomyxoma peritonei and debulking surgeries 2008 and 2012 at [facility] (including partial colectomy and splenectomy, s/p chemo also last around then, with slowly progressive disease, now s/p gastric stent 2016, and unresectable multiple abdominal tumors. he has his baseline abdominal pain. No other complaints - Current Medication List Current Medications: Active Medications Enoxaparin Sodium (Lovenox -) 40 mg SQ BID [facility] Last Admin: 09/02/17 21:28 Dose: 40 mg Fentanyl (Duragesic 50mcg Patch -) 1 patch TD Q72H [facility] Last Admin: 09/02/17 00:35 Dose: 1 patch Hydromorphone HCl (Dilaudid -) 2 mg PO Q6H PRN PRN Reason: PAIN LEVEL 6-10 Miscellaneous (Duragesic Patch Waste) 1 each TD PRN PRN Last Admin: 09/02/17 00:35 Dose: 1 each Morphine Sulfate (Morphine Sulfate) 4 mg IVPUSH Q4H PRN PRN Reason: PAIN LEVEL 6-10 Last Admin: 09/03/17 06:21 Dose: 4 mg Multivitamins/Minerals/Vitamin C (Tab-A-Vit -) 1 tab PO DAILY [facility] Last Admin: 09/02/17 09:35 Dose: 1 tab Warfarin Sodium (Coumadin -) 5 mg PO DAILY@1800 [facility] Last Admin: 09/02/17 17:32 Dose: 5 mg - Objective Vital Signs: Vital Signs Temperature 98.4 F 09/03/17 06:00 Pulse Rate 83 09/03/17 06:00 Respiratory Rate 20 09/03/17 06:00 Blood Pressure 94/58 09/03/17 06:00 O2 Sat by Pulse Oximetry (%) 100 09/02/17 21:00 Constitutional: Yes: No Distress, Calm, Cachectic, Thin Eyes: Yes: Conjunctiva Clear, EOM Intact HENT: Yes: Atraumatic, Normocephalic Neck: Yes: Supple, Trachea Midline Cardiovascular: Yes: Regular Rate and Rhythm, S1, S2 Respiratory: Yes: Regular, CTA Bilaterally Gastrointestinal: Yes: Normal Bowel Sounds, Soft, Palpable Mass. No: Vomiting Genitourinary: No: CVA Tenderness - Left, CVA Tenderness - Right Extremities: No: Cool, Cyanosis Edema: No Peripheral Pulses WNL: Yes Peripheral Pulses: Left Doralis Pedis: 2+, Right Dorsalis Pedis: 2+ Integumentary: No: Jaundice, Rash Neurological: Yes: Alert, Oriented Psychiatric: Yes: Alert, Oriented Labs: CBC, BMP 09/03/17 07:30 09/03/17 07:30 INR, PTT INR 2.29 (0.82-1.09) H D 09/03/17 07:30 Problem List - Problems (1) Pancreatitis Assessment/Plan: 47yo male MMP including pseudomyxoma peritonei now recurrent tumor transiently obstructing biliary pancreatitis. No acute general surgery intervention. The left flank mass is tumor, no I&D is indicated, it would provide a path of entry for bacteria to retroperitoneal/ intrabadominal spaces. Appreciate GI evaluation no plan for intervention. Palliative care consult to discuss comfort care/ goals of care IVF hydration empiric IV antibiotics trend labs MRCP Monday 09/04 will follow Code(s): K85.90 - ACUTE PANCREATITIS WITHOUT NECROSIS OR INFECTION, UNSP Qualifiers: Chronicity: acute Pancreatitis type: biliary Acute pancreatitis complication: no infection or necrosis Qualified Code(s): K85.10 - Biliary acute pancreatitis without necrosis or infection (2) 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 - SECONDARY MALIGNANT NEOPLASM OF RETROPERITON AND PERITONEUM (3) Symptomatic anemia Code(s): D64.9 - ANEMIA, UNSPECIFIED (4) Dehydration Code(s): E86.0 - DEHYDRATION (5) Low hemoglobin Code(s): D64.9 - ANEMIA, UNSPECIFIED
[2017-09-03] MEDS: MULTIVITAMINS (DAILY MVI) TABLET (FP) PO SCH (10:03)
[2017-09-03] MEDS: ENOXAPARIN NA (PORCINE) 40 MG/0.4 ML DISP.SYRIN SQ SCH (10:15)
[2017-09-03 10:40] LABS: ANISOCYTOSIS 1+; MACROCYTOSIS 1+; TARGET CELLS 1+
[2017-09-03 10:41] LABS: PLATELET ESTIMATE INCREASED
--- NOTE | 2017-09-03 12:03 | PN ---
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 - Current Medication List Current Medications: Active Medications Fentanyl (Duragesic 50mcg Patch -) 1 patch TD Q72H [facility] Last Admin: 09/02/17 00:35 Dose: 1 patch Hydromorphone HCl (Dilaudid -) 2 mg PO Q6H PRN PRN Reason: PAIN LEVEL 6-10 Miscellaneous (Duragesic Patch Waste) 1 each TD PRN PRN Last Admin: 09/02/17 00:35 Dose: 1 each Morphine Sulfate (Morphine Sulfate) 4 mg IVPUSH Q4H PRN PRN Reason: PAIN LEVEL 6-10 Last Admin: 09/03/17 10:03 Dose: 4 mg Multivitamins/Minerals/Vitamin C (Tab-A-Vit -) 1 tab PO DAILY [facility] Last Admin: 09/03/17 10:03 Dose: 1 tab Warfarin Sodium (Coumadin -) 5 mg PO DAILY@1800 [facility] Last Admin: 09/02/17 17:32 Dose: 5 mg - Objective Vital Signs: Vital Signs Temperature 98.4 F 09/03/17 06:00 Pulse Rate 83 09/03/17 06:00 Respiratory Rate 20 09/03/17 06:00 Blood Pressure 94/58 09/03/17 06:00 O2 Sat by Pulse Oximetry (%) 100 09/02/17 21:00 Cardiovascular: Yes: Regular Rate and Rhythm Respiratory: Yes: Regular, CTA Bilaterally Gastrointestinal: Yes: Normal Bowel Sounds, Soft. No: Tenderness Labs: CBC, BMP 09/03/17 07:30 09/03/17 07:30 INR, PTT INR 2.29 (0.82-1.09) H D 09/03/17 07:30 Problem List - Problems (1) Pancreatitis Assessment/Plan: -Radiology Reports CT abd/pelvis with IV contrast No obvious interval change is noted in comparison to a prior CT exam of 2017. There is no evidence of pneumoperitoneum or ascites. S everal noncalcified pulmonary nodules are seen within the partially imaged lower lung greene bilaterally. A gastric stent is seen in place which may be partially patent. Intraluminal material is seen within the stent which may be on the basis of debris and/or neoplastic disease. Multiple hypodense mass lesions are seen within the upper abdomen and pelvis at least partially encasing the gastric body and extending posteriorly to the peripancreatic region. As on the prior study a large hypodense mass lesion is seen within the left lower abdomen extending through the posterior lateral abdominal wall. In addition a component of this hypodense mass lesion extends into and through the ventral abdominal wall in the epigastric region along the midline. A partially necrotic hypodense lesion is seen within the right lateral aspect of the pelvis a small amount of air is seen within this hypodense lesion which could be on the basis of involvement of contiguous bowel. Bilateral abdominal surgical bowel anastomoses is seen. Status post splenectomy. The liver demonstrates no obvious intrinsic pathology. There is extrinsic indentation upon the left hepatic lobe secondary to the previously described large upper abdominal mass lesion. The kidneys, and adrenal glands demonstrate no discrete abnormality. There is no aortic aneurysm. The osseous structures demonstrate no obvious acute pathology or neoplastic disease. Impression: No definite interval change is identified in comparison to a prior CT exam of 08/11/2017. Numerous hypodense mass lesions are seen within the abdomen and pelvis as discussed including a mass lesion which extends into and through the epigastric abdominal wall. Reported By: Fredi Castrjeon MD 09/01/17 2140 - lipase up to 905 from a previous personal high of 224 in 2016 - NPO except meds - NS @ 100cc/hr - GI consult - NS @ 100cc/hr - bmp in am - NPO for now. Code(s): K85.90 - ACUTE PANCREATITIS WITHOUT NECROSIS OR INFECTION, UNSP Qualifiers: Chronicity: acute Pancreatitis type: biliary Acute pancreatitis complication: no infection or necrosis Qualified Code(s): K85.10 - Biliary acute pancreatitis without necrosis or infection (2) Abdominal pain Assessment/Plan: -SURGICAL CONSULT Code(s): R10.9 - UNSPECIFIED ABDOMINAL PAIN Qualifiers: Abdominal location: unspecified location Qualified Code(s): R10.9 - Unspecified abdominal pain (3) Malignant pseudomyxoma peritonei Assessment/Plan: - pt now willing to consider hospice, will obtain palliative care consult - oncology consult - cont home pain meds, add morphine PRN Code(s): C78.6 - SECONDARY MALIGNANT NEOPLASM OF RETROPERITON AND PERITONEUM (4) Pulmonary embolism Assessment/Plan: - subtherapeutic INR - INR 1.5 - pt states that it was on hold because it was elevated - will give warfarin 7.5mg x 1 tonight, restart 5mg daily and adjust according to INR. Code(s): I26.99 - OTHER PULMONARY EMBOLISM WITHOUT ACUTE COR PULMONALE (5) Symptomatic anemia Assessment/Plan: S/P TRANSFUSION Code(s): D64.9 - ANEMIA, UNSPECIFIED (6) Severe malnutrition Assessment/Plan: - Protein calorie malnutrition - pt reports a 40-50 pound weight loss over the past 6 months - expected finding in malignancy - dietary consult Code(s): E43 - UNSPECIFIED SEVERE PROTEIN-CALORIE MALNUTRITION
[2017-09-03] MEDS: WARFARIN NA 5 MG TABLET (UD) PO SCH (17:43)
--- NOTE | 2017-09-03 23:51 | PN ---
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 (short form) - Note 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: Patient known to [facility], progressive pseudomyxoma peritonii, with prior patient decision to accede only to palliative measures, presents with exacerbation in pain from home, and anemia. Noted recent pattern of multiple admission for pain control, and transfusion. Today patient relaxed, and now reporting pain controlled. Received transfusion last night with appropriate response in Hb. Inpatient Meds reviewed. Current Medications Generic Name Dose Route Start Last Admin Trade Name Freq PRN Reason Stop Dose Admin Fentanyl 1 patch 09/01/17 23:51 09/02/17 00:35 Duragesic 50mcg Patch - TD 1 patch Q72H [facility] Administration Hydromorphone HCl 2 mg 09/01/17 23:41 Dilaudid - PO Q6H PRN PAIN LEVEL 6-10 Miscellaneous 1 each 09/01/17 23:51 09/02/17 00:35 Duragesic Patch Waste TD 1 each PRN PRN Administration Morphine Sulfate 4 mg 09/01/17 23:45 09/03/17 21:50 Morphine Sulfate IVPUSH 4 mg Q4H PRN Administration PAIN LEVEL 6-10 Multivitamins/Minerals/Vitamin C 1 tab 09/02/17 10:00 09/03/17 10:03 Tab-A-Vit - PO 1 tab DAILY [facility] Administration Warfarin Sodium 5 mg 09/02/17 18:00 09/03/17 17:43 Coumadin - PO 5 mg DAILY@1800 I[facility]A Administration Last Vital Signs Temp Pulse Resp BP Pulse Ox 98.4 F 87 20 101/60 100 09/03/17 18:00 09/03/17 18:00 09/03/17 18:00 09/03/17 18:00 09/03/17 20:22 General: In no acute distress. Extremities: No pallor or icterus. Chest:breathing comfortably Abdomen: Non-distended, tender SQ mass L flank region. Neuro: Alert, oriented, non-focal. Labs CBC, BMP 09/03/17 07:30 09/03/17 07:30 Assessment. Progressive psudomyxoma peritonii, with abdominal pain. Discussed extensively options available to patient. Genetic profiling of his tumor had suggested a possible response to a PARP inhibitor, which the patient had declined to try. Following long discussion with him he now indicates that he may be willing to try thus medication, which apparently was already provided to him, and which he has at home. Continue pain regimen. Can consider a SL formulation for breakthrough pain, if Dialudid not working optimally for him at home.
[2017-09-04] MEDS: morphine SULFATE 4 MG/ML VIAL IVPUSH PRN ×5 (04:09→21:07)
[2017-09-04 08:10] LABS: HEMATOCRIT 31.6 % (35.4-49); HEMOGLOBIN 10.5 GM/dL (11.7-16.9); MCH 26.5 pg (25.7-33.7); MCHC 33.2 g/dl (32.0-35.9); MEAN CELL VOLUME 79.6 fl (80-96); MEAN PLT VOLUME 8.2 fl (7.5-11.1); PLATELET COUNT 683 K/MM3 (134-434); RBC 3.97 M/mm3 (4.00-5.60); RDW 19.3 % (11.9-15.9); WHITE BLOOD COUNT 5.3 K/mm3 (4.0-10.0)
[2017-09-04 08:12] LABS: INR 2.85 (0.82-1.09); PROTHROMBIN TIME (PATIENT) 32.2 SEC (9.7-13.0)
[2017-09-04 08:35] LABS: CHLORIDE 106 mmol/L (98-107); POTASSIUM 3.7 mmol/L (3.5-5.1); SODIUM 140 mmol/L (136-145)
[2017-09-04 08:50] LABS: ALBUMIN 2.3 g/dl (3.4-5.0); ALK PHOS 72 U/L (45-117); ANION GAP 5 (8-16); BILIRUBIN,TOTAL 0.4 mg/dL (0.2-1.0); BLOOD UREA NITROGEN 7 mg/dL (7-18); CALCIUM 8.2 mg/dL (8.5-10.1); CO2 29 mmol/L (21-32); CREATININE 0.5 mg/dL (0.7-1.3); GLUCOSE,RANDOM 90 mg/dL (74-106); LIPASE 111 U/L (73-393); SGOT/AST 11 U/L (15-37); SGPT/ALT 8 U/L (12-78)
--- NOTE | 2017-09-04 08:52 | DS ---
Physical Examination Vital Signs: Vital Signs Temperature 99.2 F 09/04/17 07:14 Pulse Rate 79 09/04/17 07:14 Respiratory Rate 20 09/04/17 07:14 Blood Pressure 95/60 09/04/17 07:14 O2 Sat by Pulse Oximetry (%) 100 09/03/17 20:22 Labs: CBC, BMP 09/04/17 06:30 09/04/17 06:30 Discharge Summary Reason For Visit: PANCREATITIS Current Active Problems Elevated lipase (Acute) Pancreatitis (Acute) Condition: Stable - Instructions Referrals: Yuliana Addison MD [Primary Care Provider] - - Home Medications Comprehensive Discharge Medication List: Ambulatory Orders Multivitamins [Multivit ([facility] Form[facility])] 1 tab PO DAILY #30 tab 07/10/17 Warfarin Na [Coumadin -] 5 mg PO DAILY@1800 tablet 07/10/17 Fentanyl 50 mcg TD Q3D 08/12/17 HYDROmorphone [Dilaudid -] 2 mg PO Q6H PRN 09/01/17
[2017-09-04] MEDS: MULTIVITAMINS (DAILY MVI) TABLET (FP) PO SCH (09:51)
[2017-09-04 09:52] LABS: ACANTHOCYTES 1+; ANISOCYTOSIS 1+; MACROCYTOSIS 1+; OVALOCYTE 1+; PLATELET ESTIMATE INCREASED; TARGET CELLS 1+
[2017-09-04] MEDS: WARFARIN NA 5 MG TABLET (UD) PO SCH (18:09)
[2017-09-04] MEDS ORDERED: FENTANYL PATCH WASTE TD PRN (20:08)
[2017-09-04 20:16] VITALS: TEMP 98.5
[2017-09-04] MEDS ORDERED: fentaNYL 50mcg/hr PATCH.TD72 TD SCH (20:30)
[2017-09-04] MEDS ORDERED: fentaNYL 12mcg/hr PATCH.TD72 TD SCH (20:30)
[2017-09-04] MEDS: FENTANYL PATCH WASTE TD PRN (20:43)
--- NOTE | 2017-09-04 23:09 | PN ---
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 (short form) - Note 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: Patient seen and examined Does not want to do MRI denies any other complaints AFVSS Cor: RSR, No murmurs, No gallops Lungs: Clear to P&A Abd: Soft, Normal bowel sounds, tumor masses in epigastrium and left flank Ext:No significant edema Abnormal Lab Results 09/04/17 09/04/17 09/04/17 06:30 06:30 06:30 RBC 3.97 L Hgb 10.5 L Hct 31.6 L MCV 79.6 L RDW 19.3 H Plt Count 683 H Monocytes % (Manual) 21 H D PT with INR 32.20 H INR 2.85 H Anion Gap 5 L Creatinine 0.5 L D Calcium 8.2 L AST 11 L ALT 8 L Total Protein 6.0 L Albumin 2.3 L A/P Progressive psudomyxoma peritonii, with abdominal pain. Rediscussed extensively options available to patient. Genetic profiling of his tumor had suggested a possible response to a PARP inhibitor, which the patient had declined to try. Following long discussion with him he is not sure that he will take olaparib, which has been provided to him, and which he has at home. Urged him again to follow up in the office and consider the pain meds Increase fentanyl to 62 mcg Q 72hrs continue dilaudid prn
[2017-09-05] MEDS: morphine SULFATE 4 MG/ML VIAL IVPUSH PRN ×2 (01:45→06:38)
[2017-09-05] MEDS: MULTIVITAMINS (DAILY MVI) TABLET (FP) PO SCH (09:46)
--- NOTE | 2017-09-05 10:21 | PN ---
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 Chief Complaint: Abdominal pain 2/2 pseudomyxoma peritonei History of Present Illness: pain better controlled discharge on increased dosage of Fentanyl patch and dilaudid same dose PRN - Current Medication List Current Medications: Active Medications Fentanyl (Duragesic 12mcg Patch -) 1 patch TD Q72H [facility] Stop: 09/11/17 20:29 Last Admin: 09/04/17 20:29 Dose: 1 patch Fentanyl (Duragesic 50mcg Patch -) 1 patch TD Q72H [facility] Last Admin: 09/04/17 20:29 Dose: 1 patch Miscellaneous (Duragesic Patch Waste) 1 each TD PRN PRN Last Admin: 09/04/17 20:43 Dose: 1 each Miscellaneous (Duragesic Patch Waste) 1 each TD PRN PRN PRN Reason: PAIN Morphine Sulfate (Morphine Sulfate) 4 mg IVPUSH Q4H PRN PRN Reason: PAIN LEVEL 6-10 Last Admin: 09/05/17 06:38 Dose: 4 mg Multivitamins/Minerals/Vitamin C (Tab-A-Vit -) 1 tab PO DAILY [facility] Last Admin: 09/05/17 09:46 Dose: 1 tab Warfarin Sodium (Coumadin -) 5 mg PO DAILY@1800 [facility] Last Admin: 09/04/17 18:09 Dose: 5 mg - Objective Vital Signs: Vital Signs Temperature 98.5 F 09/05/17 05:00 Pulse Rate 73 09/05/17 05:00 Respiratory Rate 21 09/04/17 18:00 Blood Pressure 91/50 09/05/17 05:00 O2 Sat by Pulse Oximetry (%) 100 09/04/17 21:00 Constitutional: Yes: No Distress, Calm, Cachectic Cardiovascular: Yes: Regular Rate and Rhythm Respiratory: Yes: Regular Gastrointestinal: Yes: Normal Bowel Sounds, Soft, Palpable Mass (LLQ) Musculoskeletal: Yes: WNL Extremities: Yes: WNL Edema: No Peripheral Pulses WNL: Yes Neurological: Yes: Alert, Oriented Psychiatric: Yes: Alert, Oriented Labs: CBC, BMP 09/04/17 06:30 09/04/17 06:30 INR, PTT INR 2.85 (0.82-1.09) H 09/04/17 06:30 Problem List - Problems (1) Abdominal pain Assessment/Plan: Chronic 2/2 to pseudomyxoma peritonei increase pain medication, fentanyl to 62 mcg Q72 hours continue dilaudid prn at home Code(s): R10.9 - UNSPECIFIED ABDOMINAL PAIN Qualifiers: Abdominal location: unspecified location Qualified Code(s): R10.9 - Unspecified abdominal pain (2) Malignant pseudomyxoma peritonei Assessment/Plan: end stage palliative Code(s): C78.6 - SECONDARY MALIGNANT NEOPLASM OF RETROPERITON AND PERITONEUM (3) History of DVT of lower extremity Assessment/Plan: -on Warfarin -continue warfarin 2.5 mg po ,TH and 5 mg all other days -[id number], already set up Code(s): Z86.718 - PERSONAL HISTORY OF OTHER VENOUS THROMBOSIS AND EMBOLISM (4) Anemia Assessment/Plan: -chronic 2/2 to disease process -received 2 units of PRBC -monitor outpatient Code(s): D64.9 - ANEMIA, UNSPECIFIED Qualifiers: Assessment/Plan see problem list
[2017-09-05 10:22] VITALS: BP 90/50; PULSE 78
--- NOTE | 2017-09-06 13:59 | EKG ---
Test Reason : Blood Pressure : / mmHG Vent. Rate : 080 BPM Atrial Rate : 080 BPM P-R Int : 170 ms QRS Dur : 086 ms QT Int : 372 ms P-R-T Axes : 073 062 049 degrees QTc Int : 429 ms NORMAL SINUS RHYTHM NORMAL ECG WHEN COMPARED WITH ECG OF 11-AUG-2017 22:43, NONSPECIFIC T WAVE ABNORMALITY NO LONGER EVIDENT IN ANTERIOR LEADS Confirmed by DAVIN FROST, JADON ([id number]) on 09/06/2017 1:59:07 PM Referred By: Confirmed By:JADON JIN MD
== END 2017-09-05 11:44 | disposition home or self-care (01) | DRG 374 ==
LOC: JER 16:25 → JERBED 23:36 → UNDOADMIN 23:56 → JERBED 23:56 → J6S 09-02 02:28
PROVIDERS: ADMIT Family Medicine; ATTEND Family Medicine
PROC: 30233N1 Transfusion of Nonautologous Red Blood Cells into Peripheral Vein, Percutaneous Approach (ICD-10-PCS; principal; 2017-09-02)
DX: C78.6 Secondary malignant neoplasm of retroperitoneum and peritoneum (principal); K85.90 Acute pancreatitis without necrosis or infection, unspecified; E43 Unspecified severe protein-calorie malnutrition; Z68.1 Body mass index [BMI] 19.9 or less, adult; R64 Cachexia; R79.1 Abnormal coagulation profile; D64.9 Anemia, unspecified; E86.0 Dehydration; R74.8 Abnormal levels of other serum enzymes
CPT/HCPCS: 36415; 36430; 74177-TC; 80048; 80053; 83690; 83735; 84100; 85025; 85610; 85730; 86850; 86900; 86901; 86922; 93005; 93010; 99283-25; P9038; P9058

== ENCOUNTER 2017-09-23 03:05 | Inpatient (IN) | payer OTHER ==
[2017-09-23 03:52] LABS: HEMATOCRIT 28.4 % (35.4-49); LYMPH % 19.2 % (8-40); MCH 24.8 pg (25.7-33.7); MCHC 31.7 g/dl (32.0-35.9); MEAN CELL VOLUME 78.3 fl (80-96); MEAN PLT VOLUME 8.3 fl (7.5-11.1); MONO % 13.4 % (3.8-10.2); NEUT % 61.4 % (42.8-82.8); PLATELET COUNT 721 K/MM3 (134-434); RBC 3.63 M/mm3 (4.00-5.60); RDW 21.1 % (11.9-15.9); WHITE BLOOD COUNT 6.5 K/mm3 (4.0-10.0)
[2017-09-23 03:53] LABS: ADD RBC MORPHOLOGY YES
[2017-09-23 03:54] LABS: ANISOCYTOSIS 2+
--- NOTE | 2017-09-23 04:00 | PDOC ---
History of Present Illness - General Chief Complaint: Pain Stated Complaint: PAIN Time Seen by Provider: 09/23/17 03:41 History Source: Patient Exam Limitations: No Limitations - History of Present Illness Travel History: No Initial Comments: 09/23/17 06:18 Best Contact: PCP:Dr. Addison/PMD Dr. Stuart/Oncologist Pmhx:Pseudomyxoma Peritonei, unresectable multiple abdominal tumors, chronic abdominal pain, anxiety, depression, DVT, C. difficile Pshx: Jan 2017/[place] [facility] Allergies:NKDA 09/23/17 06:22 47-year-old male presents to the emergency department complaining of diffuse abdominal pain described as 5/10 dull nonradiating constant discomfort for years. Patient states he's been taking his by mouth diluted with minimal relief. Patient denies fever, chills, nausea/vomiting, headache, dizziness, lightheadedness, facial pain, neck pain, neck stiffness, back pains, chest pain , shortness of breath, flank pains or urinary symptoms: Frequency/urgency/ hesitancy, hematuria, bladder or bowel dysfunction, extremity weakness, calf pain, prolonged sitting or recent travels. Patient states he is basically here for pain control Past History - Past Medical History Allergies/Adverse Reactions: Allergies Allergy/AdvReac Type Severity Reaction Status Date / Time No Known Allergies Allergy Verified 09/23/17 03:40 Home Medications: Ambulatory Orders Multivitamins [Multivit ([facility] Formulary)] 1 tab PO DAILY #30 tab 07/10/17 HYDROmorphone [Dilaudid -] 2 mg PO Q6H PRN 09/01/17 FENTANYL 12mcg PATCH [DURAGESIC 12mcg PATCH -] 1 patch TD Q72H #10 patch.td72 MDD 1 09/05/17 FENTANYL 50mcg PATCH [DURAGESIC 50 mcg PATCH -] 1 patch TD Q72H #10 patch.td72 MDD 1 09/05/17 Warfarin Na [Coumadin -] 5 mg PO DAILY@1800 #0 tablet 09/05/17 Anemia: Yes Asthma: No Cancer: Yes (APPENDICEAL CA, 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) Cardiac Disorders: No CVA: No COPD: No CHF: No DVT: Yes (LLE BLOOD CLOT 5 YEARS AGO) Dementia: No Diabetes: No GI Disorders: Yes (C-DIFF 2013) Disorders: Yes (CDIFF 2013) HTN: No Hypercholesterolemia: No Liver Disease: No Seizures: No Thyroid Disease: No - Surgical History Abdominal Surgery: Yes (spleenectomy, COLECTOMY,) Appendectomy: Yes Cardiac Surgery: No Cholecystectomy: No GI Surgery: Yes (for stomach cancer--pnp) Lung Surgery: No Neurologic Surgery: No Orthopedic Surgery: No - Immunization History Immunization Up to Date: Yes - Suicide/Smoking/Psychosocial Hx Smoking Status: No Smoking History: Former smoker Have you smoked in the past 12 months: No Number of Cigarettes Smoked Daily: 0 Cigars Per Day: 0 Information on smoking cessation initiated: No Hx Alcohol Use: Yes Drug/Substance Use Hx: No Substance Use Type: None Hx Substance Use Treatment: No Review of Systems - Review of Systems Able to Perform ROS?: Yes Comments:: 09/23/17 06:23 CONSTITUTIONAL: Absent: fever, chills, diaphoresis, generalized weakness, malaise, loss of appetite HEENT: Absent: rhinorrhea, nasal congestion, throat pain, throat swelling, difficulty swallowing, mouth swelling, ear pain, eye pain, visual Changes CARDIOVASCULAR: Absent: chest pain, loss of consciousness, palpitations, irregular heart rate, peripheral edema RESPIRATORY: Absent: cough, shortness of breath, dyspnea with exertion, orthopnea, wheezing, stridor, hemoptysis GASTROINTESTINAL: +diffuse abd pain Absent: abdominal distension, nausea, vomiting, diarrhea, constipation, melena , hematochezia GENITOURINARY: Absent: dysuria, frequency, urgency, hesitancy, hematuria, flank pain, genital pain MUSCULOSKELETAL: Absent: myalgia, arthralgia, joint swelling SKIN: Absent: rash, itching, pallor HEMATOLOGIC/IMMUNOLOGIC: Absent: easy bleeding, easy bruising, lymphadenopathy, frequent infections ENDOCRINE: Absent: unexplained weight gain, unexplained weight loss, heat intolerance, cold intolerance NEUROLOGIC: Absent: headache, focal weakness or paresthesias, dizziness, unsteady gait, seizure, mental status changes, bladder or bowel incontinence PSYCHIATRIC: Absent: anxiety, depression, suicidal or homicidal ideation, hallucinations. Is the patient limited Iraqi proficient: No *Physical Exam - Vital Signs Last Vital Signs Temp Pulse Resp BP Pulse Ox 99.1 F 91 H 18 91/53 98 09/23/17 03:38 09/23/17 03:38 09/23/17 03:38 09/23/17 03:38 09/23/17 03:38 - Physical Exam Comments: 09/23/17 06:24 GENERAL: Well developed, well nourished. Awake and alert. No acute distress. HEENT: Normocephalic, atraumatic. PERRLA, EOMI. No conjunctival pallor. Sclera are non- icteric. Moist mucous membranes. Oropharynx is clear. NECK: Supple. Full ROM. No JVD. Carotid pulses 2+ and symmetric, without bruits. No thyromegaly. No lymphadenopathy. CARDIOVASCULAR: Regular rate and rhythm. No murmurs, rubs, or gallops. Distal pulses are 2+ and symmetric. PULMONARY: No evidence of respiratory distress. Lungs clear to auscultation bilaterally. No wheezing, rales or rhonchi. ABDOMINAL: Diffuse abd pain on palp Soft. Non-distended. No rebound or guarding. No organomegaly. Normoactive bowel sounds. MUSCULOSKELETAL Normal range of motion at all joints. No bony deformities or tenderness. No CVA tenderness. EXTREMITIES: No cyanosis. No clubbing. No edema. No calf tenderness. SKIN: Warm and dry. Normal capillary refill. No rashes. No jaundice. NEUROLOGICAL: Alert, awake, appropriate. Cranial nerves 2-12 intact. No deficits to light touch and temperature in face, upper extremities and lower extremities. No motor deficits in the in face, upper extremities and lower extremities. Normoreflexic in the upper and lower extremities. Normal speech. Toes are down- going bilaterally. Gait is normal without ataxia. PSYCHIATRIC: Cooperative. Good eye contact. Appropriate mood and affect. ED Treatment Course - LABORATORY CBC & Chemistry Diagram: 09/23/17 03:41 09/23/17 03:41 - ADDITIONAL ORDERS Additional order review: 09/23/17 03:41 RBC 3.63 L MCV 78.3 L MCHC 31.7 L RDW 21.1 H MPV 8.3 Neutrophils % 61.4 Lymphocytes % 19.2 Monocytes % 13.4 H Eosinophils % 5.0 H Basophils % 1.0 - RADIOLOGY Radiograph Interpretation: 09/23/17 06:16 CT abd/pelvis with iv contrast: Impression: Stable appearance. Lungs with metastasis. No change in gastric, pancreatic left retroperitoneal and right pelvic lesions. No bowel obstruction or free air 0616hrs: Called Dr. Stuart/pt's oncologist 09/23/17 06:44 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 - 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: 0619called Dr. Stuart/stats to call Dr. Addison 0623hrs: Called Dr. Addison/ states admit to hospitalist *DC/Admit/Observation/Transfer Diagnosis at time of Disposition: Pseudomyxoma peritonei Abdominal pain Qualifiers: Abdominal location: unspecified location Qualified Code(s): R10.9 - Unspecified abdominal pain - Discharge Dispostion Condition at time of disposition: Fair Decision to Admit order: Yes - Referrals Referrals: Yuliana Addison MD [Primary Care Provider] - - Patient Instructions - Post Discharge Activity
[2017-09-23] MEDS ORDERED: morphine CARPU-JECT 2 MG/1 ML DISP.SYRIN IVPUSH ONE ×2 (04:03→04:05)
[2017-09-23 04:04] LABS: INR 1.89 (0.82-1.09); PROTHROMBIN TIME (PATIENT) 21.4 SEC (9.7-13.0)
[2017-09-23] MEDS ORDERED: ONDANSETRON 4 MG/2 ML VIAL IVPUSH ONE (04:05)
[2017-09-23] MEDS ORDERED: ONDANSETRON 4 MG/2 ML VIAL ONE ×2 (04:06→08:28)
[2017-09-23] MEDS ORDERED: morphine SULFATE 4 MG/ML VIAL ONE ×2 (04:06→08:27)
[2017-09-23 04:15] LABS: ALBUMIN 2.3 g/dl (3.4-5.0); ALK PHOS 67 U/L (45-117); ANION GAP 5 (8-16); BILIRUBIN,TOTAL 0.2 mg/dL (0.2-1.0); BLOOD UREA NITROGEN 10 mg/dL (7-18); CALCIUM 8.6 mg/dL (8.5-10.1); CHLORIDE 107 mmol/L (98-107); CO2 29 mmol/L (21-32); CREATININE 0.6 mg/dL (0.7-1.3); GLUCOSE,RANDOM 134 mg/dL (74-106); POTASSIUM 4.1 mmol/L (3.5-5.1); SGOT/AST 9 U/L (15-37); SGPT/ALT 10 U/L (12-78); SODIUM 141 mmol/L (136-145); TOT PROT 6.2 g/dl (6.4-8.2)
--- NOTE | 2017-09-23 08:22 | HP ---
PCP: Yuliana Addison CHIEF COMPLAINT: Abdominal pain HISTORY OF PRESENT ILLNESS: This is a 47 year old man who comes to the ED complaining of abdominal pain. 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 He has been using a Fentanyl patch which was increased to 100 mcg about 1 week ago. He has also been taking Dilaudid and recently has been taking 4 mg every 4 hours with minimal relief. He has no appetite and has been losing weight. He denies nausea, vomiting, diarrhea, constipation, melena, rectal bleeding. PAST MEDICAL HISTORY Pseudomyxoma peritonei DVT Anemia Chronic abdominal pain Appendiceal cancer PAST SURGICAL HISTORY Splenectomy Partial colectomy Appendectomy Gastric stent Allergies No Known Allergies Allergy (Verified 09/23/17 03:40) Home Medications Medication Instructions Recorded Multivitamins [Multivit ([facility] 1 tab PO DAILY #30 tab 07/10/17 Formulary)] HYDROmorphone [Dilaudid -] 4 mg PO Q4H PRN 09/01/17 Warfarin Na [Coumadin -] 5 mg PO DAILY@1800 #0 tablet 09/05/17 FENTANYL 100mcg PATCH [DURAGESIC 1 patch TD Q72H 09/23/17 100mcg PATCH -] Ferrous Sulfate [Feosol] 325 mg PO DAILY 09/23/17 Olaparib [Lynparza] 50 mg PO BID 09/23/17 Social History: Smoking: Denies Alcohol: Denies Drugs: Denies Recent Travel: No Family History Father: Colon cancer, ESRD, DM 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 Absent: fever, chills, diaphoresis, generalized weakness, malaise HEENT: Absent: rhinorrhea, nasal congestion, throat pain, throat swelling, difficulty swallowing, mouth swelling, ear pain, eye pain, visual changes CARDIOVASCULAR: Absent: chest pain, syncope, palpitations, lightheadedness, peripheral edema RESPIRATORY: Absent: cough, shortness of breath, dyspnea with exertion, orthopnea, wheezing, stridor, hemoptysis GASTROINTESTINAL: Present: abdominal pain. Absent: abdominal distension, nausea , vomiting, diarrhea, constipation, melena, hematochezia GENITOURINARY: Absent: dysuria, frequency, urgency, hesitancy, hematuria, flank pain MUSCULOSKELETAL: Absent: myalgia, arthralgia, joint swelling, back pain, neck pain SKIN: Absent: rash, itching, pallor HEMATOLOGIC/IMMUNOLOGIC: Absent: easy bleeding, easy bruising, lymphadenopathy, frequent infections ENDOCRINE: Absent: unexplained weight gain, unexplained weight loss, heat intolerance, cold intolerance NEUROLOGIC: Absent: headache, focal weakness, paresthesias, dizziness, unsteady gait, seizure, mental status changes, bladder or bowel incontinence PSYCHIATRIC: Absent: anxiety, depression, suicidal or homicidal ideation, hallucinations. PHYSICAL EXAMINATION Vital Signs - 24 hr 09/23/17 03:38 Temperature 99.1 F Pulse Rate 91 H Respiratory 18 Rate Blood Pressure 91/53 O2 Sat by Pulse 98 Oximetry (%) GENERAL: Awake, alert, and fully oriented, cachectic, in mild distress. HEAD: Normal with no signs of trauma. EYES: Pupils equal, round and reactive to light, extraocular movements intact, sclerae anicteric, conjunctivae clear. EARS, NOSE, THROAT: Ears normal, nares patent, oropharynx clear without exudates. Moist mucous membranes. NECK: Normal range of motion, supple without lymphadenopathy, JVD, or masses. LUNGS: Breath sounds equal, clear to auscultation bilaterally. No wheezes, and no crackles. No accessory muscle use. HEART: Regular rate and rhythm, normal S1 and S2 without murmur, rub or gallop. ABDOMEN: Soft, (+) diffuse tenderness, not distended, multiple nodules, normoactive bowel sounds. MUSCULOSKELETAL: Normal range of motion at all joints. No bony deformities or tenderness. No CVA tenderness. UPPER EXTREMITIES: 2+ pulses, warm, well-perfused. No cyanosis. No clubbing. No peripheral edema. LOWER EXTREMITIES: 2+ pulses, warm, well-perfused. No calf tenderness. No peripheral edema. NEUROLOGICAL: Cranial nerves II-XII intact. Normal speech. Gait not observed. PSYCHIATRIC: Cooperative. Good eye contact. Appropriate mood and affect. SKIN: Warm, dry, normal turgor, no rashes or lesions noted, normal capillary refill. Laboratory Results - last 24 hr 09/23/17 09/23/17 09/23/17 03:41 03:41 03:41 WBC 6.5 RBC 3.63 L Hgb 9.0 L D Hct 28.4 L MCV 78.3 L MCH 24.8 L MCHC 31.7 L RDW 21.1 H Plt Count 721 H MPV 8.3 Neutrophils % 61.4 Lymphocytes % 19.2 Monocytes % 13.4 H Eosinophils % 5.0 H Basophils % 1.0 Nucleated RBC % 0 Anisocytosis 2+ PT with INR 21.40 H INR 1.89 H D Sodium 141 Potassium 4.1 Chloride 107 Carbon Dioxide 29 Anion Gap 5 L BUN 10 D Creatinine 0.6 L Creat Clearance w eGFR > 60 Random Glucose 134 H D Calcium 8.6 Total Bilirubin 0.2 D AST 9 L ALT 10 L D Alkaline Phosphatase 67 Total Protein 6.2 L Albumin 2.3 L Blood Type Antibody Screen 09/23/17 03:41 WBC RBC Hgb Hct MCV MCH MCHC RDW Plt Count MPV Neutrophils % Lymphocytes % Monocytes % Eosinophils % Basophils % Nucleated RBC % Anisocytosis PT with INR INR Sodium Potassium Chloride Carbon Dioxide Anion Gap BUN Creatinine Creat Clearance w eGFR Random Glucose Calcium Total Bilirubin AST ALT Alkaline Phosphatase Total Protein Albumin Blood Type A POSITIVE Antibody Screen Negative ASSESSMENT/PLAN: This is a 47 year old man with a history of pseudomyxoma peritonei, DVT, anemia , chronic abdominal pain, appendiceal cancer who presents to the ED with worsening abdominal pain. 1. Worsening abdominal pain secondary to pseudomyxoma peritonei - Continue Fentanyl 100 mcg patch - Hold oral Dilaudid - IV morphine - Zofran IV as needed for nausea - Oncology consult 2. Severe protein malnutrition 3. Anemia, thrombocytosis 4. History of DVT - On Coumadin - INR is subtherapeutic - Continue Coumadin - Lovenox until INR therapeutic Visit type - Emergency Visit Emergency Visit: Yes ED Registration Date: 09/23/17 Care time: The patient presented to the Emergency Department on the above date and was hospitalized for further evaluation of their emergent condition. - New Patient This patient is new to me today: Yes Date on this admission: 09/23/17 - Critical Care Critical Care patient: No Hospitalist Screening - Colonoscopy Questionnaire Colonoscopy Questionnaire: Colonoscopy Questionnaire - Patient: 50 - 75 years old and never had a screening colonoscopy: No History of colon or rectal polyps, or CA: No History of IBD, Crohn's disease or UC: No History of abdominal radiation therapy as a child: No - Relative: 1 with colon or rectal CA, or polyps at age 60 or younger: No Colon or rectal CA diagnosed at age 45 or younger: No Multiple relatives with colon or rectal CA: No - Outcome: Screening Result: Negative Screen
[2017-09-23] MEDS ORDERED: ACETAMINOPHEN 325 MG TABLET (FP) PO PRN (08:30)
[2017-09-23] MEDS ORDERED: morphine CARPU-JECT 2 MG/1 ML DISP.SYRIN IVPUSH PRN (08:30)
[2017-09-23] MEDS ORDERED: ONDANSETRON 4 MG/2 ML VIAL IVPUSH PRN (08:30)
[2017-09-23] MEDS ORDERED: FENTANYL PATCH WASTE TD PRN (08:51)
[2017-09-23] MEDS: SODIUM CHLORIDE 1,000 ML IV SCH (09:00)
[2017-09-23] MEDS ORDERED: fentaNYL 100mcg/hr PATCH.TD72 TD SCH (09:00)
[2017-09-23] MEDS: MULTIVITAMINS (DAILY MVI) TABLET (FP) PO SCH (10:29)
[2017-09-23] MEDS: ENOXAPARIN NA (PORCINE) 40 MG/0.4 ML DISP.SYRIN SQ SCH ×2 (10:29→21:00)
[2017-09-23] MEDS: morphine SULFATE 4 MG/ML VIAL IVPUSH PRN ×4 (11:39→21:01)
[2017-09-23] MEDS: WARFARIN NA 5 MG TABLET (UD) PO SCH (17:07)
--- NOTE | 2017-09-23 19:59 | PN ---
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 (short form) - Note 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: pt seen and examined. well known to us. h/o advanced pseudo myxoma peritonei. Recurrent admissions for continued abdominal pain. On Fentanyl patch and dilaudid at home. Pt seen and examined. Says he took olaparaib on 09/18 and 09/19 and says that he felt "something was not right and never felt that way" and feels that this med "was not right". Also , no appetite, weight loss, feels the swelling is increasing in the abdomen. O/E: General: NAD, cachectic HEENT: NCAT Cor: RRR Lungs: CTA B/l ABd: ++peritoneal nodules. LE: No CCE Last Vital Signs Temp Pulse Resp BP Pulse Ox 98.2 F 81 20 85/51 98 09/23/17 17:19 09/23/17 17:19 09/23/17 17:19 09/23/17 17:19 09/23/17 10:17 CBC, BMP 09/23/17 03:41 09/23/17 03:41 Current Medications Generic Name Dose Route Start Last Admin Trade Name Freq PRN Reason Stop Dose Admin Acetaminophen 650 mg 09/23/17 08:30 Tylenol - PO Q4H PRN PAIN LEVEL 1-5 Enoxaparin Sodium 40 mg 09/23/17 10:00 09/23/17 10:29 Lovenox - SQ 40 mg BID IZABELLA Administration Fentanyl 1 patch 09/25/17 09:00 Duragesic 100mcg Patch - TD Q72H IZABELLA Sodium Chloride 1,000 mls @ 42 mls/hr 09/23/17 08:30 09/23/17 09:00 Normal Saline - IV 42 mls/hr ASDIR IZABELLA Administration Miscellaneous 1 each 09/23/17 08:51 Duragesic Patch Waste TD PRN PRN WASTE Morphine Sulfate 4 mg 09/23/17 08:50 09/23/17 18:01 Morphine Sulfate IVPUSH 4 mg Q3H PRN Administration PAIN LEVEL 6-10 Multivitamins/Minerals/Vitamin C 1 tab 09/23/17 10:00 09/23/17 10:29 Tab-A-Vit - PO 1 tab DAILY IZABELLA Administration Ondansetron HCl 4 mg 09/23/17 08:30 Zofran Injection IVPUSH Q4H PRN NAUSEA Warfarin Sodium 5 mg 09/23/17 18:00 09/23/17 17:07 Coumadin - PO 5 mg SuMoWeFrSa@1800 [facility] Administration Warfarin Sodium 2.5 mg 09/26/17 18:00 Coumadin - PO TuTh@1800 [facility] Advanced pseudomyxoma peritonei did not want to take olaparib, took two doses. h/o DVT: On coumadin Pain control fentanyl 100 IV morphine IVF Pal care.
[2017-09-24] MEDS: morphine SULFATE 4 MG/ML VIAL IVPUSH PRN ×7 (00:04→22:35)
[2017-09-24] MEDS: SODIUM CHLORIDE 1,000 ML IV SCH ×2 (01:33→12:48)
[2017-09-24 07:56] LABS: HEMATOCRIT 26.8 % (35.4-49); HEMOGLOBIN 8.6 GM/dL (11.7-16.9); MCH 25.4 pg (25.7-33.7); MCHC 32.2 g/dl (32.0-35.9); MEAN CELL VOLUME 78.9 fl (80-96); MEAN PLT VOLUME 8.4 fl (7.5-11.1); PLATELET COUNT 638 K/MM3 (134-434); RDW 21.1 % (11.9-15.9); WHITE BLOOD COUNT 6.8 K/mm3 (4.0-10.0)
[2017-09-24 08:10] LABS: INR 1.44 (0.82-1.09); PROTHROMBIN TIME (PATIENT) 16.3 SEC (9.7-13.0)
[2017-09-24 08:54] LABS: CHLORIDE 107 mmol/L (98-107); POTASSIUM 4.4 mmol/L (3.5-5.1); SODIUM 142 mmol/L (136-145)
[2017-09-24 08:58] LABS: ANION GAP 5 (8-16); BLOOD UREA NITROGEN 11 mg/dL (7-18); CALCIUM 8.4 mg/dL (8.5-10.1); CO2 30 mmol/L (21-32); CREATININE 0.5 mg/dL (0.7-1.3); GLUCOSE,RANDOM 96 mg/dL (74-106)
[2017-09-24] MEDS: ENOXAPARIN NA (PORCINE) 40 MG/0.4 ML DISP.SYRIN SQ SCH ×2 (09:37→21:05)
[2017-09-24] MEDS: MULTIVITAMINS (DAILY MVI) TABLET (FP) PO SCH (09:37)
[2017-09-24 09:52] LABS: PLATELET ESTIMATE INCREASED; SMUDGE CELLS FEW
--- NOTE | 2017-09-24 10:37 | PN ---
Physical Exam: SUBJECTIVE: Patient seen and examined. Pain is better with morphine. OBJECTIVE: Vital Signs Period Temp Pulse Resp BP Sys/Conte Pulse Ox Last 24 Hr 98.2 F-99.8 F 69-87 18-20 75-91/44-57 98 GENERAL: The patient is awake, alert, and fully oriented, in no acute distress. LUNGS: Breath sounds equal, clear to auscultation bilaterally, no wheezes, no crackles, no accessory muscle use. HEART: Regular rate and rhythm, S1, S2 without murmur, rub or gallop. ABDOMEN: Soft, nontender, nondistended, normoactive bowel sounds, no guarding, no rebound, multiple nodules. EXTREMITIES: 2+ pulses, warm, well-perfused, no edema. Laboratory Results - last 24 hr 09/24/17 09/24/17 09/24/17 06:00 06:00 06:00 WBC 6.8 RBC 3.40 L Hgb 8.6 L Hct 26.8 L MCV 78.9 L MCH 25.4 L MCHC 32.2 RDW 21.1 H Plt Count 638 H MPV 8.4 Neutrophils % 61.0 Neutrophils % (Manual) 61.0 Band Neutrophils % 1.0 Lymphocytes % 26.0 D Lymphocytes % (Manual) 26.0 Monocytes % 5.0 Monocytes % (Manual) 5 Eosinophils % 6.0 H Eosinophils % (Manual) 6.0 H Basophils % 1.0 Basophils % (Manual) 1.0 D Nucleated RBC % 0 Smudge Cells Few Hypochromia 1+ Platelet Estimate Increased Platelet Comment Large platelets PT with INR 16.30 H INR 1.44 H Sodium 142 Potassium 4.4 Chloride 107 Carbon Dioxide 30 Anion Gap 5 L BUN 11 Creatinine 0.5 L Random Glucose 96 D Calcium 8.4 L Active Medications Generic Name Dose Route Start Last Admin Trade Name Freq PRN Reason Stop Dose Admin Acetaminophen 650 mg 09/23/17 08:30 Tylenol - PO Q4H PRN PAIN LEVEL 1-5 Enoxaparin Sodium 40 mg 09/23/17 10:00 09/24/17 09:37 Lovenox - SQ 40 mg BID IZABELLA Administration Fentanyl 1 patch 09/25/17 09:00 Duragesic 100mcg Patch - TD Q72H [facility] Sodium Chloride 1,000 mls @ 42 mls/hr 09/23/17 08:30 09/24/17 01:33 Normal Saline - IV 42 mls/hr ASDIR IZABELLA Administration Miscellaneous 1 each 09/23/17 08:51 Duragesic Patch Waste TD PRN PRN WASTE Morphine Sulfate 4 mg 09/23/17 08:50 09/24/17 09:38 Morphine Sulfate IVPUSH 4 mg Q3H PRN Administration PAIN LEVEL 6-10 Multivitamins/Minerals/Vitamin C 1 tab 09/23/17 10:00 09/24/17 09:37 Tab-A-Vit - PO 1 tab DAILY IZABELLA Administration Ondansetron HCl 4 mg 09/23/17 08:30 Zofran Injection IVPUSH Q4H PRN NAUSEA Warfarin Sodium 5 mg 09/23/17 18:00 09/23/17 17:07 Coumadin - PO 5 mg SuMoWeFrSa@1800 IZABELLA Administration Warfarin Sodium 2.5 mg 09/26/17 18:00 Coumadin - PO TuTh@1800 IZABELLA ASSESSMENT/PLAN: This is a 47 year old man with a history of pseudomyxoma peritonei, DVT, anemia , chronic abdominal pain, appendiceal cancer who presented to the ED with worsening abdominal pain. 1. Worsening abdominal pain secondary to pseudomyxoma peritonei - Continue Fentanyl 100 mcg patch, morphine IV as needed - Oral Dilaudid held - Continue Zofran as needed for nausea - Oncology input appreciated - Palliative care 2. Severe protein malnutrition 3. Anemia, thrombocytosis 4. History of DVT - Increase Coumadin - Continue Lovenox until INR therapeutic Visit type - Emergency Visit Emergency Visit: Yes ED Registration Date: 09/23/17 Care time: The patient presented to the Emergency Department on the above date and was hospitalized for further evaluation of their emergent condition. - New Patient This patient is new to me today: No - Critical Care Critical Care patient: No - Discharge Referral Referred to [facility] No
--- NOTE | 2017-09-24 17:35 | PN ---
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 (short form) - Note 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: Pt seen and examined Feel pain is better today. O/E: General: NAD, cachectic HEENT: NCAT Cor: RRR Lungs: CTA B/l ABd: ++peritoneal nodules. +left flank mass fluctuating, no pain LE: No CCE Temp Pulse Resp BP Pulse Ox 98.6 F 75 20 98/52 98 09/24/17 17:17 09/24/17 17:17 09/24/17 17:17 09/24/17 17:17 09/23/17 21:00 CBC, BMP 09/24/17 06:00 09/24/17 06:00 Current Medications Generic Name Dose Route Start Last Admin Trade Name Freq PRN Reason Stop Dose Admin Acetaminophen 650 mg 09/23/17 08:30 Tylenol - PO Q4H PRN PAIN LEVEL 1-5 Enoxaparin Sodium 40 mg 09/23/17 10:00 09/24/17 09:37 Lovenox - SQ 40 mg BID IZABELLA Administration Fentanyl 1 patch 09/25/17 09:00 Duragesic 100mcg Patch - TD Q72H [facility] Sodium Chloride 1,000 mls @ 42 mls/hr 09/23/17 08:30 09/24/17 12:48 Normal Saline - IV Not Given ASDIR [facility] Miscellaneous 1 each 09/23/17 08:51 Duragesic Patch Waste TD PRN PRN WASTE Morphine Sulfate 4 mg 09/23/17 08:50 09/24/17 15:55 Morphine Sulfate IVPUSH 4 mg Q3H PRN Administration PAIN LEVEL 6-10 Multivitamins/Minerals/Vitamin C 1 tab 09/23/17 10:00 09/24/17 09:37 Tab-A-Vit - PO 1 tab DAILY [facility] Administration Ondansetron HCl 4 mg 09/23/17 08:30 Zofran Injection IVPUSH Q4H PRN NAUSEA Warfarin Sodium 5 mg 09/23/17 18:00 09/23/17 17:07 Coumadin - PO 5 mg SuMoWeFrSa@1800 [facility] Administration Warfarin Sodium 2.5 mg 09/26/17 18:00 Coumadin - PO TuTh@1800 [facility] Advanced Pseudomyxoma Peritonei Reviewed CT scan Seen by Surgery on 09/03 for the left flank "mass" , felt to be recurrent tumor, drainage wad not advised. Does not want to try the olaparib further "thinking" about his port to be removed, he would let us know Palliative care. Cancer pain: Presently on fentanyl 100mcg and morphine IV. he says he is better on the present regimen likely transition to PO in the next day to two pending clinical improvement. h/o DVT Lovenox to Coumadin Anemia/Thrombocytosis -in the setting of advanced cancer
[2017-09-24] MEDS: WARFARIN NA 5 MG TABLET (UD) PO SCH (18:15)
[2017-09-24] MEDS ORDERED: WARFARIN NA 2.5 MG TABLET (FP) PO ONE (18:20)
[2017-09-25] MEDS: morphine SULFATE 4 MG/ML VIAL IVPUSH PRN ×5 (06:42→23:57)
[2017-09-25 07:43] LABS: HEMATOCRIT 24.7 % (35.4-49); MCH 25.8 pg (25.7-33.7); MCHC 32.6 g/dl (32.0-35.9); MEAN CELL VOLUME 79.4 fl (80-96); MEAN PLT VOLUME 9.2 fl (7.5-11.1); PLATELET COUNT 586 K/MM3 (134-434); RBC 3.11 M/mm3 (4.00-5.60); RDW 21.3 % (11.9-15.9); WHITE BLOOD COUNT 6.4 K/mm3 (4.0-10.0)
[2017-09-25 07:50] LABS: CHLORIDE 108 mmol/L (98-107); POTASSIUM 4.2 mmol/L (3.5-5.1); SODIUM 142 mmol/L (136-145)
[2017-09-25 07:58] LABS: ANION GAP 4 (8-16); BLOOD UREA NITROGEN 10 mg/dL (7-18); CALCIUM 7.9 mg/dL (8.5-10.1); CO2 30 mmol/L (21-32); CREATININE 0.5 mg/dL (0.7-1.3); GLUCOSE,RANDOM 113 mg/dL (74-106)
[2017-09-25 08:02] LABS: INR 1.64 (0.82-1.09); PROTHROMBIN TIME (PATIENT) 18.5 SEC (9.7-13.0)
[2017-09-25] MEDS ORDERED: fentaNYL 100mcg/hr PATCH.TD72 TD SCH (09:00)
--- NOTE | 2017-09-25 09:16 | PN ---
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 - Current Medication List Current Medications: Active Medications Acetaminophen (Tylenol -) 650 mg PO Q4H PRN PRN Reason: PAIN LEVEL 1-5 Enoxaparin Sodium (Lovenox -) 40 mg SQ BID [facility] Last Admin: 09/24/17 21:05 Dose: 40 mg Fentanyl (Duragesic 100mcg Patch -) 1 patch TD Q72H [facility] Sodium Chloride (Normal Saline -) 1,000 mls @ 42 mls/hr IV ASDIR [facility] Last Admin: 09/24/17 12:48 Dose: Not Given Miscellaneous (Duragesic Patch Waste) 1 each TD PRN PRN PRN Reason: WASTE Morphine Sulfate (Morphine Sulfate) 4 mg IVPUSH Q3H PRN PRN Reason: PAIN LEVEL 6-10 Last Admin: 09/25/17 06:42 Dose: 4 mg Multivitamins/Minerals/Vitamin C (Tab-A-Vit -) 1 tab PO DAILY [facility] Last Admin: 09/24/17 09:37 Dose: 1 tab Ondansetron HCl (Zofran Injection) 4 mg IVPUSH Q4H PRN PRN Reason: NAUSEA Warfarin Sodium (Coumadin -) 7.5 mg PO DAILY@1800 [facility] - Objective Vital Signs: Vital Signs Temperature 99.2 F 09/25/17 06:00 Pulse Rate 79 09/25/17 06:00 Respiratory Rate 20 09/25/17 06:00 Blood Pressure 78/48 09/25/17 06:00 O2 Sat by Pulse Oximetry (%) 98 09/24/17 21:00 Labs: CBC, BMP 09/25/17 07:00 09/25/17 07:00 INR, PTT INR 1.64 (0.82-1.09) H 09/25/17 07:00 Problem List - Problems (1) Abdominal pain Assessment/Plan: - Continue Fentanyl 100 mcg patch, morphine IV as needed - Oral Dilaudid held - Continue Zofran as needed for nausea - Oncology input appreciated - Palliative care Code(s): R10.9 - UNSPECIFIED ABDOMINAL PAIN Qualifiers: Abdominal location: unspecified location Qualified Code(s): R10.9 - Unspecified abdominal pain (2) Pseudomyxoma peritonei Assessment/Plan: -as above Code(s): C78.6 - SECONDARY MALIGNANT NEOPLASM OF RETROPERITON AND PERITONEUM (3) DVT (deep venous thrombosis) Assessment/Plan: -on coumadin -follow inr Code(s): I82.409 - ACUTE EMBOLISM AND THOMBOS UNSP DEEP VN UNSP LOWER EXTREMITY
[2017-09-25] MEDS: MULTIVITAMINS (DAILY MVI) TABLET (FP) PO SCH (10:26)
[2017-09-25] MEDS: ENOXAPARIN NA (PORCINE) 40 MG/0.4 ML DISP.SYRIN SQ SCH ×2 (10:26→22:21)
[2017-09-25] MEDS: SODIUM CHLORIDE 1,000 ML IV SCH (12:07)
--- NOTE | 2017-09-25 12:48 | PN ---
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 (short form) - Note 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: Pt seen and examined has "eye pain" and headache today. O/E: General: NAD, cachectic HEENT: NCAT Cor: RRR Lungs: CTA B/l ABd: ++peritoneal nodules. +left flank mass fluctuating, no pain LE: No CCE Temp Pulse Resp BP Pulse Ox 98.6 F 75 20 98/52 98 09/24/17 17:17 09/24/17 17:17 09/24/17 17:17 09/24/17 17:17 09/23/17 21:00 CBC, BMP 09/24/17 06:00 09/24/17 06:00 Current Medications Generic Name Dose Route Start Last Admin Trade Name Freq PRN Reason Stop Dose Admin Acetaminophen 650 mg 09/23/17 08:30 Tylenol - PO Q4H PRN PAIN LEVEL 1-5 Enoxaparin Sodium 40 mg 09/23/17 10:00 09/24/17 09:37 Lovenox - SQ 40 mg BID [facility] Administration Fentanyl 1 patch 09/25/17 09:00 Duragesic 100mcg Patch - TD Q72H [facility] Sodium Chloride 1,000 mls @ 42 mls/hr 09/23/17 08:30 09/24/17 12:48 Normal Saline - IV Not Given ASDIR [facility] Miscellaneous 1 each 09/23/17 08:51 Duragesic Patch Waste TD PRN PRN WASTE Morphine Sulfate 4 mg 09/23/17 08:50 09/24/17 15:55 Morphine Sulfate IVPUSH 4 mg Q3H PRN Administration PAIN LEVEL 6-10 Multivitamins/Minerals/Vitamin C 1 tab 09/23/17 10:00 09/24/17 09:37 Tab-A-Vit - PO 1 tab DAILY [facility] Administration Ondansetron HCl 4 mg 09/23/17 08:30 Zofran Injection IVPUSH Q4H PRN NAUSEA Warfarin Sodium 5 mg 09/23/17 18:00 09/23/17 17:07 Coumadin - PO 5 mg SuMoWeFrSa@1800 [facility] Administration Warfarin Sodium 2.5 mg 09/26/17 18:00 Coumadin - PO TuTh@1800 [facility] Advanced Pseudomyxoma Peritonei Reviewed CT scan Seen by Surgery on 09/03 for the left flank "mass" , felt to be recurrent tumor, drainage wad not advised. Does not want to try the olaparib further now he says he still is thinking about port removal and he is not so sure. Palliative care. Cancer pain: Presently on fentanyl 100mcg and morphine IV. start dialudid may be tomorrow h/o DVT Lovenox to Coumadin Anemia/Thrombocytosis -in the setting of advanced cancer -repeat labs in the am
[2017-09-25] MEDS: WARFARIN NA 7.5 MG TABLET (FP) PO SCH (18:22)
[2017-09-26] MEDS: morphine SULFATE 4 MG/ML VIAL IVPUSH PRN ×3 (06:34→18:03)
--- NOTE | 2017-09-26 08:56 | PN ---
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 History of Present Illness: no complaints - Current Medication List Current Medications: Active Medications Acetaminophen (Tylenol -) 650 mg PO Q4H PRN PRN Reason: PAIN LEVEL 1-5 Enoxaparin Sodium (Lovenox -) 40 mg SQ BID [facility] Last Admin: 09/25/17 22:21 Dose: 40 mg Fentanyl (Duragesic 100mcg Patch -) 1 patch TD Q72H [facility] Last Admin: 09/25/17 10:27 Dose: 1 patch Sodium Chloride (Normal Saline -) 1,000 mls @ 42 mls/hr IV ASDIR [facility] Last Admin: 09/25/17 12:07 Dose: 42 mls/hr Miscellaneous (Duragesic Patch Waste) 1 each TD PRN PRN PRN Reason: WASTE Multivitamins/Minerals/Vitamin C (Tab-A-Vit -) 1 tab PO DAILY [facility] Last Admin: 09/25/17 10:26 Dose: 1 tab Ondansetron HCl (Zofran Injection) 4 mg IVPUSH Q4H PRN PRN Reason: NAUSEA Warfarin Sodium (Coumadin -) 7.5 mg PO DAILY@1800 [facility] Last Admin: 09/25/17 18:22 Dose: 7.5 mg - Objective Vital Signs: Vital Signs Temperature 98.9 F 09/26/17 07:43 Pulse Rate 65 09/26/17 07:43 Respiratory Rate 20 09/26/17 07:43 Blood Pressure 84/52 09/26/17 07:43 O2 Sat by Pulse Oximetry (%) 98 09/25/17 21:00 Cardiovascular: Yes: Regular Rate and Rhythm Respiratory: Yes: Regular, CTA Bilaterally Gastrointestinal: Yes: Normal Bowel Sounds, Soft, Palpable Mass Labs: CBC, BMP 09/25/17 07:00 INR, PTT INR 1.64 (0.82-1.09) H 09/25/17 07:00 Problem List - Problems (1) Abdominal pain Assessment/Plan: - Continue Fentanyl 100 mcg patch, morphine IV as needed - Oral Dilaudid held - Continue Zofran as needed for nausea - Oncology input appreciated - Palliative care Code(s): R10.9 - UNSPECIFIED ABDOMINAL PAIN Qualifiers: Abdominal location: unspecified location Qualified Code(s): R10.9 - Unspecified abdominal pain (2) Pseudomyxoma peritonei Assessment/Plan: -as above Code(s): C78.6 - SECONDARY MALIGNANT NEOPLASM OF RETROPERITON AND PERITONEUM (3) DVT (deep venous thrombosis) Assessment/Plan: -on coumadin -follow inr Code(s): I82.409 - ACUTE EMBOLISM AND THOMBOS UNSP DEEP VN UNSP LOWER EXTREMITY (4) Anemia Assessment/Plan: -await cbc -may need transfusion Code(s): D64.9 - ANEMIA, UNSPECIFIED Qualifiers:
[2017-09-26 09:05] LABS: INR 2.63 (0.82-1.09); PROTHROMBIN TIME (PATIENT) 29.7 SEC (9.7-13.0)
[2017-09-26 09:08] LABS: HEMATOCRIT 25.6 % (35.4-49); MCH 24.8 pg (25.7-33.7); MCHC 31.1 g/dl (32.0-35.9); MEAN CELL VOLUME 79.5 fl (80-96); MEAN PLT VOLUME 8.6 fl (7.5-11.1); PLATELET COUNT 593 K/MM3 (134-434); RBC 3.21 M/mm3 (4.00-5.60); RDW 20.9 % (11.9-15.9); WHITE BLOOD COUNT 6.1 K/mm3 (4.0-10.0)
[2017-09-26] MEDS: MULTIVITAMINS (DAILY MVI) TABLET (FP) PO SCH (09:27)
[2017-09-26] MEDS: ENOXAPARIN NA (PORCINE) 40 MG/0.4 ML DISP.SYRIN SQ SCH (09:27)
[2017-09-26] MEDS: SODIUM CHLORIDE 1,000 ML IV SCH (09:29)
[2017-09-26 11:23] VITALS: BMI 15.6
[2017-09-26 11:24] LABS: ACANTHOCYTES 2+; ANISOCYTOSIS 1+; PLATELET ESTIMATE INCREASED; TARGET CELLS 2+
[2017-09-26] MEDS ORDERED: morphine SULFATE 4 MG/ML VIAL ONE ×2 (11:48→17:54)
[2017-09-26] MEDS ORDERED: HYDROmorphone HCL 2 MG TABLET PO PRN (12:42)
--- NOTE | 2017-09-26 13:13 | PN ---
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 (short form) - Note 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: Pt seen and examined O/E: General: NAD, cachectic HEENT: NCAT Cor: RRR Lungs: CTA B/l ABd: ++peritoneal nodules. +left flank mass fluctuating, no pain LE: No CCE Temp Pulse Resp BP Pulse Ox 98.6 F 75 20 98/52 98 09/24/17 17:17 09/24/17 17:17 09/24/17 17:17 09/24/17 17:17 09/23/17 21:00 CBC, BMP 09/24/17 06:00 09/24/17 06:00 Current Medications Generic Name Dose Route Start Last Admin Trade Name Freq PRN Reason Stop Dose Admin Acetaminophen 650 mg 09/23/17 08:30 Tylenol - PO Q4H PRN PAIN LEVEL 1-5 Enoxaparin Sodium 40 mg 09/23/17 10:00 09/24/17 09:37 Lovenox - SQ 40 mg BID [facility] Administration Fentanyl 1 patch 09/25/17 09:00 Duragesic 100mcg Patch - TD Q72H [facility] Sodium Chloride 1,000 mls @ 42 mls/hr 09/23/17 08:30 09/24/17 12:48 Normal Saline - IV Not Given ASDIR [facility] Miscellaneous 1 each 09/23/17 08:51 Duragesic Patch Waste TD PRN PRN WASTE Morphine Sulfate 4 mg 09/23/17 08:50 09/24/17 15:55 Morphine Sulfate IVPUSH 4 mg Q3H PRN Administration PAIN LEVEL 6-10 Multivitamins/Minerals/Vitamin C 1 tab 09/23/17 10:00 09/24/17 09:37 Tab-A-Vit - PO 1 tab DAILY [facility] Administration Ondansetron HCl 4 mg 09/23/17 08:30 Zofran Injection IVPUSH Q4H PRN NAUSEA Warfarin Sodium 5 mg 09/23/17 18:00 09/23/17 17:07 Coumadin - PO 5 mg SuMoWeFrSa@1800 [facility] Administration Warfarin Sodium 2.5 mg 09/26/17 18:00 Coumadin - PO TuTh@1800 [facility] Advanced Pseudomyxoma Peritonei Reviewed CT scan Seen by Surgery on 09/03 for the left flank "mass" , felt to be recurrent tumor, drainage wad not advised. Does not want to try the olaparib further Palliative care. for op f/u Cancer pain: Presently on fentanyl 100mcg and morphine IV. no dilaudid in-house h/o DVT stop lovenox c/w Coumadin Anemia/Thrombocytosis -appreciate prbcs being given
[2017-09-26 16:13] VITALS: BP 88/51; PULSE 83; TEMP 98.4
[2017-09-26] MEDS: WARFARIN NA 7.5 MG TABLET (FP) PO SCH (17:20)
[2017-09-26] MEDS ORDERED: WARFARIN NA 2.5 MG TABLET (FP) PO SCH (18:00)
== END 2017-09-26 20:00 | disposition home or self-care (01) | DRG 374 ==
LOC: JER 03:05 → JERBED 06:56 → UNDOADMIN 06:56 → JERBED 07:08 → J8W 09:37
PROVIDERS: ADMIT Internal Medicine; ATTEND Family Medicine
PROC: 30233N1 Transfusion of Nonautologous Red Blood Cells into Peripheral Vein, Percutaneous Approach (ICD-10-PCS; principal; 2017-09-26)
DX: C78.6 Secondary malignant neoplasm of retroperitoneum and peritoneum (principal); E43 Unspecified severe protein-calorie malnutrition; Z68.1 Body mass index [BMI] 19.9 or less, adult; R64 Cachexia; D64.9 Anemia, unspecified; D47.3 Essential (hemorrhagic) thrombocythemia; R10.9 Unspecified abdominal pain
CPT/HCPCS: 36415; 36430; 74177-TC; 80048; 80053; 85025; 85027; 85610; 86850; 86900; 86901; 86922; 99283-25; J7030; P9038; P9058

== ENCOUNTER 2017-09-28 01:05 | Inpatient (IN) | payer OTHER ==
[2017-09-28 01:25] VITALS: BMI 16.5
[2017-09-28] MEDS ORDERED: SODIUM CHLORIDE 1,000 ML IV STA (02:04)
[2017-09-28] MEDS ORDERED: ONDANSETRON 4 MG/2 ML VIAL IVPUSH ONE (02:15)
--- NOTE | 2017-09-28 02:15 | PDOC ---
History of Present Illness - General Chief Complaint: Pain Stated Complaint: ABDOMINAL PAIN/VOMITING Time Seen by Provider: 09/28/17 01:35 - History of Present Illness Initial Comments: 09/28/17 04:20 47 year old man who comes to the ED complaining of abdominal pain and vomiting with unable to tolerate PO . 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 patient was admitted in the hospital from 09/23- 09/26 plan was for patient to follow up in palliative care, patient reports that he is unable to tolerate PO due to persistent vomiting. patient denies diarrhea, constipation, melena, rectal bleeding, fever/ chills. 09/28/17 05:00 PMD: durga ONcology: Sade Past History - Past Medical History Allergies/Adverse Reactions: Allergies Allergy/AdvReac Type Severity Reaction Status Date / Time No Known Allergies Allergy Verified 09/28/17 01:25 Home Medications: Ambulatory Orders Multivitamins [Multivit ([facility] Formulary)] 1 tab PO DAILY #30 tab 07/10/17 HYDROmorphone [Dilaudid -] 4 mg PO Q4H PRN 09/01/17 Warfarin Na [Coumadin -] 5 mg PO DAILY@1800 #0 tablet 09/05/17 FENTANYL 100mcg PATCH [DURAGESIC 100mcg PATCH -] 1 patch TD Q72H 09/23/17 Ferrous Sulfate [Feosol] 325 mg PO DAILY 09/23/17 Olaparib [Lynparza] 50 mg PO BID 09/23/17 Anemia: Yes Asthma: No Cancer: Yes (APPENDICEAL CA, 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) Cardiac Disorders: No CVA: No COPD: No CHF: No DVT: Yes (LLE BLOOD CLOT 5 YEARS AGO) Dementia: No Diabetes: No GI Disorders: Yes (C-DIFF 2013) Disorders: Yes (CDIFF 2013) HTN: No (Hypotension mostly) Hypercholesterolemia: No Liver Disease: No Seizures: No Thyroid Disease: No - Surgical History Abdominal Surgery: Yes (spleenectomy, COLECTOMY,) Appendectomy: Yes Cardiac Surgery: No Cholecystectomy: No GI Surgery: Yes (for stomach cancer--pnp) Lung Surgery: No Neurologic Surgery: No Orthopedic Surgery: No - Immunization History Immunization Up to Date: Yes - Suicide/Smoking/Psychosocial Hx Smoking Status: No Smoking History: Never smoked Have you smoked in the past 12 months: No Number of Cigarettes Smoked Daily: 0 Cigars Per Day: 0 Information on smoking cessation initiated: No Hx Alcohol Use: No Drug/Substance Use Hx: No Substance Use Type: None Hx Substance Use Treatment: No Review of Systems - Review of Systems Able to Perform ROS?: Yes Is the patient limited Mosotho proficient: No Constitutional: No: Symptoms Reported, See HPI, Chills, Diaphoresis, Fever, Loss of Appetite, Malaise, Night Sweats, Weakness, Weight Stable, Unintentional Wgt. Loss, Unexplained wgt Loss, Other ABD/GI: Yes: Nausea, Vomiting, Abdominal cramping. No: Symptoms Reported, See HPI, Abdominal Distended, Abd. Pain w/ defecation, Blood Streaked Bowels, Constipated, Diarrhea, Difficulty Swallowing, Poor Appetite, Poor Fluid Intake, Rectal Bleeding, Indigestion, Tarry Stools, Other : No: Symptoms Reported, See HPI, Burning, Dysuria, Discharge, Frequency, Flank Pain, Hematuria, Incontinence, Pain, Urgency, Testicular Mass, Testicular Swelling, Lesions, Testicular Pain, Other *Physical Exam - Vital Signs Last Vital Signs Temp Pulse Resp BP Pulse Ox 98.4 F 84 18 98/60 100 09/28/17 01:20 09/28/17 01:20 09/28/17 01:20 09/28/17 01:20 09/28/17 01:20 - Physical Exam General Appearance: Yes: Appropriately Dressed Respiratory/Chest: positive: Lungs Clear, Normal Breath Sounds Gastrointestinal/Abdominal: positive: Normal Bowel Sounds, Soft, Other ( generalized abdominal tenderness, mass in epiogastric area) Musculoskeletal: positive: Normal Inspection Extremity: positive: Normal Capillary Refill, Normal Inspection, Normal Range of Motion Integumentary: positive: Normal Color, Dry, Warm Neurologic: positive: Fully Oriented, Alert, Normal Mood/Affect Heart Score/ECG Review - History History: Slightly suspicious - Electrocardiogram EKG: Normal - Age Age: </= 45 - Risk Factors Based on the list above the patient has:: No risk factors known - Troponin Troponin: </= normal limit - Score Heart Score - Total: 0 - ECG Intrepretation Rhythm: Regular Rhythm Comment:: 09/28/17 05:41 NSR: 79bpm ED Treatment Course - LABORATORY CBC & Chemistry Diagram: 09/28/17 03:20 09/28/17 03:20 - RADIOLOGY Radiograph Interpretation: 09/28/17 07:05 Abdomen XRAY: Several air-filled small bowel loops mid abdomen/rightt lower quadrant, presumably corresponding to dilated loops seen on 09/23/17 abdomen/pelvis CT that likely represent chronic postoperative changes. Moderate feces colon. No definite bowel obstruction, but advise continued followup. Stent in distal stomach. Surgical clips left upper and bilateral lower quadrants. Large left flank hernia without visible air opacities, question multiloculated cystic mass as seen on prior CT. Upper abdomen and lower pelvis incompletely seen. *DC/Admit/Observation/Transfer Diagnosis at time of Disposition: Cancer associated pain Abdominal pain Qualifiers: Abdominal location: generalized Qualified Code(s): R10.84 - Generalized abdominal pain Vomiting Qualifiers: Vomiting type: unspecified Vomiting Intractability: non-intractable Nausea presence: with nausea Qualified Code(s): R11.2 - Nausea with vomiting, unspecified - Discharge Dispostion Decision to Admit order: Yes - Referrals - Patient Instructions - Post Discharge Activity
[2017-09-28] MEDS ORDERED: ONDANSETRON 4 MG/2 ML VIAL ONE ×2 (03:02→11:01)
[2017-09-28] MEDS ORDERED: morphine CARPU-JECT 4 MG/1 ML DISP.SYRIN IVPUSH ONE (03:06)
[2017-09-28] MEDS ORDERED: morphine CARPU-JECT 2 MG/1 ML DISP.SYRIN ONE (03:08)
[2017-09-28 03:42] LABS: HEMATOCRIT 30.7 % (35.4-49); HEMOGLOBIN 9.8 GM/dL (11.7-16.9); MCH 25.1 pg (25.7-33.7); MCHC 31.9 g/dl (32.0-35.9); MEAN CELL VOLUME 78.8 fl (80-96); MEAN PLT VOLUME 8.7 fl (7.5-11.1); PLATELET COUNT 628 K/MM3 (134-434); RBC 3.89 M/mm3 (4.00-5.60); RDW 20.7 % (11.9-15.9); WHITE BLOOD COUNT 8.9 K/mm3 (4.0-10.0)
[2017-09-28 03:49] LABS: ADD RBC MORPHOLOGY YES
[2017-09-28 04:05] LABS: ALBUMIN 2.4 g/dl (3.4-5.0); ANION GAP 5 (8-16); BILIRUBIN,TOTAL 0.2 mg/dL (0.2-1.0); BLOOD UREA NITROGEN 9 mg/dL (7-18); CALCIUM 8.4 mg/dL (8.5-10.1); CHLORIDE 103 mmol/L (98-107); CO2 33 mmol/L (21-32); CREATININE 0.6 mg/dL (0.7-1.3); GLUCOSE,RANDOM 95 mg/dL (74-106); POTASSIUM 4.1 mmol/L (3.5-5.1); SGOT/AST 12 U/L (15-37); SODIUM 141 mmol/L (136-145); TOT PROT 6.2 g/dl (6.4-8.2)
[2017-09-28 04:07] LABS: ALK PHOS 70 U/L (45-117); SGPT/ALT 11 U/L (12-78)
[2017-09-28 04:37] LABS: ANISOCYTOSIS 1+
--- NOTE | 2017-09-28 05:42 | HP ---
Admitting History and Physical - Primary Care Physician PCP: Yuliana Addison - Admission Chief Complaint: Abdominal Pain, Vomiting History of Present Illness: 47 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 Who presents to the ED with abdominal pain and vomiting. Patient had recent admission 09/23-09/26 for abdominal pain. Patient reports abdominal pain and vomiting, unable to tolerate PO or pain medication. Patient concerned about dehydration. 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), Other (Intestinal obstruction.) Heme/Onc: Yes: Anemia, Cancer (last chemo 2012) Infectious Disease: Yes: C-Diff Psych: Yes: Anxiety, Depression - Past Surgical History Past Surgical History: Yes: Appendectomy (2008), Colectomy (partial), Colonoscopy, Splenectomy (2008), Stent (gastric ([facility] - Smoking History Smoking history: Never smoked Have you smoked in the past 12 months: No Aproximately how many cigarettes per day: 0 - Alcohol/Substance Use Hx Alcohol Use: No History of Substance Use: reports: None - Social History ADL: Independent History of Recent Travel: No Home Medications - Allergies Allergies/Adverse Reactions: Allergies Allergy/AdvReac Type Severity Reaction Status Date / Time No Known Allergies Allergy Verified 09/28/17 01:25 - Home Medications Home Medications: Ambulatory Orders Multivitamins [Multivit ([facility] Formulary)] 1 tab PO DAILY #30 tab 07/10/17 HYDROmorphone [Dilaudid -] 4 mg PO Q4H PRN 09/01/17 Warfarin Na [Coumadin -] 5 mg PO DAILY@1800 #0 tablet 09/05/17 FENTANYL 100mcg PATCH [DURAGESIC 100mcg PATCH -] 1 patch TD Q72H 09/23/17 Ferrous Sulfate [Feosol] 325 mg PO DAILY 09/23/17 Olaparib [Lynparza] 50 mg PO BID 09/23/17 Family Disease History - Family Disease History Family Disease History: CA: Father (COLON CA, ESRD), Other: Father, Mother ( ARTHRITIS, BACK SURGERY), Brother (3 BROTHERS- ALL HEALTHY), Daughter (HEALTHY) Review of Systems - Review of Systems Constitutional: reports: Loss of Appetite Eyes: reports: No Symptoms HENT: reports: No Symptoms Neck: reports: No Symptoms Cardiovascular: reports: No Symptoms Respiratory: reports: No Symptoms Gastrointestinal: reports: Abdominal Pain, Vomiting Genitourinary: reports: No Symptoms Breasts: reports: No Symptoms Reported Musculoskeletal: reports: No Symptoms Integumentary: reports: No Symptoms Neurological: reports: No Symptoms Endocrine: reports: No Symptoms Hematology/Lymphatic: reports: No Symptoms Psychiatric: reports: No Symptoms Physical Examination Vital Signs: Vital Signs Temperature 98.4 F 09/28/17 01:20 Pulse Rate 84 09/28/17 01:20 Respiratory Rate 18 09/28/17 01:20 Blood Pressure 98/60 09/28/17 01:20 O2 Sat by Pulse Oximetry (%) 100 09/28/17 01:20 Constitutional: Yes: Cachectic Eyes: Yes: WNL, Conjunctiva Clear, EOM Intact, PERRL HENT: Yes: WNL, Atraumatic, Normocephalic Neck: Yes: WNL, Supple, Trachea Midline Cardiovascular: Yes: WNL, Regular Rate and Rhythm, S1, S2 Respiratory: Yes: WNL, Regular, CTA Bilaterally Gastrointestinal: Yes: Tenderness, Tenderness, Epigastrium ...Rectal Exam: Yes: Deferred Renal/: Yes: WNL Breast(s): Yes: WNL Musculoskeletal: Yes: WNL Extremities: Yes: WNL Edema: No Peripheral Pulses WNL: Yes Neurological: Yes: WNL, Alert, Oriented, Cran Nerves II-XII Intact ...Motor Strength: WNL Psychiatric: Yes: WNL, Alert, Oriented Labs: CBC, BMP 09/28/17 03:20 09/28/17 03:20 Laboratory Results - last 24 hr 09/28/17 09/28/17 09/28/17 03:20 03:20 03:20 WBC 8.9 D RBC 3.89 L D Hgb 9.8 L D Hct 30.7 L D MCV 78.8 L MCH 25.1 L MCHC 31.9 L RDW 20.7 H Plt Count 628 H MPV 8.7 Total Counted 100 Neutrophils % No Result Required. Neutrophils % (Manual) 72.0 Band Neutrophils % 1.0 Lymphocytes % No Result Required. Lymphocytes % (Manual) 16.0 Monocytes % (Manual) 6 Eosinophils % (Manual) 5.0 H Nucleated RBC % 0 Hypochromia 2+ Anisocytosis 1+ Sodium 141 Potassium 4.1 Chloride 103 Carbon Dioxide 33 H Anion Gap 5 L BUN 9 Creatinine 0.6 L Creat Clearance w eGFR > 60 Random Glucose 95 Calcium 8.4 L Total Bilirubin 0.2 AST 12 L D ALT 11 L Alkaline Phosphatase 70 Troponin I Total Protein 6.2 L Albumin 2.4 L Lipase 74 09/28/17 03:20 WBC RBC Hgb Hct MCV MCH MCHC RDW Plt Count MPV Total Counted Neutrophils % Neutrophils % (Manual) Band Neutrophils % Lymphocytes % Lymphocytes % (Manual) Monocytes % (Manual) Eosinophils % (Manual) Nucleated RBC % Hypochromia Anisocytosis Sodium Potassium Chloride Carbon Dioxide Anion Gap BUN Creatinine Creat Clearance w eGFR Random Glucose Calcium Total Bilirubin AST ALT Alkaline Phosphatase Troponin I < 0.02 Total Protein Albumin Lipase Imaging - Results X-ray: Image Reviewed Problem List - Problems (1) Abdominal pain Code(s): R10.9 - UNSPECIFIED ABDOMINAL PAIN Qualifiers: Abdominal location: generalized Qualified Code(s): R10.84 - Generalized abdominal pain (2) Pain, neoplasm-related Code(s): G89.3 - NEOPLASM RELATED PAIN (ACUTE) (CHRONIC) (3) Vomiting Code(s): R11.10 - VOMITING, UNSPECIFIED Qualifiers: Vomiting type: unspecified Vomiting Intractability: non-intractable Nausea presence: with nausea Qualified Code(s): R11.2 - Nausea with vomiting, unspecified (4) Dehydration Code(s): E86.0 - DEHYDRATION (5) 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 - SECONDARY MALIGNANT NEOPLASM OF RETROPERITON AND PERITONEUM Assessment/Plan 47 y/o man with a PMHx of Pseudomyoxma Periteoni. Placed in Observation for Intractable Abdominal Pain, Vomiting, Dehydration. Plan: Will place in Observation for Abdominal Pain, Dehydration No leukocytosis no neutrophilia, afebrile Continue IVF Continue Zofran Continue Fentanyl Patch, Morphine Sulfate IV No Diluadid available inhouse Consider Pain Mgmt consult Palliative Care consult Oncology consult Monitor CBC, BMP INR-pending Resume Coumadin- pending INR result Series INRs Monitor vitals NPO for now DVT ppx- OOB, SCDs, Coumadin Code Status: Full Code Dispo: Observation Visit type - Emergency Visit Emergency Visit: Yes ED Registration Date: 09/28/17 Care time: The patient presented to the Emergency Department on the above date and was hospitalized for further evaluation of their emergent condition. - New Patient This patient is new to me today: Yes Date on this admission: 09/28/17 - Critical Care Critical Care patient: No Hospitalist Screening - Colonoscopy Questionnaire Colonoscopy Questionnaire: Colonoscopy Questionnaire - Patient: 50 - 75 years old and never had a screening colonoscopy: No History of colon or rectal polyps, or CA: No History of IBD, Crohn's disease or UC: No History of abdominal radiation therapy as a child: No - Relative: 1 with colon or rectal CA, or polyps at age 60 or younger: No Colon or rectal CA diagnosed at age 45 or younger: No Multiple relatives with colon or rectal CA: No - Outcome: Screening Result: Negative Screen
[2017-09-28] MEDS ORDERED: fentaNYL 100mcg/hr PATCH.TD72 TD SCH (06:00)
[2017-09-28] MEDS: SODIUM CHLORIDE 1,000 ML IV SCH ×3 (06:10→21:52)
[2017-09-28 06:57] LABS: PROTHROMBIN TIME (PATIENT) 51.4 SEC (9.7-13.0)
[2017-09-28 07:00] LABS: ACTIVATED PTT 45.9 SECONDS (26.9-34.4)
[2017-09-28] MEDS ORDERED: morphine SULFATE 4 MG/ML VIAL IVPUSH PRN (07:00)
[2017-09-28] MEDS ORDERED: morphine SULFATE 4 MG/ML VIAL ONE ×2 (08:33→11:49)
[2017-09-28 08:45] LABS: INR 4.55 (0.82-1.09)
[2017-09-28] MEDS: FERROUS SO4 325 MG TABLET (FP) PO SCH (10:00)
[2017-09-28] MEDS: MULTIVITAMINS (DAILY MVI) TABLET (FP) PO SCH (10:00)
[2017-09-28] MEDS ORDERED: fentaNYL 100mcg/hr PATCH.TD72 ONE (10:08)
[2017-09-28] MEDS: FENTANYL PATCH WASTE TD PRN (10:20)
[2017-09-28] MEDS: fentaNYL 100mcg/hr PATCH.TD72 TD SCH (10:21)
[2017-09-28] MEDS ORDERED: FERROUS SO4 325 MG TABLET (FP) ONE (10:37)
[2017-09-28] MEDS ORDERED: ONDANSETRON 4 MG/2 ML VIAL IVPUSH PRN (10:40)
[2017-09-28] MEDS ORDERED: BENZOCAINE/MENTH/CETYLPYRD CL 1 EACH LOZENGE MM PRN (10:40)
[2017-09-28] MEDS: PANTOPRAZOLE SODIUM 40 MG VIAL IVPUSH SCH (10:45)
--- NOTE | 2017-09-28 10:47 | PN ---
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 Chief Complaint: Abdominal pain Pseudomyxoma peritonei History of Present Illness: c/o abdominal and throat pain unable to swallow, vomited at home - Current Medication List Current Medications: Active Medications Benzocaine/Menthol (Cepacol Lozenge -) 1 each MM PRN PRN PRN Reason: SORE THROAT Fentanyl (Duragesic 100mcg Patch -) 1 patch TD Q72H [facility] Last Admin: 09/28/17 10:21 Dose: 1 patch Ferrous Sulfate (Feosol -) 325 mg PO DAILY [facility] Last Admin: 09/28/17 10:00 Dose: 325 mg Sodium Chloride (Normal Saline -) 1,000 mls @ 150 mls/hr IV ASDIR [facility] Last Admin: 09/28/17 06:10 Dose: 150 mls/hr Miscellaneous (Duragesic Patch Waste) 1 each TD PRN PRN PRN Reason: PATCH REMOVAL Last Admin: 09/28/17 10:20 Dose: 1 each Morphine Sulfate (Morphine Sulfate) 4 mg IVPUSH Q4H PRN PRN Reason: PAIN LEVEL 7 - 10 Multivitamins/Minerals/Vitamin C (Tab-A-Vit -) 1 tab PO DAILY [facility] Last Admin: 09/28/17 10:00 Dose: 1 tab Ondansetron HCl (Zofran Injection) 4 mg IVPUSH Q6H PRN PRN Reason: NAUSEA Pantoprazole Sodium (Protonix Iv) 40 mg IVPUSH DAILY [facility] Sucralfate (Carafate Oral Suspension -) 1 gm PO QID [facility] - Objective Vital Signs: Vital Signs Temperature 98.2 F 09/28/17 07:34 Pulse Rate 79 09/28/17 07:34 Respiratory Rate 18 09/28/17 01:20 Blood Pressure 110/66 09/28/17 07:34 O2 Sat by Pulse Oximetry (%) 99 09/28/17 07:34 Constitutional: Yes: No Distress, Calm, Cachectic HENT: Yes: WNL, Hoarseness Cardiovascular: Yes: Regular Rate and Rhythm Respiratory: Yes: Regular Gastrointestinal: Yes: Soft, Palpable Mass, Tenderness Musculoskeletal: Yes: Muscle Weakness Extremities: Yes: WNL Edema: No Neurological: Yes: Alert, Oriented Psychiatric: Yes: Alert, Oriented Labs: CBC, BMP 09/28/17 03:20 09/28/17 03:20 INR, PTT INR 4.55 (0.82-1.09) H* D 09/28/17 06:04 Problem List - Problems (1) Abdominal pain Assessment/Plan: morphine 4 mg IV Q4HPRN Fentanyl patch 100 mcg Q72H GI consult Has duodenal stent that may need to be changed Pain management consult Code(s): R10.9 - UNSPECIFIED ABDOMINAL PAIN Qualifiers: Abdominal location: generalized Qualified Code(s): R10.84 - Generalized abdominal pain (2) Pain, neoplasm-related Code(s): G89.3 - NEOPLASM RELATED PAIN (ACUTE) (CHRONIC) (3) Vomiting Assessment/Plan: -Zofran 4mg IV Q6H PRN -NPO Code(s): R11.10 - VOMITING, UNSPECIFIED Qualifiers: Vomiting type: unspecified Vomiting Intractability: non-intractable Nausea presence: with nausea Qualified Code(s): R11.2 - Nausea with vomiting, unspecified (4) Elevated INR Assessment/Plan: -On Warfarin for history of DVT -INR-4.5 -Hold warfarin for now -daily INR's Code(s): R79.1 - ABNORMAL COAGULATION PROFILE (5) Severe malnutrition Assessment/Plan: -Ensure BID, Magic cup when ready to eat -Speech consult Code(s): E43 - UNSPECIFIED SEVERE PROTEIN-CALORIE MALNUTRITION (6) Pseudomyxoma peritonei Assessment/Plan: -Palliative care consult -GI consult -Oncology consult -Pt doesn't want chemotherapy Code(s): C78.6 - SECONDARY MALIGNANT NEOPLASM OF RETROPERITON AND PERITONEUM (7) Trouble swallowing Assessment/Plan: -GI consult -endoscopy? -Speech consult for swallow eval -magic mouth wash Q6H -sucralfate suspension 1 gm QID -cepacol lozenges Q6H PRN -Pantoprazole 40 mg IVP daily Code(s): R13.10 - DYSPHAGIA, UNSPECIFIED Assessment/Plan see problem list
[2017-09-28] MEDS ORDERED: PANTOPRAZOLE SODIUM 40 MG VIAL ONE (11:01)
[2017-09-28] MEDS ORDERED: SUCRALFATE 1 GM TABLET (FP) ONE (11:01)
[2017-09-28] MEDS: SUCRALFATE 1 GM/10 ML UNIT DOSE CUPS PO SCH ×4 (11:23→21:06)
--- NOTE | 2017-09-28 11:32 | CONSULT ---
Admitting History and Physical - Primary Care Physician PCP: Radha Lyles - Admission History of Present Illness: Per EMR: 47 year old man who comes to the ED complaining of abdominal pain and vomiting with unable to tolerate PO . 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 patient was admitted in the hospital from 09/23- 09/26 plan was for patient to follow up in palliative care, patient reports that he is unable to tolerate PO due to persistent vomiting. Anemia, appendiceal Ca s/p chemo 2008,partial colectomy,gastric stent,DVT This is my first consult with this pt. Pt c/o odynophagia in oharynx and stomach pains. It has worsened and was severe about an hour and a half after eating a small amount of a hamburger. Pt feels the pain may be "related to his stent." He has terrible pain when drinking water, usually tolerates ensure at home, and tolerated a liquid medicine today. He is in pain at present, and refused any PO trial. Pt is verbal , appropriate, voice is euphonic. Swallow seems brisk. 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), Other (Intestinal obstruction.) Heme/Onc: Yes: Anemia, Cancer (last chemo 2012) Infectious Disease: Yes: C-Diff Psych: Yes: Anxiety, Depression - Past Surgical History Past Surgical History: Yes: Appendectomy (2008), Colectomy (partial), Colonoscopy, Splenectomy (2008), Stent (gastric ([facility])) - Smoking History Smoking history: Never smoked Have you smoked in the past 12 months: No Aproximately how many cigarettes per day: 0 - Alcohol/Substance Use Hx Alcohol Use: No History of Substance Use: reports: None - Social History ADL: Independent History of Recent Travel: No History - Admission Reason For Visit: ABDOMINAL PAIN/VOMITING NEOPLASM RELATED - General Mental Status: Alert and Oriented, Awake and Alert, Able to Follow Commands Attention: Intact (keeps eyes closed) Ability to Follow Directions: Excellent Head/Neck Control: WFL - Hearing Hearing: Functional Speech Evaluation - Communication Primary Language: YAKUT Communication: Yes: Within Normal Limits Oral Expression Ability: Yes: No Impairment - Speech Production Able to Make Needs Known: Yes: WNL Intelligibility: Yes: WNL - Speech Characteristics Voice Loudness: Normal Voice Pitch: Yes: Normal Voice Phonatory-based Quality: Yes: Normal Speech Pattern: Normal Speech Clarity: < 100% Nasal Resonance: Normal Articulation: Yes: Precise Rate of Speech: Intact - Language/Auditory Comprehension Follows: Yes: 2 Stage Simple Commands - Language/Verbal Expression Able to Respond to Simple Queries: Yes: WNL Able to Communicate Wants and Needs: Yes: WNL Functional Communication Status: Yes: WNL - Memory/Perception terminal superintendent Memory: Yes: WNL Short Term Memory: Yes: WNL - Swallow Evaluation/Bedside Assessment Current Nutritional Intake: NPO Recommendations - Speech Evaluation, Impression/Plan Impression: Pt refusing PO trial, c/o severe pain in throat/stomach when he swallows. Worse for water, better for thicker liquids eg Ensure Yaya/Milk. He feels it "may be related to his stent.". Swallow seems brisk. No PO trials provided, per pt's request. - Dysphagia Impressions/Plan Dysphagia Impressions: Ongoing Evaluation *Silent aspiration: cannot be R/O at bedside Recommendations: Other (to follow/reassess when pt is ready) - Recommendations Supplement: Ensure (Yaya, when pt feels ready and as tolerated)
--- NOTE | 2017-09-28 13:27 | EKG ---
Test Reason : Blood Pressure : / mmHG Vent. Rate : 079 BPM Atrial Rate : 079 BPM P-R Int : 170 ms QRS Dur : 084 ms QT Int : 362 ms P-R-T Axes : 072 068 059 degrees QTc Int : 415 ms NORMAL SINUS RHYTHM NORMAL ECG WHEN COMPARED WITH ECG OF 02-SEP-2017 00:48, NO SIGNIFICANT CHANGE WAS FOUND Confirmed by NESTOR ANGUIANO MD ([id number]) on 09/28/2017 1:26:42 PM Referred By: Confirmed By:NESTOR ANGUIANO MD
[2017-09-28] MEDS: morphine SULFATE 4 MG/ML VIAL IVPUSH PRN ×2 (16:09→21:05)
--- NOTE | 2017-09-28 21:26 | PN ---
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 (short form) - Note 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: Patient seen and examined Comes in with epigastric pain and vomiting. Reports normal bowelmovements. No fever/chills/. No cough/SOB Last Vital Signs Temp Pulse Resp BP Pulse Ox 98.3 F 79 20 99/63 99 09/28/17 18:00 09/28/17 18:00 09/28/17 18:00 09/28/17 18:00 09/28/17 11:34 Cor: RSR, No murmurs, No gallops Lungs: Clear to P&A Abd: Soft, Normal bowel sounds, tumor masses in epigastrium, left flank Ext:No significant edema Abnormal Lab Results 09/28/17 09/28/17 09/28/17 03:20 03:20 06:04 RBC 3.89 L D Hgb 9.8 L D Hct 30.7 L D MCV 78.8 L MCH 25.1 L MCHC 31.9 L RDW 20.7 H Plt Count 628 H Eosinophils % (Manual) 5.0 H PT with INR 51.40 H INR 4.55 H* D PTT (Actin FS) 45.9 H D Carbon Dioxide 33 H Anion Gap 5 L Creatinine 0.6 L Calcium 8.4 L AST 12 L D ALT 11 L Total Protein 6.2 L Albumin 2.4 L Active Medications Benzocaine/Menthol (Cepacol Lozenge -) 1 each MM PRN PRN PRN Reason: SORE THROAT Fentanyl (Duragesic 100mcg Patch -) 1 patch TD Q72H [facility] Last Admin: 09/28/17 10:21 Dose: 1 patch Ferrous Sulfate (Feosol -) 325 mg PO DAILY [facility] Last Admin: 09/28/17 10:00 Dose: 325 mg Sodium Chloride (Normal Saline -) 1,000 mls @ 150 mls/hr IV ASDIR [facility] Last Admin: 09/28/17 14:57 Dose: 150 mls/hr Miscellaneous (Duragesic Patch Waste) 1 each TD PRN PRN PRN Reason: PATCH REMOVAL Last Admin: 09/28/17 10:20 Dose: 1 each Morphine Sulfate (Morphine Sulfate) 4 mg IVPUSH Q4H PRN PRN Reason: PAIN LEVEL 7 - 10 Last Admin: 09/28/17 21:05 Dose: 4 mg Multivitamins/Minerals/Vitamin C (Tab-A-Vit -) 1 tab PO DAILY [facility] Last Admin: 09/28/17 10:00 Dose: 1 tab Ondansetron HCl (Zofran Injection) 4 mg IVPUSH Q6H PRN PRN Reason: NAUSEA Last Admin: 09/28/17 11:24 Dose: 4 mg Pantoprazole Sodium (Protonix Iv) 40 mg IVPUSH DAILY [facility] Last Admin: 09/28/17 10:45 Dose: 40 mg Sucralfate (Carafate Oral Suspension -) 1 gm PO ACHS [facility] Last Admin: 09/28/17 21:06 Dose: 1 gm A/P 47 y/o patient with pseudomyxoma peritonei, s/p HIPEC x2,last 02/13, multiple surgeries for resection, had FOLFOX and FOLFIR in the past.Allergic to oxali.Had refused other lines of chemotherapy---aasin, xeloda, clinical trial, olaparib in the past. h/o duodenal stent Now with progressing disease,abdiominal wall masses, pain and vomiting/ epigastric pain Will discuss with at [facility] regarding ? duodenal stent change Pain control
[2017-09-28 22:28] LABS: URINE APPEARANCE CLEAR; URINE BILIRUBIN NEGATIVE (<2.0 mg/dL); URINE BLOOD NEGATIVE (NEGATIVE); URINE COLOR LTYELLOW; URINE GLUCOSE (UA) NEGATIVE (NEGATIVE); URINE KETONE 1+ (NEGATIVE); URINE LEUK ESTERASE NEGATIVE (NEGATIVE); URINE NITRITE NEGATIVE (NEGATIVE); URINE PROTEIN NEGATIVE (NEGATIVE); URINE UROBILINOGEN NEGATIVE mg/dL (0.2-1.0)
[2017-09-29] MEDS: MAG HYDROX/ALH/SMC/DPHA/LIDO 240 ML MOUTHWASH MM SCH ×5 (01:23→23:08)
[2017-09-29] MEDS: morphine SULFATE 4 MG/ML VIAL IVPUSH PRN ×4 (01:24→20:40)
[2017-09-29] MEDS: SODIUM CHLORIDE 1,000 ML IV SCH (04:58)
[2017-09-29] MEDS ORDERED: SODIUM CHLORIDE 500 ML IV STA (06:12)
[2017-09-29] MEDS: SUCRALFATE 1 GM/10 ML UNIT DOSE CUPS PO SCH ×4 (06:22→21:27)
[2017-09-29 07:24] LABS: PROTHROMBIN TIME (PATIENT) 58.6 SEC (9.7-13.0)
[2017-09-29 07:52] LABS: BASO % 1.1 % (0-2.0); EOS % 7.1 % (0-4.5); HEMATOCRIT 25.3 % (35.4-49); HEMOGLOBIN 8.2 GM/dL (11.7-16.9); LYMPH % 28.1 % (8-40); MCH 25.7 pg (25.7-33.7); MCHC 32.4 g/dl (32.0-35.9); MEAN CELL VOLUME 79.2 fl (80-96); MEAN PLT VOLUME 8.4 fl (7.5-11.1); MONO % 14.4 % (3.8-10.2); NEUT % 49.3 % (42.8-82.8); PLATELET COUNT 546 K/MM3 (134-434); RBC 3.19 M/mm3 (4.00-5.60)
[2017-09-29 07:54] LABS: INR 5.19 (0.82-1.09)
[2017-09-29 08:38] LABS: ANION GAP 6 (8-16); BLOOD UREA NITROGEN 7 mg/dL (7-18); CALCIUM 7.5 mg/dL (8.5-10.1); CHLORIDE 109 mmol/L (98-107); CO2 26 mmol/L (21-32); CREATININE 0.5 mg/dL (0.7-1.3); GLUCOSE,RANDOM 81 mg/dL (74-106); SODIUM 141 mmol/L (136-145)
[2017-09-29] MEDS ORDERED: PT OWN MED DRAWER 7, Y5N ONE ×5 (10:25→23:04)
[2017-09-29] MEDS: MULTIVITAMINS (DAILY MVI) TABLET (FP) PO SCH (10:28)
[2017-09-29] MEDS: PANTOPRAZOLE SODIUM 40 MG VIAL IVPUSH SCH (10:28)
[2017-09-29] MEDS: FERROUS SO4 325 MG TABLET (FP) PO SCH (10:28)
--- NOTE | 2017-09-29 10:49 | PN ---
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 - Current Medication List Current Medications: Active Medications Benzocaine/Menthol (Cepacol Lozenge -) 1 each MM PRN PRN PRN Reason: SORE THROAT Fentanyl (Duragesic 100mcg Patch -) 1 patch TD Q72H [facility] Last Admin: 09/28/17 10:21 Dose: 1 patch Ferrous Sulfate (Feosol -) 325 mg PO DAILY [facility] Last Admin: 09/28/17 10:00 Dose: 325 mg Sodium Chloride (Normal Saline -) 1,000 mls @ 150 mls/hr IV ASDIR [facility] Last Admin: 09/29/17 04:58 Dose: 150 mls/hr Lidocaine/Aluminum/Magnesium/Simeth (Magic Mouthwash *Sjr Formula* -) 5 ml MM Q6HPO [facility] Last Admin: 09/29/17 06:22 Dose: 5 ml Miscellaneous (Duragesic Patch Waste) 1 each TD PRN PRN PRN Reason: PATCH REMOVAL Last Admin: 09/28/17 10:20 Dose: 1 each Morphine Sulfate (Morphine Sulfate) 4 mg IVPUSH Q4H PRN PRN Reason: PAIN LEVEL 7 - 10 Last Admin: 09/29/17 01:24 Dose: 4 mg Multivitamins/Minerals/Vitamin C (Tab-A-Vit -) 1 tab PO DAILY [facility] Last Admin: 09/28/17 10:00 Dose: 1 tab Ondansetron HCl (Zofran Injection) 4 mg IVPUSH Q6H PRN PRN Reason: NAUSEA Last Admin: 09/28/17 11:24 Dose: 4 mg Pantoprazole Sodium (Protonix Iv) 40 mg IVPUSH DAILY [facility] Last Admin: 09/28/17 10:45 Dose: 40 mg Sucralfate (Carafate Oral Suspension -) 1 gm PO ACHS [facility] Last Admin: 09/29/17 06:22 Dose: 1 gm - Objective Vital Signs: Vital Signs Temperature 98.7 F 09/29/17 06:00 Pulse Rate 64 09/29/17 06:00 Respiratory Rate 20 09/29/17 06:00 Blood Pressure 82/46 09/29/17 06:00 O2 Sat by Pulse Oximetry (%) 99 09/29/17 05:00 Constitutional: Yes: Well Nourished, No Distress, Calm Cardiovascular: Yes: Regular Rate and Rhythm Respiratory: Yes: Regular Gastrointestinal: Yes: Soft, Palpable Mass (LLQ) Musculoskeletal: Yes: WNL Extremities: Yes: WNL Neurological: Yes: Alert, Oriented Psychiatric: Yes: Alert, Oriented Labs: CBC, BMP 09/29/17 06:42 09/29/17 06:42 INR, PTT INR 5.19 (0.82-1.09) H* 09/29/17 06:42 Problem List - Problems (1) Abdominal pain Assessment/Plan: morphine 4 mg IV Q4HPRN Fentanyl patch 100 mcg Q72H GI consult Has duodenal stent that may need to be changed Pain management consult Code(s): R10.9 - UNSPECIFIED ABDOMINAL PAIN Qualifiers: Abdominal location: generalized Qualified Code(s): R10.84 - Generalized abdominal pain (2) Pain, neoplasm-related Code(s): G89.3 - NEOPLASM RELATED PAIN (ACUTE) (CHRONIC) (3) Vomiting Assessment/Plan: -Zofran 4mg IV Q6H PRN -Advance diet to full liquid -Ensure BID -Magic cup Code(s): R11.10 - VOMITING, UNSPECIFIED Qualifiers: Vomiting type: unspecified Vomiting Intractability: non-intractable Nausea presence: with nausea Qualified Code(s): R11.2 - Nausea with vomiting, unspecified (4) Elevated INR Assessment/Plan: -On Warfarin for history of DVT -Hold warfarin for now -daily INR's Code(s): R79.1 - ABNORMAL COAGULATION PROFILE (5) Severe malnutrition Assessment/Plan: ensure chocolate bid, magic cup -Prosource bid advance diet to full liquids Code(s): E43 - UNSPECIFIED SEVERE PROTEIN-CALORIE MALNUTRITION (6) Pseudomyxoma peritonei Assessment/Plan: -Palliative care consult -GI consult -Oncology consult -Pt doesn't want chemotherapy -Re-maneuvering of abdominal masses? Code(s): C78.6 - SECONDARY MALIGNANT NEOPLASM OF RETROPERITON AND PERITONEUM (7) Trouble swallowing Assessment/Plan: -GI consult -Speech consult for swallow eval appreciated CONTINUE: -magic mouth wash Q6H -sucralfate suspension 1 gm QID -cepacol lozenges Q6H PRN -Pantoprazole 40 mg IVP daily Code(s): R13.10 - DYSPHAGIA, UNSPECIFIED (8) Anemia Assessment/Plan: -Iron deficient -monitor H/H -Venofer daily x 3 days -normal transfusion parameters - Code(s): D64.9 - ANEMIA, UNSPECIFIED Qualifiers: (9) Hypotension Assessment/Plan: -likely 2/2 to decreased PO intake -asymptomatic -N/S bolus 500 ml given overnight -Continue N/S @ 150 cc/hr until stable Code(s): I95.9 - HYPOTENSION, UNSPECIFIED Assessment/Plan see problem list Pt self ambulatory
--- NOTE | 2017-09-29 12:17 | PN ---
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 Feeling better than yesterday. Liquid diet ordered. Tolerating diet so far, without regurgition. Selected Entries 09/29/17 09:29 Breakfast 100% PO as tolerated.
--- NOTE | 2017-09-29 12:34 | CON.GI ---
Consult Consult Specialty:: GI Reason for Consultation:: dysphagia, odynophagia - History of Present Illness History of Present Illness: Chart reviewed. Events, including recent admissions, noted. 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 Who presents to the ED with abdominal pain and vomiting. Patient had recent admission 09/23-09/26 for abdominal pain. Patient reports abdominal pain and vomiting, unable to tolerate PO or pain medication. Patient concerned about dehydration. Abdominal x-ray revealed gastric stent, stool in distal colon. Blood work revealed normal white count, microcytic, hypochromic anemia with normal lipase and low transaminases. INR 4-5. At the time of this encounter the patient appears comfortable. Reports 1 day of odynophagia and dysphagia preventing him from eating his usual food (burgers ) at home. Reports chronic dyspepsia, which is attributed to his gastric stent. Reports no fever, chills, jaundice, hematemesis, hematochezia, melena or diarrhea. There is chronic weight loss attributed to his underlying, recurrent malignancy. The patient supplements his regular diet with Ensure. 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), Other (Intestinal obstruction.) Infectious Disease: Yes: C-Diff Psych: Yes: Anxiety, Depression - Past Surgical History Past Surgical History: Yes: Appendectomy (2008), Colectomy (partial), Colonoscopy, Splenectomy (2008), St[facility] - Alcohol/Substance Use Hx Alcohol Use: No History of Substance Use: reports: None - Smoking History Smoking history: Never smoked Have you smoked in the past 12 months: No Aproximately how many cigarettes per day: 0 - Social History Usual Living Arrangement: With Significant Other ADL: Independent History of Recent Travel: No Home Medications - Allergies Allergies/Adverse Reactions: Allergies Allergy/AdvReac Type Severity Reaction Status Date / Time No Known Allergies Allergy Verified 09/28/17 01:25 - Home Medications Home Medications: Ambulatory Orders Multivitamins [Multivit ([facility] Formul[facility])] 1 tab PO DAILY #30 tab 07/10/17 HYDROmorphone [Dilaudid -] 4 mg PO Q4H PRN 09/01/17 Warfarin Na [Coumadin -] 5 mg PO DAILY@1800 #0 tablet 09/05/17 FENTANYL 100mcg PATCH [DURAGESIC 100mcg PATCH -] 1 patch TD Q72H 09/23/17 Ferrous Sulfate [Feosol] 325 mg PO DAILY 09/23/17 Olaparib [Lynparza] 50 mg PO BID 09/23/17 Family Disease History - Family Disease History Family Disease History: CA: Father (COLON [place], ESRD), Other: Father, Mother ( ARTHRITIS, BACK SURGERY), Brother (3 BROTHERS- ALL HEALTHY), Daughter (HEALTHY) Review of Systems Findings/Remarks: as per H&P and HPI Physical Exam-GI Vital Signs: Vital Signs Temperature 98.7 F 09/29/17 06:00 Pulse Rate 64 09/29/17 06:00 Respiratory Rate 20 09/29/17 06:00 Blood Pressure 82/46 09/29/17 06:00 O2 Sat by Pulse Oximetry (%) 99 09/29/17 05:00 Constitutional: Yes: Calm, Cachectic, Pallor, Thin Eyes: Yes: Conjunctiva Clear HENT: Yes: Atraumatic Neck: Yes: Supple Cardiovascular: Yes: Regular Rate and Rhythm Respiratory: Yes: Regular Gastrointestinal Inspection: No: Distention ...Palpate: Yes: Soft. No: Tenderness Neurological: Yes: Alert, Oriented Labs: CBC, BMP 09/29/17 06:42 09/29/17 06:42 INR, PTT INR 5.19 (0.82-1.09) H* 09/29/17 06:42 Laboratory Last Values WBC 6.0 K/mm3 (4.0-10.0) D 09/29/17 06:42 RBC 3.19 M/mm3 (4.00-5.60) L 09/29/17 06:42 Hgb 8.2 GM/dL (11.7-16.9) L D 09/29/17 06:42 Hct 25.3 % (35.4-49) L D 09/29/17 06:42 MCV 79.2 fl (80-96) L 09/29/17 06:42 MCH 25.7 pg (25.7-33.7) 09/29/17 06:42 MCHC 32.4 g/dl (32.0-35.9) 09/29/17 06:42 RDW 20.0 % (11.9-15.9) H 09/29/17 06:42 Plt Count 546 K/MM3 (134-434) H 09/29/17 06:42 MPV 8.4 fl (7.5-11.1) 09/29/17 06:42 Total Counted 100 09/28/17 03:20 Neutrophils % 49.3 % (42.8-82.8) 09/29/17 06:42 Neutrophils % (Manual) 72.0 % (42.8-82.8) 09/28/17 03:20 Band Neutrophils % 1.0 % 09/28/17 03:20 Lymphocytes % 28.1 % (8-40) 09/29/17 06:42 Lymphocytes % (Manual) 16.0 % (8-40) 09/28/17 03:20 Monocytes % 14.4 % (3.8-10.2) H D 09/29/17 06:42 Monocytes % (Manual) 6 % (3.8-10.2) 09/28/17 03:20 Eosinophils % 7.1 % (0-4.5) H 09/29/17 06:42 Eosinophils % (Manual) 5.0 % (0-4.5) H 09/28/17 03:20 Basophils % 1.1 % (0-2.0) 09/29/17 06:42 Nucleated RBC % 0 % (0-0) 09/29/17 06:42 Hypochromia 2+ 09/28/17 03:20 Anisocytosis 1+ 09/28/17 03:20 PT with INR 58.60 SEC (9.7-13.0) H 09/29/17 06:42 INR 5.19 (0.82-1.09) H* 09/29/17 06:42 PTT (Actin FS) 45.9 SECONDS (26.9-34.4) H D 09/28/17 06:04 Sodium 141 mmol/L (136-145) 09/29/17 06:42 Potassium 4.0 mmol/L (3.5-5.1) 09/29/17 06:42 Chloride 109 mmol/L (98-107) H 09/29/17 06:42 Carbon Dioxide 26 mmol/L (21-32) D 09/29/17 06:42 Anion Gap 6 (8-16) L 09/29/17 06:42 BUN 7 mg/dL (7-18) D 09/29/17 06:42 Creatinine 0.5 mg/dL (0.7-1.3) L 09/29/17 06:42 Creat Clearance w eGFR > 60 (>60) 09/28/17 03:20 Random Glucose 81 mg/dL (74-106) 09/29/17 06:42 Calcium 7.5 mg/dL (8.5-10.1) L 09/29/17 06:42 Total Bilirubin 0.2 mg/dL (0.2-1.0) 09/28/17 03:20 AST 12 U/L (15-37) L D 09/28/17 03:20 ALT 11 U/L (12-78) L 09/28/17 03:20 Alkaline Phosphatase 70 U/L (45-117) 09/28/17 03:20 Troponin I < 0.02 ng/ml (0.00-0.05) 09/28/17 03:20 Total Protein 6.2 g/dl (6.4-8.2) L 09/28/17 03:20 Albumin 2.4 g/dl (3.4-5.0) L 09/28/17 03:20 Lipase 74 U/L (73-393) 09/28/17 03:20 Urine Color Ltyellow 09/28/17 21:30 Urine Appearance Clear 09/28/17 21:30 Urine pH 5.0 (5.0-8.0) 09/28/17 21:30 Ur Specific [place] 1.010 (1.001-1.035) 09/28/17 21:30 Urine Protein Negative (NEGATIVE) 09/28/17 21:30 Urine Glucose (UA) Negative (NEGATIVE) 09/28/17 21:30 Urine Ketones 1+ (NEGATIVE) H 09/28/17 21:30 Urine Blood Negative (NEGATIVE) 09/28/17 21:30 Urine Nitrite Negative (NEGATIVE) 09/28/17 21:30 Urine Bilirubin Negative (<2.0 mg/dL) 09/28/17 21:30 Urine Urobilinogen Negative mg/dL (0.2-1.0) 09/28/17 21:30 Ur Leukocyte Esterase Negative (NEGATIVE) 09/28/17 21:30 Imaging - Results X-ray: Report Reviewed Problem List - Problems (1) Dysphagia Code(s): R13.10 - DYSPHAGIA, UNSPECIFIED (2) Odynophagia Code(s): R13.10 - DYSPHAGIA, UNSPECIFIED (3) 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 - SECONDARY MALIGNANT NEOPLASM OF RETROPERITON AND PERITONEUM Assessment/Plan A 39-year-old male with above history presents with 1 day of dysphagia and odynophagia, which appeared to be improving. No bowel obstruction on the imaging. No stigmata of gastrointestinal blood loss while hypercoagulated. Tolerating liquid diet without symptoms today. Recommend supportive care and advancing diet to soft. Observe.
[2017-09-29] MEDS ORDERED: IRON SUCROSE INJECTION 200 MG in SODIUM CHLORIDE 100 ML IVPB ONE (13:42)
[2017-09-29] MEDS: IRON SUCROSE INJECTION 200 MG in SODIUM CHLORIDE 100 ML IVPB SCH (16:13)
[2017-09-29] MEDS: AMINO ACIDS/PROTEIN HYDROLYS 30 ML LIQUID.PKT PO SCH (17:14)
--- NOTE | 2017-09-30 00:02 | PN ---
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 (short form) - Note 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: Patient seen and examined Comes in with epigastric pain and vomiting. Reports normal bowelmovements. No fever/chills/. No cough/SOB Feels much better AFVSS Lungs: Clear to P&A Abd: Soft, Normal bowel sounds, tumor masses in epigastrium, left flank Ext:No significant edema Abnormal Lab Results 09/30/17 07:00 PT with INR 45.30 H INR 4.01 H* A/P 47 y/o patient with pseudomyxoma peritonei, s/p HIPEC x2,last 02/13, multiple surgeries for resection, had FOLFOX and FOLFIR in the past.Allergic to oxali.Had refused other lines of chemotherapy---aasin, xeloda, clinical trial, olaparib in the past. h/o duodenal stent Now with progressing disease,abdiominal wall masses, pain and vomiting/ epigastric pain Improved with protonix/hydration continue pain control Left messages for --? stent change GI consult appreciated
[2017-09-30] MEDS: SODIUM CHLORIDE 1,000 ML IV SCH ×4 (00:54→17:40)
[2017-09-30] MEDS: morphine SULFATE 4 MG/ML VIAL IVPUSH PRN ×5 (00:57→20:03)
[2017-09-30] MEDS ORDERED: PT OWN MED DRAWER 7, Y5N ONE ×2 (05:57→09:25)
[2017-09-30] MEDS: SUCRALFATE 1 GM/10 ML UNIT DOSE CUPS PO SCH ×4 (06:53→21:15)
[2017-09-30] MEDS: MAG HYDROX/ALH/SMC/DPHA/LIDO 240 ML MOUTHWASH MM SCH ×5 (06:53→23:53)
[2017-09-30 08:20] LABS: PROTHROMBIN TIME (PATIENT) 45.3 SEC (9.7-13.0)
[2017-09-30 08:28] LABS: INR 4.01 (0.82-1.09)
[2017-09-30 08:45] LABS: HEMOGLOBIN 8.7 GM/dL (11.7-16.9); MCH 25.3 pg (25.7-33.7); MCHC 32.3 g/dl (32.0-35.9); MEAN CELL VOLUME 78.5 fl (80-96); MEAN PLT VOLUME 8.8 fl (7.5-11.1); PLATELET COUNT 577 K/MM3 (134-434); RBC 3.43 M/mm3 (4.00-5.60); RDW 20.5 % (11.9-15.9); WHITE BLOOD COUNT 6.2 K/mm3 (4.0-10.0)
[2017-09-30] MEDS: AMINO ACIDS/PROTEIN HYDROLYS 30 ML LIQUID.PKT PO SCH ×2 (09:15→17:22)
[2017-09-30] MEDS: FERROUS SO4 325 MG TABLET (FP) PO SCH (09:19)
[2017-09-30] MEDS: MULTIVITAMINS (DAILY MVI) TABLET (FP) PO SCH (09:20)
[2017-09-30] MEDS: PANTOPRAZOLE SODIUM 40 MG VIAL IVPUSH SCH (09:29)
--- NOTE | 2017-09-30 09:38 | PN ---
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 - Current Medication List Current Medications: Active Medications Amino Acids (Prosource No Carb Liquid Pkt) 30 ml PO BID@0800,1730 [facility] Last Admin: 09/30/17 09:15 Dose: 30 ml Benzocaine/Menthol (Cepacol Lozenge -) 1 each MM PRN PRN PRN Reason: SORE THROAT Fentanyl (Duragesic 100mcg Patch -) 1 patch TD Q72H [facility] Last Admin: 09/28/17 10:21 Dose: 1 patch Ferrous Sulfate (Feosol -) 325 mg PO DAILY [facility] Last Admin: 09/30/17 09:19 Dose: 325 mg Sodium Chloride (Normal Saline -) 1,000 mls @ 150 mls/hr IV ASDIR [facility] Last Admin: 09/30/17 07:34 Dose: 150 mls/hr Iron Sucrose 200 mg/ Sodium (Chloride) 110 mls @ 110 mls/hr IVPB DAILY [facility] Stop: 10/01/17 10:59 Last Admin: 09/29/17 16:13 Dose: 110 mls/hr Lidocaine/Aluminum/Magnesium/Simeth (Magic Mouthwash *Sjr Formula* -) 5 ml MM Q6HPO [facility] Last Admin: 09/30/17 06:53 Dose: Not Given Miscellaneous (Duragesic Patch Waste) 1 each TD PRN PRN PRN Reason: PATCH REMOVAL Last Admin: 09/28/17 10:20 Dose: 1 each Morphine Sulfate (Morphine Sulfate) 4 mg IVPUSH Q4H PRN PRN Reason: PAIN LEVEL 7 - 10 Last Admin: 09/30/17 06:52 Dose: 4 mg Multivitamins/Minerals/Vitamin C (Tab-A-Vit -) 1 tab PO DAILY [facility] Last Admin: 09/30/17 09:20 Dose: 1 tab Ondansetron HCl (Zofran Injection) 4 mg IVPUSH Q6H PRN PRN Reason: NAUSEA Last Admin: 09/28/17 11:24 Dose: 4 mg Pantoprazole Sodium (Protonix Iv) 40 mg IVPUSH DAILY [facility] Last Admin: 09/30/17 09:29 Dose: 40 mg Sucralfate (Carafate Oral Suspension -) 1 gm PO ACHS [facility] Last Admin: 09/30/17 06:53 Dose: 1 gm - Objective Vital Signs: Vital Signs Temperature 98.3 F 09/30/17 06:00 Pulse Rate 72 09/30/17 08:30 Respiratory Rate 18 09/30/17 08:30 Blood Pressure 98/54 09/30/17 08:30 O2 Sat by Pulse Oximetry (%) 97 09/30/17 09:00 Cardiovascular: Yes: S1, S2 Respiratory: Yes: Regular, CTA Bilaterally Gastrointestinal: Yes: Normal Bowel Sounds, Soft, Palpable Mass Labs: CBC, BMP 09/30/17 07:00 09/29/17 06:42 INR, PTT INR 4.01 (0.82-1.09) H* 09/30/17 07:00 Assessment/Plan - Problems (1) Abdominal pain Assessment/Plan: morphine 4 mg IV Q4HPRN Fentanyl patch 100 mcg Q72H GI consult Has duodenal stent that may need to be changed Pain management consult Code(s): R10.9 - UNSPECIFIED ABDOMINAL PAIN Qualifiers: Abdominal location: generalized Qualified Code(s): R10.84 - Generalized abdominal pain (2) Pain, neoplasm-related Code(s): G89.3 - NEOPLASM RELATED PAIN (ACUTE) (CHRONIC) (3) Vomiting Assessment/Plan: -Zofran 4mg IV Q6H PRN -Advance diet to full liquid -Ensure BID -Magic cup Code(s): R11.10 - VOMITING, UNSPECIFIED Qualifiers: Vomiting type: unspecified Vomiting Intractability: non-intractable Nausea presence: with nausea Qualified Code(s): R11.2 - Nausea with vomiting, unspecified (4) Elevated INR Assessment/Plan: -On Warfarin for history of DVT -Hold warfarin for now -daily INR's Code(s): R79.1 - ABNORMAL COAGULATION PROFILE (5) Severe malnutrition Assessment/Plan: ensure chocolate bid, magic cup -Prosource bid advance diet to full liquids Code(s): E43 - UNSPECIFIED SEVERE PROTEIN-CALORIE MALNUTRITION (6) Pseudomyxoma peritonei Assessment/Plan: -Palliative care consult -GI consult -Oncology consult -Pt doesn't want chemotherapy -Re-maneuvering of abdominal masses? Code(s): C78.6 - SECONDARY MALIGNANT NEOPLASM OF RETROPERITON AND PERITONEUM (7) Trouble swallowing Assessment/Plan: -GI consult -Speech consult for swallow eval appreciated CONTINUE: -magic mouth wash Q6H -sucralfate suspension 1 gm QID -cepacol lozenges Q6H PRN -Pantoprazole 40 mg IVP daily -advance diet Code(s): R13.10 - DYSPHAGIA, UNSPECIFIED (8) Anemia Assessment/Plan: -Iron deficient -monitor H/H -Venofer daily x 3 days -normal transfusion parameters - Code(s): D64.9 - ANEMIA, UNSPECIFIED Qualifiers: (9) Hypotension Assessment/Plan: -likely 2/2 to decreased PO intake -asymptomatic -N/S bolus 500 ml given overnight -Continue N/S @ 150 cc/hr until stable Code(s): I95.9 - HYPOTENSION, UNSPECIFIED
[2017-09-30] MEDS: IRON SUCROSE INJECTION 200 MG in SODIUM CHLORIDE 100 ML IVPB SCH (11:39)
--- NOTE | 2017-09-30 11:48 | PN ---
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 (short form) - Note 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: Patient known to [facility], progressive pseudomyxoma peritonii, with prior patient decision to accede only to palliative measures, presents with exacerbation in pain from home, and anemia. Noted recent pattern of multiple admissions for pain control, and transfusion. Presently admitted with epigastric pain and vomiting. No fever/chills/. No cough /SOB Today patient relaxed, and now reporting pain controlled. Inpatient Meds reviewed. Current Medications Generic Name Dose Route Start Last Admin Trade Name Freq PRN Reason Stop Dose Admin Amino Acids 30 ml 09/29/17 17:30 09/30/17 09:15 Prosource No Carb Liquid Pkt PO 30 ml BID@0800,1730 IZABELLA Administration Benzocaine/Menthol 1 each 09/28/17 10:40 Cepacol Lozenge - MM PRN PRN SORE THROAT Fentanyl 1 patch 09/28/17 10:00 09/28/17 10:21 Duragesic 100mcg Patch - TD 1 patch Q72H IZABELLA Administration Ferrous Sulfate 325 mg 09/28/17 10:00 09/30/17 09:19 Feosol - PO 325 mg DAILY IZABELLA Administration Sodium Chloride 1,000 mls @ 150 mls/hr 09/28/17 05:30 09/30/17 07:34 Normal Saline - IV 150 mls/hr ASDIR IZABELLA Administration Iron Sucrose 200 mg/ Sodium 110 mls @ 110 mls/hr 09/29/17 16:00 09/30/17 11: 39 Chloride IVPB 10/01/17 10:59 110 mls/hr DAILY IZABELLA Administration Lidocaine/Aluminum/Magnesium/Simeth 5 ml 09/29/17 00:00 09/30/17 11:45 Magic Mouthwash *Sjr Formula* - MM 5 ml Q6HPO IZABELLA Administration Miscellaneous 1 each 09/28/17 06:23 09/28/17 10:20 Duragesic Patch Waste TD 1 each PRN PRN Administration PATCH REMOVAL Morphine Sulfate 4 mg 09/28/17 10:44 09/30/17 11:36 Morphine Sulfate IVPUSH 4 mg Q4H PRN Administration PAIN LEVEL 7 - 10 Multivitamins/Minerals/Vitamin C 1 tab 09/28/17 10:00 09/30/17 09:20 Tab-A-Vit - PO 1 tab DAILY IZABELLA Administration Ondansetron HCl 4 mg 09/28/17 10:40 09/28/17 11:24 Zofran Injection IVPUSH 4 mg Q6H PRN Administration NAUSEA Pantoprazole Sodium 40 mg 09/28/17 10:45 09/30/17 09:29 Protonix Iv IVPUSH 40 mg DAILY IZABELLA Administration Sucralfate 1 gm 09/28/17 11:00 09/30/17 11:49 Carafate Oral Suspension - PO 1 gm ACHS IZABELLA Administration Last Vital Signs Last Vital Signs Temp Pulse Resp BP Pulse Ox 98.3 F 72 18 98/54 97 09/30/17 06:00 09/30/17 08:30 09/30/17 08:30 09/30/17 08:30 09/30/17 09:00 General: In no acute distress. Extremities: No pallor or icterus. Chest:breathing comfortably Abdomen: Non-distended, tender SQ mass L flank region. Neuro: Alert, oriented, non-focal. Labs CBC, BMP CBC, BMP 09/30/17 07:00 09/29/17 06:42 Assessment. Progressive psudomyxoma peritonii, with abdominal pain. Genetic profiling of his tumor had suggested a possible response to a PARP inhibitor, which the patient has declined to try. Unclear motivation. Iron deficient - IV iron while admitted. Continue pain regimen. DC home when patient feels ready to go.
[2017-10-01] MEDS: SODIUM CHLORIDE 1,000 ML IV SCH ×3 (00:27→18:35)
[2017-10-01] MEDS: morphine SULFATE 4 MG/ML VIAL IVPUSH PRN ×6 (00:27→23:29)
[2017-10-01] MEDS: MAG HYDROX/ALH/SMC/DPHA/LIDO 240 ML MOUTHWASH MM SCH ×4 (05:46→23:29)
[2017-10-01] MEDS: SUCRALFATE 1 GM/10 ML UNIT DOSE CUPS PO SCH ×4 (06:17→21:59)
[2017-10-01 07:57] LABS: INR 2.9 (0.82-1.09); PROTHROMBIN TIME (PATIENT) 32.8 SEC (9.7-13.0)
[2017-10-01 08:13] LABS: HEMATOCRIT 26.6 % (35.4-49); HEMOGLOBIN 8.7 GM/dL (11.7-16.9); MCH 25.6 pg (25.7-33.7); MCHC 32.8 g/dl (32.0-35.9); MEAN CELL VOLUME 78.2 fl (80-96); MEAN PLT VOLUME 8.6 fl (7.5-11.1); PLATELET COUNT 550 K/MM3 (134-434); RDW 20.6 % (11.9-15.9); WHITE BLOOD COUNT 6.1 K/mm3 (4.0-10.0)
[2017-10-01 08:49] LABS: ACANTHOCYTES 2+; ANISOCYTOSIS 2+; MACROCYTOSIS 1+; PLATELET ESTIMATE INCREASED; TARGET CELLS 1+
--- NOTE | 2017-10-01 09:05 | PN ---
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 History of Present Illness: Intermittent pain - Current Medication List Current Medications: Active Medications Amino Acids (Prosource No Carb Liquid Pkt) 30 ml PO BID@0800,1730 [facility] Last Admin: 09/30/17 17:22 Dose: 30 ml Benzocaine/Menthol (Cepacol Lozenge -) 1 each MM PRN PRN PRN Reason: SORE THROAT Fentanyl (Duragesic 100mcg Patch -) 1 patch TD Q72H [facility] Last Admin: 09/28/17 10:21 Dose: 1 patch Ferrous Sulfate (Feosol -) 325 mg PO DAILY [facility] Last Admin: 09/30/17 09:19 Dose: 325 mg Sodium Chloride (Normal Saline -) 1,000 mls @ 150 mls/hr IV ASDIR [facility] Last Admin: 10/01/17 07:05 Dose: 150 mls/hr Iron Sucrose 200 mg/ Sodium (Chloride) 110 mls @ 110 mls/hr IVPB DAILY [facility] Stop: 10/01/17 10:59 Last Admin: 09/30/17 11:39 Dose: 110 mls/hr Lidocaine/Aluminum/Magnesium/Simeth (Magic Mouthwash *Sjr Formula* -) 5 ml MM Q6HPO [facility] Last Admin: 10/01/17 05:46 Dose: Not Given Miscellaneous (Duragesic Patch Waste) 1 each TD PRN PRN PRN Reason: PATCH REMOVAL Last Admin: 09/28/17 10:20 Dose: 1 each Morphine Sulfate (Morphine Sulfate) 4 mg IVPUSH Q4H PRN PRN Reason: PAIN LEVEL 7 - 10 Last Admin: 10/01/17 06:17 Dose: 4 mg Multivitamins/Minerals/Vitamin C (Tab-A-Vit -) 1 tab PO DAILY [facility] Last Admin: 09/30/17 09:20 Dose: 1 tab Ondansetron HCl (Zofran Injection) 4 mg IVPUSH Q6H PRN PRN Reason: NAUSEA Last Admin: 09/28/17 11:24 Dose: 4 mg Pantoprazole Sodium (Protonix Iv) 40 mg IVPUSH DAILY [facility] Last Admin: 09/30/17 09:29 Dose: 40 mg Sucralfate (Carafate Oral Suspension -) 1 gm PO ACHS [facility] Last Admin: 10/01/17 06:17 Dose: 1 gm - Objective Vital Signs: Vital Signs Temperature 98.2 F 10/01/17 05:00 Pulse Rate 73 10/01/17 05:00 Respiratory Rate 17 10/01/17 05:00 Blood Pressure 105/61 10/01/17 05:00 O2 Sat by Pulse Oximetry (%) 96 09/30/17 21:00 Cardiovascular: Yes: Regular Rate and Rhythm Respiratory: Yes: Regular, CTA Bilaterally Gastrointestinal: Yes: Normal Bowel Sounds, Soft, Palpable Mass, Tenderness Labs: CBC, BMP 10/01/17 06:45 09/29/17 06:42 INR, PTT INR 2.90 (0.82-1.09) H 10/01/17 06:45 Assessment/Plan - Problems (1) Abdominal pain Assessment/Plan: morphine 4 mg IV Q4HPRN Fentanyl patch 100 mcg Q72H GI consult IVF Has duodenal stent that may need to be changed Pain management consult Code(s): R10.9 - UNSPECIFIED ABDOMINAL PAIN Qualifiers: Abdominal location: generalized Qualified Code(s): R10.84 - Generalized abdominal pain (2) Pain, neoplasm-related Code(s): G89.3 - NEOPLASM RELATED PAIN (ACUTE) (CHRONIC) (3) Vomiting Assessment/Plan: -Zofran 4mg IV Q6H PRN -Advance diet -Ensure BID -Magic cup Code(s): R11.10 - VOMITING, UNSPECIFIED Qualifiers: Vomiting type: unspecified Vomiting Intractability: non-intractable Nausea presence: with nausea Qualified Code(s): R11.2 - Nausea with vomiting, unspecified (4) Elevated INR Assessment/Plan: -On Warfarin for history of DVT -Resume warfarin 3 mg -daily INR's Code(s): R79.1 - ABNORMAL COAGULATION PROFILE (5) Severe malnutrition Assessment/Plan: ensure chocolate bid, magic cup -Prosource bid advance diet to full liquids Code(s): E43 - UNSPECIFIED SEVERE PROTEIN-CALORIE MALNUTRITION (6) Pseudomyxoma peritonei Assessment/Plan: -Palliative care consult -GI consult -Oncology consult -Pt doesn't want chemotherapy -Re-maneuvering of abdominal masses? Code(s): C78.6 - SECONDARY MALIGNANT NEOPLASM OF RETROPERITON AND PERITONEUM (7) Trouble swallowing Assessment/Plan: -GI consult -Speech consult for swallow eval appreciated CONTINUE: -magic mouth wash Q6H -sucralfate suspension 1 gm QID -cepacol lozenges Q6H PRN -Pantoprazole 40 mg IVP daily -advance diet Code(s): R13.10 - DYSPHAGIA, UNSPECIFIED (8) Anemia Assessment/Plan: -Iron deficient -monitor H/H -Venofer daily x 3 days -normal transfusion parameters - Code(s): D64.9 - ANEMIA, UNSPECIFIED Qualifiers: (9) Hypotension Assessment/Plan: -likely 2/2 to decreased PO intake -asymptomatic -N/S bolus 500 ml given overnight -Continue N/S @ 75 cc/hr until stable Code(s): I95.9 - HYPOTENSION, UNSPECIFIED
[2017-10-01] MEDS ORDERED: PT OWN MED DRAWER 7, Y5N ONE (09:28)
[2017-10-01] MEDS: MULTIVITAMINS (DAILY MVI) TABLET (FP) PO SCH (09:44)
[2017-10-01] MEDS: FERROUS SO4 325 MG TABLET (FP) PO SCH (09:44)
[2017-10-01] MEDS: AMINO ACIDS/PROTEIN HYDROLYS 30 ML LIQUID.PKT PO SCH ×2 (09:44→17:17)
[2017-10-01] MEDS: PANTOPRAZOLE SODIUM 40 MG VIAL IVPUSH SCH (09:45)
[2017-10-01] MEDS: fentaNYL 100mcg/hr PATCH.TD72 TD SCH (09:46)
[2017-10-01] MEDS: IRON SUCROSE INJECTION 200 MG in SODIUM CHLORIDE 100 ML IVPB SCH (10:10)
[2017-10-01] MEDS: FENTANYL PATCH WASTE TD PRN (10:36)
[2017-10-01] MEDS ORDERED: WARFARIN NA 3 MG TABLET PO SCH (18:00)
[2017-10-02] MEDS: morphine SULFATE 4 MG/ML VIAL IVPUSH PRN ×3 (04:32→14:12)
[2017-10-02] MEDS: MAG HYDROX/ALH/SMC/DPHA/LIDO 240 ML MOUTHWASH MM SCH ×2 (05:40→12:20)
[2017-10-02] MEDS: SODIUM CHLORIDE 1,000 ML IV SCH ×2 (06:24→09:10)
[2017-10-02] MEDS: SUCRALFATE 1 GM/10 ML UNIT DOSE CUPS PO SCH ×2 (06:24→12:20)
[2017-10-02 08:08] LABS: BASO % 0.7 % (0-2.0); EOS % 4.9 % (0-4.5); HEMATOCRIT 28.6 % (35.4-49); HEMOGLOBIN 9.1 GM/dL (11.7-16.9); LYMPH % 39.2 % (8-40); MCH 25.4 pg (25.7-33.7); MEAN CELL VOLUME 79.4 fl (80-96); MEAN PLT VOLUME 8.5 fl (7.5-11.1); NEUT % 42.2 % (42.8-82.8); PLATELET COUNT 575 K/MM3 (134-434); RDW 20.7 % (11.9-15.9); WHITE BLOOD COUNT 6.6 K/mm3 (4.0-10.0)
[2017-10-02 08:26] LABS: ALBUMIN 2.1 g/dl (3.4-5.0); ANION GAP 4 (8-16); BLOOD UREA NITROGEN 4 mg/dL (7-18); CALCIUM 7.9 mg/dL (8.5-10.1); CHLORIDE 106 mmol/L (98-107); CO2 31 mmol/L (21-32); GLUCOSE,RANDOM 88 mg/dL (74-106); SODIUM 141 mmol/L (136-145)
[2017-10-02 08:30] LABS: ALK PHOS 69 U/L (45-117); BILIRUBIN,TOTAL 0.3 mg/dL (0.2-1.0); CREATININE 0.5 mg/dL (0.7-1.3); SGOT/AST 7 U/L (15-37); SGPT/ALT 10 U/L (12-78); TOT PROT 5.6 g/dl (6.4-8.2)
[2017-10-02 08:36] LABS: INR 2.18 (0.82-1.09); PROTHROMBIN TIME (PATIENT) 24.6 SEC (9.7-13.0)
[2017-10-02] MEDS: AMINO ACIDS/PROTEIN HYDROLYS 30 ML LIQUID.PKT PO SCH (08:55)
[2017-10-02] MEDS ORDERED: PT OWN MED DRAWER 7, Y5N ONE (09:02)
[2017-10-02] MEDS: PANTOPRAZOLE SODIUM 40 MG VIAL IVPUSH SCH (09:04)
[2017-10-02] MEDS: FERROUS SO4 325 MG TABLET (FP) PO SCH (09:05)
[2017-10-02] MEDS: MULTIVITAMINS (DAILY MVI) TABLET (FP) PO SCH (09:05)
--- NOTE | 2017-10-02 11:01 | DS ---
Physical Examination Vital Signs: Vital Signs Temperature 98.1 F 10/02/17 08:50 Pulse Rate 82 10/02/17 08:50 Respiratory Rate 18 10/02/17 08:50 Blood Pressure 109/58 10/02/17 08:50 O2 Sat by Pulse Oximetry (%) 98 10/01/17 21:00 Constitutional: Yes: Calm, Thin Eyes: Yes: Other (pallor) Cardiovascular: Yes: Regular Rate and Rhythm, S1, S2 Respiratory: Yes: CTA Bilaterally Gastrointestinal: Yes: Normal Bowel Sounds, Soft Edema: No Neurological: Yes: Alert, Oriented Labs: CBC, BMP 10/02/17 07:26 10/02/17 07:26 Discharge Summary Reason For Visit: ABDOMINAL PAIN/VOMITING NEOPLASM RELATED Current Active Problems Abdominal pain (Acute) Dysphagia (Acute) Hypotension (Acute) Odynophagia (Acute) Pain, neoplasm-related (Acute) Trouble swallowing (Acute) Vomiting (Acute) Hospital Course: - Primary Care Physician PCP: Yuliana Addison - Admission Chief Complaint: Abdominal Pain, Vomiting History of Present Illness: 47 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 Who presents to the ED with abdominal pain and vomiting. Patient had recent admission 09/23-09/26 for abdominal pain. Patient reports abdominal pain and vomiting, unable to tolerate PO or pain medication. Patient concerned about dehydration. 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), Other (Intestinal obstruction.) Heme/Onc: Yes: Anemia, Cancer (last chemo 2012) Infectious Disease: Yes: C-Diff Psych: Yes: Anxiety, Depression - Past Surgical History Past Surgical History: Yes: Appendectomy (2008), Colectomy (partial), Colonoscopy, Splenectomy (2008), Stent (gastric ([facility])) patient on ivf, seen by zion davey had supratherapeutic INR coumadin was held now restarted advanced pseudomyoxma periteonei- duodenal stent, pain control anemia got iv venofer now wants to go home - Instructions Referrals: Yuliana Addison MD [Primary Care Provider] - Disposition: HOME - Home Medications Comprehensive Discharge Medication List: Ambulatory Orders Multivitamins [Multivit ([facility] Formul[facility])] 1 tab PO DAILY #30 tab 07/10/17 HYDROmorphone [Dilaudid -] 4 mg PO Q4H PRN 09/01/17 Warfarin Na [Coumadin -] 5 mg PO DAILY@1800 #0 tablet 09/05/17 FENTANYL 100mcg PATCH [DURAGESIC 100mcg PATCH -] 1 patch TD Q72H 09/23/17 Ferrous Sulfate [Feosol] 325 mg PO DAILY 09/23/17 Olaparib [Lynparza] 50 mg PO BID 09/23/17
--- NOTE | 2017-10-02 12:23 | PN ---
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 Ate 1/2 turkey sandwich without difficulty. Suggest several small meals [id number] the day, alternating with nutritional supplements, as tolerated.
[2017-10-02 15:44] VITALS: BP 91/59; PULSE 73; TEMP 98.7
--- NOTE | 2017-10-02 23:30 | PN ---
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 (short form) - Note 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: Patient seen and examined Comes in with epigastric pain and vomiting. Reports normal bowelmovements. No fever/chills/. No cough/SOB Feels much better AFVSS Lungs: Clear to P&A Abd: Soft, Normal bowel sounds, tumor masses in epigastrium, left flank Ext:No significant edema Labs reviewed A/P 47 y/o patient with pseudomyxoma peritonei, s/p HIPEC x2,last 02/13, multiple surgeries for resection, had FOLFOX and FOLFIR in the past.Allergic to oxali.Had refused other lines of chemotherapy---aasin, xeloda, clinical trial, olaparib in the past. h/o duodenal stent Now with progressing disease,abdiominal wall masses, pain and vomiting/ epigastric pain Improved with protonix/hydration continue pain control Left messages for team-- MYNOR Inman and made an appointment on 10/04 at 2pm. Notified patient about this asked patient to continue protonix/pain control
== END 2017-10-02 16:22 | disposition home or self-care (01) | DRG 374 ==
LOC: JER 01:05 → JERBED 05:39 → UNDOADMIN 06:02 → J5S 13:33
PROVIDERS: ADMIT Internal Medicine; ATTEND Family Medicine
DX: C78.6 Secondary malignant neoplasm of retroperitoneum and peritoneum (principal); E43 Unspecified severe protein-calorie malnutrition; Z68.1 Body mass index [BMI] 19.9 or less, adult; R64 Cachexia; G89.3 Neoplasm related pain (acute) (chronic); E86.0 Dehydration; R11.10 Vomiting, unspecified; R79.1 Abnormal coagulation profile; R13.10 Dysphagia, unspecified; I95.9 Hypotension, unspecified; D50.9 Iron deficiency anemia, unspecified
CPT/HCPCS: 36415; 74018-TC-FY; 80048; 80053; 81003; 83690; 84484; 85025; 85610; 85730; 93005; 93010; 99284-25; J1756; J7030

== ENCOUNTER 2017-10-24 19:43 | Observation (INO) | payer OTHER ==
[2017-10-24 20:01] VITALS: BMI 15.1
--- NOTE | 2017-10-24 20:01 | PDOC ---
Rapid Medical Evaluation Time Seen by Provider: 10/24/17 19:53 Medical Evaluation: Allergies Allergy/AdvReac Type Severity Reaction Status Date / Time No Known Allergies Allergy Verified 09/28/17 01:25 10/24/17 19:53 Pt presents to the ED c/o lower abdominal pain worsening. Pt is an active cancer patient, stomach cancer. Pt reports he feels a mass near his rectum. No bleeding noted Exam: Pt appears comfortable, breathing easily, AAOx3, Orders: Labs, IV insert Pt to proceed to ED for evaluation. Discharge Disposition - Diagnosis Abdominal pain - Referrals - Patient Instructions - Post Discharge Activity
[2017-10-24] MEDS ORDERED: morphine CARPU-JECT 4 MG/1 ML DISP.SYRIN IVPUSH ONE (22:18)
--- NOTE | 2017-10-24 22:18 | PDOC ---
History of Present Illness - General Chief Complaint: Pain Stated Complaint: PAIN Time Seen by Provider: 10/24/17 19:53 History Source: Patient - History of Present Illness Initial Comments: 10/25/17 02:43 47-year-old male with malignant neoplasm of the abdomen complaining of worsening abdominal pain. Patient reports that he was straining for bowel movement and noted to have a rectal bulge. Patient reports that he is not eating or drinking due constant feeling of fullness. Denies nausea vomiting diarrhea. fever/ chills. PMD: Dr. Addison oncology: Dr. Stuart Past History - Past Medical History Allergies/Adverse Reactions: Allergies Allergy/AdvReac Type Severity Reaction Status Date / Time No Known Allergies Allergy Verified 10/24/17 19:57 Home Medications: Ambulatory Orders Multivitamins [Multivit ([facility] Formulary)] 1 tab PO DAILY #30 tab 07/10/17 HYDROmorphone [Dilaudid -] 4 mg PO Q4H PRN 09/01/17 FENTANYL 100mcg PATCH [DURAGESIC 100mcg PATCH -] 1 patch TD Q72H 09/23/17 Ferrous Sulfate [Feosol] 325 mg PO DAILY 09/23/17 Amino Acids/Protein Hydrolys [Prosource No Carb Liquid Pkt] 30 ml PO BID@0800, 1730 packet 10/02/17 FENTANYL 100mcg PATCH [DURAGESIC 100mcg PATCH -] 1 patch TD Q72H #10 patch.td72 MDD 1 10/02/17 Sucralfate Oral Suspension [Carafate Oral Suspension -] 1 gm PO ACHS #120 ml MDD 4 10/02/17 Warfarin Na [Coumadin -] 3 mg PO DAILY@1800 tablet 10/02/17 Anemia: Yes Asthma: No Cancer: Yes (APPENDICEAL CA, 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) Cardiac Disorders: No CVA: No COPD: No CHF: No DVT: Yes (LLE BLOOD CLOT 5 YEARS AGO) Dementia: No Diabetes: No GI Disorders: Yes (C-DIFF 2013) Disorders: Yes (CDIFF 2013) HTN: (Hypotension mostly) Hypercholesterolemia: No Liver Disease: No Seizures: No Thyroid Disease: No - Surgical History Abdominal Surgery: Yes (spleenectomy, COLECTOMY,) Appendectomy: Yes Cardiac Surgery: No Cholecystectomy: No GI Surgery: Yes (for stomach cancer--pnp) Lung Surgery: No Neurologic Surgery: No Orthopedic Surgery: No - Immunization History Immunization Up to Date: Yes - Suicide/Smoking/Psychosocial Hx Smoking Status: No Smoking History: Never smoked Have you smoked in the past 12 months: No Number of Cigarettes Smoked Daily: 0 Cigars Per Day: 0 Information on smoking cessation initiated: No Hx Alcohol Use: No Drug/Substance Use Hx: No Substance Use Type: None Hx Substance Use Treatment: No Review of Systems - Review of Systems Able to Perform ROS?: Yes Is the patient limited Hebrew proficient: No ABD/GI: Yes: Other (rectal pain; abdominal pain) *Physical Exam - Vital Signs Last Vital Signs Temp Pulse Resp BP Pulse Ox 98.5 F 97 H 20 111/68 99 10/24/17 19:58 10/24/17 19:58 10/24/17 19:58 10/24/17 19:58 10/24/17 19:58 - Physical Exam General Appearance: Yes: Appropriately Dressed Gastrointestinal/Abdominal: positive: Other (multiple palpable masses in abdomen ) Male Genitalia: positive: normal genitalia, normal prostate Rectal Exam: positive: hemorrhoids (+ external hemorrhoids) Musculoskeletal: positive: Normal Inspection Extremity: positive: Normal Capillary Refill ED Treatment Course - LABORATORY CBC & Chemistry Diagram: 10/24/17 22:59 10/24/17 22:59 Medical Decision Making - Medical Decision Making 10/25/17 02:44 A: dehydration; unable to PO; intractable pain related to Cancer P: cbc cmp IVF *DC/Admit/Observation/Transfer Diagnosis at time of Disposition: Severe malnutrition, Dehydration, Pain, neoplasm-related Abdominal pain Qualifiers: Abdominal location: generalized Qualified Code(s): R10.84 - Generalized abdominal pain - Discharge Dispostion Decision to Admit order: Yes - Referrals Referrals: Yuliana Addison MD [Primary Care Provider] - - Patient Instructions - Post Discharge Activity
[2017-10-24] MEDS ORDERED: morphine SULFATE 4 MG/ML VIAL ONE (22:48)
--- NOTE | 2017-10-24 23:01 | PDOC ---
*Physical Exam - Vital Signs Last Vital Signs Temp Pulse Resp BP Pulse Ox 98.5 F 97 H 20 111/68 99 10/24/17 19:58 10/24/17 19:58 10/24/17 19:58 10/24/17 19:58 10/24/17 19:58 Medical Decision Making - Medical Decision Making 10/24/17 23:01 agree with care from MYNOR García *DC/Admit/Observation/Transfer Diagnosis at time of Disposition: Abdominal pain - Referrals Referrals: Yuliana Addison MD [Primary Care Provider] - - Patient Instructions - Post Discharge Activity
[2017-10-24 23:22] LABS: HEMOGLOBIN 10.7 GM/dL (11.7-16.9); MCH 25.2 pg (25.7-33.7); MEAN CELL VOLUME 77.8 fl (80-96); MEAN PLT VOLUME 8.4 fl (7.5-11.1)
[2017-10-24 23:27] LABS: BASO % 0.7 % (0-2.0); EOS % 2.2 % (0-4.5); HEMATOCRIT 32.9 % (35.4-49); LYMPH % 40.5 % (8-40); MCHC 32.4 g/dl (32.0-35.9); MONO % 6.2 % (3.8-10.2); NEUT % 50.4 % (42.8-82.8); PLATELET COUNT 779 K/MM3 (134-434); RBC 4.23 M/mm3 (4.00-5.60); RDW 21.8 % (11.9-15.9); WHITE BLOOD COUNT 8.4 K/mm3 (4.0-10.0)
[2017-10-24 23:31] LABS: INR 2.24 (0.82-1.09); PROTHROMBIN TIME (PATIENT) 25.3 SEC (9.7-13.0)
[2017-10-24 23:42] LABS: ALBUMIN 2.5 g/dl (3.4-5.0); ALK PHOS 79 U/L (45-117); ANION GAP 4 (8-16); BILIRUBIN,TOTAL 0.3 mg/dL (0.2-1.0); BLOOD UREA NITROGEN 14 mg/dL (7-18); CALCIUM 9.1 mg/dL (8.5-10.1); CHLORIDE 102 mmol/L (98-107); CO2 31 mmol/L (21-32); CREATININE 0.6 mg/dL (0.7-1.3); GLUCOSE,RANDOM 86 mg/dL (74-106); POTASSIUM 4.7 mmol/L (3.5-5.1); SGOT/AST 9 U/L (15-37); SGPT/ALT 10 U/L (12-78); SODIUM 137 mmol/L (136-145); TOT PROT 6.8 g/dl (6.4-8.2)
[2017-10-25] MEDS ORDERED: morphine CARPU-JECT 4 MG/1 ML DISP.SYRIN IVPUSH ONE (00:17)
[2017-10-25] MEDS ORDERED: morphine SULFATE 4 MG/ML VIAL ONE ×2 (00:21→06:16)
[2017-10-25 00:47] LABS: URINE APPEARANCE CLEAR; URINE BILIRUBIN NEGATIVE (<2.0 mg/dL); URINE COLOR AMBER; URINE GLUCOSE (UA) NEGATIVE (NEGATIVE); URINE KETONE 1+ (NEGATIVE); URINE LEUK ESTERASE NEGATIVE (NEGATIVE); URINE NITRITE NEGATIVE (NEGATIVE); URINE UROBILINOGEN 4.0 E.U/dl mg/dL (0.2-1.0)
[2017-10-25 00:51] LABS: URINE PROTEIN 1+ (NEGATIVE)
[2017-10-25 01:02] LABS: URINE BACTERIA RARE /hpf (NONE SEEN); URINE MUCUS MANY
[2017-10-25] MEDS ORDERED: HYDROCORTISONE ACETATE 25 MG/SUPP.RECT PR ONE (01:38)
[2017-10-25] MEDS ORDERED: SODIUM CHLORIDE 1,000 ML IV STA (01:38)
[2017-10-25] MEDS ORDERED: PHENYLEPHRINE 0.25%/STARCH 1 EACH SUPP.RECT RC ONE (02:02)
[2017-10-25 02:06] LABS: ANISOCYTOSIS 2+; PLATELET ESTIMATE INCREASED
--- NOTE | 2017-10-25 04:19 | HP ---
Admitting History and Physical - Primary Care Physician PCP: Arun Thorpe - Admission Chief Complaint: Generalzed Pain, dehydration, weight loss History of Present Illness: 47 y/o man significant history of 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 Who presents to the ED with generalized pain, dehydration, weight loss, rectal pain. Patient has had multiple admissions for same. Patient denies fever, chills, cough, SOB, CP, V/D, dysuria. 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), Other (Intestinal obstruction.) Heme/Onc: Yes: Anemia, Cancer (last chemo 2012) Infectious Disease: Yes: C-Diff Psych: Yes: Anxiety, Depression - Past Surgical History Past Surgical History: Yes: Appendectomy (2008), Colectomy (partial), Colonoscopy, Splenectomy (2008), Stent [facility]gastric ([facility] - Smoking History Smoking history: Never smoked Have you smoked in the past 12 months: No Aproximately how many cigarettes per day: 0 - Alcohol/Substance Use Hx Alcohol Use: No History of Substance Use: reports: None - Social History ADL: Independent History of Recent Travel: No Home Medications - Allergies Allergies/Adverse Reactions: Allergies Allergy/AdvReac Type Severity Reaction Status Date / Time No Known Allergies Allergy Verified 10/24/17 19:57 - Home Medications Home Medications: Ambulatory Orders HYDROmorphone [Dilaudid -] 4 mg PO Q4H PRN 09/01/17 FENTANYL 100mcg PATCH [DURAGESIC 100mcg PATCH -] 1 patch TD Q72H 09/23/17 Family Disease History - Family Disease History Family Disease History: CA: Father (COLON CA, ESRD), Other: Father, Mother ( ARTHRITIS, BACK SURGERY), Brother (3 BROTHERS- ALL HEALTHY), Daughter (HEALTHY) Review of Systems - Review of Systems Constitutional: reports: Loss of Appetite, Unintentional Wgt. Loss, Weakness Eyes: reports: No Symptoms HENT: reports: No Symptoms Neck: reports: No Symptoms Cardiovascular: reports: No Symptoms Respiratory: reports: No Symptoms Gastrointestinal: reports: Abdominal Pain, Constipation, Nausea Genitourinary: reports: No Symptoms Breasts: reports: No Symptoms Reported Musculoskeletal: reports: Back Pain, Extremity Pain, Muscle Pain Integumentary: reports: No Symptoms Neurological: reports: No Symptoms Endocrine: reports: Unexplained Weight Loss Hematology/Lymphatic: reports: No Symptoms Psychiatric: reports: No Symptoms Physical Examination Vital Signs: Vital Signs Temperature 98.5 F 10/24/17 19:58 Pulse Rate 97 H 10/24/17 19:58 Respiratory Rate 20 10/24/17 19:58 Blood Pressure 111/68 10/24/17 19:58 O2 Sat by Pulse Oximetry (%) 99 10/24/17 19:58 Constitutional: Yes: Cachectic, Pallor, Thin Eyes: Yes: WNL, Conjunctiva Clear, EOM Intact, PERRL HENT: Yes: WNL, Atraumatic, Normocephalic Neck: Yes: WNL, Supple, Trachea Midline Cardiovascular: Yes: WNL, Regular Rate and Rhythm, S1, S2 Respiratory: Yes: WNL, Regular, CTA Bilaterally Gastrointestinal: Yes: Normal Bowel Sounds, Soft, Hemorrhoids, Tenderness, Tenderness, Epigastrium ...Rectal Exam: Yes: Hemorrhoids/External Renal/: Yes: WNL Breast(s): Yes: WNL Musculoskeletal: Yes: Back Pain, Muscle Pain Labs: CBC, BMP 10/24/17 22:59 10/24/17 22:59 Problem List - Problems (1) Abdominal pain Code(s): R10.9 - UNSPECIFIED ABDOMINAL PAIN Qualifiers: Abdominal location: generalized Qualified Code(s): R10.84 - Generalized abdominal pain (2) Dehydration Code(s): E86.0 - DEHYDRATION (3) Pain, neoplasm-related Code(s): G89.3 - NEOPLASM RELATED PAIN (ACUTE) (CHRONIC) (4) Severe malnutrition Code(s): E43 - UNSPECIFIED SEVERE PROTEIN-CALORIE MALNUTRITION (5) Anemia Code(s): D64.9 - ANEMIA, UNSPECIFIED Qualifiers: (6) H/O splenectomy Code(s): Z90.81 - ACQUIRED ABSENCE OF SPLEEN (7) History of DVT of lower extremity Code(s): Z86.718 - PERSONAL HISTORY OF OTHER VENOUS THROMBOSIS AND EMBOLISM (8) 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 - SECONDARY MALIGNANT NEOPLASM OF RETROPERITON AND PERITONEUM (9) Malnutrition Code(s): E46 - UNSPECIFIED PROTEIN-CALORIE MALNUTRITION Qualifiers: Protein-calorie malnutrition severity: severe Assessment/Plan 47 y/o man PMHx 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 Placed in Observation for Intractable Pain secondary to Cancer, Dehydration, Unintentional Weight Loss. Plan Will place in Observation Continue IVF Monitor CBC, BMP Appreciate Oncology consult Appreciate RD consult- malnutrition Appreciate Palliative consult- ?Hospice Social Work-for placement Pain Mgmt- Morphine Sulfate prn Series INR Continue home meds FEN- D51/2NS@42ml/hr, Replete lytes prn, Regular Diet as tolerated DVT ppx- OOB, Continue Warfarin Dispo: Observation Visit type - Emergency Visit Emergency Visit: Yes ED Registration Date: 10/24/17 Care time: The patient presented to the Emergency Department on the above date and was hospitalized for further evaluation of their emergent condition. - New Patient This patient is new to me today: Yes Date on this admission: 10/25/17 - Critical Care Critical Care patient: No Hospitalist Screening - Colonoscopy Questionnaire Colonoscopy Questionnaire: Colonoscopy Questionnaire - Patient: 50 - 75 years old and never had a screening colonoscopy: No History of colon or rectal polyps, or CA: Yes History of IBD, Crohn's disease or UC: No History of abdominal radiation therapy as a child: No - Relative: 1 with colon or rectal CA, or polyps at age 60 or younger: No Colon or rectal CA diagnosed at age 45 or younger: No Multiple relatives with colon or rectal CA: No - Outcome: Screening Result: Positive Screen
[2017-10-25] MEDS ORDERED: ONDANSETRON 4 MG/2 ML VIAL IVPUSH PRN (05:42)
[2017-10-25] MEDS ORDERED: fentaNYL 100mcg/hr PATCH.TD72 TD SCH ×3 (06:00→10:00)
[2017-10-25] MEDS: morphine SULFATE 4 MG/ML VIAL IVPUSH PRN ×4 (06:22→20:28)
[2017-10-25 06:49] LABS: BASO % 0.7 % (0-2.0); EOS % 0.9 % (0-4.5); HEMATOCRIT 29.6 % (35.4-49); HEMOGLOBIN 9.6 GM/dL (11.7-16.9); LYMPH % 48.9 % (8-40); MCH 25.4 pg (25.7-33.7); MCHC 32.5 g/dl (32.0-35.9); MEAN PLT VOLUME 8.3 fl (7.5-11.1); MONO % 4.3 % (3.8-10.2); NEUT % 45.2 % (42.8-82.8); PLATELET COUNT 714 K/MM3 (134-434); RDW 22.6 % (11.9-15.9); WHITE BLOOD COUNT 9.9 K/mm3 (4.0-10.0)
[2017-10-25] MEDS ORDERED: SUCRALFATE 1 GM TABLET (FP) ONE (06:54)
[2017-10-25] MEDS ORDERED: FENTANYL PATCH WASTE TD PRN (07:00)
[2017-10-25] MEDS ORDERED: SUCRALFATE 1 GM/10 ML UNIT DOSE CUPS PO SCH (07:00)
[2017-10-25] MEDS: SUCRALFATE 1 GM TABLET (FP) PO SCH ×4 (07:02→21:27)
[2017-10-25 07:26] LABS: CHLORIDE 102 mmol/L (98-107); POTASSIUM 4.1 mmol/L (3.5-5.1); SODIUM 140 mmol/L (136-145)
[2017-10-25 07:31] LABS: ANION GAP 8 (8-16); BLOOD UREA NITROGEN 11 mg/dL (7-18); CALCIUM 8.6 mg/dL (8.5-10.1); CO2 30 mmol/L (21-32); CREATININE 0.5 mg/dL (0.7-1.3); GLUCOSE,RANDOM 99 mg/dL (74-106)
[2017-10-25 08:42] LABS: INR 2.12 (0.82-1.09); PROTHROMBIN TIME (PATIENT) 23.9 SEC (9.7-13.0)
[2017-10-25] MEDS: MULTIVITAMINS (DAILY MVI) TABLET (FP) PO SCH (09:49)
[2017-10-25 10:47] LABS: ANISOCYTOSIS 2+; MACROCYTOSIS 0; PLATELET ESTIMATE INCREASED; TARGET CELLS 1+
--- NOTE | 2017-10-25 12:26 | PN ---
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 Chief Complaint: Pseudomyxoma peritonei - Current Medication List Current Medications: Active Medications Fentanyl (Duragesic 100mcg Patch -) 1 patch TD Q72H [facility] Last Admin: 10/25/17 09:53 Dose: 1 patch Miscellaneous (Duragesic Patch Waste) 1 each TD PRN PRN PRN Reason: PATCH REMOVAL Last Admin: 10/25/17 10:02 Dose: 1 each Morphine Sulfate (Morphine Sulfate) 4 mg IVPUSH Q6H PRN PRN Reason: PAIN LEVEL 7 - 10 Last Admin: 10/25/17 12:15 Dose: 4 mg Multivitamins/Minerals/Vitamin C (Tab-A-Vit -) 1 tab PO DAILY [facility] Last Admin: 10/25/17 09:49 Dose: 1 tab Ondansetron HCl (Zofran Injection) 4 mg IVPUSH Q6H PRN PRN Reason: NAUSEA Last Admin: 10/25/17 05:54 Dose: 4 mg Sucralfate (Carafate -) 1 gm PO ACHS [facility] Last Admin: 10/25/17 12:15 Dose: 1 gm Warfarin Sodium (Coumadin -) 3 mg PO DAILY@1800 [facility] - Objective Vital Signs: Vital Signs Temperature 98.0 F 10/25/17 07:51 Pulse Rate 94 H 10/25/17 07:51 Respiratory Rate 16 10/25/17 07:51 Blood Pressure 112/60 10/25/17 07:51 O2 Sat by Pulse Oximetry (%) 98 10/25/17 07:51 Constitutional: Yes: Well Nourished, No Distress, Calm Cardiovascular: Yes: Regular Rate and Rhythm Respiratory: Yes: Regular Gastrointestinal: Yes: Normal Bowel Sounds, Soft Labs: CBC, BMP 10/25/17 06:29 10/25/17 06:29 INR, PTT INR 2.12 (0.82-1.09) H 10/25/17 06:29
--- NOTE | 2017-10-25 13:07 | EKG ---
Test Reason : Blood Pressure : / mmHG Vent. Rate : 088 BPM Atrial Rate : 088 BPM P-R Int : 156 ms QRS Dur : 084 ms QT Int : 358 ms P-R-T Axes : 073 072 061 degrees QTc Int : 433 ms NORMAL SINUS RHYTHM NORMAL ECG WHEN COMPARED WITH ECG OF 28-SEP-2017 02:09, NO SIGNIFICANT CHANGE WAS FOUND Confirmed by JADON JIN MD ([id number]) on 10/25/2017 1:06:53 PM Referred By: Confirmed By:JADON JIN MD
[2017-10-25] MEDS: MEGESTROL ACETATE 400 MG/10 ML UNIT DOSE CUP PO SCH (17:42)
[2017-10-25] MEDS ORDERED: WARFARIN NA 3 MG TABLET PO SCH (18:00)
[2017-10-25] MEDS ORDERED: LORazepam 2 MG/ML SDV VIAL IVPUSH ONE (20:30)
[2017-10-26] MEDS: morphine SULFATE 4 MG/ML VIAL IVPUSH PRN ×3 (02:16→10:48)
[2017-10-26] MEDS: SUCRALFATE 1 GM TABLET (FP) PO SCH ×2 (06:32→10:48)
[2017-10-26 08:21] LABS: INR 1.75 (0.82-1.09); PROTHROMBIN TIME (PATIENT) 19.8 SEC (9.7-13.0)
[2017-10-26 10:01] VITALS: BP 102/65; PULSE 80; TEMP 98.3
--- NOTE | 2017-10-26 10:01 | DS ---
Physical Examination Vital Signs: Vital Signs Temperature 98.1 F 10/26/17 06:00 Pulse Rate 88 10/26/17 06:00 Respiratory Rate 20 10/26/17 06:00 Blood Pressure 102/70 10/26/17 06:00 O2 Sat by Pulse Oximetry (%) 98 10/26/17 05:21 Constitutional: Yes: Mild Distress Cardiovascular: Yes: WNL Respiratory: Yes: WNL Gastrointestinal: Yes: Other Musculoskeletal: Yes: Muscle Weakness Wound/Incision: Yes: Dressing Dry and Intact Neurological: Yes: Pre-Existing Deficit Labs: CBC, BMP 10/25/17 06:29 10/25/17 06:29 Discharge Summary Reason For Visit: WEIGHT LOSS,ABDOMINAL PAIN,DEHYDRATION Current Active Problems Abdominal pain (Acute) Dehydration (Acute) Pain, neoplasm-related (Acute) Severe malnutrition (Acute) Procedures: Principal: CT ABDOMEN Hospital Course: CT ABD SHOWS EXTENSIVE METASTATIC NEOPLASM. PATIENT ON COMFORT MEASURES AND BEING TRANSFERRED TO [facility] PER HIS WISHES - Instructions Diet, Activity, Other Instructions: TOLERATED Referrals: Yuliana Addison MD [Primary Care Provider] - Disposition: TRANSFER ACUTE CARE/OTHER HOSP - Home Medications Comprehensive Discharge Medication List: Ambulatory Orders HYDROmorphone [Dilaudid -] 4 mg PO Q4H PRN 09/01/17 FENTANYL 100mcg PATCH [DURAGESIC 100mcg PATCH -] 1 patch TD Q72H 09/23/17 Megestrol Acetate Oral Susp [Megace Oral Suspension -] 400 mg PO DAILY cup Multivitamins [Multivit ([facility] Formulary)] 1 tab PO DAILY tab 10/26/17 Ondansetron Injection [Zofran Injection] 4 mg IVPUSH Q6H PRN vial 10/26/17 Sucralfate Oral Suspension [Carafate Oral Suspension -] 1 gm PO ACHS ml Warfarin Na [Coumadin -] 3 mg PO DAILY@1800 tablet 10/26/17
[2017-10-26] MEDS: MULTIVITAMINS (DAILY MVI) TABLET (FP) PO SCH (10:02)
[2017-10-26] MEDS ORDERED: LORazepam 2 MG/ML SDV VIAL IVPB ONE (12:45)
[2017-10-26] MEDS: MEGESTROL ACETATE 400 MG/10 ML UNIT DOSE CUP PO SCH (13:26)
== END 2017-10-26 14:04 | disposition hospice, inpatient (51) ==
LOC: JER 19:43 → JERBED 10-25 03:53 → J5S 10-25 08:39
PROVIDERS: ADMIT Internal Medicine; ATTEND Family Medicine
PROC: 3E033NZ Introduction of Analgesics, Hypnotics, Sedatives into Peripheral Vein, Percutaneous Approach (ICD-10-PCS; principal; 2017-10-25)
PROC: 3E0337Z Introduction of Electrolytic and Water Balance Substance into Peripheral Vein, Percutaneous Approach (ICD-10-PCS; 2017-10-25)
PROC: 3E033GC Introduction of Other Therapeutic Substance into Peripheral Vein, Percutaneous Approach (ICD-10-PCS; 2017-10-25)
DX: R10.9 Unspecified abdominal pain (principal); E43 Unspecified severe protein-calorie malnutrition; Z68.1 Body mass index [BMI] 19.9 or less, adult; E86.0 Dehydration; R10.84 Generalized abdominal pain; G89.3 Neoplasm related pain (acute) (chronic); D64.9 Anemia, unspecified; C79.89 Secondary malignant neoplasm of other specified sites
CPT/HCPCS: 36415; 71045-TC-FY; 74177-TC; 80048; 80053; 81003; 81015; 85025; 85610; 86850; 86900; 86901; 93005; 93010; 96361; 96374; 96375; 96376; 99285-25; G0378; J7030